=== PATIENT | female | born 1965 | race Caucasian/White ===

== ENCOUNTER 2020-02-05 11:30 | Outpatient (RCR) | payer OTHER, SELFPAY ==
--- NOTE | 2020-01-11 11:21 | HP.PTEVAL ---
Patient's Visit Information EWA LIZ is a 54 year old F referred to Physical Therapy by ALEXANDRE MORRIS with a diagnosis of CERVICAL, THORACIC AND LUMBAR STRAINS SUSTAINED AT WORK. Date of Evaluation: 01/11/20 Physical Therapist: Bhakti Hernandez PT, Cert MDT - Visit Plan Frequency: 3x /Week Duration: 4 Weeks Plan: AQUATIC THERAPY FOR PAIN RELEIF, POSTURE CORRECTION/STRENGTHENING, INSTRUCTION IN APPROPRIATE BODY MECHANICS AND ACTIVITY MODIFICATIONS. DLS STARTING WITH A NEUTRAL SPINE PROGRESSING ROM TOLERATED. LUDY UE AND LE ROM, STRETCHING AND STRENGTHENING. HEP INSTRUCTION. 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 [employer]. OFF WORK UNTIL NOW. GOING BACK TOMORROW FOR 8 HOURS VS NORMAL 12 HOURS. LIGHT DUTY. Present symptoms: NECK PAIN, LUDY SHOULDER PAIN AND HEADACHES. LEFT LBP, RIGHT BUTTOCK SPASMS AND SHARP PAIN GOING DOWN TO RIGHT KNEE. NO LLE SX'S. MID BACK PAIN AND LUDY RIB CAGE PAIN. Present since: DEC 25 2019. Pain Scale: WORST 6/10, LEAST 2/10. Currently: 02/15. Commenced as a result of: PATIENT REPORTS SHE GOT CAUGHT IN A HEAVY FIRE DOOR AT WORK - IT JOLTED ME AND TWISTED MY BACK. Symptoms at onset: LUDY SHLD PAIN. Worse: SITTING, PROLONGED LYING, PROLONGED WALKING, TRYING TO LOOK AT THE COMPUTER, LIFTING, ANYTHING REPETATIVE, WASHING AND COMBING HAIR, PUTTING ON BRA, TRYING TO VACUUM, WASHING DISHES, COOKING, PROLONGED DRIVING > 20 MIN, TURNING HEAD. Better: HOT TUB, ICE, TYLONOL, FLEXERIL, CHANGE OF POSITION. Disturbed sleep: YES. Previous history/Previous treatment: PATIENT DENIES ANY PRIOR HISTORY OR TREATMENT OF NECK OR BACK. Coughing/sneezing/straining: NEGATIVE. Gait: NORMAL FOR PATIENT BUT DISTANCE LIMITED. Difficulty initiating urinatin: NO. Dizziness: NO. Tinnitis: NO. Nausea: N0. Shortness of Breath: YES - PATIENT TO INFORM HER DOCTOR. Difficulty Swollowing: NO. Accidents: NO. Unexplained weight loss: NO. Imaging: X-RAYS IN ED - PATIENT ISN'T SURE WHAT ALL X-RAYS THEY DID - THEY DIDN'T SEEN ANYTHING EXCEPT ARTHRITIS. PMH: *RA*, MACULAR DEGENERATION. Recent major surgery: 2013 - HYSTERECTOMY - OFF WORK FOR 9 MONTHS DUE TO MASSIVE INFECTION. - Objective Sitting/Standing Posture: POOR. FH, RS, NO TORTICOLLIS. Lordosis: REDUCED. Lateral shift: NO. Relevant shift: N/A. Active Correction of posture: NE. Other Observations: INDEP GAIT INTO PT LIMPING ON THE RIGHT LE. PATIEN REPORTS LIMPING ON RIGHT LE DUE TO RA AND HIP PAIN EVEN BEFORE THE ACCIDENT AT WORK. UNABLE TO TRANSFER SIT TO STAND WITHOUT UE ASSIST. Motor deficit: LUDY UE AND LE STRENGTH 5/5 WITH MMT'ING EXCEPT RIGHT HIP 4-/5, LEFT HIP 4/5 AND LUDY SHLD'S 4/5. Sensory deficit: LUDY UE AND LE LIGHT TOUCH SENSATION INTACT AND SYMMETRICAL. ROM deficit: LUDY UE AND LE ROM WFL BUT GUARDED AND SLOW WITH TESTING AT THE END OF THE AVAILBLE RANGE LUDY SHLD'S. TIGHT LUDY HS'S AND GASTROC SOLEUS COMPLEX'S. TIGHT RIGHT HIP IR AND ER BY APPROX 50% COMPARED TO THE LEFT. Dural Signs: POSITIVE RIGHT LE. Lumbar mvmt loss: flex - MOD. ext - PAULA. R SG - MOD. L SG - MIN. MILD RIGHT RIB CAGE AREA PAIN WITH BACK ROM TESTING. THORACIC MVMT LOSS: RIGHT ROT - MOD. LEFT ROT - MIN. RILD RIGHT RIB CAGE PAIN WITH ROTATION TESTING TOO. Cervical Mvmt Loss: Flex: NIL. Pro: NIL. Ext: MOD. Ret: MOD. RSB: NIL. LSB: NIL. R Rot: MOD. L Rot: MOD. C/O PULLIING PAIN IN NECK WITH LUDY CERV ROTATION TESTING. Postural strength: POOR. Core strength: POOR. Palpation: NO ACUTE TENDERNESS WITH PALPATION OF SPINE, SHLD'S OR HIPS EXCEPT LOWER CERVICAL SPINE REGION. - Goals Goal 1:: DECREASE C/O NECK, SHLD, BACK AND RIGHT LE SX'S. Goal Time Frame: 4-6 Weeks Goal 2:: IMPROVE PERSONAL CARE, READING, DRIVING, LIFTING, WALKING, SITTING, STANDING, SLEEP, SOCIAL LIFE/RECREATIONAL, TRAVEL, HOMEMAKING AND WORK FUNCTION Goal Time Frame: 4-6 Weeks Goal 3:: INSTRUCT IN PROPHYLAXIS Goal Time Frame: 4-6 Weeks - Rehabilitation Potential Rehabilitation Potential: Good - Anticipated Interventions Patient/Client Instruction: Educate patient on: Condition, Plan of Care, Risk Factors, Benefits of Fitness Program For the Purpose of:: To improve self management Therapeutic Exercise to Include: Strength training, Body mechanics, Postural training, Gait and locomotor training, Neuromotor development, In an aquatic setting, Dynamic Lumbar Stabilization, Scapular Strength/Stabilization For the Purpose of:: To decrease pain, To increase ROM, To improve muscle performance and motor function, To increase tolerance to activity/condition/position, To improve ability of physical actions for home/community/work/leisure, To improve gait and locomotor functions Thank you for the opportunity to evaluate your patient. For Medicare and Medicare HMO plans, please review the plan of care and approve it. It will need to be FAXED BACK to us at [phone] for Medicare purposes. For Medicare only, by signing this I certify the plan of care. Please let me know if there are questions or concerns regarding this plan of care. Physician Signature: Date:
--- NOTE | 2020-03-10 11:35 | HP.PT.NRP ---
EWA LIZ was seen in my office for initial evaluation on 01/11/20. The following Plan of Care was established for this patient: Initial Frequency: 3x /Week Initial Duration: 4 Weeks Patient/Client Instruction: Educate patient on: Condition, Plan of Care, Risk Factors, Benefits of Fitness Program For the Purpose of:: To improve self management Therapeutic Exercise to Include: Strength training, Body mechanics, Postural training, Gait and locomotor training, Neuromotor development, In an aquatic setting, Dynamic Lumbar Stabilization, Scapular Strength/Stabilization For the Purpose of:: To decrease pain, To increase ROM, To improve muscle performance and motor function, To increase tolerance to activity/condition/position, To improve ability of physical actions for home/community/work/leisure, To improve gait and locomotor functions This patient was last seen in our office 02/05/20. Pertinent comments regarding their Physical therapy will appear below: This patient has not returned to Physical Therapy and is appropriate to return to MD for further follow-up as needed. At this point I will be discontinuing this patient from physical therapy. I would be happy to see this patient again in the future if found appropriate by the physician. Thank you! Bhakti Hernandez, PT, Cert MDT
== END 2020-02-05 19:00 | disposition home or self-care (01) ==
LOC: PT 11:30
PROVIDERS: PCP Internal Medicine
DX: S29.012D Strain of muscle and tendon of back wall of thorax, subsequent encounter (principal); S39.012D Strain of muscle, fascia and tendon of lower back, subsequent encounter; S16.1XXD Strain of muscle, fascia and tendon at neck level, subsequent encounter
CPT/HCPCS: 97014; 97110; 97113; 97162; 97163; G0283

== ENCOUNTER → 2021-01-17 | Outpatient (CLI) | payer OTHER, SELFPAY | END | disposition home or self-care (01) | PROVIDERS: Visit Provider Internal Medicine | DX: Z20.822 Contact with and (suspected) exposure to COVID-19 (principal) | CPT/HCPCS: 87635; U0002 ==

== ENCOUNTER 2022-05-14 14:27 | Emergency (ER) | payer OTHER, SELFPAY ==
[2022-05-14 14:28] VITALS: BP 159/96; PULSE 118; RESP 16; TEMP 36.8; O2SAT 96; BMI 39.1
--- NOTE | 2022-05-14 15:04 | VDLE_ITS ---
Reason For Study: Swelling Procedure LEFT This is a venous duplex using B-mode, color GSV is normal. flow and spectral Doppler. CFV is compressible, spontaneous, phasic, Exam performed portable in ED. competent, and demonstrates normal A preliminary report was called and/or faxed augmentation. to [facility]. FV is compressible, spontaneous, phasic, competent and demonstrates normal augmentation. POP V is compressible, spontaneous, phasic, competent and demonstrates normal augmentation. T/P Trunk is compressible. PTV is compressible. LT PerV is compressible. VL/Venous Duplex US, Unilateral Interpretation Summary There is no evidence of left lower extremity deep vein thrombosis. Left great s aphenous vein appears patent and compressible segmentally. Ordering Physician: Kingston Foley Performed By: Katherin Eid RVT
--- NOTE | 2022-05-14 15:04 | EX.ED.DYSGE1 ---
HPI History of Present Illness Chief Complaint: Lower Extremity Injury Informant: patient Narrative Narrative: Very pleasant 57-year-old female arriving to the emergency room out of concern for DVT of the left leg. 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 She noticed some discomfort in her left calf with walking and some more swelling in the leg than is normal. Therefore she comes to the emergency department for evaluation. No chest pain or shortness of breath. She notes she had a very minor stroke in the past. [facility] Medical History (Updated 05/14/22 @ 15:[address] Kingston Foley DO) Hypertension Macular degeneration Rheumatoid arthritis TIA Home Medications aspirin 81 mg tablet,delayed release 81 mg PO QHS 11/21/13 [History Last Taken 12/31/16] vitamins A,C,K-iqqe-rbpgvd 14,320 unit-226 mg-200 unit capsule (PreserVision AREDS) 1 ea PO DAILY 11/21/13 [History Last Taken 12/31/16] hydrochlorothiazide 12.5 mg capsule 12.5 mg PO DAILY 12/11/13 [History Last Taken 12/31/16] diazepam 5 mg tablet 5 mg PO 4X/DAY PRN PRN Spasms ##30 02/13/14 [Rx Last Taken 03/27/14] metoprolol tartrate 25 mg tablet 12.5 mg PO DAILY 05/24/16 [History Last Taken 12/31/16] acetaminophen 325 mg tablet (Tylenol) 650 mg PO Q6H PRN PRN Mild Pain (scale 0-3)/T>100.7 ##0 01/02/17 [Rx Last Taken Unknown] bevacizumab 25 mg/mL intravenous solution (Avastin) mg 05/14/22 [History Last Taken Unknown] prednisone 2.5 mg tablet 2.5 mg PO BID 05/14/22 [History Last Taken Unknown] Allergy/AdvReac Type Severity Reaction Status Date / Time morphine Allergy Severe CAN NOT Verified 05/14/22 14:30 BREATHE Sulfa (Sulfonamide Allergy Intermediate Hives Verified 05/14/22 14:30 Antibiotics) TAPE Allergy Hives Uncoded 05/14/22 14:30 Social History (Updated 05/14/22 @ 15:[address] [place] Foley DO) current gender identity: female Smoking Status: Former smoker substance use type: does not use ROS ROS ED Constitutional Constitutional ED: Denies chills or weight loss Eyes Eyes: Denies change in vision or diplopia ENT ENT ED: Denies ear pain, rhinorrhea or sore throat Cardiovascular Cardiovascular: Denies chest pain, orthopnea, palpitations or racing heartbeat Respiratory/Chest Respiratory/Chest: Denies cough, dyspnea or orthopnea Gastrointestinal Gastrointestinal: Denies abdominal pain, diarrhea, nausea or vomiting Genitourinary Genitourinary ED: Denies dysuria, hematuria or urinary frequency Musculoskeletal Musculoskeletal: Reports other Details: See history of present illness ; Denies arthralgias or myalgias Integumentary Denies abscess or rash Neurologic Neurologic: Denies headache(s) or weakness Psychiatric Psychiatric: Denies anxiety, depression, suicidal ideation or suicidal thoughts Endocrine Endocrinology: Denies polydipsia, polyphagia or polyuria Allergic/Immunologic Allergic/Immunologic ED: Denies mouth swelling, tongue swelling or urticaria EXAM Physical Exam Const Vital Signs: 05/14/22 14:28 Temperature 98.2 F Temperature Source Temporal Pulse Rate 118 H Respiratory Rate 16 Blood Pressure 159/96 H Blood Pressure Mean 117 Pulse Ox 96 Oxygen Delivery Method Room Air Positive well nourished and well developed General Appearance ED: well developed HEENT Reports normocephalic, head/scalp atraumatic and moist mucous membranes Eyes PERRL and EOMs intact bilaterally Neck no lymphadenopathy, supple and no JVD Resp normal respiratory effort and clear to auscultation bilaterally Cardio regular rate, regular rhythm and no murmurs GI normal to inspection, nondistended, normoactive bowel sounds and non-tender Palpation: soft Back/Spine no CVA tenderness and normal ROM Extremity Extremity Narrative: There varicose veins bilaterally. The left calf is mildly tender to palpation. There is no palpable cords. There is mild swelling when compared to the right. General Extremety ED: Yes edema General Extremity: edema Neuro oriented x3 and CN's II-XII intact bilaterally Sensorium / Orientation: alert Motor Exam: strength 5/5 throughout Psych mental status grossly normal Mood & Affect: Negative for depressed or tearful Skin no rashes or lesions noted and no wounds MDM MDM MDM Narrative Medical decision making narrative: Duplex ultrasound was negative for DVT. Patient was given reassurance for follow-up as needed Discharge Plan Triage Chief Complaint: Lower Extremity Injury ED Provider: Crandon,Kingston Dx/Rx/DC Orders Clinical Impression: Pain of left calf, Left leg swelling Instructions: ED Peripheral Edema, Unilateral Prescriptions: No Action aspirin 81 MG tablet 81 mg PO QHS Label Comments: prevent heart attack/stroke PreserVision AREDS 1 EACH capsule 1 ea PO DAILY Label Comments: supplement hydrochlorothiazide 12.5 MG capsule 12.5 mg PO DAILY Label Comments: BLOOD PRESSURE diazepam 5 MG tablet 5 mg PO 4X/DAY PRN PRN (Reason: Spasms) Qty: 30 0RF Label Comments: RELAXANT metoprolol tartrate 25 MG tablet 12.5 mg PO DAILY acetaminophen [Tylenol] 325 MG tablet 650 mg PO Q6H PRN PRN (Reason: Mild Pain (scale 0-3)/T>100.7) Qty: 0 0RF prednisone 2.5 mg Tablet 2.5 mg PO BID Avastin 25 mg/mL Solution Activity Restrictions/Additional Instructions: Follow-up with your doctors as scheduled. Return if worsening or concerns Disposition Disposition: Home, Self Care
== END 2022-05-14 15:46 | disposition home or self-care (01) ==
LOC: ED 15:46
PROVIDERS: Emergency Provider Emergency Medicine; PCP Internal Medicine; Visit Provider Emergency Medicine
DX: M79.662 Pain in left lower leg (principal); M79.89 Other specified soft tissue disorders; I10 Essential (primary) hypertension; Z79.84 Long term (current) use of oral hypoglycemic drugs; Z79.899 Other long term (current) drug therapy; Z86.73 Personal history of transient ischemic attack (TIA), and cerebral infarction without residual deficits; Z87.891 Personal history of nicotine dependence
CPT/HCPCS: 93971; 99282

== ENCOUNTER 2023-12-23 07:00 | Inpatient (IN) | payer OTHER, SELFPAY ==
[2023-12-23] VITALS (7 sets, daily range): BP systolic 107–184; BP diastolic 57–90; PULSE 73–106; RESP 16–18; TEMP 36.4–36.8; O2SAT 91–99; BMI 44.0; BMI 42.7
--- NOTE | 2023-12-23 07:03 | RAD_ITS ---
STUDY: X-RAY CHEST REASON FOR EXAM: Female, 58 years old. Preop clearance TECHNIQUE: Single AP portable view of the chest. COMPARISON: Comparison is made with prior study dated August 02, 2017. FINDINGS: The lungs are clear and expanded. There is no demonstrated pleural abnormality. Normal size heart. Normal mediastinum and sepideh. Normal visualized pulmonary arteries. There is atherosclerotic tortuosity of the aortic arch and descending thoracic aorta. There are diffuse degenerative changes of the visualized thoracic spine. Normal visualized ribs, clavicles, and shoulders. There is no demonstrated abnormality of the visualized soft tissue structures of the upper abdomen. RAD/Chest 1 View (Portable) IMPRESSION: No acute abnormality is seen. Electronically Signed: Rico Scott MD at 8:19 EST ,
--- NOTE | 2023-12-23 07:04 | EKG12_ITS ---
Test Reason : FALL Blood Pressure : / mmHG Vent. Rate : 068 BPM Atrial Rate : 068 BPM P-R Int : 140 ms QRS Dur : 068 ms QT Int : 376 ms P-R-T Axes : 002 020 021 degrees QTc Int : 399 ms Normal sinus rhythm with sinus arrhythmia Normal ECG Confirmed by Anastacio Moreno ([id number]), online editor [facility] ([id number]) on 12/24/2023 9:28:15 AM Referred By: Confirmed By:Anastacio Moreno
--- NOTE | 2023-12-23 07:05 | RAD_ITS ---
STUDY: X-RAY - PELVIS AND LEFT HIP REASON FOR EXAM: Female, 58 years old. Injury/Pain TECHNIQUE: 3 views of the pelvis and hip. COMPARISON: None. FINDINGS: There is a non-specific bowel gas pattern. Normal visualized soft tissue structures. Normal bilateral iliac wings, sacroiliac joints and visualized sacrum. Normal bilateral superior and inferior pubic rami. Normal pubic symphysis. Normal bilateral ischial tuberosities. There is a comminuted left intertrochanteric fracture with a cephalic migration of the distal fracture fragment. Soft tissue swelling. RAD/HIP, UNI W/ Pelvis 2-3 Views IMPRESSION: Comminuted left intertrochanteric fracture with cephalic migration of the distal fracture fragment. Soft tissue swelling. Electronically Signed: Rico Scott MD at 8:20 EST ,
--- NOTE | 2023-12-23 07:28 | EX.ED.GENINJ ---
HPI History of Present Illness Chief Complaint: Fall Detail of Chief Complaint: Patient fell doing chores in the barn. She states she felt a crack, left h Informant: patient and EMS (Patient received fentanyl by squad because of anaphylactic reaction to morphine) Onset/Context/Timing Onset: Today and Hours Mechanism/Context: Blunt Injury and Fall (Same level) Location of pain/injuries: Left hip Quality of Pain: Dull and Aching Location: Left hip Current Severity: Moderate Maximum Severity: Severe Worsened by: Any movement Relieved by: Nothing Associated Symptoms Associated Symptoms: Positive for Loss of function and Inability to ambulate; Negative for Weakness, Loss of consciousness or Amnesia Narrative Narrative: Patient is a 58-year-old woman who is on baby aspirin. She is on no other antithrombotic and on no anticoagulant who presents after fall. She injured her left hip. She felt a crack. She was unable to move her left lower extremity because of the pain. She denies head trauma. Denies loss of conscious. She not amnestic. Denies neck pain. She denies chest pain or shortness of breath. Denies abdominal pain. Denies low back pain. Patient has a past medical history of hypertension. She has seen Dr. Mccormick in the past for knee problems and surgery. Patient is on prednisone for rheumatoid arthritis. Tetanus Immunization: Unknown Prior similar symptoms: No Recent Illness/Hospitalization: No PFSH PFSH Medical History Hypertension Macular degeneration Rheumatoid arthritis TIA Home Medications aspirin 81 mg tablet,delayed release 81 mg PO QHS 11/21/13 [History Last Taken 12/31/16] vitamins A,C,H-ufew-rmrogv 4,296 mcg-226 mg-90 mg capsule (PreserVision AREDS) 1 ea PO DAILY 11/21/13 [History Last Taken 12/31/16] hydrochlorothiazide 12.5 mg capsule 12.5 mg PO DAILY 12/11/13 [History Last Taken 12/31/16] diazepam 5 mg tablet 5 mg PO 4X/DAY PRN PRN Spasms ##30 02/13/14 [Rx Last Taken 03/27/14] metoprolol tartrate 25 mg tablet 12.5 mg PO DAILY 05/24/16 [History Last Taken 12/31/16] acetaminophen 325 mg tablet (Tylenol) 650 mg (2 x 325 mg) PO Q6H PRN PRN Mild Pain (scale 0-3)/T>100.7 ##0 01/02/17 [Rx Last Taken Unknown] bevacizumab 25 mg/mL intravenous solution (Avastin) mg 05/14/22 [History Last Taken Unknown] prednisone 2.5 mg tablet 2.5 mg PO BID 05/14/22 [History Last Taken Unknown] Allergy/AdvReac Type Severity Reaction Status Date / Time morphine Allergy Severe CAN NOT Verified 12/23/23 07:03 BREATHE Sulfa (Sulfonamide Allergy Intermediate Hives Verified 12/23/23 07:03 Antibiotics) adhesive tape [tape] Allergy Hives Verified 12/23/23 07:03 Social History Smoking Status: Former smoker substance use type: does not use ROS ROS ED Constitutional Constitutional ED: Denies chills, fever(s), subjective or sweats Eyes Eyes: Denies blurry vision or change in vision ENT ENT ED: Reports other Details: Denies dental trauma or epistaxis. ; Denies ear pain, rhinorrhea or sore throat Cardiovascular Cardiovascular: Denies chest pain or palpitations Respiratory/Chest Respiratory/Chest: Denies cough, dyspnea or dyspnea on exertion Gastrointestinal Gastrointestinal: Reports nausea; Denies abdominal pain, diarrhea or vomiting Genitourinary Genitourinary ED: Denies dysuria, hematuria or urinary frequency Musculoskeletal Musculoskeletal: Reports other Details: Left hip pain ; Denies arthralgias, back pain, myalgias or neck pain Integumentary Denies rash Neurologic Neurologic: Denies headache(s) or paresthesias Psychiatric Psychiatric: Denies anxiety or depression Endocrine Endocrinology: Denies cold intolerance or heat intolerance Hematologic/Lymphatic Hematologic/Lymphatic: Denies easy bleeding or easy bruising EXAM Physical Exam Const Vital Signs: 12/23/23 07:01 12/23/23 07:04 Temperature 97.6 F L Temperature Source Temporal Pulse Rate 73 Respiratory Rate 16 Respiratory Effort Normal Respiratory Depth Normal Respiratory Pattern Normal Blood Pressure 184/85 H Blood Pressure Mean 118 Pulse Ox 95 Oxygen Delivery Method Room Air Room Air Positive well nourished, well developed and obese Constitutional Narrative: Patient appears uncomfortable. She has significant discomfort when I removed her shoes to assess her feet. General Appearance ED: well developed; Negative for NAD Nutritional Appearance: obese HEENT Reports TM's clear atraumatic; Negative for tenderness Nose: Negative for septum abnormal Tympanic Membrane ED: Yes TM's clear Eyes PERRL and EOMs intact bilaterally General Eye ED: Yes other Other Details: There is no subconjunctival hemorrhage. Neck full ROM General: Negative for tenderness Chest Wall inspection of chest normal Resp normal respiratory effort and clear to auscultation bilaterally Cardio regular rhythm, S1 normal heart sound, S2 normal heart sound and no murmurs GI normal to inspection, nondistended, normoactive bowel sounds, non-tender, non-distended and no masses Back/Spine normal to inspection and no thoracic nor lumbar tenderness Extremity Extremity Narrative: Patient's left lower extremity is in flexed position. Attempt to straighten causes significant discomfort. There is also pain outpatient in the left inguinal area and left greater trochanteric region. DP pulses palpable. There is no pain ovation of the knee or ankle. Neuro oriented x3, CN's II-XII intact bilaterally, moves all extremities and no focal motor deficits [place] Coma Scale: document GCS findings Spontaneous Obeys Commands Oriented 15 Sensorium / Orientation: alert Psych mental status grossly normal and thought process normal Skin no rashes or lesions noted, no wounds, skin turgor normal and no jaundice MDM MDM MDM Narrative Medical decision making narrative: Patient's history and physical is consistent with a hip fracture. Will obtain images to determine if this is a femoral neck versus inotrope versus subtrochanteric because of patient's allergy she was medicated with fentanyl. Will need to determine what to treat her pain with since this has a short duration of action. Appropriate blood work was obtained for preoperative risk stratification and expedite clearance for surgery. Patient was typed and screened. History & Record Review Additional record(s) reviewed:: Prior inpatient record (Admitted December 2021 for respiratory failure due to COPD exacerbation.), Prior ED visit and Prior labs Lab Data Attestation: I reviewed the patient's lab results. Lab results narrative: CBC is unremarkable. Electrolyte panel is unremarkable. Labs: Laboratory Results - last 24 hr 12/23/23 07:30 WBC 10.0 RBC 4.97 Hgb 14.0 Hct 44.6 MCV 89.7 MCH 28.2 MCHC 31.4 L RDW Std Deviation 51.4 H RDW Coeff of Ame 15.7 H Plt Count 211 MPV 11.2 Immature Gran % (Auto) 1.100 H Neut % (Auto) 62.3 Lymph % (Auto) 27.0 [place] % (Auto) 7.5 Eos % (Auto) 1.6 Baso % (Auto) 0.5 Absolute Neuts (auto) 6.2 Absolute Lymphs (auto) 2.70 Nucleated RBC % 0 Radiography Chest X-Ray - ED: 1 View (Portable chest x-ray reveals no acute process. Cardiac silhouette size normal. Perihilar region normal. No into pneumothorax or hemothorax. There is no obvious fractured ribs.) and Read by ED Physician (Three-view x-ray of the left hip reveals a displaced left intertrochanteric fracture.) Rhythm Strip Rhythm Strip: Sinus Rhythm Rate: 73 Ectopy: None EKG Initial EKG: Attestation: I personally reviewed and interpreted this EKG as follows: Interpretation: Sinus Rhythm (Rate is 68. EKG is normal. TN interval is 140 ms. Cures duration 68 ms. QT durations are 76 ms. [place] is normal.) Management Discussion w/another healthcare provider: Hospitalist, Tractor Trailer Operator (Dr. Temple was made aware of the patient at 0800) and Pharmacist (Patient has anaphylactic reaction to morphine. Contacted pharmacy. Spoke to Smith. He did a search for meds that indicates she has not had any opiate in the past several years. He recommended small dose of Dilaudid to see if she has a reaction. Will discuss this with patient.) Treatment and Re-Evaluation Narrative: Records from although were called for to determine what pain medicine patient received after her knee surgery. Dr. Mccormick recalls that patient was treated with oxycodone and Valium. This was ordered. Discharge Plan Triage Chief Complaint: Fall ED Provider: Roberto Tam Dx/Rx/DC Orders Clinical Impression: Displaced intertrochanteric fracture of left femur, initial encounter for closed fracture, Elevated blood pressure reading with diagnosis of hypertension Prescriptions: No Action aspirin 81 MG tablet 81 mg PO QHS Patient Comments: prevent heart attack/stroke PreserVision AREDS 1 EACH capsule 1 ea PO DAILY Patient Comments: supplement hydrochlorothiazide 12.5 MG capsule 12.5 mg PO DAILY Patient Comments: BLOOD PRESSURE diazepam 5 MG tablet 5 mg PO 4X/DAY PRN PRN (Reason: Spasms) Qty: 30 0RF Patient Comments: RELAXANT metoprolol tartrate 25 MG tablet 12.5 mg PO DAILY acetaminophen [Tylenol] 325 MG tablet 650 mg PO Q6H PRN PRN (Reason: Mild Pain (scale 0-3)/T>100.7) Qty: 0 0RF prednisone 2.5 mg Tablet 2.5 mg PO BID Avastin 25 mg/mL Solution Primary Care Provider: Teresa Jain Referrals: Teresa Jain MD [Primary Care Provider] - Disposition Disposition: Acute Care Hospital [facility]
--- OUTSIDE RECORDS SUMMARY | 2023-12-23 07:32 | XMS RPT_ITS | CCD ---
Author Name Unknown Address [address] [place] [address] Organization [facility] Care Team Providers Care Supervisor [employer] Splitting Name Role Phone Unavailable Primary Care Provider UnavailConnie Bose MD Primary Care Provider Connie Jain MD Primary Care Provider Connie Jain MD Primary Care Provider MASON STANFORD, DR ROSALES Primary Care Physician [phone] SUZY ONEAL MD Attending Unavailable MASON STANFORD., DR. ROSALES Primary Care Unavailab Sienna STANFORD, SUZY Padron Attending Unavailable MASON STANFORD., DR. ROSALES Primary Care Unavailab Sienna STANFORD, SUZY Padron Attending Unavailable MASON STANFORD., DR. ROSALES Primary Care Candace El MD, SUZY Padron Admitting Unavailable HAMIDA MCINTOSH Consulting Unavailable SUZY ONEAL MD Referring Unavailable TALAMPAS, CONNIE Ceci Primary Care Unavailable TALAMPAS, CONNIE D Referring Unavailable TALAMPAS, CONNIE D Attending Unavailable BARRYAMPAS, CONNIE D Primary Care Unavailable JEREMI SALMERON Referring Unavailable TALAMPAS, CONNIE D Primary Care Unavailable JEREMI SALMERON Referring Unavailable SALMERONJEREMI Attending Unavailable TALAMPAS, CONNIE D Primary Care Unavailable SALMERONJEREMI Referring Unavailable SALMERON SHAILEY Referring Unavailable TALAMPAS, CONNIE D Primary Care Unavailable JARET SEYMOUR Attending Unavailable TALAMPAS, CONNIE D Primary Care Unavailable JARET SEYMOUR Referring Unavailable SALMERONJEREMI Referring Unavailable TALAMPAS, CONNIE D Primary Care Unavailable TALAMPAS, CONNIE D Primary Care Unavailable TALAMPAS, CONNIE D Referring Unavailable Allergies Allergy Classification Reported Allergen(s) Allergy Type Date of Onset Reaction(s) Facility (20 sources) Morphine; Translations: [morphine] Drug Allergy 7 Anaphylaxis, Food anaphylaxis (disorder) [facility] Work Phone: (1 source) Sulfonamides (Antibiotic) Propensity to adverse reactions to drug 0 [facility] Work Phone: (20 sources) Amoxicillin; Translations: [amoxicillin] Drug Allergy 5 GI Upset [facility] Work Phone: (20 sources) Sulfonamides (Antibiotic); Translations: [SULFA (SULFONAMIDE ANTIBIOTICS)] Propensity to adverse reactions 5 Anaphylaxis [facility] Work Phone: (2 sources) Adhesive Tape Allergy to substance Redness [facility] (2 sources) Sulfamethoxazole ; Translations: [sulfamethoxazol e] Drug Allergy Hives [facility] Medications Current Medications Medication Drug Class(es) Dates Sig (Normalized) Sig (Original) aspirin 81 mg delayed release oral tablet (20 sources) Platelet Aggregation Inhibitor, Nonsteroidal Anti-inflammatory Drug Start: 10-09-2022 aspirin 81 mg oral delayed release tablet Dose : 81 mg = 1 tab(s), Oral, qDay, 0 Refill(s) Start Date: 10/09/22 Status: Ordered Completed/Discontinued Medications Medication Drug Class(es) Dates Sig (Normalized) Sig (Original) 1 ml abatacept 125 mg/ml auto-injector (20 sources) Selective T Cell Costimulation Modulator Start: 03-03-2023 End: 04-08-2023 abatacept (ORENCIA CLICKJECT) 125 mg/mL Indications: Sero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 arthritis (HCC) Inject 1 pen (125mg) subcutaneously one time a week. 4 mL 11 04/08/2023 Active Problems Active Problems Problem Classification Problem Date Documented Date Episodic/Chronic Anxiety disorders (20 sources) Anxiety; Translations: [Anxiety disorder, unspecified] Onset: 12-14-2011 12-14-2011 Chronic Diabetes mellitus without complication (1 source) High hemoglobin A1c level; Translations: [Other abnormal glucose] Episodic Essential hypertension (20 sources) Benign essential hypertension; Translations: [Essential (primary) hypertension] Onset: 01-25-2014 01-25-2014 Chronic Menopausal disorders (1 source) Hyperhidrosis; Translations: [Menopausal and female climacteric states] Chronic Menstrual disorders (20 sources) Dysmenorrhea; Translations: [Dysmenorrhea, unspecified] 07-01-2006 Chronic Nutritional deficiencies (1 source) Vitamin D deficiency; Translations: [Vitamin D deficiency, unspecified] Chronic Osteoarthritis (5 sources) Osteoarthritis of right knee joint; Translations: [Unilateral primary osteoarthritis, right knee] Chronic Other aftercare (4 sources) Long-term current use of systemic steroid; Translations: [skilled nursing (current) use of systemic steroids] Episodic Other aftercare (1 source) Long-term current use of immunosuppressive drug; Translations: [Long-term use of immunosuppressant medication] Episodic Other aftercare (1 source) Other chcf (current) drug therapy; Translations: [Encounter for long-term (current) use of medications] Onset: 10-07-2023 Episodic Other aftercare (1 source) skilled nursing (current) use of systemic steroids; Translations: [leaflet or newspaper deliverer current use of systemic steroids] Onset: 10-07-2023 Episodic Other connective tissue disease (1 source) Spasm Episodic Other connective tissue disease (1 source) Trochanteric bursitis of left hip; Translations: [Trochanteric bursitis, left hip] Episodic Other nervous system disorders (1 source) Other chronic pain; Translations: [Chronic pain of left ankle] Onset: 07-15-2023 Chronic Other non-traumatic joint disorders (2 sources) Chronic ankle pain; Translations: [Pain in left ankle and joints of left foot] 07-14-2023 Episodic Other non-traumatic joint disorders (1 source) Pain in left ankle and joints of left foot; Translations: [Chronic pain of left ankle] Onset: 07-15-2023 Episodic Other nutritional; endocrine; and metabolic disorders (20 sources) Morbid obesity; Translations: [Morbid (severe) obesity due to excess calories] Onset: 01-14-2016 01-14-2016 Chronic Other screening for suspected conditions (not mental disorders or infectious disease) (2 sources) Plain X-ray result abnormal; Translations: [Abnormal findings on diagnostic imaging of other specified body structures] Onset: 04-16-2023 04-16-2023 Chronic Other screening for suspected conditions (not mental disorders or infectious disease) (4 sources) Patient encounter status; Translations: [Encounter for screening mammogram for malignant neoplasm of breast] Episodic Other upper respiratory disease (20 sources) Allergic rhinitis; Translations: [Allergic rhinitis, unspecified] 11-04-2019 Chronic Other upper respiratory disease (20 sources) Deviated nasal septum; Translations: [Deviated nasal septum] 07-01-2006 Episodic Residual codes; unclassified (20 sources) Periodic limb movement disorder; Translations: [Periodic limb movement disorder] Onset: 01-11-2016 01-11-2016 Chronic Residual codes; unclassified (1 source) Persistent insomnia; Translations: [Insomnia, unspecified] Episodic Retinal detachments; defects; vascular occlusion; and retinopathy (20 sources) Exudative age-related macular degeneration; Translations: [Exudative age-related macular degeneration, unspecified eye, stage unspecified] Onset: 01-11-2016 11-03-2021 Chronic Rheumatoid arthritis and related disease (20 sources) Rheumatoid arthritis of multiple joints; Translations: [Rheumatoid arthritis without rheumatoid factor, multiple sites] Onset: 11-04-2019 11-04-2019 Chronic Spondylosis; intervertebral disc disorders; other back problems (1 source) Sciatica Episodic Sprains and strains (1 source) Strain of neck muscle Episodic Unclassified (1 source) Long-term use of immunosuppressant medication; Translations: [Long-term use of immunosuppressant medication] Onset: 03-05-2023 Past or Other Problems Problem Classification Problem Date Documented Da te Episodic/Chronic Hemorrhoids (20 sources) External hemorrhoids; Translations: [Residual hemorrhoidal skin tags] Onset: 12-14-2011 12-14-2011 Episodic Other gastrointestinal disorders (20 sources) Adhesion of intestine; Translations: [Peritoneal adhesions (postprocedural) (postinfection)] Onset: 12-05-2013 12-05-2013 Episodic Residual codes; unclassified (20 sources) History of difficult intubation; Translations: [Other specified personal risk factors, not elsewhere classified] Onset: 01-14-2016 11-03-2021 Episodic Results Test Name Value Interpretation Reference Range Facil ity Vital Signs Date Time Vital Sign Value Performing Clinician Facility 10-07-2023 12:55-0500 Body height 168.1 cm Jaret Seymour LINE DRIVER.SUPERVISOR [employer] Work Phone: [facility] 10-07-2023 12:55-0500 Body temperature 98.01 [degF] Jaret Seymour LINE DRIVER.SUPERVISOR [employer] Work Phone: [facility] 10-07-2023 12:55-0500 Body weight 120.2 kg Jaret Seymour LINE DRIVER.SUPERVISOR [employer] Work Phone: [facility] 10-07-2023 12:55-0500 Diastolic blood pressure 83 mm[Hg] Jaret Seymour LINE DRIVER.SUPERVISOR [employer] Work Phone: [facility] 10-07-2023 12:55-0500 Heart rate 96 /min Jaret Seymour LINE DRIVER.SUPERVISOR [employer] Work Phone: [facility] 10-07-2023 12:55-0500 Systolic blood pressure 127 mm[Hg] Jaret Seymour LINE DRIVER.SUPERVISOR [employer] Work Phone: [facility] 04-16-2023 11:26-0400 Body temperature 97.2 [degF] Connie Jain MD Work Phone: [facility] 04-16-2023 11:26-0400 Body weight 119.3 kg Connie Jain MD Work Phone: [facility] 04-16-2023 11:26-0400 Diastolic blood pressure 76 mm[Hg] Connie Jain MD Work Phone: [facility] 04-16-2023 11:26-0400 Heart rate 93 /min Connie Jain MD Work Phone: [facility] 04-16-2023 11:26-0400 Respiratory rate 18 /min Connie Jain MD Work Phone: [facility] 04-16-2023 11:26-0400 SaO2% (BldA) [Mass fraction] 97 % Connie Jain MD Work Phone: [facility] 04-16-2023 11:26-0400 Systolic blood pressure 124 mm[Hg] Connie Jain MD Work Phone: [facility] 03-03-2023 10:04-0400 Body height 170.2 cm Jeremi Salmeron MD Work Phone: [facility] 03-03-2023 10:04-0400 Body temperature 97.5 [degF] Jeremi Salmeron MD Work Phone: [facility] 03-03-2023 10:04-0400 Body weight 120.2 kg Jeremi Salmeron MD Work Phone: [facility] 03-03-2023 10:04-0400 Diastolic blood pressure 78 mm[Hg] Jeremi Salmeron MD Work Phone: [facility] 03-03-2023 10:04-0400 Heart rate 76 /min Jeremi Salmeron MD Work Phone: [facility] 03-03-2023 10:04-0400 Systolic blood pressure 124 mm[Hg] Jeremi Salmeron MD Work Phone: [facility] 10-09-2022 11:27-0500 Body height [address] SUZY ONEAL MD [facility] 10-09-2022 11:27-0500 Body weight 116.[address] SUZY ONEAL MD [facility] 09-28-2022 14:10-0500 Body weight 116.57 kg Connie Jain MD Work Phone: [facility] 09-28-2022 14:10-0500 Diastolic blood pressure 84 mm[Hg] Connie Jain MD Work Phone: [facility] 09-28-2022 14:10-0500 Heart rate 99 /min Connie Jain MD Work Phone: [facility] 09-28-2022 14:10-0500 SaO2% (BldA) [Mass fraction] 97 % Connie Jain MD Work Phone: [facility] 09-28-2022 14:10-0500 Systolic blood pressure 122 mm[Hg] Connie Jain MD Work Phone: [facility] 07-02-2022 08:23-0400 Body height 167.6 cm Jaret Seymour LINE DRIVER.SUPERVISOR [employer] Work Phone: [facility] 07-02-2022 08:23-0400 Body temperature 97.81 [degF] Jaret Seymour LINE DRIVER.SUPERVISOR [employer] Work Phone: [facility] 07-02-2022 08:23-0400 Body weight 113.4 kg Jaret Seymour LINE DRIVER.SUPERVISOR [employer] Work Phone: [facility] 07-02-2022 08:23-0400 Diastolic blood pressure 85 mm[Hg] Jaret Seymour LINE DRIVER.SUPERVISOR [employer] Work Phone: [facility] 07-02-2022 08:23-0400 Heart rate 77 /min Jaret Seymour LINE DRIVER.SUPERVISOR [employer] Work Phone: [facility] 07-02-2022 08:23-0400 Systolic blood pressure 124 mm[Hg] Jaret Seymour LINE DRIVER.SUPERVISOR [employer] Work Phone: [facility] 04-24-2022 13:11-0400 Body height 166 cm Connie Jain MD Work Phone: [facility] 04-24-2022 13:11-0400 Body weight 115.21 kg Connie Jain MD Work Phone: [facility] 04-24-2022 13:11-0400 Diastolic blood pressure 82 mm[Hg] Connie Jain MD Work Phone: [facility] 04-24-2022 13:11-0400 Heart rate 82 /min Connie Jain MD Work Phone: [facility] 04-24-2022 13:11-0400 Systolic blood pressure 122 mm[Hg] Connie Jain MD Work Phone: [facility] 12-25-2019 07:47-0500 BP Diastolic 86 mm[Hg] [place] Work Phone: 12-25-2019 07:47-0500 BP Systolic 148 mm[Hg] [place] Work Phone: 12-25-2019 07:47-0500 Pulse (Heart Rate) 92 /min [place] Work Phone: 12-25-2019 07:47-0500 Pulse Oximetry 98 % [place] Work Phone: 12-25-2019 07:47-0500 Respiratory Rate 16 /min [place] Work Phone: 12-25-2019 06:04-0500 Body Temperature 98.01 [degF] [place] Work Phone: Encounters Encounter Date Encounter Type Care Provider Facility Start: 10-07-2023 End: 10-07-2023 ambulatory JEREMI SALMERON Facility:[facility] Start: 10-07-2023 End: 10-07-2023 Patient encounter procedure Jaret Seymour APRN.CNP Work Phone: Rheumatology Procedures Date Procedure Procedure Detail Performing Clinician Start: 07-15-2023 Radex ankle complete minimum 3 views Jeremi Salmeron MD Work Phone: Start: 08-05-2022 Dxa bone density gerald dy 1/> sites axial skel Jaret Seymour APRNWayneSUPERVISOR [employer]LE AND MOTTLE Work Phone: Start: 04-30-2022 Lipid 1996 panel - S ebonie or Plasma Connie Jain MD Work Phone: Start: 04-24-2022 Adult depression scr eening assessment Connie Jain MD Work Phone: Start: 08-20-2020 Adult depression scr eening assessment [facility] Provider Start: 12-25-2019 Radex spine cervical 4 or 5 views Irma Felipe Work Phone: Start: 12-25-2019 Radex spine lumbosac ral minimum 4 views Irma Felipe Work Phone: Start: 12-29-2017 Mammography [facility] Provid er Start: 01-15-2016 Colonoscopy [facility] Provid er Start: 11-08-[address] SUZY ONEAL MD Cataract (disorder) DR KENTRELL ONEAL MD Plan of Treatment Date Care Activity Detail Author Start: 04-30-2027 Lipid 1996 panel - Serum or Plasma Lipid Screening [facility] Start: 04-30-2027 LIPID SCREEN LIPID SCREEN [facility] Start: 01-14-2026 Colonoscopy COLONOSCOPY [facility] Start: 01-14-2026 COLORECTAL CANCER SCREENING COLORECTAL CANCER SCREENING [facility] Start: 04-30-2025 DIABETES SCREEN DIABETES SCREEN [facility] Start: 04-30-2025 Diabetes Screening Diabetes Screening [facility] Start: 04-16-2024 ANNUAL PCP TEAM CHRONIC DISEASE VISIT ANNUAL PCP TEAM CHRONIC DISEASE VISIT [facility] Start: 04-16-2024 BP CONTROLLED (<130/80) BP CONTROLLED (<130/80) [facility] Start: 03-12-2024 DIABETES SCREEN DIABETES SCREEN [facility] Start: 03-03-2024 BP CONTROLLED (<130/80) BP CONTROLLED (<130/80) [facility] Start: 01-26-[address] [facility] michelle Start: 09-28-2023 ANNUAL PCP TEAM CHRONIC DISEASE VISIT ANNUAL PCP TEAM CHRONIC DISEASE VISIT [facility] Start: 09-27-2023 End: 09-26-2024 Alanine aminotransferase [Enzymatic activity/volume] in Serum or Plasma ALT/SGPT Lab Routine Sero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 arthritis (HCC) Encounter for long-term (current) use of medications Expected: 09/27/2023 (Approximate), Expires: 09/26/2024 [facility] Work Phone: Immunizations Immunization Date Immunization Notes Care Provider Krystin mcintosh 08-24-2017 influenza virus vacc ine, unspecified formulation Connie Jain MD Work Phone: [facility] 01-25-2014 tetanus toxoid, redu terry diphtheria toxoid, and acellular pertussis vaccine, adsorbed [facility] Provider [facility] Payers Date Payer Category Payer Private Health Insurance [facility] [employer] [id number] 2021-Present [phone] [address] [place] [address] [facility] [id number] 2021 Private Health Insurance [facility] [employer] [id number] 2021-Present [phone] [address] [place] [address] HMO [id number] 2021 Private Health Insurance [id number] 2020 Unknown MMO MMO [employer] [id number] 2020-Present [phone] [address] [place] [address] PPO [id number] 1963 Unknown [id number] 1963 Unknown [id number] 1963 Unknown [id number] Social History Date Type Detail Facility Start: 05-06-2012 End: 12-25-2019 Tobacco smoking status NHIS Former smoker [facility] Functional Status Date Assessment Result Facility 10-09-2022 Functional Status Sensory Deficits None A [facility] Clinical Notes 01-15-2016 to 10-07-2023 Jaret Seymour APRN.JUSTINE - 10/07/2023 1:00 PM ESTPatient InstructionsTelephone Encounter - Jaret Seymour APRN.CNP - 09/27/2023 9:42 AM Iveth Huff RT(Arnie) - 07/15/2023 8:00 AM EDT Note Date & Type Note Facility 10-07-2023 Note HNO ID: [id number] Author: Jaret Seymour APRN.SUPERVISOR [employer] Service: ? Author Type: Nurse Practitioner Type: Progress Notes Filed: 10/07/2023 1:40 PM Note Text: Follow-up [facility] Rheumatology appointment for seronegative RA. HPI: To review, Cynthia Schaefer is a 58 year old female - In mid-April, noted onset of pain and swelling in wrists, PIPs, knees, ankles and feet. Labs for RA unremarkable. - In May, started on prednisone 30mg with taper, had near resolution in pain on high dose - From Jun-Aug, on MTX but stopped after 2 months due to inefficacy along with mouth sores and nausea - In Oct, established care in [facility] with pain in the PIPs and knees. Started on HCQ 200mg bid - In January, reported nausea and vomiting with higher dose of HCQ so reduced to HCQ 200mg/day with improvement in n/v. Hadn't noticed improvement in joint pain. About 1 month later, stopped HCQ given lack of efficacy - In interim, seen by [facility] who started arava in May. Took x3 weeks, but then stopped due to lack of efficacy and hair loss. Has been on prednisone 2.5mg/day x2-3 years which works. - In , had gel injections in the knees which helped significantly for a while - In February, reported taking prednisone 2.5mg/day which helps her significantly. Increases dose with flares, averaging once monthly courses of 12.5mg/day x4 days. Started on humira - In April, still waiting to get humira. Underwent R troch bursa injection which didn't help - In Aug, reported 10% improvement with humira. Stopped humira. Prednisone did help - In February, reported a lot of fatigue and pain. With R 5th digit pain. Also with knee and L foot pain. Takes prednisone 5mg/day (was on 2.5mg/day but has needed more). Started on enbrel - In Apr, reported injection site reaction s/p 2nd enbrel dose. Enbrel was continued - In Jun, reported discontinuing enbrel on her own in the interim. Husam discussed which she deferred - In Oct, s/p R TKA - Today, reports doing pretty good overall. Hands get numb. Hard time grasping items and using hands. Numbness starts mid-arm down to involve the entire hand/all the fingers. Numbness is intermittent. Triggered by mowing lawn, when doing things on the phone, awakening in the morning. Has tried wrist splints a couple of times, thought they helped but not using consistently. Had been on pred 2.5mg/day baseline, increased to 10mg/day which helped a lot with the aching and numbness of the hands. PAST MEDICAL HISTORY Diagnosis Date Deviated nasal septum Dysmenorrhea Macular degeneration, bilateral Dr. Clay Macular degeneration, wet ([facility]) getting injections (Dr. Crowe--Retinal Specialist from [place]) Macular degeneration, wet ([facility]) 01/11/2016 getting eye injections Periodic limb movement sleep disorder 01/11/2016 Rheumatoid arthritis of multiple sites with 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 factor ([facility]) 11/04/2019 TIA (transient ischemic attack) 04/21/13 PAST SURGICAL HISTORY Procedure Laterality Date AVASTIN (BEVACIZUMAB) 1.25MG INTRAVITREAL INJECTION OD (RIGHT EYE) 07/30/14 OD COLONOSCOPY FLX DX W/COLLJ SPEC WHEN PFRMD 01/15/16 Colonoscopy mac ENTEROLSS FRING INTSTINAL ADHESION SPX 11/29/13 dense adhesions ESOPHAGOGASTRODUODENOSCOPY TRANSORAL DIAGNOSTIC 01/15/16 EGD mac EYLEA (AFLIBERCEPT) 2MG INTRAVITREAL INJECTION OD (RIGHT EYE) 09/06/14 OD F SALPINGO-OOPHORECTOMY 11/29/13 PAST SURGICAL HISTORY OF 02/2014 scar revision/wound vac TONSILLECTOMY PRIMARY/SECONDARY Tonsillectomy/adenoids TOTAL ABDOMINAL HYSTERECT W/WO RMVL TUBE OVARY 11/29/13 MELODY, [place], [place] ECTOPIC W/O SALPINGAND/OOPHORECTOMY 1988,1989 Ectopic ALLERGIES Allergen Reactions Amoxil [Amoxicillin] GI Upset Morphine Anaphylaxis Sulfa (Sulfonamide * Anaphylaxis INTERVAL HISTORY She is here for follow up. She is accompanied by her mother She started orencia in 04/2023. She tolerates it well and reports taking it consistently. Initially noticed 90% improvement of her joint symptoms. She then had a flare in 07/2023. She was prescribed a steroid course in 07/2023 and reports 90% improvement of her joint symptoms, but symptoms have worsened again. She is currently taking prednisone 2.5 mg daily. She reports fatigue. No falls or fractures since the [place]. Pain is not worse any certain time of day. She takes tylenol for pain. Sites of pain: L pip's, L 2nd pip Joint swelling: L hand, L knee EMS: stiffness to L hand lasts all day No recent infections. Tolerating meds. Answers submitted by the patient for this visit: Review of Systems Rheumatology (Submitted on 10/07/2023) Fever : No Recent unintentional weight change: No Eye pain: No Eye redness: No Vision Disturbance: Yes Eye Dryness: Yes Nosebleeds: No Sores in your mouth: No Trouble Swallowing: No Dry Mouth: Yes Chest pain: No Leg Swell (more content not included)... [facility] 10-07-2023 History of Present illness Narrative Follow-up [facility] Rheumatology appointment for seronegative RA. HPI: To review, Cynthia Schaefer is a 58 year old female - In mid-April, noted onset of pain and swelling in wrists, PIPs, knees, ankles and feet. Labs for RA unremarkable. - In May, started on prednisone 30mg with taper, had near resolution in pain on high dose - From Jun-Aug, on MTX but stopped after 2 months due to inefficacy along with mouth sores and nausea - In Oct, established care in [facility] with pain in the PIPs and knees. Started on HCQ 200mg bid - In January, reported nausea and vomiting with higher dose of HCQ so reduced to HCQ 200mg/day with improvement in n/v. Hadn't noticed improvement in joint pain. About 1 month later, stopped HCQ given lack of efficacy - In interim, seen by [facility] who started arava in May. Took x3 weeks, but then stopped due to lack of efficacy and hair loss. Has been on prednisone 2.5mg/day x2-3 years which works. - In , had gel injections in the knees which helped significantly for a while - In February, reported taking prednisone 2.5mg/day which helps her significantly. Increases dose with flares, averaging once monthly courses of 12.5mg/day x4 days. Started on humira - In April, still waiting to get humira. Underwent R troch bursa injection which didn't help - In Aug, reported 10% improvement with humira. Stopped humira. Prednisone did help - In February, reported a lot of fatigue and pain. With R 5th digit pain. Also with knee and L foot pain. Takes prednisone 5mg/day (was on 2.5mg/day but has needed more). Started on enbrel - In Apr, reported injection site reaction s/p 2nd enbrel dose. Enbrel was continued - In Jun, reported discontinuing enbrel on her own in the interim. Husam discussed which she deferred - In Oct, s/p R TKA - Today, reports doing pretty good overall. Hands get numb. Hard time grasping items and using hands. Numbness starts mid-arm down to involve the entire hand/all the fingers. Numbness is intermittent. Triggered by mowing lawn, when doing things on the phone, awakening in the morning. Has tried wrist splints a couple of times, thought they helped but not using consistently. Had been on pred 2.5mg/day baseline, increased to 10mg/day which helped a lot with the aching and numbness of the hands. PAST MEDICAL HISTORY Diagnosis Date Deviated nasal septum Dysmenorrhea Macular degeneration, bilateral Dr. Clay Macular degeneration, wet ([facility] [facility]) getting injections (Dr. Crowe--Retinal Specialist from [place]) Macular degeneration, wet ([facility]) 01/11/2016 getting eye injections Periodic limb movement sleep disorder 01/11/2016 Rheumatoid arthritis of multiple sites with 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 factor ([facility]) 11/04/2019 TIA (transient ischemic attack) 04/21/13 PAST SURGICAL HISTORY Procedure Laterality Date AVASTIN (BEVACIZUMAB) 1.25MG INTRAVITREAL INJECTION OD (RIGHT EYE) 07/30/14 OD COLONOSCOPY FLX DX W/COLLJ SPEC WHEN PFRMD 01/15/16 Colonoscopy mac ENTEROLSS FRING INTSTINAL ADHESION SPX 11/29/13 dense adhesions ESOPHAGOGASTRODUODENOSCOPY TRANSORAL DIAGNOSTIC 01/15/16 EGD mac EYLEA (AFLIBERCEPT) 2MG INTRAVITREAL INJECTION OD (RIGHT EYE) 09/06/14 OD F SALPINGO-OOPHORECTOMY 11/29/13 PAST SURGICAL HISTORY OF 02/2014 scar revision/wound vac TONSILLECTOMY PRIMARY/SECONDARY <AGE 10 child Tonsillectomy/adenoids TOTAL ABDOMINAL HYSTERECT W/WO RMVL TUBE OVARY 11/29/13 [place], [place], [place] ECTOPIC W/O SALPING&/OOPHORECTOMY 1988,1989 Ectopic ALLERGIES Allergen Reactions Amoxil [Amoxicillin] GI Upset Morphine Anaphylaxis Sulfa (Sulfonamide * Anaphylaxis INTERVAL HISTORY She is here for follow up. She is accompanied by her mother She started orencia in 04/2023. She tolerates it well and reports taking it consistently. Initially noticed 90% improvement of her joint symptoms. She then had a flare in 07/2023. She was prescribed a steroid course in 07/2023 and reports 90% improvement of her joint symptoms, but symptoms have worsened again. She is currently taking prednisone 2.5 mg daily. She reports fatigue. No falls or fractures since the [place]. Pain is not worse any certain time of day. She takes tylenol for pain. Sites of pain: L pip's, L 2nd pip Joint swelling: L hand, L knee EMS: stiffness to L hand lasts all day No recent infections. Tolerating meds. Answers submitted by the patient for this visit: Review of Systems Rheumatology (Submitted on 10/07/2023) Fever : No Recent unintentional weight change: No Eye pain: No Eye redness: No Vision Disturbance: Yes Eye Dryness: Yes Nosebleeds: No Sores in your mouth: No Trouble Swallowing: No Dry Mouth: Yes Chest pain: No Leg Swelling: Yes A cough: No Shortness of breath: Yes Pain with breathing: No Heartburn: No Abdominal pain: No Diarrhea: No Black tarry stools: No Blood in urine: No Pain or burning with urination: No Joint pain or stiffness: Yes Muscle weakness: Yes Muscle aches: Yes Joint swelling: Yes Morning Stiffness in Joints: Yes A rash: No Skin Color Changes: No Hair Loss: Yes Nail Changes: Yes Headaches: Yes Numbness: Yes Memory Loss: Yes Swollen Glands: No Current Outpatient Medications Medication Sig predniSONE (DELTASONE) 2.5 mg tablet TAKE 1 TABLET BY MOUTH EVERY DAY WITH FOOD hydroCHLOROthiazide 12.5 mg tablet Take 1 tablet by mouth once daily. metoprolol succinate ER (TOPROL XL) 50 mg 24 hr tablet TAKE 1/2 TO 1 TABLET BY MOUTH ONCE DAILY predniSONE (DELTASONE) 10 mg tablet TAKE 30MG(3 TABS)/DAY X1 WEEK, THEN 20MG (2 TABS)/DAY FOR 1 WEEK, THEN 10MG (1 TAB)/DAY FOR WEEK, THEN RETURN TO BASELINE 2.5MG/DAY abatacept (ORENCIA CLICKJECT) 125 mg/mL Inject 1 pen (125mg) subcutaneously one time a week. (Patient not taking: Reported on 04/16/2023) aflibercept opthalmic intravitreal (EYLEA) 2 mg/0.05 mL soln 2 mg one time only. 10-12 wks CRANBERRY cholecalciferol, vitamin D3, 10 mcg (400 unit) cap Take 400 Units by mouth once daily. calcium carbonate/vitamin D2 ([id number]-329-T ORAL) Take by mouth. fluticasone (FLONASE) 50 mcg/actuation nasal spray USE 2 SPRAYS IN EACH NOSTRIL ONCE DAILY. RINSE MOUTH AFTER USE. (Patient taking differently: Use 2 Sprays in each nostril once daily. Rinse mouth after use. PRN) B cmplx 4/vit D3/C/folic/zinc (VITAL-D RX ORAL) Take by mouth. (Patient not taking: Reported on 04/16/2023) folic acid 1 mg tablet Take 1 mg by mouth once daily. Aspirin 81 mg Tab Take 81 mg by mouth four times a week. Vitamin A-Vit C-Vit E-Zinc-Cu (OCUVITE PRESERVISION) ORAL Tab Take one(1) tablet daily. No current facility-administered medications for this visit. FAMILY HISTORY Problem Relation Age of Onset other (eczema[Other]) Unknown mat. grandmother Diabetes Maternal Grandmother maturity onset Diabetes Maternal Grandfather maturity onset Stroke Paternal Grandfather Diabetes Father other (other[Other]) Father Macular Degen Father Cataract Father other (Macular Degeneration[Other]) Mother Macular Degen Mother Cataract Mother Thyroid Mother hypothyroid SOCIAL HISTORY: Lives in [place] with . 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 Tobacco use: None Alcohol use: None Drug use: None PHYSICAL EXAM: BP 127/83 Pulse 96 Temp 36.7 C (98 F) (Oral) Ht 168.1 cm (5' 6.2 ) Wt 120.2 kg (265 lb) LMP 10/20/2013 BMI 42.51 kg/m CONSTITUTIONAL: Well-appearing, in NAD. SKIN: No rash. No sclerodactyly, calcinosis, telangiectasias, digital ulcers, or skin thickening. EYES: No scleral icterus or conjunctivitis ENT and Mouth: External ears normal. RESPIRATORY: Normal breath sounds, clear to auscultation. CARDIOVASCULAR: Regular rate and rhythm, no murmurs or rubs EXTREMITIES/LYMPH: No edema bilaterally NEURO: Awake, alert and oriented, normal gait MUSCULOSKELETAL: JOINT APPEARANCE: No erythema or warmth of any upper or lower extremity joint. RANGE OF MOTION: Unable to fully close fists bilaterally. SWOLLEN JOINTS/SYNOVITIS: L 2nd pip TENDER JOINTS: Tenderness to palpation of the L 2nd and 5th pip, L 3rd pip No tenderness to spine or SI joints Labs reviewed and discussed with the patient: Component Latest Ref Rng & Units 10/05/2023 WBC 3.70 - 11.00 k/uL 7.79 RBC 3.90 - 5.20 m/uL 5.02 Hemoglobin 11.5 - 15.5 g/dL 13.9 Hematocrit 36.0 - 46.0 % 44.8 MCV 80.0 - 100.0 fL 89.2 MCH 26.0 - 34.0 pg 27.7 MCHC 30.5 - 36.0 g/dL 31.0 RDW-CV 11.5 - 15.0 % 14.9 Platelet Count 150 - 400 k/uL 222 MPV 9.0 - 12.7 fL 11.3 Neut% % 50.3 Abs Neut (ANC) 1.45 - 7.50 k/uL 3.91 Lymph% % 34.1 Abs Lymph 1.00 - 4.00 k/uL 2.66 Ector% % 9.6 Abs Ector <0.87 k/uL 0.75 Eosin% % 4.7 Abs Eosin <0.46 k/uL 0.37 Baso% % 0.8 Abs Baso <0.11 k/uL 0.06 Immature Gran % % 0.5 IMMATURE GRANS (ABS) <0.10 k/uL 0.04 NRBC /100 WBC 0.0 Absolute nRBC <0.01 k/uL <0.01 DTYPE Auto Creatinine 0.58 - 0.96 mg/dL 0.71 eGFR >=60 mL/min/1.73m 97 AST 13 - 35 U/L 25 ALT 7 - 38 U/L 30 Albumin 3.9 - 4.9 g/dL 3.9 Component Latest Ref Rng & Units 04/30/2022 Protein, Total 6.3 - 8.0 g/dL 6.7 Albumin 3.9 - 4.9 g/dL 4.0 Calcium 8.5 - 10.2 mg/dL 8.9 Bilirubin, Total 0.2 - 1.3 mg/dL 0.5 Alkaline Phosphatase 34 - 123 U/L 80 AST 13 - 35 U/L 29 ALT 7 - 38 U/L 39 (H) Glucose 74 - 99 mg/dL 105 (H) BUN 7 - 21 mg/dL 15 Creatinine 0.58 - 0.96 mg/dL 0.67 Sodium 136 - 144 mmol/L 141 Potassium 3.7 - 5.1 mmol/L 3.8 Chloride 97 - 105 mmol/L 102 CO2 22 - 30 mmol/L 28 Anion Gap 9 - 18 mmol/L 11 eGFR >=60 mL/min/1.73m 101 WBC 3.70 - 11.00 k/uL 7.53 RBC 3.90 - 5.20 m/uL 4.87 Hemoglobin 11.5 - 15.5 g/dL 13.8 Platelet Count 150 - 400 k/uL 205 MPV 9.0 - 12.7 fL 11.4 Absolute nRBC <0.01 k/uL <0.01 Vitamin D 25 Hydroxy 31.0 - 80.0 ng/mL 40.9 Component Latest Ref Rng & Units 03/29/2020 TB Nil IU/mL 0.04 TB1 Ag minus Nil <0.35 IU/mL 0.00 TB2 Ag minus Nil <0.35 IU/mL 0.01 Mitogen minus Nil 1.37 TB Result Negative Negative TB Interpretation No evidence of current or previous infection with Mycobacterium tuberculosis. Hep B Core Ab, Total Negative Negative Hep C Antibody IA Negative Negative Hep B Surface Ag Negative Negative Hep B Surface Ab, Qual Negative Negative Component Latest Ref Rng & Units 03/29/2020 WSR 0 - 20 mm/hr 8 CRP <0.9 mg/dL 1.3 (H) Vitamin D 25 Hydroxy 31.0 - 80.0 ng/mL 25.7 (L) Rheumatoid Factor <16 IU/mL <10 Component Latest Ref Rng & Units 04/20/2014 10/16/2016 04/14/2019 Hep B Core Ab, Total Negative Negative Hep C Antibody IA Negative Negative Hep B Surface Ag Negative Negative Hep B Surface Ab, Qual Negative Negative Rheumatoid Factor <20 IU/mL <10 CCP Antibody, IgG <20 Units <15 STUDIES: *Jul DXA- normal *Jul xray knees- Worsening degenerative disease of bilateral knees. *Dec DEXA- normal *Oct xray hands- no changes of inflammatory arthritis *Oct xray knees- OSTEOARTHRITIS IMPRESSION and PLAN: 1. Sero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 arthritis: With classic steroid-responsive inflammatory arthritis involving PIPs, knees, ankles and feet reportedly in the setting of an outside MRI hand showing 'changes of RA'. Sulfa allergy, can't use SSZ. Has tried: HCQ (ineffective), MTX (ineffective, nausea, mouth sores), arava (ineffective but only used 3 weeks, hair loss), humira (ineffective) and enbrel (ineffective). Active joint pain on prednisone 2.5mg/day baseline, improved with higher dose. Some improvement with orencia. -discussed changing biologics, but patient prefers to continue orencia for now. She will contact me if her symptoms persist. - continue orencia 125mg SC weekly. Potential side effects explained including increased infection risk and injection site reaction. - Continue prednisone 2.5-5mg/day for now. Advised we would try tapering in the future once more stable on the long-term treatment. 2. Bone health: On long-term prednisone use - Continue calcium and vitamin D supplementation - Check DEXA once yearly while on pred, was due Jul. Order placed and she was reminded to schedule on the same machine as prior. Advised that she check with her insurance to ensure it will be covered. 3. Elevated LFTs: Possibly due to hepatic steatosis vs NSAID use. March labs stable - Continue monitoring 4. General health maintenance: - Advised to continue follow-up with PCP for routine health maintenance and malignancy screening Follow-up in 5 months or sooner if needed. Patient was instructed to call if any questions or concerns. Thank you for allowing me to participate in the care of your patient. I spent a total of 20 minutes on the date of the service which included preparing to see the patient, [id number] patient care, completing clinical documentation, performing a medically appropriate examination, ordering medications, tests, or procedures, and communicating results to the patient/family/caregiver. Jaret Seymour APRN.SUPERVISOR TILE AND MOTTLE documented in this encounter [facility] 10-06-2023 Instructions Jaret Seymour APRN.JUSTINE - 10/06/2023 11:57 AM EST Please schedule bone density test on the same machine as prior documented in this encounter [facility] 09-27-2023 Miscellaneous Notes Get Medical Advice on 09/24/23 CBC + DIFF AST/SGOT BLD ALT/SGPT ALBUMIN BLD CREATININE BLD Jaret Seymour APRN.SUPERVISOR TILE AND MOTTLE Patient scheduled for 10/07/23. Pended lab orders. Please review and sign . Thanks Levon Olmstead R.N. documented in this encounter [facility] 08-19-2023 Miscellaneous Notes Patient has been identified by name and date of : Yes RX INSTRUCTIONS: Patient aware RX will be sent to pharmacy. No need to notify patient. LAST APPOINTMENT: 03/03/2023 UPCOMING APPOINTMENT: 10/07/2023 LABS: Hemoglobin (g/dL) Date Value 03/05/2023 14.2 03/12/2021 13.7 Hematocrit (%) Date Value 03/05/2023 45.1 03/12/2021 44.2 WBC (k/uL) Date Value 03/05/2023 10.37 03/12/2021 11.40 Platelet Count (k/uL) Date Value 03/05/2023 217 03/12/2021 264 AST Date Value Ref Range Status 03/05/2023 25 13 - 35 U/L Final ALT Date Value Ref Range Status 03/05/2023 29 7 - 38 U/L Final Creatinine Date Value Ref Range Status 03/05/2023 0.63 0.58 - 0.96 mg/dL Final Uric Acid Date Value Ref Range Status 05/19/2016 7.8 (H) 2.0 - 7.0 mg/dL Final Sadia Ulloa MA documented in this encounter [facility] 08-16-2023 Miscellaneous Notes Patient is request refill to go to [facility]. Patient has been identified by name and date of : Yes, Patient phones for refill(s): Requested Prescriptions Pending Prescriptions Disp Refills hydroCHLOROthiazide 12.5 mg tablet 90 tablet 3 Sig: Take 1 tablet by mouth once daily. Date of last office visit in primary care: 04/16/2023 No future appt scheduled. Last 2 Encounter Wt Readings: Date: Wt: 04/16/2023 119.3 kg (263 lb) 03/03/2023 120.2 kg (265 lb) Previous labs/tests for medication: Blood Pressure: BUN (mg/dL) Date Value 04/30/2022 15 03/12/2021 14 Sodium (mmol/L) Date Value 04/30/2022 141 03/12/2021 142 Last 1 Encounter BP Readings: Date: BP: 04/16/2023 124/76 Please advise. Thank you. Sonali Villagomez LPN documented in this encounter [facility] 08-16-2023 Miscellaneous Notes Patient is requesting refill to go to [facility]. Patient has been identified by name and date of : Yes, Patient phones for refill(s): Requested Prescriptions Pending Prescriptions Disp Refills metoprolol succinate ER (TOPROL XL) 50 mg 24 hr tablet 90 tablet 3 Sig: TAKE 1/2 TO 1 TABLET BY MOUTH ONCE DAILY Date of last office visit in primary care: 04/16/2023 No future appt scheduled. Last 2 Encounter Wt Readings: Date: Wt: 04/16/2023 119.3 kg (263 lb) 03/03/2023 120.2 kg (265 lb) Previous labs/tests for medication: Blood Pressure: BUN (mg/dL) Date Value 04/30/2022 15 03/12/2021 14 Sodium (mmol/L) Date Value 04/30/2022 141 03/12/2021 142 Last 1 Encounter BP Readings: Date: BP: 04/16/2023 124/76 Please advise. Thank you. Sonali Villagomez LPN documented in this encounter [facility] 07-15-2023 Note HNO ID: [id number] Author: Iveth Parks RT(R) Service: ? Author Type: Technologist Type: Progress Notes Filed: 07/15/2023 8:17 AM Note Text: Radiology Service Progress Note PATIENT NAME: Cynthia Schaefer DATE OF SERVICE: July 15, 2023 TIME: 8:17 AM PATIENT IDENTITY VERIFICATION COMPLETED USING TWO (2) IDENTIFIERS: Name and Date of confirmed by patient verbally. FALL SCREENING: Has the patient had 2 falls in the last year or 1 fall with injury or currently using an Ambulatory Assistive Device (Walker, Cane, Wheelchair, Crutches, etc.)? No PATIENT GENDER DATA: Female. status: : No status: NO. PATIENT RELEVANT IMPLANT DATA REVIEWED: Not Applicable RADIOLOGY DEPARTMENT: General X-ray: Exam(s) Completed: Lower Extremity X-Ray(s): Ankle, Left PERIPHERAL IV DATA: Not applicable SIGNED BY: RT Claudine(R) July 15, 2023 8:17 AM [facility] 07-15-2023 History of Present illness Narrative Radiology Service Progress Note PATIENT NAME: Cynthia Schaefer DATE OF SERVICE: July 15, 2023 TIME: 8:17 AM PATIENT IDENTITY VERIFICATION COMPLETED USING TWO (2) IDENTIFIERS: Name and Date of confirmed by patient verbally. FALL SCREENING: Has the patient had 2 falls in the last year or 1 fall with injury or currently using an Ambulatory Assistive Device (Walker, Cane, Wheelchair, Crutches, etc.)? No PATIENT GENDER DATA: Female. status: : No status: NO. PATIENT RELEVANT IMPLANT DATA REVIEWED: Not Applicable RADIOLOGY DEPARTMENT: General X-ray: Exam(s) Completed: Lower Extremity X-Ray(s): Ankle, Left PERIPHERAL IV DATA: Not applicable SIGNED BY: RT Claudine(R) July 15, 2023 8:17 AM documented in this encounter [facility] 07-14-2023 Miscellaneous Notes Pred rx sent and xray l ankle order placed documented in this encounter [facility] 06-21-2023 Miscellaneous Notes The following approved medication requests have been transmitted electronically. Requested Prescriptions Signed Prescriptions Disp Refills predniSONE (DELTASONE) 2.5 mg tablet 30 tablet 2 Sig: TAKE 1 TABLET BY MOUTH EVERY DAY WITH FOOD Authorizing Provider: JARET SEYMOUR APRN.SUPERVISOR TILE AND MOTTLE Patient has been identified by name and date of : Yes RX INSTRUCTIONS: Patient aware RX will be sent to pharmacy. No need to notify patient. LAST APPOINTMENT: 03/03/2023 UPCOMING APPOINTMENT: 10/07/2023 LABS: Hemoglobin (g/dL) Date Value 03/05/2023 14.2 03/12/2021 13.7 Hematocrit (%) Date Value 03/05/2023 45.1 03/12/2021 44.2 WBC (k/uL) Date Value 03/05/2023 10.37 03/12/2021 11.40 Platelet Count (k/uL) Date Value 03/05/2023 217 03/12/2021 264 AST Date Value Ref Range Status 03/05/2023 25 13 - 35 U/L Final ALT Date Value Ref Range Status 03/05/2023 29 7 - 38 U/L Final Creatinine Date Value Ref Range Status 03/05/2023 0.63 0.58 - 0.96 mg/dL Final Uric Acid Date Value Ref Range Status 05/19/2016 7.8 (H) 2.0 - 7.0 mg/dL Final Zahida Dawn MA documented in this encounter [facility] 04-16-2023 Note HNO ID: [id number] Author: RT Vannessa(R) Service: Nuclear Medicine Author Type: Technologist Type: Progress Notes Filed: 04/16/2023 1:33 PM Note Text: Radiology Service Progress Note PATIENT NAME: Cynthia Schaefer DATE OF SERVICE: April 16, 2023 TIME: 1:21 PM PATIENT IDENTITY VERIFICATION COMPLETED USING TWO (2) IDENTIFIERS: Name and Date of confirmed by patient verbally. FALL SCREENING: Has the patient had 2 falls in the last year or 1 fall with injury or currently using an Ambulatory Assistive Device (Walker, Cane, Wheelchair, Crutches, etc.)? No PATIENT GENDER DATA: Female. status: : No status: NO. PATIENT RELEVANT IMPLANT DATA REVIEWED: Not Applicable RADIOLOGY DEPARTMENT: mandible 4v PERIPHERAL IV DATA: Not applicable SIGNED BY: RT Vannessa(R) April 16, 2023 1:21 PM [facility] 04-16-2023 Note HNO ID: [id number] Author: Connie Jain MD Service: ? Author Type: Physician Type: Progress Notes Filed: 05/16/2023 11:38 PM Note Text: This note was created using SnoopWallriter. Subjective Cynthia Schaefer is a 58 year old female. HISTORY Cynthia Schaefer is a 58 year old lady here for yearly exam and follow up appointment. Noted [facility] request for evaluate and treat for finding of radiopaque findings noted below and posterior to the angle of the mandible on the left--copy of panoramic radiograph was included. Has not had any pain in this area. no lump or mass there either. Was at dentist for tooth pain of upper jaw. Has knee replaced 6 month ago and doing good--better every day. PAST MEDICAL HISTORY Diagnosis Date Deviated nasal septum Dysmenorrhea Macular degeneration, bilateral Dr. Clay Macular degeneration, wet ([facility]) getting injections (Dr. Crowe--Retinal Specialist from [place]) Macular degeneration, wet ([facility]) 01/11/2016 getting eye injections Periodic limb movement sleep disorder 01/11/2016 Rheumatoid arthritis of multiple sites with 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 factor ([facility]) 11/04/2019 TIA (transient ischemic attack) 04/21/13 Current Outpatient Medications Medication Sig predniSONE (DELTASONE) 2.5 mg tablet TAKE 1 TABLET BY MOUTH WITH FOOD DAILY FOR 30 DAYS hydroCHLOROthiazide 12.5 mg tablet Take 1 tablet by mouth once daily. predniSONE (DELTASONE) 10 mg tablet Take 30mg(3 tabs)/day x1 week, then 20mg (2 tabs)/day x1 week, then 10mg (1 tab)/day x1 week, then return to baseline 2.5mg/day metoprolol succinate ER (TOPROL XL) 50 mg 24 hr tablet TAKE 1/2 TO 1 TABLET BY MOUTH ONCE DAILY aflibercept opthalmic intravitreal (EYLEA) 2 mg/0.05 mL soln 2 mg one time only. 10-12 wks CRANBERRY cholecalciferol, vitamin D3, 10 mcg (400 unit) cap Take 400 Units by mouth once daily. calcium carbonate/vitamin D2 ([id number]-E ORAL) Take by mouth. fluticasone (FLONASE) 50 mcg/actuation nasal spray USE 2 SPRAYS IN EACH NOSTRIL ONCE DAILY. RINSE MOUTH AFTER USE. (Patient taking differently: Use 2 Sprays in each nostril once daily. Rinse mouth after use. PRN) folic acid 1 mg tablet Take 1 mg by mouth once daily. Aspirin 81 mg Tab Take 81 mg by mouth four times a week. Vitamin A-Vit C-Vit E-Zinc-Cu (OCUVITE PRESERVISION) ORAL Tab Take one(1) tablet daily. abatacept (ORENCIA CLICKJECT) 125 mg/mL Inject 1 pen (125mg) subcutaneously one time a week. (Patient not taking: Reported on 04/16/2023) B cmplx 4/vit D3/C/folic/zinc (VITAL-D RX ORAL) Take by mouth. (Patient not taking: Reported on 04/16/2023) No current facility-administered medications for this visit. ALLERGIES Allergen Reactions Amoxil [Amoxicillin] GI Upset Morphine Anaphylaxis Sulfa (Sulfonamide * Anaphylaxis FAMILY HISTORY Problem Relation Age of Onset other (eczema[Other]) Unknown mat. grandmother Diabetes Maternal Grandmother maturity onset Diabetes Maternal Grandfather maturity onset Stroke Paternal Grandfather Diabetes Father other (other[Other]) Father Macular Degen Father Cataract Father other (Macular Degeneration[Other]) Mother Macular Degen Mother Cataract Mother Thyroid Mother hypothyroid Social History Tobacco Use Smoking status: Former Types: Cigarettes Quit date: 11/08/1992 Years since quittin.4 Smokeless tobacco: Never Vaping Use Vaping Use: Never used Substance Use Topics Alcohol use: No Drug use: No Review of Systems Objective BP 124/76 Pulse 93 Temp 36.2 ?C (97.2 ?F) Resp 18 Wt 119.3 kg (263 lb) LMP 10/20/2013 SpO2 97% BMI 41.19 kg/m? Last 5 Encounter Wt Readings: Date: Wt: 04/16/2023 119.3 kg (263 lb) 03/03/2023 120.2 kg (265 lb) 09/28/2022 116.6 kg (257 lb) 07/02/2022 113.4 kg (250 lb) 04/24/2022 115.2 kg (254 lb) No waist measurement recorded Estimated body mass index is 41.19 kg/m? as calculated from the following: Height as of 03/03/23: 170.2 cm (5' 7 ). Weight as of this encounter: 119.3 kg (263 lb). Last 5 Encounter BP Readings: Date: BP: 04/16/2023 124/76 03/03/2023 124/78 09/28/2022 122/84 07/02/2022 124/85 04/24/2022 122/82 Physical Exam Vitals reviewed. Constitutional: Appearance: Normal appearance. She is well-developed. She is obese. HENT: Head: Normocephalic and atraumatic. Right Ear: Tympanic membrane, ear canal and external ear normal. Left Ear: Tympanic membrane, ear canal and external ear normal. Nose: Nose normal. Eyes: Conjunctiva/sclera: Conjunctivae normal. Neck: Thyroid: No thyromegaly. Vascular: No carotid bruit. Cardiovascular: Rate and Rhythm: Normal rate and regular rhythm. Pulses: Normal pulses. Heart sounds: Normal heart sounds. No murmur heard. No friction rub. No gallop. Pulmonary: Effort: Pulmonary effort is normal. Breath sounds: Normal breath sounds. Abdominal: General: Bowel sounds are normal. There is no distension. Palpations: Abdomen is s (more content not included)... [facility] 04-16-2023 History of Present illness Narrative This note was created using SnoopWallriter. Subjective Cynthia Schaefer is a 58 year old female. HISTORY Cynthia Schaefer is a 58 year old lady here for yearly exam and follow up appointment. Noted [facility] request for evaluate and treat for finding of radiopaque findings noted below and posterior to the angle of the mandible on the left--copy of panoramic radiograph was included. Has not had any pain in this area. no lump or mass there either. Was at dentist for tooth pain of upper jaw. Has knee replaced 6 month ago and doing good--better every day. PAST MEDICAL HISTORY Diagnosis Date Deviated nasal septum Dysmenorrhea Macular degeneration, bilateral Dr. Clay Macular degeneration, wet ([facility]) getting injections (Dr. Crowe--Retinal Specialist from [place]) Macular degeneration, wet ([facility]) 01/11/2016 getting eye injections Periodic limb movement sleep disorder 01/11/2016 Rheumatoid arthritis of multiple sites with 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 factor ([facility]) 11/04/2019 TIA (transient ischemic attack) 04/21/13 Current Outpatient Medications Medication Sig predniSONE (DELTASONE) 2.5 mg tablet TAKE 1 TABLET BY MOUTH WITH FOOD DAILY FOR 30 DAYS hydroCHLOROthiazide 12.5 mg tablet Take 1 tablet by mouth once daily. predniSONE (DELTASONE) 10 mg tablet Take 30mg(3 tabs)/day x1 week, then 20mg (2 tabs)/day x1 week, then 10mg (1 tab)/day x1 week, then return to baseline 2.5mg/day metoprolol succinate ER (TOPROL XL) 50 mg 24 hr tablet TAKE 1/2 TO 1 TABLET BY MOUTH ONCE DAILY aflibercept opthalmic intravitreal (EYLEA) 2 mg/0.05 mL soln 2 mg one time only. 10-12 wks CRANBERRY cholecalciferol, vitamin D3, 10 mcg (400 unit) cap Take 400 Units by mouth once daily. calcium carbonate/vitamin D2 ([id number]-199-Y ORAL) Take by mouth. fluticasone (FLONASE) 50 mcg/actuation nasal spray USE 2 SPRAYS IN EACH NOSTRIL ONCE DAILY. RINSE MOUTH AFTER USE. (Patient taking differently: Use 2 Sprays in each nostril once daily. Rinse mouth after use. PRN) folic acid 1 mg tablet Take 1 mg by mouth once daily. Aspirin 81 mg Tab Take 81 mg by mouth four times a week. Vitamin A-Vit C-Vit E-Zinc-Cu (OCUVITE PRESERVISION) ORAL Tab Take one(1) tablet daily. abatacept (ORENCIA CLICKJECT) 125 mg/mL Inject 1 pen (125mg) subcutaneously one time a week. (Patient not taking: Reported on 04/16/2023) B cmplx 4/vit D3/C/folic/zinc (VITAL-D RX ORAL) Take by mouth. (Patient not taking: Reported on 04/16/2023) No current facility-administered medications for this visit. ALLERGIES Allergen Reactions Amoxil [Amoxicillin] GI Upset Morphine Anaphylaxis Sulfa (Sulfonamide * Anaphylaxis FAMILY HISTORY Problem Relation Age of Onset other (eczema[Other]) Unknown mat. grandmother Diabetes Maternal Grandmother maturity onset Diabetes Maternal Grandfather maturity onset Stroke Paternal Grandfather Diabetes Father other (other[Other]) Father Macular Degen Father Cataract Father other (Macular Degeneration[Other]) Mother Macular Degen Mother Cataract Mother Thyroid Mother hypothyroid Social History Tobacco Use Smoking status: Former Types: Cigarettes Quit date: 11/08/1992 Years since quittin.4 Smokeless tobacco: Never Vaping Use Vaping Use: Never used Substance Use Topics Alcohol use: No Drug use: No Review of Systems Objective BP 124/76 Pulse 93 Temp 36.2 C (97.2 F) Resp 18 Wt 119.3 kg (263 lb) LMP 10/20/2013 SpO2 97% BMI 41.19 kg/m Last 5 Encounter Wt Readings: Date: Wt: 04/16/2023 119.3 kg (263 lb) 03/03/2023 120.2 kg (265 lb) 09/28/2022 116.6 kg (257 lb) 07/02/2022 113.4 kg (250 lb) 04/24/2022 115.2 kg (254 lb) No waist measurement recorded Estimated body mass index is 41.19 kg/m as calculated from the following: Height as of 03/03/23: 170.2 cm (5' 7 ). Weight as of this encounter: 119.3 kg (263 lb). Last 5 Encounter BP Readings: Date: BP: 04/16/2023 124/76 03/03/2023 124/78 09/28/2022 122/84 07/02/2022 124/85 04/24/2022 122/82 Physical Exam Vitals reviewed. Constitutional: Appearance: Normal appearance. She is well-developed. She is obese. HENT: Head: Normocephalic and atraumatic. Right Ear: Tympanic membrane, ear canal and external ear normal. Left Ear: Tympanic membrane, ear canal and external ear normal. Nose: Nose normal. Eyes: Conjunctiva/sclera: Conjunctivae normal. Neck: Thyroid: No thyromegaly. Vascular: No carotid bruit. Cardiovascular: Rate and Rhythm: Normal rate and regular rhythm. Pulses: Normal pulses. Heart sounds: Normal heart sounds. No murmur heard. No friction rub. No gallop. Pulmonary: Effort: Pulmonary effort is normal. Breath sounds: Normal breath sounds. Abdominal: General: Bowel sounds are normal. There is no distension. Palpations: Abdomen is soft. There is no mass. Tenderness: There is no abdominal tenderness. Musculoskeletal: General: No deformity. Normal range of motion. Lymphadenopathy: Cervical: No cervical adenopathy. Skin: General: Skin is warm and dry. Coloration: Skin is not jaundiced or pale. Findings: No rash. Neurological: General: No focal deficit present. Mental Status: She is alert and oriented to person, place, and time. Cranial Nerves: No cranial nerve deficit. Sensory: No sensory deficit. Motor: No abnormal muscle tone. Coordination: Coordination normal. Deep Tendon Reflexes: Reflexes normal. Psychiatric: Attention and Perception: Attention and perception normal. Mood and Affect: Mood and affect normal. Speech: Speech normal. Behavior: Behavior normal. Thought Content: Thought content normal. Cognition and Memory: Cognition and memory normal. Judgment: Judgment normal. Assessment and Plan Encounter Diagnosis ICD-10-CM 1. Routine medical exam Z00.00 2. Abnormal x-ray R93.89 XR MANDIBLE 4V PA/TESSA/BOTH OBL Panoramic radiograph from dentist--radiopaque findings noted below and posterior to the angle of the mandible on the left 3. Essential hypertension, benign I10 4. Morbid obesity (HCC) E66.01 Patient here for yearly exam and follow up. Above issues addressed with patient. Patient involved in shared decision making for management of medical issues. History and medications reviewed. Epic updated as needed Refills taken care of and meds adjusted as indicated after reviewed history, exam and labs. Health Maintenance reviewed. Updated record and/or ordered tests as recorded. Encouraged on efforts at healthy diet and regular exercise and adequate sleep. Connie Jain MD documented in this encounter [facility] 04-14-2023 Note Patient Outreach (IN [facility]) CYNTHIA SCHAEFER ([id number]) 1965 F Date Time Provider Department 04/14/23 CONNIE JAIN During your visit today, we recorded the following information about you: Allergies As of Date: 04/14/2023 Noted Allergy Reaction AMOXIL (AMOXICILLIN) 07/06/2005 8 - GI Upset MORPHINE 09/23/2007 10 - Anaphylaxis SULFA (SULFONAMIDE ANTIBIOTICS) 07/06/2005 10 - Anaphylaxis Date Reviewed: 03/03/2023 Reviewed by: Sadia Ulloa MA - Fully Assessed Visit Diagnosis:Encounter for screening mammogram for breast cancer [Z12.31] Order(s):[facility] SCREENING [[id number]] Order #: [id number] FUTURE Prescriptions as of 04/19/2023 - abatacept (ORENCIA CLICKJECT) 125 mg/mL Inject 1 pen (125mg) subcutaneously one time a week. - predniSONE (DELTASONE) 2.5 mg tablet TAKE 1 TABLET BY MOUTH WITH FOOD DAILY FOR 30 DAYS - hydroCHLOROthiazide 12.5 mg tablet Take 1 tablet by mouth once daily. - predniSONE (DELTASONE) 10 mg tablet Take 30mg(3 tabs)/day x1 week, then 20mg (2 tabs)/day x1 week, then 10mg (1 tab)/day x1 week, then return to baseline 2.5mg/day - metoprolol succinate ER (TOPROL XL) 50 mg 24 hr tablet TAKE 1/2 TO 1 TABLET BY MOUTH ONCE DAILY - aflibercept opthalmic intravitreal (EYLEA) 2 mg/0.05 mL soln 2 mg one time only. 10-12 wks - CRANBERRY - cholecalciferol, vitamin D3, 10 mcg (400 unit) cap Take 400 Units by mouth once daily. - calcium carbonate/vitamin D2 ([id number]-S ORAL) Take by mouth. - fluticasone (FLONASE) 50 mcg/actuation nasal spray USE 2 SPRAYS IN EACH NOSTRIL ONCE DAILY. RINSE MOUTH AFTER USE. - B cmplx 4/vit D3/C/folic/zinc (VITAL-D RX ORAL) Take by mouth. - folic acid 1 mg tablet Take 1 mg by mouth once daily. - Aspirin 81 mg Tab Take 81 mg by mouth four times a week. - Vitamin A-Vit C-Vit E-Zinc-Cu (OCUVITE PRESERVISION) ORAL Tab Take one(1) tablet daily. 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] DYSMENORRHEA [N94.6] External hemorrhoids without mention of complic*12/14/2011 Anxiety [F41.9] 12/14/2011 Intestinal adhesions [K66.0] 12/05/2013 Essential hypertension, benign [I10] 01/25/2014 Periodic limb movement sleep disorder [G47.61] 01/11/2016 Macular degeneration, wet ([facility]) [H35.3290] 01/11/2016 Morbid obesity (HCC) [E66.01] 01/14/2016 H/O difficult intubation [Z91.89] 01/14/2016 Dysphagia [R13.10] 01/15/2016 01/15/2016 Dyspepsia [R10.13] 01/15/2016 01/15/2016 Colon cancer screening [Z12.11] 01/15/2016 01/15/2016 Rheumatoid arthritis of multiple sites with neg*11/04/2019 Sero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 arthritis (HCC) [M06.00]02/08/2020 Encounter Status:Closed by NOMI PRODUSER on 04/19/23 [facility] 04-08-2023 Miscellaneous Notes Rx resent [facility] will only dispense a 30 days supply. Please send a 30 day supply for the Orencia. documented in this encounter [facility] 03-22-2023 Miscellaneous Notes Short term script. No refill needed. Requested Prescriptions Refused Prescriptions Disp Refills predniSONE (DELTASONE) 10 mg tablet [Pharmacy Med Name: PREDNISONE 10 MG TABLET] 42 tablet 0 Sig: TAKE 30MG(3 TABS)/DAY X1 WEEK, THEN 20MG (2 TABS)/DAY X1 WEEK, THEN 10MG (1 TAB)/DAY X1 WEEK, THEN RETURN TO BASELINE 2.5MG/DAY Refused By: JARET SEYMOUR Reason for Refusal: A Refill not appropriate Jaret Seymour APRN.SUPERVISOR TILE AND MOTTLE Patient has been identified by name and date of : Yes RX INSTRUCTIONS: Patient aware RX will be sent to pharmacy. No need to notify patient. LAST APPOINTMENT: 03/03/2023 UPCOMING APPOINTMENT: 06/07/2023 LABS: Hemoglobin (g/dL) Date Value 03/05/2023 14.2 03/12/2021 13.7 Hematocrit (%) Date Value 03/05/2023 45.1 03/12/2021 44.2 WBC (k/uL) Date Value 03/05/2023 10.37 03/12/2021 11.40 Platelet Count (k/uL) Date Value 03/05/2023 217 03/12/2021 264 AST Date Value Ref Range Status 03/05/2023 25 13 - 35 U/L Final ALT Date Value Ref Range Status 03/05/2023 29 7 - 38 U/L Final Creatinine Date Value Ref Range Status 03/05/2023 0.63 0.58 - 0.96 mg/dL Final Uric Acid Date Value Ref Range Status 05/19/2016 7.8 (H) 2.0 - 7.0 mg/dL Final Zahida Dawn MA documented in this encounter [facility] 03-18-2023 Miscellaneous Notes The following approved medication requests have been transmitted electronically. Requested Prescriptions Signed Prescriptions Disp Refills predniSONE (DELTASONE) 2.5 mg tablet 30 tablet 2 Sig: TAKE 1 TABLET BY MOUTH WITH FOOD DAILY FOR 30 DAYS Authorizing Provider: JARET SEYMOUR APRN.CNP Patient has been identified by name and date of : Yes RX INSTRUCTIONS: Patient aware RX will be sent to pharmacy. No need to notify patient. LAST APPOINTMENT: 03/03/2023 UPCOMING APPOINTMENT: 06/07/2023 LABS: Hemoglobin (g/dL) Date Value 03/05/2023 14.2 03/12/2021 13.7 Hematocrit (%) Date Value 03/05/2023 45.1 03/12/2021 44.2 WBC (k/uL) Date Value 03/05/2023 10.37 03/12/2021 11.40 Platelet Count (k/uL) Date Value 03/05/2023 217 03/12/2021 264 AST Date Value Ref Range Status 03/05/2023 25 13 - 35 U/L Final ALT Date Value Ref Range Status 03/05/2023 29 7 - 38 U/L Final Creatinine Date Value Ref Range Status 03/05/2023 0.63 0.58 - 0.96 mg/dL Final Uric Acid Date Value Ref Range Status 05/19/2016 7.8 (H) 2.0 - 7.0 mg/dL Final Sadia Ulloa MA documented in this encounter [facility] 03-17-2023 Miscellaneous Notes Spoke with patient. Informed patient Specialty pharmacy received prescription for abatacept (ORENCIA CLICKJECT) 125 mg/mL from Dr. Salmeron on 03/04/2023. Benefit investigation was conducted indicating that a prior authorization is requires by patient's insurance plan. Prior authorization was submitted on 03/09/2023 and is pending review. Process can take up to 2 weeks. Advised patient if you do not hear back from specialty pharmacy after the 2 weeks, please contact them directly at [phone]. Patient verbalized understanding and thanked me for the information given. Zahida Dawn MA Patient called and stated that she never got a call from the pharmacy regarding the Orencia. Please advice documented in this encounter [facility] 03-04-2023 Note HNO ID: [id number] Author: Christine Abdul Service: ? Author Type: ? Type: Progress Notes Filed: 03/22/2023 3:55 PM Note Text: Prior authorization was approved for Orencia. Plan Name: [facility] reference number: [id number] Approval Dates: 12/10/22-03/09/24 However, s/he is required to use [facility] to fill this medication. Will queue prescription(s) to go to designated specialty pharmacy. For reference, their pharmacy phone number is [phone]. No further action by [facility]. Christine Abdul CPhT [facility] 03-04-2023 Note HNO ID: [id number] Author: Christine Abdul Service: ? Author Type: ? Type: Progress Notes Filed: 03/09/2023 4:11 PM Note Text: PA for Orencia was initiated and pending review. Plan Name: [facility] Plan Agent/Iyer: [id number] Case: [id number] Timeline: Standard Christine Abdul CPhT [facility] 03-04-2023 Note HNO ID: [id number] Author: Christine Abdul Service: ? Author Type: ? Type: Progress Notes Filed: 03/04/2023 3:27 PM Note Text: [facility] received prescription(s) for Orencia from Dr. Jeremi Salmeron's office. Benefits investigation was conducted, indicating that a prior authorization is required by patient's insurance plan with [facility]. Encounter will be updated once prior authorization has been submitted by [facility]. Christine Abdul CPhT [facility] 03-04-2023 History of Present illness Narrative [facility] received prescription(s) for Orencia from Dr. Jeremi Salmeron's office. Benefits investigation was conducted, indicating that a prior authorization is required by patient's insurance plan with [facility]. Encounter will be updated once prior authorization has been submitted by [facility]. Christine Abdul CPhT [facility] documented in this encounter [facility] 03-04-2023 Miscellaneous Notes Patient has been identified by name and date of : Yes, Patient phones for refill(s): Requested Prescriptions Pending Prescriptions Disp Refills hydroCHLOROthiazide 12.5 mg tablet 90 tablet 3 Sig: Take 1 tablet by mouth once daily. Date of last office visit in primary care: 09/28/2022 Yearly: 04/28/2023 Last 2 Encounter Wt Readings: Date: Wt: 03/03/2023 120.2 kg (265 lb) 09/28/2022 116.6 kg (257 lb) Previous labs/tests for medication: Blood Pressure: BUN (mg/dL) Date Value 04/30/2022 15 03/12/2021 14 Sodium (mmol/L) Date Value 04/30/2022 141 03/12/2021 142 Last 1 Encounter BP Readings: Date: BP: 03/03/2023 124/78 Please advise. Thank you. Sonali Villagomez LPN documented in this encounter [facility] 03-03-2023 Note HNO ID: [id number] Author: Jeremi Salmeron MD Service: ? Author Type: Physician Type: Progress Notes Filed: 03/03/2023 11:06 AM Note Text: On 03/03/2023, I had the pleasure of evaluating Cynthia Schaefer in a follow-up [facility] appointment for seronegative RA. HPI: To review, Cynthia Schaefer is a 57 year old female - In mid-April, noted onset of pain and swelling in wrists, PIPs, knees, ankles and feet. Labs for RA unremarkable. - In May, started on prednisone 30mg with taper, had near resolution in pain on high dose - From Jun-Aug, on MTX but stopped after 2 months due to inefficacy along with mouth sores and nausea - In Oct, established care in [facility] with pain in the PIPs and knees. Started on HCQ 200mg bid - In January, reported nausea and vomiting with higher dose of HCQ so reduced to HCQ 200mg/day with improvement in n/v. Hadn't noticed improvement in joint pain. About 1 month later, stopped HCQ given lack of efficacy - In interim, seen by [facility] who started arava in May. Took x3 weeks, but then stopped due to lack of efficacy and hair loss. Has been on prednisone 2.5mg/day x2-3 years which works. - In , had gel injections in the knees which helped significantly for a while - In February, reported taking prednisone 2.5mg/day which helps her significantly. Increases dose with flares, averaging once monthly courses of 12.5mg/day x4 days. Started on humira - In April, still waiting to get humira. Underwent R troch bursa injection which didn't help - In Aug, reported 10% improvement with humira. Stopped humira. Prednisone did help - In February, reported a lot of fatigue and pain. With R 5th digit pain. Also with knee and L foot pain. Takes prednisone 5mg/day (was on 2.5mg/day but has needed more). Started on enbrel - In Apr, reported injection site reaction s/p 2nd enbrel dose. Enbrel was continued - In Jun, reported discontinuing enbrel on her own in the interim. Husam discussed which she deferred - In Oct, s/p R TKA - Today, reports doing pretty good overall. Hands get numb. Hard time grasping items and using hands. Numbness starts mid-arm down to involve the entire hand/all the fingers. Numbness is intermittent. Triggered by mowing lawn, when doing things on the phone, awakening in the morning. Has tried wrist splints a couple of times, thought they helped but not using consistently. Had been on pred 2.5mg/day baseline, increased to 10mg/day which helped a lot with the aching and numbness of the hands. PAST MEDICAL HISTORY Diagnosis Date Deviated nasal septum Dysmenorrhea Macular degeneration, bilateral Dr. Clay Macular degeneration, wet ([facility]) getting injections (Dr. Crowe--Retinal Specialist from [place]) Macular degeneration, wet ([facility]) 01/11/2016 getting eye injections Periodic limb movement sleep disorder 01/11/2016 Rheumatoid arthritis of multiple sites with 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 factor ([facility]) 11/04/2019 TIA (transient ischemic attack) 04/21/13 PAST SURGICAL HISTORY Procedure Laterality Date AVASTIN (BEVACIZUMAB) 1.25MG INTRAVITREAL INJECTION OD (RIGHT EYE) 07/30/14 OD COLONOSCOPY FLX DX W/COLLJ SPEC WHEN PFRMD 01/15/16 Colonoscopy mac ENTEROLSS FRING INTSTINAL ADHESION SPX 11/29/13 dense adhesions ESOPHAGOGASTRODUODENOSCOPY TRANSORAL DIAGNOSTIC 01/15/16 EGD mac EYLEA (AFLIBERCEPT) 2MG INTRAVITREAL INJECTION OD (RIGHT EYE) 09/06/14 OD F SALPINGO-OOPHORECTOMY 11/29/13 PAST SURGICAL HISTORY OF 02/2014 scar revision/wound vac TONSILLECTOMY PRIMARY/SECONDARY Tonsillectomy/adenoids TOTAL ABDOMINAL HYSTERECT W/WO RMVL TUBE OVARY 11/29/13 [place], [place], [place] ECTOPIC W/O SALPINGAND/OOPHORECTOMY 1988,1989 Ectopic ALLERGIES Allergen Reactions Amoxil [Amoxicillin] GI Upset Morphine Anaphylaxis Sulfa (Sulfonamide * Anaphylaxis MEDICATIONS: Current Outpatient Medications Medication Sig predniSONE (DELTASONE) 2.5 mg tablet TAKE 1 TABLET BY MOUTH WITH FOOD DAILY FOR 30 DAYS hydroCHLOROthiazide (HYDRODIURIL, ESIDRIX) 12.5 mg tablet Take 1 tablet by mouth once daily. metoprolol succinate ER (TOPROL XL) 50 mg 24 hr tablet TAKE 1/2 TO 1 TABLET BY MOUTH ONCE DAILY aflibercept opthalmic intravitreal (EYLEA) 2 mg/0.05 mL soln 2 mg one time only. 10-12 wks CRANBERRY cholecalciferol, vitamin D3, 10 mcg (400 unit) cap Take 400 Units by mouth once daily. calcium carbonate/vitamin D2 ([id number]-M ORAL) Take by mouth. fluticasone (FLONASE) 50 mcg/actuation nasal spray USE 2 SPRAYS IN EACH NOSTRIL ONCE DAILY. RINSE MOUTH AFTER USE. (Patient taking differently: Use 2 Sprays in each nostril once daily. Rinse mouth after use. PRN) B cmplx 4/vit D3/C/folic/zinc (VITAL-D RX ORAL) Take by mouth. folic acid 1 mg tablet Take 1 mg by mouth once daily. Aspirin 81 mg Tab Take 81 mg by mouth four times a week. Vitamin A-Vit C-Vit E-Zin (more content not included)... [facility] 03-03-2023 History of Present illness Narrative On 03/03/2023, I had the pleasure of evaluating Cynthia Schaefer in a follow-up [facility] appointment for seronegative RA. HPI: To review, Cynthia Schaefer is a 57 year old female - In mid-April, noted onset of pain and swelling in wrists, PIPs, knees, ankles and feet. Labs for RA unremarkable. - In May, started on prednisone 30mg with taper, had near resolution in pain on high dose - From Jun-Aug, on MTX but stopped after 2 months due to inefficacy along with mouth sores and nausea - In Oct, established care in [facility] rheumatology with pain in the PIPs and knees. Started on HCQ 200mg bid - In January, reported nausea and vomiting with higher dose of HCQ so reduced to HCQ 200mg/day with improvement in n/v. Hadn't noticed improvement in joint pain. About 1 month later, stopped HCQ given lack of efficacy - In interim, seen by [facility] who started arava in May. Took x3 weeks, but then stopped due to lack of efficacy and hair loss. Has been on prednisone 2.5mg/day x2-3 years which works. - In , had gel injections in the knees which helped significantly for a while - In February, reported taking prednisone 2.5mg/day which helps her significantly. Increases dose with flares, averaging once monthly courses of 12.5mg/day x4 days. Started on humira - In April, still waiting to get humira. Underwent R troch bursa injection which didn't help - In Aug, reported 10% improvement with humira. Stopped humira. Prednisone did help - In February, reported a lot of fatigue and pain. With R 5th digit pain. Also with knee and L foot pain. Takes prednisone 5mg/day (was on 2.5mg/day but has needed more). Started on enbrel - In Apr, reported injection site reaction s/p 2nd enbrel dose. Enbrel was continued - In Jun, reported discontinuing enbrel on her own in the interim. Husam discussed which she deferred - In Oct, s/p R TKA - Today, reports doing pretty good overall. Hands get numb. Hard time grasping items and using hands. Numbness starts mid-arm down to involve the entire hand/all the fingers. Numbness is intermittent. Triggered by mowing lawn, when doing things on the phone, awakening in the morning. Has tried wrist splints a couple of times, thought they helped but not using consistently. Had been on pred 2.5mg/day baseline, increased to 10mg/day which helped a lot with the aching and numbness of the hands. PAST MEDICAL HISTORY Diagnosis Date Deviated nasal septum Dysmenorrhea Macular degeneration, bilateral Dr. Clay Macular degeneration, wet ([facility]) getting injections (Dr. Crowe--Retinal Specialist from [place]) Macular degeneration, wet ([facility]) 01/11/2016 getting eye injections Periodic limb movement sleep disorder 01/11/2016 Rheumatoid arthritis of multiple sites with 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 factor ([facility]) 11/04/2019 TIA (transient ischemic attack) 04/21/13 PAST SURGICAL HISTORY Procedure Laterality Date AVASTIN (BEVACIZUMAB) 1.25MG INTRAVITREAL INJECTION OD (RIGHT EYE) 07/30/14 OD COLONOSCOPY FLX DX W/COLLJ SPEC WHEN PFRMD 01/15/16 Colonoscopy mac ENTEROLSS FRING INTSTINAL ADHESION SPX 11/29/13 dense adhesions ESOPHAGOGASTRODUODENOSCOPY TRANSORAL DIAGNOSTIC 01/15/16 EGD mac EYLEA (AFLIBERCEPT) 2MG INTRAVITREAL INJECTION OD (RIGHT EYE) 09/06/14 OD F SALPINGO-OOPHORECTOMY 11/29/13 PAST SURGICAL HISTORY OF 02/2014 scar revision/wound vac TONSILLECTOMY PRIMARY/SECONDARY <AGE 10 child Tonsillectomy/adenoids TOTAL ABDOMINAL HYSTERECT W/WO RMVL TUBE OVARY 11/29/13 [place], [facility], [place] ECTOPIC W/O SALPING&/OOPHORECTOMY 1988,1989 Ectopic ALLERGIES Allergen Reactions Amoxil [Amoxicillin] GI Upset Morphine Anaphylaxis Sulfa (Sulfonamide * Anaphylaxis MEDICATIONS: Current Outpatient Medications Medication Sig predniSONE (DELTASONE) 2.5 mg tablet TAKE 1 TABLET BY MOUTH WITH FOOD DAILY FOR 30 DAYS hydroCHLOROthiazide (HYDRODIURIL, ESIDRIX) 12.5 mg tablet Take 1 tablet by mouth once daily. metoprolol succinate ER (TOPROL XL) 50 mg 24 hr tablet TAKE 1/2 TO 1 TABLET BY MOUTH ONCE DAILY aflibercept opthalmic intravitreal (EYLEA) 2 mg/0.05 mL soln 2 mg one time only. 10-12 wks CRANBERRY cholecalciferol, vitamin D3, 10 mcg (400 unit) cap Take 400 Units by mouth once daily. calcium carbonate/vitamin D2 ([id number]-D ORAL) Take by mouth. fluticasone (FLONASE) 50 mcg/actuation nasal spray USE 2 SPRAYS IN EACH NOSTRIL ONCE DAILY. RINSE MOUTH AFTER USE. (Patient taking differently: Use 2 Sprays in each nostril once daily. Rinse mouth after use. PRN) B cmplx 4/vit D3/C/folic/zinc (VITAL-D RX ORAL) Take by mouth. folic acid 1 mg tablet Take 1 mg by mouth once daily. Aspirin 81 mg Tab Take 81 mg by mouth four times a week. Vitamin A-Vit C-Vit E-Zinc-Cu (OCUVITE PRESERVISION) ORAL Tab Take one(1) tablet daily. Estradiol (ESTRACE) 0.5 mg tablet Take 1 tablet by mouth once daily. (Patient not taking: Reported on 03/03/2023) No current facility-administered medications for this visit. FAMILY HISTORY Problem Relation Age of Onset other (eczema[Other]) Unknown mat. grandmother Diabetes Maternal Grandmother maturity onset Diabetes Maternal Grandfather maturity onset Stroke Paternal Grandfather Diabetes Father other (other[Other]) Father Macular Degen Father Cataract Father other (Macular Degeneration[Other]) Mother Macular Degen Mother Cataract Mother Thyroid Mother hypothyroid SOCIAL HISTORY: Lives in [place] with . 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 Tobacco use: None Alcohol use: None Drug use: None PHYSICAL EXAM: VITALS: Blood pressure 124/78, pulse 76, temperature 36.4 C (97.5 F), temperature source Temporal, height 170.2 cm (5' 7 ), weight 120.2 kg (265 lb), last menstrual period 10/20/2013. CONSTITUTIONAL: Well-appearing, in NAD. SKIN: No rash. No sclerodactyly, calcinosis, telangiectasias, digital ulcers, or skin thickening. EYES: No scleral icterus or conjunctivitis ENT and Mouth: External ears normal. Nares normal. RESPIRATORY: Normal breath sounds, clear to auscultation. CARDIOVASCULAR: Regular rate and rhythm, no murmurs or rubs EXTREMITIES/LYMPH: No edema bilaterally NEURO: Awake, alert and oriented, normal gait MUSCULOSKELETAL: JOINT APPEARANCE: No erythema or warmth of any upper or lower extremity joint. RANGE OF MOTION: Unable to fully close fists bilaterally. SWOLLEN JOINTS/SYNOVITIS: No synovitis of any joint. TENDER JOINTS: Tenderness to palpation of the L wrist, bilateral MCPs and PIPs LABORATORY: Component Latest Ref Rng & Units 04/30/2022 Protein, Total 6.3 - 8.0 g/dL 6.7 Albumin 3.9 - 4.9 g/dL 4.0 Calcium 8.5 - 10.2 mg/dL 8.9 Bilirubin, Total 0.2 - 1.3 mg/dL 0.5 Alkaline Phosphatase 34 - 123 U/L 80 AST 13 - 35 U/L 29 ALT 7 - 38 U/L 39 (H) Glucose 74 - 99 mg/dL 105 (H) BUN 7 - 21 mg/dL 15 Creatinine 0.58 - 0.96 mg/dL 0.67 Sodium 136 - 144 mmol/L 141 Potassium 3.7 - 5.1 mmol/L 3.8 Chloride 97 - 105 mmol/L 102 CO2 22 - 30 mmol/L 28 Anion Gap 9 - 18 mmol/L 11 eGFR >=60 mL/min/1.73m 101 WBC 3.70 - 11.00 k/uL 7.53 RBC 3.90 - 5.20 m/uL 4.87 Hemoglobin 11.5 - 15.5 g/dL 13.8 Platelet Count 150 - 400 k/uL 205 MPV 9.0 - 12.7 fL 11.4 Absolute nRBC <0.01 k/uL <0.01 Vitamin D 25 Hydroxy 31.0 - 80.0 ng/mL 40.9 Component Latest Ref Rng & Units 03/29/2020 TB Nil IU/mL 0.04 TB1 Ag minus Nil <0.35 IU/mL 0.00 TB2 Ag minus Nil <0.35 IU/mL 0.01 Mitogen minus Nil 1.37 TB Result Negative Negative TB Interpretation No evidence of current or previous infection with Mycobacterium tuberculosis. Hep B Core Ab, Total Negative Negative Hep C Antibody IA Negative Negative Hep B Surface Ag Negative Negative Hep B Surface Ab, Qual Negative Negative Component Latest Ref Rng & Units 03/29/2020 WSR 0 - 20 mm/hr 8 CRP <0.9 mg/dL 1.3 (H) Vitamin D 25 Hydroxy 31.0 - 80.0 ng/mL 25.7 (L) Rheumatoid Factor <16 IU/mL <10 Component Latest Ref Rng & Units 04/20/2014 10/16/2016 04/14/2019 Hep B Core Ab, Total Negative Negative Hep C Antibody IA Negative Negative Hep B Surface Ag Negative Negative Hep B Surface Ab, Qual Negative Negative Rheumatoid Factor <20 IU/mL <10 CCP Antibody, IgG <20 Units <15 STUDIES: *Jul DXA- normal *Jul xray knees- Worsening degenerative disease of bilateral knees. *Dec DEXA- normal *Oct xray hands- no changes of inflammatory arthritis *Oct xray knees- OSTEOARTHRITIS IMPRESSION and PLAN: 1. Sero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 arthritis: With classic steroid-responsive inflammatory arthritis involving PIPs, knees, ankles and feet reportedly in the setting of an outside MRI hand showing 'changes of RA'. Sulfa allergy, can't use SSZ. Has tried: HCQ (ineffective), MTX (ineffective, nausea, mouth sores), arava (ineffective but only used 3 weeks, hair loss), humira (ineffective) and enbrel (ineffective). Active joint pain on prednisone 2.5mg/day baseline, improved with higher dose. - Start orencia 125mg SC weekly. Potential side effects explained including increased infection risk and injection site reaction. Written information on orencia provided as a reference - Continue prednisone 2.5-5mg/day for now. Advised we would try tapering in the future once more stable on the long-term treatment - Check labs. Notify of results via [employer] 2. Bone health: On long-term prednisone use - Continue calcium and vitamin D supplementation - Check DEXA once yearly while on pred, next due Jul. 3. Elevated LFTs: Possibly due to hepatic steatosis vs NSAID use. March labs stable - Continue monitoring 4. General health maintenance: - Advised to continue follow-up with PCP for routine health maintenance and malignancy screening Follow-up in 3, 6 & 9 months with Jaret, 12 months with me or sooner if needed. Patient was instructed to call if any questions or concerns. Thank you for allowing me to participate in the care of your patient. Jeremi Salmeron MD documented in this encounter [facility] 12-23-2022 Miscellaneous Notes Okayed Patient has been identified by name and date of : Yes Patient phones for refill(s): Requested Prescriptions Pending Prescriptions Disp Refills Estradiol (ESTRACE) 0.5 mg tablet 30 tablet 5 Sig: Take 1 tablet by mouth once daily. Date of last office visit in primary care: 09/28/2022 Yearly: 04/28/2023 Last 2 Encounter Wt Readings: Date: Wt: 09/28/2022 116.6 kg (257 lb) 07/02/2022 113.4 kg (250 lb) Previous labs/tests for medication: Not applicable Please advise. Thank you. Sonali Villagomez LPN documented in this encounter [facility] 11-30-2022 Miscellaneous Notes The following approved medication requests have been transmitted electronically. Requested Prescriptions Signed Prescriptions Disp Refills predniSONE (DELTASONE) 2.5 mg tablet 30 tablet 2 Sig: TAKE 1 TABLET BY MOUTH WITH FOOD DAILY FOR 30 DAYS Authorizing Provider: JARET SEYMOUR APRN.JUSTINE Patient has been identified by name and date of : Yes RX INSTRUCTIONS: Patient aware RX will be sent to pharmacy. No need to notify patient. LAST APPOINTMENT: 07/02/2022 UPCOMING APPOINTMENT: 03/03/2023 LABS: Hemoglobin (g/dL) Date Value 04/30/2022 13.8 03/12/2021 13.7 Hematocrit (%) Date Value 04/30/2022 44.2 03/12/2021 44.2 WBC (k/uL) Date Value 04/30/2022 7.53 03/12/2021 11.40 Platelet Count (k/uL) Date Value 04/30/2022 205 03/12/2021 264 AST Date Value Ref Range Status 04/30/2022 29 13 - 35 U/L Final ALT Date Value Ref Range Status 04/30/2022 39 (H) 7 - 38 U/L Final Creatinine Date Value Ref Range Status 04/30/2022 0.67 0.58 - 0.96 mg/dL Final Uric Acid Date Value Ref Range Status 05/19/2016 7.8 (H) 2.0 - 7.0 mg/dL Final Zahida Dawn MA documented in this encounter [facility] 10-09-2022 Note ORIGINAL EXAMINATION: CT OF THE RIGHT KNEE WITHOUT CONTRAST 10/09/2022 12:45 pm TECHNIQUE: CT of the right knee was performed without the administration of intravenous contrast. Multiplanar reformatted images are provided for review. Automated exposure control, iterative reconstruction, and/or weight based adjustment of the mA/kV was utilized to reduce the radiation dose to as low as reasonably achievable. COMPARISON: None. HISTORY ORDERING SYSTEM PROVIDED HISTORY: Reason for Exam: VARUS DEFORMITY, NOT ELSEWHERE CLASSIFIED, RIGHT KNEE. FINDINGS: No acute fracture or dislocation is evident. Normal osseous mineralization. No visible aggressive osseous lesions. Severe medial femorotibial compartment joint space narrowing with subchondral sclerosis and marginal osteophytes. Mild lateral femorotibial compartment joint space narrowing with marginal osteophytes. Moderate patellofemoral compartment joint space narrowing with marginal osteophytes. Mild insertional quadriceps enthesopathy. Small volume effusion. Small volume Peña's cyst with intracapsular osteochondral bodies, measuring up to 0.5 cm. Tendons and ligaments are suboptimally evaluated on this examination. No muscle atrophy. Mild atherosclerosis. Provided images of the right hip and right hemipelvis exhibit no acute osseous abnormalities or aggressive osseous lesions. Mild gluteus medius and minimus muscle atrophy. No visible acute intrapelvic process. Provided images of the ankle exhibit no acute osseous abnormalities or aggressive osseous lesions. Probable at least mild common peroneal tenosynovitis. IMPRESSION: 1. No acute osseous abnormalities or aggressive osseous lesions. 2. Tricompartmental osteoarthrosis, most pronounced of the medial femorotibial compartment. Small volume effusion. Small volume Peña's cyst with intracapsular osteochondral bodies. 3. Probable at least mild common peroneal tenosynovitis. Interpreted by: Ankur Pierre DO Preliminary Report By: Ankur Pierre DO Electronically signed By Ankur Pierre DO Dictated Date: 10/09/2022 2:09:01 PM Prelim Date: 10/09/2022 2:13:03 PM Sign Date: 10/09/2022 2:13:03 PM Ordering Provider: SUZY KIMMY [facility] 10-09-2022 Note ORIGINAL EXAMINATION: CT OF THE RIGHT KNEE WITHOUT CONTRAST 10/09/2022 12:45 pm TECHNIQUE: CT of the right knee was performed without the administration of intravenous contrast. Multiplanar reformatted images are provided for review. Automated exposure control, iterative reconstruction, and/or weight based adjustment of the mA/kV was utilized to reduce the radiation dose to as low as reasonably achievable. COMPARISON: None. HISTORY ORDERING SYSTEM PROVIDED HISTORY: Reason for Exam: VARUS DEFORMITY, NOT ELSEWHERE CLASSIFIED, RIGHT KNEE. FINDINGS: No acute fracture or dislocation is evident. Normal osseous mineralization. No visible aggressive osseous lesions. Severe medial femorotibial compartment joint space narrowing with subchondral sclerosis and marginal osteophytes. Mild lateral femorotibial compartment joint space narrowing with marginal osteophytes. Moderate patellofemoral compartment joint space narrowing with marginal osteophytes. Mild insertional quadriceps enthesopathy. Small volume effusion. Small volume Peña's cyst with intracapsular osteochondral bodies, measuring up to 0.5 cm. Tendons and ligaments are suboptimally evaluated on this examination. No muscle atrophy. Mild atherosclerosis. Provided images of the right hip and right hemipelvis exhibit no acute osseous abnormalities or aggressive osseous lesions. Mild gluteus medius and minimus muscle atrophy. No visible acute intrapelvic process. Provided images of the ankle exhibit no acute osseous abnormalities or aggressive osseous lesions. Probable at least mild common peroneal tenosynovitis. IMPRESSION: 1. No acute osseous abnormalities or aggressive osseous lesions. 2. Tricompartmental osteoarthrosis, most pronounced of the medial femorotibial compartment. Small volume effusion. Small volume Peña's cyst with intracapsular osteochondral bodies. 3. Probable at least mild common peroneal tenosynovitis. Interpreted by: Ankur Pierre DO Preliminary Report By: Ankur Pierre DO Electronically signed By Ankur Pierre DO Dictated Date: 10/09/2022 2:09:01 PM Prelim Date: 10/09/2022 2:13:03 PM Sign Date: 10/09/2022 2:13:03 PM Ordering Provider: SUZY ONEAL [facility] 09-28-2022 History of Present illness Narrative This note was created using SnoopWallriter. Subjective Cynthia Schaefer is a 57 year old female. HISTORY Cynthia Schaefer is a 57 year old lady here for pre-op evaluation as requested by Dr. Oneal. Cynthia Schaefer has surgery scheduled on 10/20/2022 for Right Knee replacement at [facility]. States that will be doing PAT at [facility] (will assume getting ECG and labs as needed by anesthesia there unless told otherwise). No limitations in activity from cardiac or pulmonary standpoint. No signs of infection. No dental problems noted. Noted prior difficulties with intubations so planning on surgery with probably spinal anesthesia and MAC--will discuss with anesthesia at preop appointment. Prior complications with surgical wound infections discussed. PAST MEDICAL HISTORY Diagnosis Date Deviated nasal septum Dysmenorrhea Macular degeneration, bilateral Dr. Clay Macular degeneration, wet ([facility]) getting injections (Dr. Crowe--Retinal Specialist from [place]) Macular degeneration, wet ([facility]) 01/11/2016 getting eye injections Periodic limb movement sleep disorder 01/11/2016 Rheumatoid arthritis of multiple sites with 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 factor ([facility]) 11/04/2019 TIA (transient ischemic attack) 04/21/13 PAST SURGICAL HISTORY Procedure Laterality Date AVASTIN (BEVACIZUMAB) 1.25MG INTRAVITREAL INJECTION OD (RIGHT EYE) 07/30/14 OD COLONOSCOPY FLX DX W/COLLJ SPEC WHEN PFRMD 01/15/16 Colonoscopy mac ENTEROLSS FRING INTSTINAL ADHESION SPX 11/29/13 dense adhesions ESOPHAGOGASTRODUODENOSCOPY TRANSORAL DIAGNOSTIC 01/15/16 EGD mac EYLEA (AFLIBERCEPT) 2MG INTRAVITREAL INJECTION OD (RIGHT EYE) 09/06/14 OD F SALPINGO-OOPHORECTOMY 11/29/13 PAST SURGICAL HISTORY OF 02/2014 scar revision/wound vac TONSILLECTOMY PRIMARY/SECONDARY <AGE 10 child Tonsillectomy/adenoids TOTAL ABDOMINAL HYSTERECT W/WO RMVL TUBE OVARY 11/29/13 [place], [place], [place] ECTOPIC W/O SALPING&/OOPHORECTOMY 1988,1989 Ectopic ALLERGIES Allergen Reactions Amoxil [Amoxicillin] GI Upset Morphine Anaphylaxis Sulfa (Sulfonamide * Anaphylaxis Current Outpatient Medications Medication Sig predniSONE (DELTASONE) 2.5 mg tablet TAKE 1 TABLET BY MOUTH WITH FOOD DAILY FOR 30 DAYS Estradiol (ESTRACE) 0.5 mg tablet Take 1 tablet by mouth once daily. hydroCHLOROthiazide (HYDRODIURIL, ESIDRIX) 12.5 mg tablet Take 1 tablet by mouth once daily. metoprolol succinate ER (TOPROL XL) 50 mg 24 hr tablet TAKE 1/2 TO 1 TABLET BY MOUTH ONCE DAILY aflibercept opthalmic intravitreal (EYLEA) 2 mg/0.05 mL soln 2 mg one time only. 10-12 wks CRANBERRY cholecalciferol, vitamin D3, 10 mcg (400 unit) cap Take 400 Units by mouth once daily. calcium carbonate/vitamin D2 ([id number]-P ORAL) Take by mouth. fluticasone (FLONASE) 50 mcg/actuation nasal spray USE 2 SPRAYS IN EACH NOSTRIL ONCE DAILY. RINSE MOUTH AFTER USE. B cmplx 4/vit D3/C/folic/zinc (VITAL-D RX ORAL) Take by mouth. folic acid 1 mg tablet Take 1 mg by mouth once daily. Aspirin 81 mg Tab Take 81 mg by mouth four times a week. Vitamin A-Vit C-Vit E-Zinc-Cu (OCUVITE PRESERVISION) ORAL Tab Take one(1) tablet daily. No current facility-administered medications for this visit. FAMILY HISTORY Problem Relation Age of Onset other (eczema[Other]) Unknown mat. grandmother Diabetes Maternal Grandmother maturity onset Diabetes Maternal Grandfather maturity onset Stroke Paternal Grandfather Diabetes Father other (other[Other]) Father Macular Degen Father Cataract Father other (Macular Degeneration[Other]) Mother Macular Degen Mother Cataract Mother Thyroid Mother hypothyroid Social History Tobacco Use Smoking status: Former Types: Cigarettes Quit date: 11/08/1992 Years since quittin.9 Smokeless tobacco: Never Vaping Use Vaping Use: Never used Substance Use Topics Alcohol use: No Drug use: No REVIEW OF SYSTEMS GENERAL: No weight loss, malaise or fevers HEENT: Negative for frequent or significant headaches, No changes in hearing or vision, no nose bleeds or other nasal problems NECK: Negative for lumps, goiter, pain and significant neck swelling RESPIRATORY: Negative for cough, hemoptysis, wheezing, COPD, dyspnea or shortness of breath CARDIOVASCULAR: Negative for chest pain, leg swelling, hypertension, CHF or palpitations GI: No nausea, vomiting, or diarrhea : No history of dysuria, frequency or incontinence 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 bleeding, abnormal vaginal discharge MUSCULOSKELETAL: joint pain or [id number] arthritis and knee that needs replaced SKIN: Negative for lesions, rash, and itching HEMATOLOGY/LYMPHOLOGY: Negative for prolonged bleeding, bruising easily or swollen nodes ENDOCRINE: Negative for cold or heat intolerance, polyuria, polydipsia and goiter NEURO: No history of headaches, syncope, paralysis, seizures or tremors PHYSICAL EXAMINATION: Objective BP 122/84 Pulse 99 Wt 116.6 kg (257 lb) LMP 10/20/2013 SpO2 97% BMI 41.48 kg/m Last 5 Encounter Wt Readings: Date: Wt: 09/28/2022 116.6 kg (257 lb) 07/02/2022 113.4 kg (250 lb) 04/24/2022 115.2 kg (254 lb) 04/14/2021 119.7 kg (264 lb) 04/09/2021 122.7 kg (270 lb 9.6 oz) No waist measurement recorded Estimated body mass index is 41.48 kg/m as calculated from the following: Height as of 07/02/22: 167.6 cm (5' 6 ). Weight as of this encounter: 116.6 kg (257 lb). Last 5 Encounter BP Readings: Date: BP: 09/28/2022 122/84 07/02/2022 124/85 04/24/2022 122/82 04/14/2021 121/85 04/09/2021 118/86 Physical Exam Vitals reviewed. Constitutional: Appearance: She is well-developed. HENT: Head: Normocephalic and atraumatic. Right Ear: External ear normal. Left Ear: External ear normal. Nose: Nose normal. Eyes: Conjunctiva/sclera: Conjunctivae normal. Neck: Thyroid: No thyromegaly. Cardiovascular: Rate and Rhythm: Normal rate and regular rhythm. Pulses: Normal pulses. Heart sounds: Normal heart sounds. No murmur heard. No friction rub. No gallop. Pulmonary: Effort: Pulmonary effort is normal. Breath sounds: Normal breath sounds. Abdominal: General: Bowel sounds are normal. There is no distension. Palpations: Abdomen is soft. There is no mass. Tenderness: There is no abdominal tenderness. Musculoskeletal: General: No deformity. Normal range of motion. Lymphadenopathy: Cervical: No cervical adenopathy. Skin: General: Skin is warm and dry. Coloration: Skin is not jaundiced or pale. Findings: No rash. Neurological: General: No focal deficit present. Mental Status: She is alert and oriented to person, place, and time. Cranial Nerves: No cranial nerve deficit. Sensory: No sensory deficit. Motor: No abnormal muscle tone. Coordination: Coordination normal. Deep Tendon Reflexes: Reflexes normal. Psychiatric: Mood and Affect: Mood normal. Behavior: Behavior normal. Thought Content: Thought content normal. Judgment: Judgment normal. Last labs here. Component Latest Ref Rng & Units 04/30/2022 Protein, Total 6.3 - 8.0 g/dL 6.7 Albumin 3.9 - 4.9 g/dL 4.0 Calcium 8.5 - 10.2 mg/dL 8.9 Bilirubin, Total 0.2 - 1.3 mg/dL 0.5 Alkaline Phosphatase 34 - 123 U/L 80 AST 13 - 35 U/L 29 ALT 7 - 38 U/L 39 (H) Glucose 74 - 99 mg/dL 105 (H) BUN 7 - 21 mg/dL 15 Creatinine 0.58 - 0.96 mg/dL 0.67 Sodium 136 - 144 mmol/L 141 Potassium 3.7 - 5.1 mmol/L 3.8 Chloride 97 - 105 mmol/L 102 CO2 22 - 30 mmol/L 28 Anion Gap 9 - 18 mmol/L 11 eGFR >=60 mL/min/1.73m 101 WBC 3.70 - 11.00 k/uL 7.53 RBC 3.90 - 5.20 m/uL 4.87 Hemoglobin 11.5 - 15.5 g/dL 13.8 Hematocrit 36.0 - 46.0 % 44.2 MCV 80.0 - 100.0 fL 90.8 MCH 26.0 - 34.0 pg 28.3 MCHC 30.5 - 36.0 g/dL 31.2 RDW-CV 11.5 - 15.0 % 14.5 Platelet Count 150 - 400 k/uL 205 MPV 9.0 - 12.7 fL 11.4 Absolute nRBC <0.01 k/uL <0.01 Cholesterol, Total <200 mg/dL 165 Triglyceride <150 mg/dL 74 HDL Cholesterol >39 mg/dL 55 Non HDL Cholesterol <130 mg/dL 110 Fasting Time hrs 11 VLDL Cholesterol <30 mg/dL 15 TC:HDL Ratio <5.10 3.00 LDL Cholesterol <100 mg/dL 95 LDL:HDL Ratio <2.54 1.73 Hemoglobin A1C 4.3 - 5.6 % 6.0 (H) Estimated Average Glucose mg/dL 126 Vitamin D 25 Hydroxy 31.0 - 80.0 ng/mL 40.9 Assessment and Plan ASSESSMENT/PLAN: 1. Preop examination - ICD9: V72.84, ICD10: Z01.818 Patient without medical contraindications for planned surgical procedure. No need for further testing for cardiac or pulmonary issues. No signs of infection. Most recent labs from April were fine. She will be having preop evaluation with anesthesiologist and Baltazar Landers PA-C ([facility]). She will discuss with anesthesiologist prior problems with intubation. Usual precautions to lower risk for infection from surgery will be done. Discussed with patient that she thinks will be getting labs when in for PAT. Will follow up as needed on results. She may proceed with planned surgical procedure as planned. Will communicate results of this preop evaluation with Dr. Oneal through fax of this preop evaluation and their signed Request for Surgery Clearance form. Connie Jain MD documented in this encounter [facility] 09-07-2022 Miscellaneous Notes rx sent Patient has been identified by name and date of : Yes RX INSTRUCTIONS: Patient aware RX will be sent to pharmacy. No need to notify patient. LAST APPOINTMENT: 07/02/2022 UPCOMING APPOINTMENT: 12/02/2022 LABS: Hemoglobin (g/dL) Date Value 04/30/2022 13.8 03/12/2021 13.7 Hematocrit (%) Date Value 04/30/2022 44.2 03/12/2021 44.2 WBC (k/uL) Date Value 04/30/2022 7.53 03/12/2021 11.40 Platelet Count (k/uL) Date Value 04/30/2022 205 03/12/2021 264 AST Date Value Ref Range Status 04/30/2022 29 13 - 35 U/L Final ALT Date Value Ref Range Status 04/30/2022 39 (H) 7 - 38 U/L Final Creatinine Date Value Ref Range Status 04/30/2022 0.67 0.58 - 0.96 mg/dL Final Uric Acid Date Value Ref Range Status 05/19/2016 7.8 (H) 2.0 - 7.0 mg/dL Final Sadia Ulloa MA documented in this encounter [facility] 09-03-2022 History of Present illness Narrative Episode Visit Count: 4 Therapist That Will Accept/Oversee The Plan Of Care: Elliott Gilbert Start of Care Date: 08/19/22 REHABILITATION AND SPORTS THERAPY PHYSICAL THERAPY TREATMENT NOTE ASSESSMENT: Cynthia Schaefer tolerated the session with expected muscle soreness. She demonstrated difficulty with alternating marching in place on firm surface with and without UE support due to trunk sway. The patient will continue to benefit from ongoing skilled physical therapy to progress toward set goals. PLAN FOR NEXT VISIT: Continue balance training, hip and quadriceps stabilization strengthening SUBJECTIVE: Patient Reason for Visit: Pt. reports soreness. Pain: Pain Pain Level: 3 Pain Location: Knee - Right Description: Sore Frequency: Continuous OBJECTIVE MEASURES WITH LEVEL OF FUNCTION: TREATMENT: Therapeutic Exercise: 1: SciFit seat 12, level 2 5 min (subjective taken) 2: SLR 2x10 each side with slow return, emphasis on knee maintaining extension 3: hook lying hip abd BTB, slow eccentric control return 2x15 4: hook lying hip add into ball 2x15 5: standing TKE into ball 2x20 R and L 6: standing calf stretch into wall 3x30 sec 7: standing soleus stretching in to wall 3x30 sec each side 8: hook lying bridges 3x5 with UE's at sides assist 9: standing in // bars HS curls 2x12 each side Skilled Intervention: Patient was educated in proper exercise technique and purpose for exercises. Skilled judgment was provided in selection of appropriate interventions. Correct performance of therapeutic exercises was facilitated with verbal, visual, and tactile cuing. Additional time necessary for intermittent rest due to fatigue and popping that is briefly painful. Educated patient on rationale for performing exercises in regards to decreasing fatigue , including balance, increase ease of ADL, and ROM and function . Patient education as noted. Neuromuscular Re-Education: 1: standing toe and heel raises without UE support 2: marching in place in // bars on firm surface slowly alt 2x30 sec no UE support 3: marching in place on firm surface slowly alt 2x30 sec x1 finger tip on // bars for support Skilled Intervention: Skilled judgment used to assess appropriate program for balance and coordination activity. Education in proprioceptive/kinesthetic awareness during standing and dynamic activities. Ensured patient safety with use of // bars. Patient education as noted. Billing Therapeutic Exercise Treatment Minutes: 30 Neuromuscular Re-Education Treatment Minutes: 10 Total Treatment Time Minutes (timed/untimed): 40 Angela Manley PT documented in this encounter [facility] 09-01-2022 History of Present illness Narrative Episode Visit Count: 3 Therapist That Will Accept/Oversee The Plan Of Care: Elliott Gilbert Start of Care Date: 08/19/22 Patient Identified by Name and Date of : Yes REHABILITATION AND SPORTS THERAPY PHYSICAL THERAPY TREATMENT NOTE ASSESSMENT: Cynthia Schaefer tolerated the session with increased symptoms. She demonstrated difficulty with completing SLR and LAQ exercises slowly for stabilization strengthening benefit. The patient will continue to benefit from ongoing skilled physical therapy to progress toward set goals. Current Frequency: 2x/week Duration: 4 weeks PLAN FOR NEXT VISIT: Continue balance and functional strength training. SUBJECTIVE: Patient Reason for Visit: Soreness from working 2x 12 hour shifts in the past few days. She does her exercises the days she does not work due to not having much time to rest after long shifts. Pain: Pain Pain Level: 5 Pain Location: Knee - Right Description: Sharp;Sore Frequency: Continuous OBJECTIVE MEASURES WITH LEVEL OF FUNCTION: TREATMENT: Therapeutic Exercise: 1: seated LAQ 3 sets of 8 reps, emphasis on eccentric quad control 2: SLR 2x8 with slow return 3: static standing TKE with GTB 2x15 each side 4: seated Heel raises 2 x10 (as part of seated warm up due to increased soreness) 5: seated Toe raises 2 x10 (as part of seated warm up due to increased soreness) 6: *standing TKE GTB 2x15 each side 7: supine HS stretch with strap 3x30 sec each side 8: *GTB issued Skilled Intervention: Patient was educated in proper exercise technique and purpose for exercises. Skilled judgment was provided in selection of appropriate interventions. Provided written instruction for home exercise program to facilitate proper performance and compliance. Correct performance of therapeutic exercises was facilitated with cuing. Additional time necessary for providing updated HEP due to adding TKE exercise. Educated patient on rationale for performing exercises in regards to decreasing fatigue , including balance, increase ease of ADL, and ROM and function . Patient education as noted. Neuromuscular Re-Education: 1: NBOS on foam 30 sec EO, 30 sec eyes closed arms crossed 2: *NBOS on firm surface 30 sec EO, 30 sec eyes open - arms crossed 3: semi tandem stance on firm surface EO, EC 2x30 sec each - arms crossed 4: semi tandem stance on foam surface EO 2x30 sec each - arms crossed 5: tandem stance 2x30 sec, EO firm surface arms crossed Skilled Intervention: Skilled judgment used to assess appropriate program for balance and coordination activity. Education in proprioceptive/kinesthetic awareness during standing and dynamic activities. Ensured patient safety with use of // bars within reach. Patient education as noted. Billing Therapeutic Exercise Treatment Minutes: 30 Neuromuscular Re-Education Treatment Minutes: 10 Total Treatment Time Minutes (timed/untimed): 40 Angela Manley PT documented in this encounter [facility] 08-25-2022 History of Present illness Narrative Episode Visit Count: 2 Therapist That Will Accept/Oversee The Plan Of Care: Elliott Gilbert Start of Care Date: 08/19/22 REHABILITATION AND SPORTS THERAPY PHYSICAL THERAPY TREATMENT NOTE ASSESSMENT: Cynthia Schaefer tolerated the session with no issues. She demonstrated improvements in form with exs though still challenged d/t weakness. Did well with balance . The patient will continue to benefit from ongoing skilled physical therapy to progress toward set goals. PLAN FOR NEXT VISIT: add rep band TKE and hamstring curls to HEP SUBJECTIVE: Patient Reason for Visit: Pt notes that she did ok with exs that were given. Pain: Pain Pain Level: 2 Pain Location: Knee - Right Description: Sharp;Sore Frequency: Continuous OBJECTIVE MEASURES WITH LEVEL OF FUNCTION: tandem stance stable 15 sec B TREATMENT: Therapeutic Exercise: 1: *Sidelying abduction x10/side 2: *SLR x10/side 3: *QS x10 5 sec hold/side (cues for form to increase effort with quad and no DF of foot) 4: *Heel raises x10 5: *Toe raises x10 (holding onto counter for balance) 6: *Calf stretch w/green strap 30sec 7: *Hamstring stretch w/green strap 30sec x3 (supine) 8: *Heel slides x10/side 9: *Sit to stands x10 (cues to attempt equal WB B) 10: supine gravity assisted extension with towel under heel 1 min x1 11: green rep band hamstring curls 2x10 Skilled Intervention: Patient was educated in proper exercise technique and purpose for exercises. Skilled judgment was provided in selection of appropriate interventions. Correct performance of therapeutic exercises was facilitated with verbal and visual cuing. Patient education as noted. Neuromuscular Re-Education: 1: tandem stance in parallel bars 15 sec x1 B 2: NBOS eyes closed x2 3: standing on blue foam NBOS with stir the pot and paloff arm moves 1x10 each 4: tandem walking in parallel bars some UE assist Skilled Intervention: Education in proprioceptive/kinesthetic awareness during dynamic activities. Ensured patient safety with use of gait belt and parallel bars Billing Therapeutic Exercise Treatment Minutes: 35 Neuromuscular Re-Education Treatment Minutes: 5 Total Treatment Time Minutes (timed/untimed): 40 Irma Schmidt PT documented in this encounter [facility] 08-05-2022 History of Present illness Narrative Radiology Service Progress Note PATIENT NAME: Cynthia Schaefer DATE OF SERVICE: August 05, 2022 TIME: 9:06 AM PATIENT IDENTITY VERIFICATION COMPLETED USING TWO (2) IDENTIFIERS: Name and Date of confirmed by patient verbally. FALL SCREENING: Has the patient had 2 falls in the last year or 1 fall with injury or currently using an Ambulatory Assistive Device (Walker, Cane, Wheelchair, Crutches, etc.)? Yes, Patient High Risk for Falls What interventions were put in place to prevent falls during this visit? Increased Observations by Caregivers PATIENT GENDER DATA: Female. status: : No status: NO. PATIENT RELEVANT IMPLANT DATA REVIEWED: Not Applicable RADIOLOGY DEPARTMENT: Bone Density PERIPHERAL IV DATA: Not applicable SIGNED BY: RT Nathan(R) August 05, 2022 9:06 AM documented in this encounter [facility] 07-31-2022 History of Present illness Narrative Cynthia Schaefer presents with pain, painful movement, and instability in the right knee. She describes that her knee will feel like it shifts then give out, followed by severe pain that last for several minutes. Pain will eventually settle down. She states that this happens several times a day. She has sero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 arthritis with degenerative arthritis of the knees and she has received cortisone injections and Visco supplement injections in the past for this diagnosis. Symptoms began 2 weeks ago and since then have been present daily. The pain is rated as 3 on a scale of 1-10, but is as high as 10 out of 10 acutely after an incident of the knee shifting. Symptoms are not a result of an injury. PAST MEDICAL HISTORY Diagnosis Date Deviated nasal septum Dysmenorrhea Macular degeneration, bilateral Dr. Clay Macular degeneration, wet ([facility]) getting injections (Dr. Crowe--Retinal Specialist from [place]) Macular degeneration, wet ([facility]) 01/11/2016 getting eye injections Periodic limb movement sleep disorder 01/11/2016 Rheumatoid arthritis of multiple sites with 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 factor ([facility]) 11/04/2019 TIA (transient ischemic attack) 04/21/13 PAST SURGICAL HISTORY Procedure Laterality Date AVASTIN (BEVACIZUMAB) 1.25MG INTRAVITREAL INJECTION OD (RIGHT EYE) 07/30/14 OD COLONOSCOPY FLX DX W/COLLJ SPEC WHEN PFRMD 01/15/16 Colonoscopy mac ENTEROLSS FRING INTSTINAL ADHESION SPX 11/29/13 dense adhesions ESOPHAGOGASTRODUODENOSCOPY TRANSORAL DIAGNOSTIC 01/15/16 EGD mac EYLEA (AFLIBERCEPT) 2MG INTRAVITREAL INJECTION OD (RIGHT EYE) 09/06/14 OD F SALPINGO-OOPHORECTOMY 11/29/13 PAST SURGICAL HISTORY OF 02/2014 scar revision/wound vac TONSILLECTOMY PRIMARY/SECONDARY <AGE 10 child Tonsillectomy/adenoids TOTAL ABDOMINAL HYSTERECT W/WO RMVL TUBE OVARY 11/29/13 [place]ELODY, [place], [place] ECTOPIC W/O SALPING&/OOPHORECTOMY 1988,1989 Ectopic Current Outpatient Medications on File Prior to Visit Medication Sig predniSONE (DELTASONE) 2.5 mg tablet TAKE 1 TABLET BY MOUTH WITH FOOD DAILY FOR 30 DAYS Estradiol (ESTRACE) 0.5 mg tablet Take 1 tablet by mouth once daily. hydroCHLOROthiazide (HYDRODIURIL, ESIDRIX) 12.5 mg tablet Take 1 tablet by mouth once daily. metoprolol succinate ER (TOPROL XL) 50 mg 24 hr tablet TAKE 1/2 TO 1 TABLET BY MOUTH ONCE DAILY aflibercept opthalmic intravitreal (EYLEA) 2 mg/0.05 mL soln 2 mg one time only. 10-12 wks CRANBERRY cholecalciferol, vitamin D3, 10 mcg (400 unit) cap Take 400 Units by mouth once daily. calcium carbonate/vitamin D2 ([id number] ORAL) Take by mouth. B cmplx 4/vit D3/C/folic/zinc (VITAL-D RX ORAL) Take by mouth. folic acid 1 mg tablet Take 1 mg by mouth once daily. Aspirin 81 mg Tab Take 81 mg by mouth four times a week. Vitamin A-Vit C-Vit E-Zinc-Cu (OCUVITE PRESERVISION) ORAL Tab Take one(1) tablet daily. phenazopyridine (PYRIDIUM, GERIDIUM) 100 mg tablet Take 1 tablet by mouth three times daily as needed. albuterol HFA (PROVENTIL HFA, VENTOLIN HFA) 90 mcg/actuation inhaler Inhale 2 Puffs as instructed every 4 hours as needed. fluticasone-salmeterol (ADVAIR DISKUS) 250-50 mcg/dose Inhale 1 Puff as instructed twice daily. fluticasone (FLONASE) 50 mcg/actuation nasal spray USE 2 SPRAYS IN EACH NOSTRIL ONCE DAILY. RINSE MOUTH AFTER USE. No current facility-administered medications on file prior to visit. Physical Exam Findings: General exam: Normal, Extremeties right knee tenderness over the anterior medial joint line. Mild effusion is present. No significant redness or warmth noted. There is crepitus with active and passive range of motion. No significant instability with varus or valgus stress mild instability with Larry. Pain with Adina. Pain with patellar ballottement. X-ray shows progressive arthritis of the right knee with joint space narrowing and osteophyte formation Assessment: Sero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 arthritis multiple joints affected, secondary arthritis of both knees right greater than left Right knee instability Plan: 1. Patient Instructions: Patient is referred for physical therapy to evaluate and treat for quad strengthening and knee stabilization 2. Also referred for evaluation by Rachelle for OA lite medial advertising operations coordinator brace Discussed surgical options with patient, but she states that she does not want to pursue surgery at this time. Brenden Okeefe DO AMB ROOMING INTAKE FLOWSHEET DATA Risk Screening Do you have concerns about personal safety or safety in the home?: No Pain Pain Level: 3 (as high as 10) Pain Location: Knee-Right Description: Dull, Sharp Duration Amount of Time: 2 Duration Units: Weeks Frequency: Intermittent Intervention/Comfort measure: Medication documented in this encounter [facility] 07-31-2022 History of Present illness Narrative Radiology Service Progress Note PATIENT NAME: Cynthia Schaefer DATE OF SERVICE: July 31, 2022 TIME: 10:15 AM PATIENT IDENTITY VERIFICATION COMPLETED USING TWO (2) IDENTIFIERS: Name and Date of confirmed by patient verbally. FALL SCREENING: Has the patient had 2 falls in the last year or 1 fall with injury or currently using an Ambulatory Assistive Device (Walker, Cane, Wheelchair, Crutches, etc.)? No PATIENT GENDER DATA: Female. status: : No status: NO. PATIENT RELEVANT IMPLANT DATA REVIEWED: Yes RADIOLOGY DEPARTMENT: General X-ray: Exam(s) Completed: Lower Extremity X-Ray(s): Knee, AP / Lat / Tunne / Merchant Right and Wt. Bearing PERIPHERAL IV DATA: Not applicable SIGNED BY: RT Guille(R) July 31, 2022 10:15 AM documented in this encounter [facility] 07-21-2022 Miscellaneous Notes MC Get Medical Advice on 07/21/22 XR KNEE GENERAL 4V AP BOTH/PA BOTH/LAT/MERC RIGHT CONSULT TO ORTHOPAEDICS Jaret Seymour APRN.SUPERVISOR [employer] MOTTLE documented in this encounter [facility] 07-02-2022 History of Present illness Narrative HPI: To review, Cynthia Schaefer is a 57 year old female - In mid-April, noted onset of pain and swelling in wrists, PIPs, knees, ankles and feet. Labs for RA unremarkable. - In May, started on prednisone 30mg with taper, had near resolution in pain on high dose - From Jun-Aug, on MTX but stopped after 2 months due to inefficacy along with mouth sores and nausea - In Oct, established care in [facility] with pain in the PIPs and knees. Started on HCQ 200mg bid - In January, reported nausea and vomiting with higher dose of HCQ so reduced to HCQ 200mg/day with improvement in n/v. Hadn't noticed improvement in joint pain. About 1 month later, stopped HCQ given lack of efficacy - In interim, seen by [facility] who started arava in May. Took x3 weeks, but then stopped due to lack of efficacy and hair loss. Has been on prednisone 2.5mg/day x2-3 years which works. - In , had gel injections in the knees which helped significantly for a while - In February, reported taking prednisone 2.5mg/day which helps her significantly. Increases dose with flares, averaging once monthly courses of 12.5mg/day x4 days. Started on humira - In April, still waiting to get humira. Underwent R troch bursa injection which didn't help - In Aug, reported 10% improvement with humira. Stopped humira. Prednisone did help - in 02/2021, reports a lot of fatigue and pain. With R 5th digit pain. Also with knee and L foot pain. Takes prednisone 5mg/day (was on 2.5mg/day but has needed more). - Takes tylenol, 1000mg/day which helps. Not taking calcium and vit D. - Morning stiffness x30-35 minutes PAST MEDICAL HISTORY Diagnosis Date Deviated nasal septum Dysmenorrhea Macular degeneration, bilateral Dr. Clay Macular degeneration, wet ([facility]) getting injections (Dr. Crowe--Retinal Specialist from [place]) Macular degeneration, wet ([facility]) 01/11/2016 getting eye injections Periodic limb movement sleep disorder 01/11/2016 Rheumatoid arthritis of multiple sites with 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 factor ([facility]) 11/04/2019 TIA (transient ischemic attack) 04/21/13 PAST SURGICAL HISTORY Procedure Laterality Date AVASTIN (BEVACIZUMAB) 1.25MG INTRAVITREAL INJECTION OD (RIGHT EYE) 07/30/14 OD COLONOSCOP W/ OR W/O BRSH SPEC 01/15/16 Colonoscopy mac EGD W/O OR W/BRUSH/WASH 01/15/16 EGD mac EYLEA (AFLIBERCEPT) 2MG INTRAVITREAL INJECTION OD (RIGHT EYE) 09/06/14 OD F SALPINGO-OOPHORECTOMY 11/29/13 FREEING BOWEL ADHESION,ENTEROLYSIS 11/29/13 dense adhesions PAST SURGICAL HISTORY OF 02/2014 scar revision/wound vac REMOVAL OF TONSILS,<10 Y/O child Tonsillectomy/adenoids TOTAL ABDOM HYSTERECTOMY 11/29/13 MELODY, [place], [place] TREAT ECTOPIC PREG,NON REMVAL 1988,1989 Ectopic ALLERGIES Allergen Reactions Amoxil [Amoxicillin] GI Upset Morphine Anaphylaxis Sulfa (Sulfonamide * Anaphylaxis INTERVAL HISTORY She is here for follow up. MARSHALL was in 04/2021. 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 She discontinued Humira on her own. She reports numbness to hands. She is taking prednisone 2.5 mg daily. She will increase the prednisone dose to 10 mg daily for a couple days if her joint symptoms worsen. She takes tylenol for pain. Sites of pain: L 2nd dip, pain rated 5/10 Joint swelling: none EMS: yes, lasting 30 mintues She was diagnosed with Covid in February. Symptoms have resolved. Tolerating meds. Answers submitted by the patient for this visit: Review of [facility] (Submitted on 06/30/2022) Fever : No Recent Unintentional Weight Change: No Eye Pain: No Eye Redness: No Vision Disturbance: Yes Eye Dryness: Yes Nose Bleeds: No Sores in your Mouth: No Trouble Swallowing: No Dry Mouth: Yes Chest Pain: No Leg Swelling: Yes A Cough: No Shortness of Breath: No Pain with Breathing: No Heartburn: No Abdominal Pain: No Diarrhea: No Black Tarry Stools: No Blood in Urine: No Pain or Burning with Urination: No Joint Pain or Stiffness: Yes Muscle Weakness: Yes Muscle Aches: Yes Joint Swelling: Yes Morning Stiffness in Joints: Yes A Rash: No Skin Color Changes: No Hair Loss: No Nail Changes: Yes Headaches: No Numbness: Yes Memory Loss: No Swollen Glands: No Current Outpatient Medications Medication Sig predniSONE (DELTASONE) 2.5 mg tablet TAKE 1 TABLET BY MOUTH WITH FOOD DAILY FOR 30 DAYS Estradiol (ESTRACE) 0.5 mg tablet Take 1 tablet by mouth once daily. hydroCHLOROthiazide (HYDRODIURIL, ESIDRIX) 12.5 mg tablet Take 1 tablet by mouth once daily. metoprolol succinate ER (TOPROL XL) 50 mg 24 hr tablet TAKE 1/2 TO 1 TABLET BY MOUTH ONCE DAILY phenazopyridine (PYRIDIUM, GERIDIUM) 100 mg tablet Take 1 tablet by mouth three times daily as needed. albuterol HFA (PROVENTIL HFA, VENTOLIN HFA) 90 mcg/actuation inhaler Inhale 2 Puffs as instructed every 4 hours as needed. aflibercept opthalmic intravitreal (EYLEA) 2 mg/0.05 mL soln 2 mg one time only. 10-12 wks CRANBERRY cholecalciferol, vitamin D3, (VITAMIN D-3) 10 mcg (400 unit) cap Take 400 Units by mouth once daily. calcium carbonate/vitamin D2 ([id number] ORAL) Take by mouth. fluticasone-salmeterol (ADVAIR DISKUS) 250-50 mcg/dose Inhale 1 Puff as instructed twice daily. fluticasone (FLONASE) 50 mcg/actuation nasal spray USE 2 SPRAYS IN EACH NOSTRIL ONCE DAILY. RINSE MOUTH AFTER USE. B cmplx 4/vit D3/C/folic/zinc (VITAL-D RX ORAL) Take by mouth. folic acid 1 mg tablet Take 1 mg by mouth once daily. Aspirin 81 mg Tab Take 81 mg by mouth four times a week. Vitamin A-Vit C-Vit E-Zinc-Cu (OCUVITE PRESERVISION) ORAL Tab Take one(1) tablet daily. No current facility-administered medications for this visit. FAMILY HISTORY Problem Relation Age of Onset other (eczema[Other]) Unknown mat. grandmother Diabetes Maternal Grandmother maturity onset Diabetes Maternal Grandfather maturity onset Stroke Paternal Grandfather Diabetes Father other (other[Other]) Father Macular Degen Father Cataract Father other (Macular Degeneration[Other]) Mother Macular Degen Mother Cataract Mother Thyroid Mother hypothyroid SOCIAL HISTORY: Lives in [place] with . 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 Tobacco use: None Alcohol use: None Drug use: None PHYSICAL EXAMINATION: BP 124/85 Pulse 77 Temp 36.6 C (97.8 F) (Temporal) Ht 167.6 cm (5' 6 ) Wt 113.4 kg (250 lb) LMP 10/20/2013 BMI 40.35 kg/m General appearance: Well appearing, alert, in no acute distress, well-hydrated, well nourished. Skin: Skin color, texture, turgor normal, no suspicious rashes or lesions Eyes: Anicteric sclera. Neck: Supple, no adenopathy Lungs: Lungs clear to auscultation. No wheezing, rhonchi, rales. Heart: RRR without murmur Abdomen: Normal abdominal exam, Abdomen soft, non-tender. Bowel sounds normal. No masses, organomegaly Neuro: Gait normal. Sensation grossly intact. JOINTS: TENDER JOINTS: none SWOLLEN JOINTS: none No tenderness to spine or SI joints She is able to make a complete fist with both hands. +heberden's nodes Labs reviewed and discussed with the patient: Component Latest Ref Rng & Units 04/30/2022 WBC 3.70 - 11.00 k/uL 7.53 RBC 3.90 - 5.20 m/uL 4.87 Hemoglobin 11.5 - 15.5 g/dL 13.8 Hematocrit 36.0 - 46.0 % 44.2 MCV 80.0 - 100.0 fL 90.8 MCH 26.0 - 34.0 pg 28.3 MCHC 30.5 - 36.0 g/dL 31.2 RDW-CV 11.5 - 15.0 % 14.5 Platelet Count 150 - 400 k/uL 205 MPV 9.0 - 12.7 fL 11.4 Absolute nRBC <0.01 k/uL <0.01 Vitamin D 25 Hydroxy 31.0 - 80.0 ng/mL 40.9 Component Latest Ref Rng & Units 04/30/2022 Protein, Total 6.3 - 8.0 g/dL 6.7 Albumin 3.9 - 4.9 g/dL 4.0 Calcium 8.5 - 10.2 mg/dL 8.9 Bilirubin, Total 0.2 - 1.3 mg/dL 0.5 Alkaline Phosphatase 34 - 123 U/L 80 AST 13 - 35 U/L 29 ALT 7 - 38 U/L 39 (H) Glucose 74 - 99 mg/dL 105 (H) BUN 7 - 21 mg/dL 15 Creatinine 0.58 - 0.96 mg/dL 0.67 Sodium 136 - 144 mmol/L 141 Potassium 3.7 - 5.1 mmol/L 3.8 Chloride 97 - 105 mmol/L 102 CO2 22 - 30 mmol/L 28 Anion Gap 9 - 18 mmol/L 11 eGFR >=60 mL/min/1.73m 101 Component Latest Ref Rng & Units 03/29/2020 TB Nil IU/mL 0.04 TB1 Ag minus Nil <0.35 IU/mL 0.00 TB2 Ag minus Nil <0.35 IU/mL 0.01 Mitogen minus Nil 1.37 TB Result Negative Negative TB Interpretation No evidence of current or previous infection with Mycobacterium tuberculosis. Hep B Core Ab, Total Negative Negative Hep C Antibody IA Negative Negative Hep B Surface Ag Negative Negative Hep B Surface Ab, Qual Negative Negative Component Latest Ref Rng & Units 03/29/2020 WSR 0 - 20 mm/hr 8 CRP <0.9 mg/dL 1.3 (H) Vitamin D 25 Hydroxy 31.0 - 80.0 ng/mL 25.7 (L) Rheumatoid Factor <16 IU/mL <10 Component Latest Ref Rng & Units 04/20/2014 10/16/2016 04/14/2019 Hep B Core Ab, Total Negative Negative Hep C Antibody IA Negative Negative Hep B Surface Ag Negative Negative Hep B Surface Ab, Qual Negative Negative Rheumatoid Factor <20 IU/mL <10 CCP Antibody, IgG <20 Units <15 STUDIES: *Dec DEXA- normal *Oct xray hands- no changes of inflammatory arthritis *Oct xray knees- OSTEOARTHRITIS IMPRESSION and PLAN: 1. Sero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 arthritis: With classic steroid-responsive inflammatory arthritis involving PIPs, knees, ankles and feet reportedly in the setting of an outside MRI hand showing 'changes of RA'. Sulfa allergy, can't use SSZ. Has tried: HCQ (ineffective), MTX (ineffective, nausea, mouth sores), arava (ineffective but only used 3 weeks, hair loss) and humira (ineffective). She did not tolerate enbrel. Stable overall on prednisone 2.5 mg/day. -discussed starting orencia. R/b/a of med discussed and handout on medication was given to the patient. She defers starting orencia or any other biologics at this time. She will contact me if she changes her mind. - Continue prednisone 2.5-5mg/day after completing steroid couse. Advised we would try tapering in the future once more stable on the long-term treatment. She was advised to avoid NSAIDS while taking prednisone - Letter for work provided in the past to avoid working to decrease exposure. 2. Bone health: On long-term prednisone use - Continue calcium and vitamin D supplementation - Check DEXA. Reminded to schedule. Patient stated she will have to schedule on a new machine because they no longer have a machine at the previous location. Notify of results via [employer]. 3. Elevated LFTs: Possibly due to hepatic steatosis vs NSAID use. March labs stable - Continue monitoring 4. Left trochanteric bursitis -s/p injection in 03/2021 5. General health maintenance: - she was previously encouraged to get the covid vaccine, she is not planning to - Advised to continue follow-up with PCP for routine health maintenance and malignancy screening Follow-up in 4-5 months with me or sooner if needed. Patient was instructed to call if any questions or concerns. I spent a total of 20 minutes on the date of the service which included preparing to see the patient, [id number] patient care, completing clinical documentation, performing a medically appropriate examination and communicating results to the patient/family/caregiver. Thank you for allowing me to participate in the care of your patient. Jaret Seymour APRN.CNP documented in this encounter [facility] 07-01-2022 Instructions Jaret Seymour APRN.CNP - 07/01/2022 6:53 AM EDT Please schedule bone density test on the same machine as prior documented in this encounter [facility] 06-22-2022 Miscellaneous Notes The following approved medication requests have been transmitted electronically. Requested Prescriptions Signed Prescriptions Disp Refills predniSONE (DELTASONE) 2.5 mg tablet 30 tablet 2 Sig: TAKE 1 TABLET BY MOUTH WITH FOOD DAILY FOR 30 DAYS Authorizing Provider: JARET SEYMOUR APRN.JUSTINE Spoke with patient. Current Prednisone dose, 2.5 mg daily. Patient requested a refill. Zahida Gee MA Patient has been identified by name and date of : Yes RX INSTRUCTIONS: Patient aware RX will be sent to pharmacy. No need to notify patient. LAST APPOINTMENT: 04/14/2021 UPCOMING APPOINTMENT: 07/02/2022 LABS: Hemoglobin (g/dL) Date Value 04/30/2022 13.8 03/12/2021 13.7 Hematocrit (%) Date Value 04/30/2022 44.2 03/12/2021 44.2 WBC (k/uL) Date Value 04/30/2022 7.53 03/12/2021 11.40 Platelet Count (k/uL) Date Value 04/30/2022 205 03/12/2021 264 AST Date Value Ref Range Status 04/30/2022 29 13 - 35 U/L Final ALT Date Value Ref Range Status 04/30/2022 39 (H) 7 - 38 U/L Final Creatinine Date Value Ref Range Status 04/30/2022 0.67 0.58 - 0.96 mg/dL Final Uric Acid Date Value Ref Range Status 05/19/2016 7.8 (H) 2.0 - 7.0 mg/dL Final Zahida Dawn MA documented in this encounter [facility] 04-24-2022 History of Present illness Narrative This note was created using [employer]. Subjective Cynthia Schaefer is a 57 year old female. HISTORY Cynthia Schaefer is a 57 year old lady here for yearly exam and follow up appointment. Noted that had COVID in February; got at work. Doing okay. Not bad with asthma issues. Diazepam still helps for RLS. Rarely needs. Needs new RX to have on hand. Noted that gets affiliated easily. Ongoing sleep issues. On prednisone Still 3rd shift Broken sleep--2 hours at a time then unable to sleep for 2 hours. 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 Reviewed that 2013 MELODY-BSO. Noted that pain and arthritis started after that. Does have increased sweats and heat intolerance. Gets flushed easily. Noted irritability after the surgery. Used to be more even-chidi.d PAST MEDICAL HISTORY Diagnosis Date Deviated nasal septum Dysmenorrhea Macular degeneration, bilateral Dr. Clay Macular degeneration, wet ([facility]) getting injections (Dr. Crowe--Retinal Specialist from [place]) Macular degeneration, wet ([facility]) 01/11/2016 getting eye injections Periodic limb movement sleep disorder 01/11/2016 Rheumatoid arthritis of multiple sites with 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 factor ([facility]) 11/04/2019 TIA (transient ischemic attack) 04/21/13 Current Outpatient Medications Medication Sig predniSONE (DELTASONE) 2.5 mg tablet TAKE ONE TABLET BY MOUTH WITH FOOD hydroCHLOROthiazide (HYDRODIURIL, ESIDRIX) 12.5 mg tablet Take 1 tablet by mouth once daily. metoprolol succinate ER (TOPROL XL) 50 mg 24 hr tablet TAKE 1/2 TO 1 TABLET BY MOUTH ONCE DAILY ENBREL SURECLICK 50 mg/mL (1 mL) INJECT 1 ML (50 MG) UNDER THE SKIN ONCE A WEEK. phenazopyridine (PYRIDIUM, GERIDIUM) 100 mg tablet Take 1 tablet by mouth three times daily as needed. albuterol HFA (PROVENTIL HFA, VENTOLIN HFA) 90 mcg/actuation inhaler Inhale 2 Puffs as instructed every 4 hours as needed. aflibercept opthalmic intravitreal (EYLEA) 2 mg/0.05 mL soln 2 mg one time only. 10-12 wks CRANBERRY cholecalciferol, vitamin D3, (VITAMIN D-3) 10 mcg (400 unit) cap Take 400 Units by mouth once daily. calcium carbonate/vitamin D2 ([id number]-352-F ORAL) Take by mouth. fluticasone-salmeterol (ADVAIR DISKUS) 250-50 mcg/dose Inhale 1 Puff as instructed twice daily. fluticasone (FLONASE) 50 mcg/actuation nasal spray USE 2 SPRAYS IN EACH NOSTRIL ONCE DAILY. RINSE MOUTH AFTER USE. B cmplx 4/vit D3/C/folic/zinc (VITAL-D RX ORAL) Take by mouth. folic acid 1 mg tablet Take 1 mg by mouth once daily. Aspirin 81 mg Tab Take 81 mg by mouth four times a week. Vitamin A-Vit C-Vit E-Zinc-Cu (OCUVITE PRESERVISION) ORAL Tab Take one(1) tablet daily. Current Facility-Administered Medications Medication Dose Route Frequency perflutren lipid microspheres 1.3 mL in NaCl (PF) 0.9% 10 mL injection (DEFINITY) INTRAVENOUS DIRECTED PRN sodium chloride 0.9 % (flush) 10 mL (BD POSIFLUSH) 10 mL INTRAVENOUS DIRECTED PRN ALLERGIES Allergen Reactions Amoxil [Amoxicillin] GI Upset Morphine Anaphylaxis Sulfa (Sulfonamide * Anaphylaxis FAMILY HISTORY Problem Relation Age of Onset other (eczema[Other]) Unknown mat. grandmother Diabetes Maternal Grandmother maturity onset Diabetes Maternal Grandfather maturity onset Stroke Paternal Grandfather Diabetes Father other (other[Other]) Father Macular Degen Father Cataract Father other (Macular Degeneration[Other]) Mother Macular Degen Mother Cataract Mother Thyroid Mother hypothyroid Social History Tobacco Use Smoking status: Former Smoker Quit date: 11/08/1992 Years since quittin.4 Smokeless tobacco: Never Used Vaping Use Vaping Use: Never used Substance Use Topics Alcohol use: No Drug use: No Review of Systems Objective BP 122/82 Pulse 82 Ht 166 cm (5' 5.35 ) Wt 115.2 kg (254 lb) LMP 10/20/2013 BMI 41.81 kg/m Last 5 Encounter Wt Readings: Date: Wt: 04/24/2022 115.2 kg (254 lb) 04/14/2021 119.7 kg (264 lb) 04/09/2021 122.7 kg (270 lb 9.6 oz) 04/08/2021 121.8 kg (268 lb 9.6 oz) 03/24/2021 121 kg (266 lb 12.8 oz) No waist measurement recorded Estimated body mass index is 41.81 kg/m as calculated from the following: Height as of this encounter: 166 cm (5' 5.35 ). Weight as of this encounter: 115.2 kg (254 lb). Last 5 Encounter BP Readings: Date: BP: 04/24/2022 122/82 04/14/2021 121/85 04/09/2021 118/86 04/08/2021 132/82 03/13/2021 138/82 Physical Exam Vitals reviewed. Constitutional: Appearance: She is well-developed. HENT: Head: Normocephalic and atraumatic. Right Ear: External ear normal. Left Ear: External ear normal. Nose: Nose normal. Eyes: Conjunctiva/sclera: Conjunctivae normal. Neck: Thyroid: No thyromegaly. Cardiovascular: Rate and Rhythm: Normal rate and regular rhythm. Pulses: Normal pulses. Heart sounds: Normal heart sounds. No murmur heard. No friction rub. No gallop. Pulmonary: Effort: Pulmonary effort is normal. Breath sounds: Normal breath sounds. Abdominal: General: Bowel sounds are normal. There is no distension. Palpations: Abdomen is soft. There is no mass. Tenderness: There is no abdominal tenderness. Musculoskeletal: General: No deformity. Normal range of motion. Lymphadenopathy: Cervical: No cervical adenopathy. Skin: General: Skin is warm and dry. Coloration: Skin is not jaundiced or pale. Findings: No rash. Neurological: General: No focal deficit present. Mental Status: She is alert and oriented to person, place, and time. Cranial Nerves: No cranial nerve deficit. Sensory: No sensory deficit. Motor: No abnormal muscle tone. Coordination: Coordination normal. Deep Tendon Reflexes: Reflexes normal. Psychiatric: Attention and Perception: Attention and perception normal. Mood and Affect: Mood normal. Speech: Speech normal. Behavior: Behavior normal. Thought Content: Thought content normal. Cognition and Memory: Cognition and memory normal. Judgment: Judgment normal. Assessment and Plan ASSESSMENT/PLAN: 1. Routine medical exam - ICD9: V70.0, ICD10: Z00.00 (primary diagnosis) - Counseled on healthy diet and regular exercise - Calcium intake with supplements or by diet of 1000 mg/day for under 50, 9089-9238 mg/day for 50+ - Discussed need and benefit for weight loss. BMI 41.81 kg/(m^2) - COMP METABOLIC PANEL - CBC - LIPID PANEL BASIC - HGB A1C 2. Anxiety - ICD9: 300.00, ICD10: F41.9 .contmgmn - DIAZEPAM 5 MG TABLET 3. Periodic limb movement sleep disorder - ICD9: 327.51, ICD10: G47.61 - DIAZEPAM 5 MG TABLET 4. Exudative age-related macular degeneration, unspecified laterality, unspecified stage (HCC) - ICD9: 362.52, ICD10: H35.3290 Follows with retinal specialist and Ophthalmology - DIAZEPAM 5 MG TABLET 5. Postmenopausal hyperhidrosis - ICD9: 627.2, ICD10: N95.1, R61 Discussed management Consider oxybutynin. Further evaluation and treatment as indicated. 6. Persistent disorder of initiating or maintaining sleep - ICD9: 307.42, ICD10: G47.00 Continue present management. Further evaluation and treatment as indicated. Work on sleep hygiene. 7. Essential hypertension, benign - ICD9: 401.1, ICD10: I10 - good control - Continue current medication(s) - Recommended regular aerobic exercise. - Discussed need and benefit for weight loss. - Goal of BP <130/80 - COMP METABOLIC PANEL - CBC - LIPID PANEL BASIC 8. Elevated hemoglobin A1c - ICD9: 790.29, ICD10: R73.09 Needs to keep working on diet and exercise with lifestyle changes for effective weight loss as well as prevention of DM, and control of BP and lipids. - HGB A1C 9. Morbid obesity (HCC) - ICD9: 278.01, ICD10: E66.01 Weight decreasing - Behavioral intervention 10. Rheumatoid arthritis of multiple sites with 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 factor (HCC) - ICD9: 714.0, ICD10: M06.09 Continue following with Rheumatology 11. Exudative age-related macular degeneration of right eye with active choroidal neovascularization (HCC) - ICD9: 362.52, 362.16, ICD10: H35.3211 See above 12. Vitamin D deficiency - ICD9: 268.9, ICD10: E55.9 Adjust supplement as needed - VITAMIN D 25 HYDROXY Connie Jain MD documented in this encounter [facility] 03-25-2022 Miscellaneous Notes Patient has been notified of message below and verbalized understanding. Assisted patient with scheduling follow up appointment. Sadia Ulloa MA Please advise the patient that she is overdue for f/u. The following approved medication requests have been transmitted electronically. Signed Prescriptions Disp Refills predniSONE (DELTASONE) 2.5 mg tablet 30 tablet 2 Sig: TAKE ONE TABLET BY MOUTH WITH FOOD JENNIFER: No Authorizing Provider: JARET SEYMOUR APRN.CNP Patient has been identified by name and date of : Yes RX INSTRUCTIONS: Patient aware RX will be sent to pharmacy. No need to notify patient. LAST APPOINTMENT: 04/14/2021 UPCOMING APPOINTMENT: Visit date not found LABS: Hemoglobin (g/dL) Date Value 03/12/2021 13.7 Hematocrit (%) Date Value 03/12/2021 44.2 WBC (k/uL) Date Value 03/12/2021 11.40 Platelet Count (k/uL) Date Value 03/12/2021 264 AST Date Value Ref Range Status 03/12/2021 32 13 - 35 U/L Final ALT Date Value Ref Range Status 03/12/2021 34 7 - 38 U/L Final Creatinine Date Value Ref Range Status 03/12/2021 0.84 0.58 - 0.96 mg/dL Final 03/12/2021 0.83 0.58 - 0.96 mg/dL Final Uric Acid Date Value Ref Range Status 05/19/2016 7.8 (H) 2.0 - 7.0 mg/dL Final Sadia Ulloa MA documented in this encounter [facility] documented as of this encounter (statuses as of 02/25/2022) [facility] History of Past illness Narrative* Problem Noted Date Resolved Date Dysphagia 01/15/2016 01/15/2016 Dyspepsia 01/15/2016 01/15/2016 Colon cancer screening 01/15/2016 6 documented as of this encounter (statuses as of 03/25/2022) [facility] History of Past illness Narrative* Problem Noted Date Resolved Date Dysphagia 01/15/2016 01/15/2016 Dyspepsia 01/15/2016 01/15/2016 Colon cancer screening 01/15/2016 6 documented as of this encounter (statuses as of 05/11/2022) [facility] History of Past illness Narrative* Problem Noted Date Resolved Date Dysphagia 01/15/2016 01/15/2016 Dyspepsia 01/15/2016 01/15/2016 Colon cancer screening 01/15/2016 6 documented as of this encounter (statuses as of 05/21/2022) [facility] History of Past illness Narrative* Problem Noted Date Resolved Date Dysphagia 01/15/2016 01/15/2016 Dyspepsia 01/15/2016 01/15/2016 Colon cancer screening 01/15/2016 6 documented as of this encounter (statuses as of 06/15/2022) [facility] History of Past illness Narrative* Problem Noted Date Resolved Date Dysphagia 01/15/2016 01/15/2016 Dyspepsia 01/15/2016 01/15/2016 Colon cancer screening 01/15/2016 6 documented as of this encounter (statuses as of 06/22/2022) [facility] History of Past illness Narrative* Problem Noted Date Resolved Date Dysphagia 01/15/2016 01/15/2016 Dyspepsia 01/15/2016 01/15/2016 Colon cancer screening 01/15/2016 6 documented as of this encounter (statuses as of 07/02/2022) [facility] History of Past illness Narrative* Problem Noted Date Resolved Date Dysphagia 01/15/2016 01/15/2016 Dyspepsia 01/15/2016 01/15/2016 Colon cancer screening 01/15/2016 6 documented as of this encounter (statuses as of 07/21/2022) [facility] History of Past illness Narrative* Problem Noted Date Resolved Date Dysphagia 01/15/2016 01/15/2016 Dyspepsia 01/15/2016 01/15/2016 Colon cancer screening 01/15/2016 6 documented as of this encounter (statuses as of 07/31/2022) [facility] History of Past illness Narrative* Problem Noted Date Resolved Date Dysphagia 01/15/2016 01/15/2016 Dyspepsia 01/15/2016 01/15/2016 Colon cancer screening 01/15/2016 6 documented as of this encounter (statuses as of 08/01/2022) [facility] History of Past illness Narrative* Problem Noted Date Resolved Date Dysphagia 01/15/2016 01/15/2016 Dyspepsia 01/15/2016 01/15/2016 Colon cancer screening 01/15/2016 6 documented as of this encounter (statuses as of 08/06/2022) [facility] History of Past illness Narrative* Problem Noted Date Resolved Date Dysphagia 01/15/2016 01/15/2016 Dyspepsia 01/15/2016 01/15/2016 Colon cancer screening 01/15/2016 6 documented as of this encounter (statuses as of 08/25/2022) [facility] History of Past illness Narrative* Problem Noted Date Resolved Date Dysphagia 01/15/2016 01/15/2016 Dyspepsia 01/15/2016 01/15/2016 Colon cancer screening 01/15/2016 6 documented as of this encounter (statuses as of 09/01/2022) [facility] History of Past illness Narrative* Problem Noted Date Resolved Date Dysphagia 01/15/2016 01/15/2016 Dyspepsia 01/15/2016 01/15/2016 Colon cancer screening 01/15/2016 6 documented as of this encounter (statuses as of 09/03/2022) [facility] History of Past illness Narrative* Problem Noted Date Resolved Date Dysphagia 01/15/2016 01/15/2016 Dyspepsia 01/15/2016 01/15/2016 Colon cancer screening 01/15/2016 6 documented as of this encounter (statuses as of 09/07/2022) [place] [address]-09-2016 History of Past illness Narrative* Problem Noted Date Resolved Date Dysphagia 01/15/2016 01/15/2016 Dyspepsia 01/15/2016 01/15/2016 Colon cancer screening 01/15/2016 6 documented as of this encounter (statuses as of 10/02/2022) [facility] History of Past illness Narrative* Problem Noted Date Resolved Date Dysphagia 01/15/2016 01/15/2016 Dyspepsia 01/15/2016 01/15/2016 Colon cancer screening 01/15/2016 6 documented as of this encounter (statuses as of 11/16/2022) [address]09-2016 History of Past illness Narrative* Problem Noted Date Resolved Date Dysphagia 01/15/2016 01/15/2016 Dyspepsia 01/15/2016 01/15/2016 Colon cancer screening 01/15/2016 6 documented as of this encounter (statuses as of 11/30/2022) [facility] History of Past illness Narrative* Problem Noted Date Resolved Date Dysphagia 01/15/2016 01/15/2016 Dyspepsia 01/15/2016 01/15/2016 Colon cancer screening 01/15/2016 6 documented as of this encounter (statuses as of 12/23/2022) [facility] History of Past illness Narrative* Problem Noted Date Resolved Date Dysphagia 01/15/2016 01/15/2016 Dyspepsia 01/15/2016 01/15/2016 Colon cancer screening 01/15/2016 6 documented as of this encounter (statuses as of 03/03/2023) [facility] History of Past illness Narrative* Problem Noted Date Resolved Date Dysphagia 01/15/2016 01/15/2016 Dyspepsia 01/15/2016 01/15/2016 Colon cancer screening 01/15/2016 6 documented as of this encounter (statuses as of 03/04/2023) [place] [address]09-2016 History of Past illness Narrative* Problem Noted Date Resolved Date Dysphagia 01/15/2016 01/15/2016 Dyspepsia 01/15/2016 01/15/2016 Colon cancer screening 01/15/2016 6 documented as of this encounter (statuses as of 03/05/2023) [facility] History of Past illness Narrative* Problem Noted Date Resolved Date Dysphagia 01/15/2016 01/15/2016 Dyspepsia 01/15/2016 01/15/2016 Colon cancer screening 01/15/2016 6 documented as of this encounter (statuses as of 03/17/2023) [facility] History of Past illness Narrative* Problem Noted Date Resolved Date Dysphagia 01/15/2016 01/15/2016 Dyspepsia 01/15/2016 01/15/2016 Colon cancer screening 01/15/2016 6 documented as of this encounter (statuses as of 03/19/2023) [facility] History of Past illness Narrative* Problem Noted Date Resolved Date Dysphagia 01/15/2016 01/15/2016 Dyspepsia 01/15/2016 01/15/2016 Colon cancer screening 01/15/2016 6 documented as of this encounter (statuses as of 03/22/2023) [facility] History of Past illness Narrative* Problem Noted Date Resolved Date Dysphagia 01/15/2016 01/15/2016 Dyspepsia 01/15/2016 01/15/2016 Colon cancer screening 01/15/2016 6 documented as of this encounter (statuses as of 04/09/2023) [facility] History of Past illness Narrative* Problem Noted Date Diagnosed Date Resolved Date Dysphagia 01/15/2016 01/15/2016 Dyspepsia 01/15/2016 01/15/2016 Colon cancer screening 01/15/201601/14 documented as of this encounter (statuses as of 05/17/2023) [facility] History of Past illness Narrative* Problem Noted Date Diagnosed Date Resolved Date Dysphagia 01/15/2016 01/15/2016 Dyspepsia 01/15/2016 01/15/2016 Colon cancer screening 01/15/201601/14 documented as of this encounter (statuses as of 06/21/2023) [facility] History of Past illness Narrative* Problem Noted Date Diagnosed Date Resolved Date Dysphagia 01/15/2016 01/15/2016 Dyspepsia 01/15/2016 01/15/2016 Colon cancer screening 01/15/201601/14 documented as of this encounter (statuses as of 07/15/2023) [facility] History of Past illness Narrative* Problem Noted Date Diagnosed Date Resolved Date Dysphagia 01/15/2016 01/15/2016 Dyspepsia 01/15/2016 01/15/2016 Colon cancer screening 01/15/201601/14 documented as of this encounter (statuses as of 07/15/2023) [facility] History of Past illness Narrative* Problem Noted Date Diagnosed Date Resolved Date Dysphagia 01/15/2016 01/15/2016 Dyspepsia 01/15/2016 01/15/2016 Colon cancer screening 01/15/201601/14 documented as of this encounter (statuses as of 08/14/2023) [facility] History of Past illness Narrative* Problem Noted Date Diagnosed Date Resolved Date Dysphagia 01/15/2016 01/15/2016 Dyspepsia 01/15/2016 01/15/2016 Colon cancer screening 01/15/201601/14 documented as of this encounter (statuses as of 08/17/2023) [facility] History of Past illness Narrative* Problem Noted Date Diagnosed Date Resolved Date Dysphagia 01/15/2016 01/15/2016 Dyspepsia 01/15/2016 01/15/2016 Colon cancer screening 01/15/201601/14 documented as of this encounter (statuses as of 08/17/2023) [facility] History of Past illness Narrative* Problem Noted Date Diagnosed Date Resolved Date Dysphagia 01/15/2016 01/15/2016 Dyspepsia 01/15/2016 01/15/2016 Colon cancer screening 01/15/201601/14 documented as of this encounter (statuses as of 08/19/2023) [facility] History of Past illness Narrative* Problem Noted Date Diagnosed Date Resolved Date Dysphagia 01/15/2016 01/15/2016 Dyspepsia 01/15/2016 01/15/2016 Colon cancer screening 01/15/201601/14 documented as of this encounter (statuses as of 08/19/2023) [place] [address]09-2016 History of Past illness Narrative* Problem Noted Date Diagnosed Date Resolved Date Dysphagia 01/15/2016 01/15/2016 Dyspepsia 01/15/2016 01/15/2016 Colon cancer screening 01/15/201601/14 documented as of this encounter (statuses as of 09/12/2023) [facility] History of Past illness Narrative* Problem Noted Date Diagnosed Date Resolved Date Dysphagia 01/15/2016 01/15/2016 Dyspepsia 01/15/2016 01/15/2016 Colon cancer screening 01/15/201601/14 documented as of this encounter (statuses as of 09/27/2023) [facility] History of Past illness Narrative* Problem Noted Date Diagnosed Date Resolved Date Dysphagia 01/15/2016 01/15/2016 Dyspepsia 01/15/2016 01/15/2016 Colon cancer screening 01/15/201601/14 documented as of this encounter (statuses as of 10/07/2023) [facility] + Plan note Future Appointments [facility] Evaluation note* Diagnosis Encounter for screening mammogram for breast cancer [facility]* Diagnosis Routine medical exam- Primary Routine general medical examination at a health care facility Anxiety Anxiety state, unspecified Periodic limb movement sleep disorder Periodic limb movement disorder Exudative age-related macular degeneration, unspecified laterality, unspecified stage (HCC) Postmenopausal hyperhidrosis Symptomatic menopausal or female climacteric states Persistent disorder of initiating or maintaining sleep Essential hypertension, benign Elevated hemoglobin A1c Other abnormal blood chemistry Morbid obesity (HCC) Morbid obesity Rheumatoid arthritis of multiple sites with 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 factor (HCC) Vitamin D deficiency Unspecified vitamin D deficiency documented in this encounter [facility]* Diagnosis Sero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 arthritis (HCC)- Primary Rheumatoid arthritis Encounter for long-term (current) use of medications Encounter for long-term (current) use of other medications Trochanteric bursitis of left hip Enthesopathy of hip region skilled nursing current use of systemic steroids Encounter for long-term (current) use of steroids [facility] Primary osteoarthritis of right knee- Primary Primary localized osteoarthrosis, lower leg [facility] Diagnosis Rheumatoid arthritis involving right knee with 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 factor (HCC)- Primary Other secondary osteoarthritis of right [facility] Primary osteoarthritis of right knee Primary localized osteoarthrosis, lower leg [facility] Diagnosis skilled nursing current use of systemic steroids Encounter for long-term (current) use of steroids [facility] Diagnosis Rheumatoid arthritis of multiple sites with 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 factor (HCC)- Primary [facility] Diagnosis Rheumatoid arthritis of multiple sites with 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 factor (HCC)- Primary [facility] Diagnosis Rheumatoid arthritis of multiple sites with 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 factor (HCC)- Primary [facility] Diagnosis Preop examination- Primary Preoperative examination, unspecified [facility] Sero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 arthritis (HCC)- Primary 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 Encounter for long-term (current) use of steroids Primary osteoarthritis of right knee Primary localized osteoarthrosis, lower leg Long-term use of immunosuppressant medication Encounter for long-term (current) use of other medications [facility] Diagnosis Sero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 arthritis (HCC)- Primary Rheumatoid arthritis [facility] Diagnosis Essential hypertension, benign [facility] Diagnosis Sero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 arthritis (HCC) Rheumatoid arthritis [facility] Diagnosis Routine medical exam- Primary Routine general medical examination at a health care facility Abnormal x-ray Other nonspecific (abnormal) findings on radiological and other examinations of body structure Essential hypertension, benign Morbid obesity (HCC) Morbid obesity [facility] Chronic pain of left ankle- Primary [facility] Diagnosis Essential hypertension, benign [facility] Diagnosis Chronic pain of left ankle [facility] Diagnosis Sero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 arthritis (HCC)- Primary Rheumatoid arthritis Primary osteoarthritis of right knee Primary localized osteoarthrosis, lower leg Encounter for long-term (current) use of medications Encounter for long-term (current) use of other medications [facility] Sero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 arthritis (HCC)- Primary Rheumatoid arthritis Encounter for long-term (current) use of medications Encounter for long-term (current) use of other medications skilled nursing current use of systemic steroids Encounter for long-term (current) use of steroids documented in this encounter [facility] course Narrative No data available for this section [facility] Hospital Discharge instructions No data available for this section [facility] Progress note No data available for this section [facility] Reason for referral (narrative)* Diagnostic Procedure Only (Routine) - Pending Review Specialty Diagnoses / Procedures Referred By Ariella akhtar Referred To Contact [facility] Diagnoses Encounter for screening mammogram for breast cancer Procedures TRACY SCREENING SCREENING MAMMOGRAPHY BI 2-VIEW BREAST INC CAD Connie Jain MD [address] [place] [address] [facility] [address] [place] [address] Referral ID Status Reason Start Date Expiration Date Visits Requested Visits Authorized [id number] Pending Review Auto-Generat ed Referral 05/06/2022 06/05/2023 1 1 [facility] for referral (narrative)* Diagnostic Procedure Only (Routine) - Pending Review Specialty Diagnoses / Procedures Referred By Ariella akhtar Referred To Contact [facility] IMAGING Diagnoses Primary osteoarthritis of right knee Procedures XR KNEE GENERAL 4V AP BOTH/PA BOTH/LAT/MERC RIGHT RADIOLOGIC EXAM KNEE COMPLETE 4/MORE VIEWS Jaret Seymour, LINE DRIVER.SUPERVISOR [employer] [address] [place] [address] X[facility] Imaging Referral ID Status Reason Start Date Expiration Date Visits Requested Visits Authorized [id number] Pending Review Auto-Generat ed Referral 07/21/2022 08/20/2023 1 1 * Consult, Test, Treat (Routine) - Pending Review Specialty Diagnoses / Procedures Referred By Contac t Referred To Contact Orthopedics Diagnoses Primary osteoarthritis of right knee Procedures CONSULT TO ORTHOPAEDICS OFFICE/OUTPATIENT NEW HIGH MDM 60-74 MINUTES Jaret Seymour APRN.SUPERVISOR [employer] [address] [place] [phone] Referral ID Status Reason Start Date Expiration Date Visits Requested Visits Authorized [id number] Pending Review PCP Requested Referral 07/21/2022 07/21/2023 1 1 [facility] for referral (narrative)* Diagnostic Procedure Only (Routine) - Closed Specialty Diagnoses / Procedures Referred By Contac t Referred To Contact XR IMAGING Diagnoses Primary osteoarthritis of right knee Procedures XR KNEE GENERAL 4V AP BOTH/PA BOTH/LAT/MERC RIGHT RADIOLOGIC EXAM KNEE COMPLETE 4/MORE VIEWS Jaret Seymour APRN.SUPERVISOR [employer] [address] [phone] Xr Imaging Referral ID Status Reason Start Date Expiration Date V isits Requested Visits Authorized [id number] Closed Auto-Generate d Referral 07/21/2022 08/20/2023 1 1 [facility] for referral (narrative)* Diagnostic Procedure Only (Routine) - Closed Specialty Diagnoses / Procedures Referred By Contac t Referred To Contact XR IMAGING Diagnoses Abnormal x-ray Procedures XR MANDIBLE 4V PA/TESSA/BOTH OBL RADIOLOG EXAM MANDIBLE COMPL MINIMUM 4 VIEWS Connie Jain MD [address] [place] [address] Xr Imaging Referral ID Status Reason Start Date Expiration Date V isits Requested Visits Authorized [id number] Closed Auto-Generate d Referral 04/16/2023 05/15/2024 1 1 [facility] for referral (narrative)* Diagnostic Procedure Only (Routine) - Authorized Specialty Diagnoses / Procedures Referred By Contac t Referred To Contact XR IMAGING Diagnoses Chronic pain of left ankle Procedures XR ANKLE GENERAL 3V AP/LAT/OBL LEFT RADEX ANKLE COMPLETE MINIMUM 3 [place] Salmeron [place] [id number] [place] [address] [place] [address] Referral ID Status Reason Start Date Expiration Date Visits Requested Visits Authorized [id number] Authorized Auto-Generat ed Referral 07/14/2023 08/12/2024 1 1 [facility] for referral (narrative)* Diagnostic Procedure Only (Routine) - Closed Specialty Diagnoses / Procedures Referred By Ariella t Referred To Contact XR IMAGING Diagnoses Chronic pain of left ankle Procedures XR ANKLE GENERAL 3V AP/LAT/OBL LEFT RADEX ANKLE COMPLETE MINIMUM 3 [place] Salmeron [place] [id number] [place] [address] [place] [address] Referral ID Status Reason Start Date Expiration Date V isits Requested Visits Authorized [id number] Closed Auto-Generate d Referral 07/14/2023 08/12/2024 1 1 [facility] for visit Narrative* Diagnostic Procedure Only (Routine) - Closed Specialty Diagnoses / Procedures Referred By Contac t Referred To Contact XR IMAGING Diagnoses Primary osteoarthritis of right knee Procedures XR KNEE GENERAL 4V AP BOTH/PA BOTH/LAT/MERC RIGHT RADIOLOGIC EXAM KNEE COMPLETE 4/MORE VIEWS Jaret Seymour, LINE DRIVER.SUPERVISOR [employer] [address] [phone] Xr Imaging Referral ID Status Reason Start Date Expiration Date V isits Requested Visits Authorized [id number] Closed Auto-Generate d Referral 07/21/2022 08/20/2023 1 1 [facility] for visit Narrative* Diagnostic Procedure Only (Routine) - Closed Specialty Diagnoses / Procedures Referred By Contac t Referred To Contact XR IMAGING Diagnoses Chronic pain of left ankle Procedures XR ANKLE GENERAL 3V AP/LAT/OBL LEFT RADEX ANKLE COMPLETE MINIMUM 3 [place] [address] [place] [address] [facility] [address] Referral ID Status Reason Start Date Expiration Date V isits Requested Visits Authorized [id number] Closed Auto-Generate d Referral 07/14/2023 08/12/2024 1 1 [facility] Discharge Instructions * Attachments The following attachments cannot be sent through Care Everywhere. 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 Advance Directive(s) 01/15/2016 1:23 PM Advance Directive(s) 01/10/2016 4:39 PM Documents on File Type Date Recorded 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 Advance Directive(s) 01/15/2016 1:23 PM Advance Directive(s) 01/10/2016 4:39 PM Reason for Referral Specialty Diagnoses / Procedures Referred By Contac t Referred To Contact [facility] Diagnoses Primary osteoarthritis of both knees Procedures CONSULT TO PHYSICAL THERAPY PHYSICAL THERAPY EVALUATION HIGH COMPLEX 45 MINS Brenden Okeefe V, DO [address] [place] [address] [facility] [address] [place] [address] Referral ID Status Reason Start Date Expiration Date V isits Requested Visits Authorized [id number] Authorized 11/08/2021 11/07/2022 20 20 Additional Source Comments Reason for Visit (unrecogniz ed section and content) Reason Comments Refill Request Reason Onset Date Comments Refill Request 05/21/2022 Reason Comments Yearly Exam Reason Comments Established Patient Reason Comments Right Knee Pain Reason Comments Physical Therapy Specialty Diagnoses / Procedures Referred By Contac t Referred To Contact [facility] Diagnoses Primary osteoarthritis of both knees Procedures CONSULT TO PHYSICAL THERAPY PHYSICAL THERAPY EVALUATION HIGH COMPLEX 45 MINS Brenden Okeefe V, DO [address] [place] [address] [facility] [address] [place] [address] Referral ID Status Reason Start Date Expiration Date V isits Requested Visits Authorized [id number] Authorized 11/08/2021 11/07/2022 20 20 Reason Comments Pre-Op Exam Right knee replaceme nt Dr. Oneal 10/20 Reason Onset Date Comments Refill Request 12/22/2022 Reason Onset Date Comments SPP Inflammatory Conditions - Treatment Referral 03/04/2023 [employer] Insurance Authorization 03/04/2023 Prior Au Submission Pending Reason Onset Date Comments Refill Request 03/04/2023 Reason Comments Patient Question Reason Onset Date Comments Refill Request 03/18/2023 Reason Comments Medication Problem Reason Comments Yearly Exam Reason Onset Date Comments Refill Request 08/13/2023 Reason Onset Date Comments Refill Request 08/19/2023 Specialty Diagnoses / Procedures Referred By Ariella t Referred To Contact Rheumatology / RHEUMATOLOGY Diagnoses 1 year follow up Procedures [facility] [place] [address] [place] [address] Jerem[place]meron [place] [id number] [place] [address] Referral ID Status Reason Start Date Expiration Date V isits Requested Visits Authorized [id number] Pending Review 06/07/2023 11/08/2024 4 4 INFORMATION SOURCE (unrecogn ized section and content) DATE CREATED AUTHOR AUTHOR'S ORGANIZ ATION 01/17/2021 [facility] DATE CREATED AUTHOR AUTHOR'S ORGANIZ ATION 10/28/2022 [facility] DATE CREATED AUTHOR AUTHOR'S ORGANIZ ATION 10/10/2023 [facility] Source Comments (unrecognize d section and content) In the event this informatio n is protected by the Federal Confidentiality of Alcohol and Drug Abuse Patient Records regulations: The Federal rules restrict any use of the information to criminally investigate or prosecute any alcohol or drug abuse patient.[facility] the event this information is protected by the Federal Confidentiality of Alcohol and Drug Abuse Patient Records regulations: The Federal rules restrict any use of the information to criminally investigate or prosecute any alcohol or drug abuse patient.[facility] the event this information is protected by the Federal Confidentiality of Alcohol and Drug Abuse Patient Records regulations: The Federal rules restrict any use of the information to criminally investigate or prosecute any alcohol or drug abuse patient.[facility] the event this information is protected by the Federal Confidentiality of Alcohol and Drug Abuse Patient Records regulations: The Federal rules restrict any use of the information to criminally investigate or prosecute any alcohol or drug abuse patient.[facility] the event this information is protected by the Federal Confidentiality of Alcohol and Drug Abuse Patient Records regulations: The Federal rules restrict any use of the information to criminally investigate or prosecute any alcohol or drug abuse patient.[facility] the event this information is protected by the Federal Confidentiality of Alcohol and Drug Abuse Patient Records regulations: The Federal rules restrict any use of the information to criminally investigate or prosecute any alcohol or drug abuse patient.[facility] the event this information is protected by the Federal Confidentiality of Alcohol and Drug Abuse Patient Records regulations: The Federal rules restrict any use of the information to criminally investigate or prosecute any alcohol or drug abuse patient.[facility] the event this information is protected by the Federal Confidentiality of Alcohol and Drug Abuse Patient Records regulations: The Federal rules restrict any use of the information to criminally investigate or prosecute any alcohol or drug abuse patient.[facility] the event this information is protected by the Federal Confidentiality of Alcohol and Drug Abuse Patient Records regulations: The Federal rules restrict any use of the information to criminally investigate or prosecute any alcohol or drug abuse patient.[facility] the event this information is protected by the Federal Confidentiality of Alcohol and Drug Abuse Patient Records regulations: The Federal rules restrict any use of the information to criminally investigate or prosecute any alcohol or drug abuse patient.[facility] the event this information is protected by the Federal Confidentiality of Alcohol and Drug Abuse Patient Records regulations: The Federal rules restrict any use of the information to criminally investigate or prosecute any alcohol or drug abuse patient.[facility] the event this information is protected by the Federal Confidentiality of Alcohol and Drug Abuse Patient Records regulations: The Federal rules restrict any use of the information to criminally investigate or prosecute any alcohol or drug abuse patient.[facility] Hospital[facility] the event this information is protected by the Federal Confidentiality of Alcohol and Drug Abuse Patient Records regulations: The Federal rules restrict any use of the information to criminally investigate or prosecute any alcohol or drug abuse patient.[facility] HospitalIn the event this information is protected by the Federal Confidentiality of Alcohol and Drug Abuse Patient Records regulations: The Federal rules restrict any use of the information to criminally investigate or prosecute any alcohol or drug abuse patient.[facility] HospitalIn the event this information is protected by the Federal Confidentiality of Alcohol and Drug Abuse Patient Records regulations: The Federal rules restrict any use of the information to criminally investigate or prosecute any alcohol or drug abuse patient.[facility] Hospital[facility] the event this information is protected by the Federal Confidentiality of Alcohol and Drug Abuse Patient Records regulations: The Federal rules restrict any use of the information to criminally investigate or prosecute any alcohol or drug abuse patient.[facility] Hospital[facility] the event this information is protected by the Federal Confidentiality of Alcohol and Drug Abuse Patient Records regulations: The Federal rules restrict any use of the information to criminally investigate or prosecute any alcohol or drug abuse patient.[facility] the event this information is protected by the Federal Confidentiality of Alcohol and Drug Abuse Patient Records regulations: The Federal rules restrict any use of the information to criminally investigate or prosecute any alcohol or drug abuse patient.[facility] Hospital[facility] the event this information is protected by the Federal Confidentiality of Alcohol and Drug Abuse Patient Records regulations: The Federal rules restrict any use of the information to criminally investigate or prosecute any alcohol or drug abuse patient.[facility] HospitalIn the event this information is protected by the Federal Confidentiality of Alcohol and Drug Abuse Patient Records regulations: The Federal rules restrict any use of the information to criminally investigate or prosecute any alcohol or drug abuse patient.[facility] HospitalIn the event this information is protected by the Federal Confidentiality of Alcohol and Drug Abuse Patient Records regulations: The Federal rules restrict any use of the information to criminally investigate or prosecute any alcohol or drug abuse patient.[facility] HospitalIn the event this information is protected by the Federal Confidentiality of Alcohol and Drug Abuse Patient Records regulations: The Federal rules restrict any use of the information to criminally investigate or prosecute any alcohol or drug abuse patient.[facility] HospitalIn the event this information is protected by the Federal Confidentiality of Alcohol and Drug Abuse Patient Records regulations: The Federal rules restrict any use of the information to criminally investigate or prosecute any alcohol or drug abuse patient.[facility] HospitalIn the event this information is protected by the Federal Confidentiality of Alcohol and Drug Abuse Patient Records regulations: The Federal rules restrict any use of the information to criminally investigate or prosecute any alcohol or drug abuse patient.[facility] HospitalIn the event this information is protected by the Federal Confidentiality of Alcohol and Drug Abuse Patient Records regulations: The Federal rules restrict any use of the information to criminally investigate or prosecute any alcohol or drug abuse patient.[facility] HospitalIn the event this information is protected by the Federal Confidentiality of Alcohol and Drug Abuse Patient Records regulations: The Federal rules restrict any use of the information to criminally investigate or prosecute any alcohol or drug abuse patient.[facility] HospitalIn the event this information is protected by the Federal Confidentiality of Alcohol and Drug Abuse Patient Records regulations: The Federal rules restrict any use of the information to criminally investigate or prosecute any alcohol or drug abuse patient.[facility] HospitalIn the event this information is protected by the Federal Confidentiality of Alcohol and Drug Abuse Patient Records regulations: The Federal rules restrict any use of the information to criminally investigate or prosecute any alcohol or drug abuse patient.[facility] HospitalIn the event this information is protected by the Federal Confidentiality of Alcohol and Drug Abuse Patient Records regulations: The Federal rules restrict any use of the information to criminally investigate or prosecute any alcohol or drug abuse patient.[facility] HospitalIn the event this information is protected by the Federal Confidentiality of Alcohol and Drug Abuse Patient Records regulations: The Federal rules restrict any use of the information to criminally investigate or prosecute any alcohol or drug abuse patient.[facility] Hospital[facility] the event this information is protected by the Federal Confidentiality of Alcohol and Drug Abuse Patient Records regulations: The Federal rules restrict any use of the information to criminally investigate or prosecute any alcohol or drug abuse patient.[facility] the event this information is protected by the Federal Confidentiality of Alcohol and Drug Abuse Patient Records regulations: The Federal rules restrict any use of the information to criminally investigate or prosecute any alcohol or drug abuse patient.[facility] HospitalIn the event this information is protected by the Federal Confidentiality of Alcohol and Drug Abuse Patient Records regulations: The Federal rules restrict any use of the information to criminally investigate or prosecute any alcohol or drug abuse patient.[facility] HospitalIn the event this information is protected by the Federal Confidentiality of Alcohol and Drug Abuse Patient Records regulations: The Federal rules restrict any use of the information to criminally investigate or prosecute any alcohol or drug abuse patient.[facility] HospitalIn the event this information is protected by the Federal Confidentiality of Alcohol and Drug Abuse Patient Records regulations: The Federal rules restrict any use of the information to criminally investigate or prosecute any alcohol or drug abuse patient.[facility] HospitalIn the event this information is protected by the Federal Confidentiality of Alcohol and Drug Abuse Patient Records regulations: The Federal rules restrict any use of the information to criminally investigate or prosecute any alcohol or drug abuse patient.[facility] HospitalIn the event this information is protected by the Federal Confidentiality of Alcohol and Drug Abuse Patient Records regulations: The Federal rules restrict any use of the information to criminally investigate or prosecute any alcohol or drug abuse patient.[facility] HospitalIn the event this information is protected by the Federal Confidentiality of Alcohol and Drug Abuse Patient Records regulations: The Federal rules restrict any use of the information to criminally investigate or prosecute any alcohol or drug abuse patient.[facility] HospitalIn the event this information is protected by the Federal Confidentiality of Alcohol and Drug Abuse Patient Records regulations: The Federal rules restrict any use of the information to criminally investigate or prosecute any alcohol or drug abuse patient.[facility] Care Teams (unrecognized sec tion and content) Supervisor Shaving And Splitting Relationship Specialty Start Date End Date Connie Jain MD [address] [facility] [place] [address] PCP - General 08/29/02 Supervisor Shaving And Splitting Relationship Specialty Start Date End Date Connie Jain MD [address] [place] [address], [place] [address] PCP - General 08/29/02 Supervisor Shaving And Splitting Relationship Specialty Start Date End Date Connie Jain MD [address] [place] [address], [place] [address] PCP - General 08/29/02 Supervisor Shaving And Splitting Relationship Specialty Start Date End Date Connie Jain MD [address] [place] [address], [place] [address] PCP - General 08/29/02 Supervisor Shaving And Splitting Relationship Specialty Start Date End Date Connie Jain MD [address] [place] [address], [place] [address] PCP - General 08/29/02 Supervisor Shaving And Splitting Relationship Specialty Start Date End Date Connie Jain MD [address] [place] [address], [place] [address] PCP - General 08/29/02 Supervisor Shaving And Splitting Relationship Specialty Start Date End Date Connie Jain MD [address] [place] [address], [place] [address] PCP - General 08/29/02 Supervisor Shaving And Splitting Relationship Specialty Start Date End Date Connie Jain MD [address] [place] [address], [place] [address] PCP - General 08/29/02 Supervisor Shaving And Splitting Relationship Specialty Start Date End Date Connie Jain MD [address] [place] [address], [place] [address] PCP - General 08/29/02 Supervisor Shaving And Splitting Relationship Specialty Start Date End Date Connie Jain MD [address] [facility] [place] [address] PCP - General 08/29/02 Supervisor Shaving And Splitting Relationship Specialty Start Date End Date Connie Jain MD [address] [facility] [place] [address] PCP - General 08/29/02 Supervisor Shaving And Splitting Relationship Specialty Start Date End Date Connie Jain MD [address] [facility] [place] [address] PCP - General 08/29/02 Supervisor Shaving And Splitting Relationship Specialty Start Date End Date Connie Jain MD [address] [place] [address], [place] [address] PCP - General 08/29/02 Supervisor Shaving And Splitting Relationship Specialty Start Date End Date Connie Jain MD [address] [place] [address], [place] [address] PCP - General 08/29/02 Supervisor Shaving And Splitting Relationship Specialty Start Date End Date Connie Jain MD [address] [place] [address], [place] [address] PCP - General 08/29/02 Supervisor Shaving And Splitting Relationship Specialty Start Date End Date Connie Jain MD [address] [place] [address], [place] [address] PCP - General 08/29/02 Supervisor Shaving And Splitting Relationship Specialty Start Date End Date Connie Jain MD [address] [place] [address], [place] [address] PCP - General 08/29/02 Supervisor Shaving And Splitting Relationship Specialty Start Date End Date Connie Jain MD [address] [place] [address], [place] [address] PCP - General 08/29/02 Supervisor Shaving And Splitting Relationship Specialty Start Date End Date Connie Jain MD [address] [place] [address] PCP - General 08/29/02 Supervisor Shaving And Splitting Relationship Specialty Start Date End Date Connie Jain MD [address] [place] [address] PCP - General 08/29/02 Supervisor Shaving And Splitting Relationship Specialty [place] [address] [place] [address] PCP - General 08/29/02 Supervisor Shaving And Splitting Relationship Specialty [place] [address] [place] [address] PCP - General 08/29/02 Supervisor Shaving And Splitting Relationship Specialty [place] [address] [place] [address] PCP - General 08/29/02 Supervisor Shaving And Splitting Relationship Specialty Start Date End Date Connie Jain MD [address] [place] [address] PCP - General 08/29/02 Care Team (unrecognized sect ion and content) Care Team Personnel Name: CONNIE JAIN MD Member Role: Primary Care Physician Address: Address: [address] [place] [address]- Care Team Related Persons Name: DEJAH SCHAEFER Address: Home [address] [place] [address] Care Team Personnel Name: CONNIE JAIN MD Member Role: Primary Care Physician Address: Address: [address] [place] [address]- Care Team Related Persons Name: DEJAH SCHAEFER Address: Home [address] [place] [address] FOR RECORDS PERTAINING TO PATIENTS WHO ARE OR HAVE BEEN ENROLLED IN A CHEMICAL DEPENDENCY/SUBSTANCEABUSE PROGRAM, SOME INFORMATION MAY BE OMITTED. This clinical summary was aggregated from multiple sources. Caution should be exercised in using it in the provision of clinical care. This summary normalizes information from multiple sources, and as a consequence, information in this document may materially change the coding, format and clinical context of patient data. In addition, data may be omitted in some cases. CLINICAL DECISIONS SHOULD BE BASED ON THE PRIMARY CLINICAL RECORDS. [facility] [employer] [facility]. provides no warranty or guarantee of the accuracy or completeness of information in this document.
[2023-12-23] MEDS: fentaNYL 100 MCG/2 ML Ampul 50 MCG IV (07:45)
[2023-12-23 07:51] LABS: Absolute Neutrophil Count 6.2 X10^3/uL (2.0-7.7); Basophil# 0.05 X10^3/uL; Basophil% 0.5 % (0-1); Eosinophil# 0.16 X10^3/uL; Eosinophils% 1.6 % (0-5); Hematocrit 44.6 % (37-47); Mean Corp Hgb Conc 31.4 g/dL (32-36); Mean Corpuscular Hgb 28.2 pg (27.0-32.0); Mean Corpuscular Volume 89.7 fL (81-99); Mean Platelet Vol. 11.2 fl (6.2-12.0); Monocyte# 0.75 X10^3/uL; Monocyte% 7.5 % (0-10); NRBC Flagged by Analyzer 0 % (0-5); Neutrophil # 6.22 X10^3/uL (2.7-7.7); Neutrophil % 62.3 % (47-70); Platelet Count 211 K/mm3 (150-450); RBC Distribution Width CV 15.7 % (11.6-14.6); RBC Distribution Width SD 51.4 fl (35.1-43.9); Red Blood Count 4.97 M/mm3 (4.2-5.4)
[2023-12-23 08:14] LABS: Anion Gap 4 (5-15); BUN 17 mg/dL (7-18); BUN/Creat Ratio 20.9 RATIO (10-20); Calcium,Total 9.3 mg/dL (8.5-10.1); Chloride 108 mmol/L (98-107); Creatinine, Serum 0.81 mg/dL (0.55-1.02); EST Glomerular Filtration Rate 76 mL/min (>60); Est Glom Filt Rate - Afr Amer 92 mL/min (>60); Estimated Creatinine Clearance 102.61 ml/min; Glucose 121 mg/dL (74-106); Potassium 3.7 mmol/L (3.5-5.1); Sodium Level 143 mmol/L (136-145)
[2023-12-23] MEDS: oxyCODONE 5 MG Tablet 10 MG PO (08:17)
[2023-12-23] MEDS: diazePAM 5 MG Tablet PO ×3 (08:17→21:31)
--- OUTSIDE RECORDS SUMMARY | 2023-12-23 08:57 | XMS RPT_ITS | CCD ---
Author Name Unknown Address [address] [place] [address] Organization [facility] Care Team Providers Care Living Specialist Name Role Phone Unavailable Primary Care Provider UnavailConnie Bose MD Primary Care Provider Connie Jain MD Primary Care Provider Connie Jain MD Primary Care Provider MASON STANFORD, DR ROSALES Primary Care Physician [phone] SUZY ONEAL MD Attending Unavailable MASON STANFORD., [...] Drug Allergy 7 Anaphylaxis, Food anaphylaxis (disorder) [facility] Work Phone: (1 source) Sulfonamides (Antibiotic) Propensity to adverse reactions to drug [address] [facility] Work Phone: (20 sources) Amoxicillin; Translations: [amoxicillin] Drug Allergy 5 GI Upset [facility] Work Phone: (20 sources) Sulfonamides (Antibiotic); Translations: [SULFA (SULFONAMIDE ANTIBIOTICS)] Propensity to adverse reactions 5 Anaphylaxis [facility] Work Phone: (2 sources) Adhesive Tape Allergy to substance Redness [facility] (2 sources) Sulfamethoxazole ; Translations: [sulfamethoxazol e] Drug Allergy Hives [facility] Medications Current Medications Medication Drug Class(es) [...] Long-term current use of systemic steroid; Translations: [MCC (current) use of systemic steroids] Episodic Other aftercare (1 source) Long-term current use of immunosuppressive drug; Translations: [Long-term use of immunosuppressant medication] Episodic Other aftercare (1 source) Other nursing home (current) drug therapy; Translations: [Encounter for long-term (current) use of medications] Onset: 10-07-2023 Episodic Other aftercare (1 source) MCC (current) use of systemic steroids; 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] Onset: 10-07-2023 [...] 12:55-0500 Body height 168.1 cm Jaret Seymour [employer] Work Phone: [facility] 10-07-2023 12:55-0500 Body temperature 98.01 [degF] Jaret Seymour [employer] Work Phone: [facility] 10-07-2023 12:55-0500 Body weight 120.2 kg Jaret Seymour [employer] Work Phone: [facility] 10-07-2023 12:55-0500 Diastolic blood pressure 83 mm[Hg] Jaret Seymour [employer] Work Phone: [facility] 10-07-2023 12:55-0500 Heart rate 96 /min Jaret Seymour [employer] Work Phone: [facility] 10-07-2023 12:55-0500 Systolic blood pressure 127 mm[Hg] Jaret Seymour [employer] Work Phone: [facility] 04-16-2023 11:26-0400 Body temperature 97.2 [degF] Connie Jain MD Work Phone: [facility] 04-16-2023 11:26-0400 Body weight 119.3 kg Connie Jain MD Work Phone: [facility] 04-16-2023 11:26-0400 Diastolic blood pressure 76 mm[Hg] Connie Jain MD Work Phone: [facility] 04-16-2023 11:26-0400 Heart rate 93 /min Connie Jain MD Work Phone: [facility] 04-16-2023 11:26-0400 Respiratory rate 18 /min Connie Jain MD Work Phone: [facility] 04-16-2023 11:26-0400 SaO2% (BldA) [Mass fraction] 97 % Connie Jain MD Work Phone: [facility] 04-16-2023 11:26-0400 Systolic blood pressure 124 mm[Hg] Connie Jain MD Work Phone: [facility] 03-03-2023 10:04-0400 Body height 170.2 cm Jeremi Salmeron MD Work Phone: [facility] 03-03-2023 10:04-0400 Body temperature 97.5 [degF] Jeremi Salmeron MD Work Phone: [facility] 03-03-2023 10:04-0400 Body weight 120.2 kg Jeremi Salmeron MD Work Phone: [facility] 03-03-2023 10:04-0400 Diastolic blood pressure 78 mm[Hg] Jeremi Salmeron MD Work Phone: [facility] 03-03-2023 10:04-0400 Heart rate 76 /min Jeremi Salmeron MD Work Phone: [facility] 03-03-2023 10:04-0400 Systolic blood pressure 124 mm[Hg] Jeremi Salmeron MD Work Phone: [facility] 10-09-2022 11:27-0500 Body height [address] SUZY ONEAL MD [facility] 10-09-2022 11:27-0500 Body weight 116.[address] SUZY ONEAL MD [facility] 09-28-2022 14:10-0500 Body weight 116.57 kg Connie Jain MD Work Phone: [facility] 09-28-2022 14:10-0500 Diastolic blood pressure 84 mm[Hg] Connie Jain MD Work Phone: [facility] 09-28-2022 14:10-0500 Heart rate 99 /min Connie Jain MD Work Phone: [facility] 09-28-2022 14:10-0500 SaO2% (BldA) [Mass fraction] 97 % Connie Jain MD Work Phone: [facility] 09-28-2022 14:10-0500 Systolic blood pressure 122 mm[Hg] Connie Jain MD Work Phone: [facility] 07-02-2022 08:23-0400 Body height 167.6 cm Jaret Seymour [employer] Work Phone: [facility] 07-02-2022 08:23-0400 Body temperature 97.81 [degF] Jaret Seymour [employer] Work Phone: [facility] 07-02-2022 08:23-0400 Body weight 113.4 kg Jaret Seymour [employer] Work Phone: [facility] 07-02-2022 08:23-0400 Diastolic blood pressure 85 mm[Hg] Jaret Seymour [employer] Work Phone: [facility] 07-02-2022 08:23-0400 Heart rate 77 /min Jaret Seymour [employer] Work Phone: [facility] 07-02-2022 08:23-0400 Systolic blood pressure 124 mm[Hg] Jaret Seymour [employer] Work Phone: [facility] 04-24-2022 13:11-0400 Body height 166 cm Connie Jain MD Work Phone: [facility] 04-24-2022 13:11-0400 Body weight 115.21 kg Connie Jain MD Work Phone: [facility] 04-24-2022 13:11-0400 Diastolic blood pressure 82 mm[Hg] Connie Jain MD Work Phone: [facility] 04-24-2022 13:11-0400 Heart rate 82 /min Connie Jain MD Work Phone: [facility] 04-24-2022 13:11-0400 Systolic blood pressure 122 mm[Hg] Connie Jain MD Work Phone: [facility] 12-25-2019 07:47-0500 BP Diastolic 86 mm[Hg] Irma [...] Start: 10-07-2023 End: 10-07-2023 ambulatory JEREMI SALMERON Facility:[facility] Start: 10-07-2023 End: 10-07-2023 Patient encounter procedure Jaret Seymour APRN.CNP Work Phone: Rheumatology Procedures Date Procedure Procedure Detail Performing Clinician Start: 07-15-2023 Radex ankle complete minimum 3 views Jeremi Salmeron MD Work Phone: Start: 08-05-2022 Dxa bone density gerald dy 1/> sites axial skel Jaret Seymour APRNWayneMETAL FURNITURE POLISHER Work Phone: Start: 04-30-2022 Lipid 1996 panel [...] panel - Serum or Plasma Lipid Screening [facility] Start: 04-30-2027 LIPID SCREEN LIPID SCREEN [facility] Start: 01-14-2026 Colonoscopy COLONOSCOPY [facility] Start: 01-14-2026 COLORECTAL CANCER SCREENING COLORECTAL CANCER SCREENING [facility] Start: 04-30-2025 DIABETES SCREEN DIABETES SCREEN [facility] Start: 04-30-2025 Diabetes Screening Diabetes Screening [facility] Start: 04-16-2024 ANNUAL PCP TEAM CHRONIC DISEASE VISIT ANNUAL PCP TEAM CHRONIC DISEASE VISIT [facility] Start: 04-16-2024 BP CONTROLLED (<130/80) BP CONTROLLED (<130/80) [facility] Start: 03-12-2024 DIABETES SCREEN DIABETES SCREEN [facility] Start: 03-03-2024 BP CONTROLLED (<130/80) BP CONTROLLED (<130/80) [facility] Start: 01-26-2024 Urine microalbumin profile [facility] michelle Start: 09-28-2023 ANNUAL PCP TEAM CHRONIC DISEASE VISIT ANNUAL PCP TEAM CHRONIC DISEASE VISIT [facility] Start: 09-27-2023 End: 09-26-2024 Alanine aminotransferase [Enzymatic activity/volume] in Serum or Plasma ALT/SGPT Lab Routine Sero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 arthritis (HCC) Encounter for long-term (current) use of medications Expected: 09/27/2023 (Approximate), Expires: 09/26/2024 [facility] Work Phone: Immunizations Immunization Date Immunization Notes Care Provider Krystin [email or web address] 08-24-2017 influenza virus vacc ine, unspecified formulation Connie Jain MD Work Phone: [facility] 01-25-2014 tetanus toxoid, redu terry diphtheria toxoid, and acellular pertussis vaccine, adsorbed [facility] Provider [facility] Payers Date Payer Category Payer Private Health Insurance [facility] CHOICE PLUS [id number] 2021-Present [phone] [address] [place] [address] [facility] [id number] 2021 Private Health Insurance [facility] CHOICE PLUS [id number] 2021-Present [phone] [address] [place] [address] HMO [id number] 2021 Private Health Insurance [id number] 2020 Unknown MMO MMO [employer] [id number] 2020-Present [phone] [address] [place] [address] PPO [id number] 1965 Unknown [id number] 1965 Unknown [id number] 1965 Unknown [id number] Social History Date Type Detail Facility Start: 05-06-2012 End: 12-25-2019 Tobacco smoking status NHIS Former smoker [facility] Functional Status Date Assessment Result Facility 10-09-2022 Functional Status Sensory Deficits None A [facility] Clinical Notes 01-15-2016 to 10-07-2023 Jaret Seymour APRN.JUSTINE - 10/07/2023 1:00 PM ESTPatient InstructionsTelephone Encounter - Jaret Seymour APRN.CNP - 09/27/2023 9:42 AM Iveth Huff RT(Arnie) - 07/15/2023 8:00 AM EDT Note Date & Type Note Facility 10-07-2023 Note HNO ID: [id number] Author: Jaret Seymour APRN.[employer] Service: ? Author Type: Nurse Practitioner Type: Progress Notes Filed: 10/07/2023 1:40 PM Note Text: Follow-up [facility] Rheumatology appointment for seronegative RA. HPI: To [...] of efficacy - In interim, seen by [facility] who started arava in May. Took x3 [...] degeneration, bilateral Dr. Clay Macular degeneration, wet ([facility]) getting injections (Dr. Crowe--Retinal Specialist from [facility]) Macular degeneration, wet ([facility]) 01/11/2016 getting eye injections Periodic limb movement sleep disorder 01/11/2016 Rheumatoid arthritis of multiple sites with 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 factor ([facility]) 11/04/2019 TIA (transient ischemic attack) 04/21/13 PAST [...] No Leg Swell (more content not included)... [facility] 10-07-2023 History of Present illness Narrative Follow-up [facility] Rheumatology appointment for seronegative RA. HPI: To [...] of efficacy - In interim, seen by [facility] who started arava in May. Took x3 [...] degeneration, bilateral Dr. Clay Macular degeneration, wet ([facility]) getting injections (Dr. Crowe--Retinal Specialist from [place]) Macular degeneration, wet ([facility]) 01/11/2016 getting eye injections Periodic limb movement sleep disorder 01/11/2016 Rheumatoid arthritis of multiple sites with 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 factor ([facility]) 11/04/2019 TIA (transient ischemic attack) 04/21/13 PAST [...] by mouth once daily. calcium carbonate/vitamin D2 ([id number] ORAL) Take by mouth. fluticasone (FLONASE) 50 [...] Thyroid Mother hypothyroid SOCIAL HISTORY: Lives in [place] with . 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 Tobacco use: None Alcohol use: None Drug [...] Abs Lymph 1.00 - 4.00 k/uL 2.66 [place]% % 9.6 Abs [place] <0.87 k/uL 0.75 Eosin% % 4.7 Abs [...] which included preparing to see the patient, [id number] patient care, completing clinical documentation, performing a medically appropriate examination, ordering medications, tests, or procedures, and communicating results to the patient/family/caregiver. Jaret Seymour APRN.[employer] documented in this encounter [facility] 10-06-2023 Instructions Jaret Seymour APRN.JUSTINE - 10/06/2023 11:57 AM EST Please schedule bone density test on the same machine as prior documented in this encounter [facility] 09-27-2023 Miscellaneous Notes Get Medical Advice on 09/24/23 CBC + DIFF AST/SGOT BLD ALT/SGPT ALBUMIN BLD CREATININE BLD Jaret Seymour APRN.[employer] Patient scheduled for 10/07/23. Pended lab orders. Please review and sign . Thanks Levon Olmstead R.N. documented in this encounter [facility] 08-19-2023 Miscellaneous Notes Patient has been identified [...] Sadia Ulloa MA documented in this encounter [facility] 08-16-2023 Miscellaneous Notes Patient is request refill [...] Sonali Villagomez LPN documented in this encounter [facility] 08-16-2023 Miscellaneous Notes Patient is requesting refill [...] Sonali Villagomez LPN documented in this encounter [facility] 07-15-2023 Note HNO ID: [id number] Author: Iveth Parks RT(R) Service: ? Author [...] RT Claudine(R) July 15, 2023 8:17 AM [facility] 07-15-2023 History of Present illness Narrative Radiology [...] 2023 8:17 AM documented in this encounter [facility] 07-14-2023 Miscellaneous Notes Pred rx sent and xray l ankle order placed documented in this encounter [facility] 06-21-2023 Miscellaneous Notes The following approved medication requests have been transmitted electronically. Requested Prescriptions Signed Prescriptions Disp Refills predniSONE (DELTASONE) 2.5 mg tablet 30 tablet 2 Sig: TAKE 1 TABLET BY MOUTH EVERY DAY WITH FOOD Authorizing Provider: JARET SEYMOUR APRN.[employer] Patient has been identified by name and [...] Zahida Dawn MA documented in this encounter [facility] 04-16-2023 Note HNO ID: [id number] Author: RT Vannessa(R) Service: Nuclear Medicine Author [...] RT Vannessa(R) April 16, 2023 1:21 PM [facility] 04-16-2023 Note HNO ID: [id number] Author: Connie Jain MD Service: ? Author Type: Physician Type: Progress Notes Filed: 05/16/2023 11:38 PM Note Text: This note was created using [employer]WE[employer]. Subjective Cynthia Schaefer is a 58 year [...] (HCC) getting injections (Dr. Crowe--Retinal Specialist from [place]) Macular degeneration, wet ([facility]) 01/11/2016 getting eye injections Periodic limb movement sleep disorder 01/11/2016 Rheumatoid arthritis of multiple sites with 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 factor ([facility]) 11/04/2019 TIA (transient ischemic attack) 04/21/13 Current [...] by mouth once daily. calcium carbonate/vitamin D2 ([id number]-493-G ORAL) Take by mouth. fluticasone (FLONASE) 50 [...] Abdomen is s (more content not included)... [facility] 04-16-2023 History of Present illness Narrative This note was created using [employer]WE[employer]. Subjective Cynthia Schaefer is a 58 year [...] degeneration, bilateral Dr. Clay Macular degeneration, wet ([facility]) getting injections (Dr. Crowe--Retinal Specialist from [place]) Macular degeneration, wet ([facility]) 01/11/2016 getting eye injections Periodic limb movement sleep disorder 01/11/2016 Rheumatoid arthritis of multiple sites with 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 factor ([facility]) 11/04/2019 TIA (transient ischemic attack) 04/21/13 Current [...] by mouth once daily. calcium carbonate/vitamin D2 ([id number]-577-Y ORAL) Take by mouth. fluticasone (FLONASE) 50 [...] Connie Jain MD documented in this encounter [facility] 04-14-2023 Note Patient Outreach (IN TMMN) CYNTHIA SCHAEFER ([id number]) 1965 F Date Time Provider Department 04/14/23 [...] for screening mammogram for breast cancer [Z12.31] Order(s):[facility] SCREEN[facility] [[id number]] Order #: [id number] FUTURE Prescriptions as of 04/19/2023 - abatacept [...] mouth once daily. - calcium carbonate/vitamin D2 (AUMXCTZ-459-J ORAL) Take by mouth. - fluticasone (FLONASE) [...] sleep disorder [G47.61] 01/11/2016 Macular degeneration, wet ([facility]) [H35.3290] 01/11/2016 Morbid obesity (HCC) [E66.01] 01/14/2016 H/O difficult intubation [Z91.89] 01/14/2016 Dysphagia [R13.10] 01/15/2016 01/15/2016 Dyspepsia [R10.13] 01/15/2016 01/15/2016 Colon cancer screening [Z12.11] 01/15/2016 01/15/2016 Rheumatoid arthritis of multiple sites with neg*11/04/2019 Sero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 arthritis (HCC) [M06.00]02/08/2020 Encounter Status:Closed by NOMI PRODUSER on 04/19/23 [facility] 04-08-2023 Miscellaneous Notes Rx resent [facility] will only dispense a 30 days supply. Please send a 30 day supply for the Orencia. documented in this encounter [facility] 03-22-2023 Miscellaneous Notes Short term script. No [...] Refusal: A Refill not appropriate Jaret Seymour APRN.[employer] Patient has been identified by name and [...] Zahida Dawn MA documented in this encounter [facility] 03-18-2023 Miscellaneous Notes The following approved medication [...] Sadia Ulloa MA documented in this encounter [facility] 03-17-2023 Miscellaneous Notes Spoke with patient. Informed [...] 2 weeks, please contact them directly at [phone]. Patient verbalized understanding and thanked me for the information given. Zahida Dawn MA Patient called and stated that she never got a call from the pharmacy regarding the Orencia. Please advice documented in this encounter [facility] 03-04-2023 Note HNO ID: [id number] Author: Christine Abdul Service: ? Author Type: ? Type: Progress Notes Filed: 03/22/2023 3:55 PM Note Text: Prior authorization was approved for Orencia. Plan Name: [facility] PA reference number: [id number] Approval Dates: 12/10/22-03/09/24 However, s/he is required to use [facility] to fill this medication. Will queue prescription(s) to go to designated specialty pharmacy. For reference, their pharmacy phone number is [phone]. No further action by [facility]. Christine Abdul CPhT [facility] 03-04-2023 Note HNO ID: [id number] Author: Christine Abdul Service: ? Author Type: ? Type: Progress Notes Filed: 03/09/2023 4:11 PM Note Text: PA for Orencia was initiated and pending review. Plan Name: [facility] Plan Agent/Iyer: [id number] Case: [id number] Timeline: Standard Christine Abdul CPhT [facility] 03-04-2023 Note HNO ID: [id number] Author: Christine Abdul Service: ? Author Type: ? Type: Progress Notes Filed: 03/04/2023 3:27 PM Note Text: [facility] received prescription(s) for Orencia from Dr. Jeremi Salmeron's office. Benefits investigation was conducted, indicating that a prior authorization is required by patient's insurance plan with [facility]. Encounter will be updated once prior authorization has been submitted by [facility]. Christine Abdul CPhT [facility] 03-04-2023 History of Present illness Narrative [facility] received prescription(s) for Orencia from Dr. Jeremi Salmeron's office. Benefits investigation was conducted, indicating that a prior authorization is required by patient's insurance plan with [facility]. Encounter will be updated once prior authorization has been submitted by [facility]. Christine Abdul CPhT [facility] documented in this encounter [facility] 03-04-2023 Miscellaneous Notes Patient has been identified [...] Sonali Villagomez LPN documented in this encounter [facility] 03-03-2023 Note HNO ID: [id number] Author: Jeremi Salmeron MD Service: ? Author Type: Physician Type: Progress Notes Filed: 03/03/2023 11:06 AM Note Text: On 03/03/2023, I had the pleasure of evaluating Cynthia Schaefer in a follow-up [facility] Rheumatology appointment for seronegative RA. HPI: To [...] of efficacy - In interim, seen by [facility] who started arava in May. Took x3 [...] degeneration, bilateral Dr. Clay Macular degeneration, wet ([facility]) getting injections (Dr. Crowe--Retinal Specialist from [facility]) Macular degeneration, wet ([facility]) 01/11/2016 getting eye injections Periodic limb movement sleep disorder 01/11/2016 Rheumatoid arthritis of multiple sites with 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 factor ([facility]) 11/04/2019 TIA (transient ischemic attack) 04/21/13 PAST [...] by mouth once daily. calcium carbonate/vitamin D2 (PJZWOPW-900-J ORAL) Take by mouth. fluticasone (FLONASE) 50 [...] A-Vit C-Vit E-Zin (more content not included)... [facility] 03-03-2023 History of Present illness Narrative On 03/03/2023, I had the pleasure of evaluating Cynthia Schaefer in a follow-up [facility] Rheumatology appointment for seronegative RA. HPI: To [...] nausea - In Oct, established care in [facility] rheumatology with pain in the PIPs and knees. Started on HCQ 200mg bid - In January, reported nausea and vomiting with higher dose of HCQ so reduced to HCQ 200mg/day with improvement in n/v. Hadn't noticed improvement in joint pain. About 1 month later, stopped HCQ given lack of efficacy - In interim, seen by [facility] who started arava in May. Took x3 [...] degeneration, bilateral Dr. Clay Macular degeneration, wet ([facility]) getting injections (Dr. Crowe--Retinal Specialist from [place]) Macular degeneration, wet ([facility]) 01/11/2016 getting eye injections Periodic limb movement sleep disorder 01/11/2016 Rheumatoid arthritis of multiple sites with 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 factor ([facility]) 11/04/2019 TIA (transient ischemic attack) 04/21/13 PAST [...] by mouth once daily. calcium carbonate/vitamin D2 (XQSQJJL-249-P ORAL) Take by mouth. fluticasone (FLONASE) 50 [...] Thyroid Mother hypothyroid SOCIAL HISTORY: Lives in [place] with . 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 Tobacco use: None Alcohol use: None Drug [...] - Check labs. Notify of results via [facility] 2. Bone health: On long-term prednisone use [...] Jeremi Salmeron MD documented in this encounter [facility] 12-23-2022 Miscellaneous Notes Okayed Patient has been [...] Sonali Villagomez LPN documented in this encounter [facility] 11-30-2022 Miscellaneous Notes The following approved medication [...] Zahida Dawn MA documented in this encounter [facility] 10-09-2022 Note ORIGINAL EXAMINATION: CT OF THE [...] 10/09/2022 2:13:03 PM Ordering Provider: SUZY KIMMY [facility] 10-09-2022 Note ORIGINAL EXAMINATION: CT OF [...] 10/09/2022 2:13:03 PM Ordering Provider: SUZY ONEAL [facility] 09-28-2022 History of Present illness Narrative This note was created using IceWEBriter. Subjective Cynthia Schaefer is a 57 year old female. HISTORY Cynthia Schaefer is a 57 year old lady here for pre-op evaluation as requested by Dr. Oneal. Cynthia Schaefer has surgery scheduled on 10/20/2022 for Right Knee replacement at [facility]. States that will be doing PAT at [facility] (will assume getting ECG and labs as [...] degeneration, bilateral Dr. Clay Macular degeneration, wet ([facility]) getting injections (Dr. Crowe--Retinal Specialist from [place]) Macular degeneration, wet ([facility]) 01/11/2016 getting eye injections Periodic limb movement sleep disorder 01/11/2016 Rheumatoid arthritis of multiple sites with 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 factor ([facility]) 11/04/2019 TIA (transient ischemic attack) 04/21/13 PAST [...] by mouth once daily. calcium carbonate/vitamin D2 ([id number]-059-L ORAL) Take by mouth. fluticasone (FLONASE) 50 [...] No history of dysuria, frequency or incontinence READING AIDE: Negative for abnormal vaginal bleeding, abnormal vaginal discharge MUSCULOSKELETAL: joint pain or [id number] arthritis and knee that needs replaced SKIN: [...] Connie Jain MD documented in this encounter [facility] 09-07-2022 Miscellaneous Notes rx sent Patient has [...] Sadia Ulloa MA documented in this encounter [facility] 09-03-2022 History of Present illness Narrative Episode [...] Angela Manley PT documented in this encounter [facility] 09-01-2022 History of Present illness Narrative Episode [...] Angela Manley PT documented in this encounter [facility] 08-25-2022 History of Present illness Narrative Episode [...] Irma Schmidt PT documented in this encounter [facility] 08-05-2022 History of Present illness Narrative Radiology [...] 2022 9:06 AM documented in this encounter [facility] 07-31-2022 History of Present illness Narrative Cynthia [...] degeneration, bilateral Dr. Clay Macular degeneration, wet ([facility]) getting injections (Dr. Crowe--Retinal Specialist from [place]) Macular degeneration, wet ([facility]) 01/11/2016 getting eye injections Periodic limb movement sleep disorder 01/11/2016 Rheumatoid arthritis of multiple sites with 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 factor ([facility]) 11/04/2019 TIA (transient ischemic attack) 04/21/13 PAST [...] by mouth once daily. calcium carbonate/vitamin D2 ([id number]-526-D ORAL) Take by mouth. B cmplx 4/vit [...] evaluation by Rachelle for OA lite medial conche loader and unloader brace Discussed surgical options with patient, but [...] Intervention/Comfort measure: Medication documented in this encounter [facility] 07-31-2022 History of Present illness Narrative Radiology [...] 2022 10:15 AM documented in this encounter [facility] 07-21-2022 Miscellaneous Notes [facility] Get Medical Advice on 07/21/22 XR KNEE GENERAL 4V AP BOTH/PA BOTH/LAT/MERC RIGHT CONSULT TO ORTHOPAEDICS Jaret Seymour APRN.METAL FURNITURE POLISHER documented in this encounter [facility] 07-02-2022 History of Present illness Narrative HPI: [...] of efficacy - In interim, seen by [facility] who started arava in May. Took x3 [...] (HCC) getting injections (Dr. Crowe--Retinal Specialist from [place]) Macular degeneration, wet ([facility]) 01/11/2016 getting eye injections Periodic limb movement sleep disorder 01/11/2016 Rheumatoid arthritis of multiple sites with 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 factor ([facility]) 11/04/2019 TIA (transient ischemic attack) 04/21/13 PAST [...] was in 04/2021. 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 She discontinued Humira on her own. She [...] by mouth once daily. calcium carbonate/vitamin D2 (HVZCNJD-318-F ORAL) Take by mouth. fluticasone-salmeterol (ADVAIR DISKUS) [...] Thyroid Mother hypothyroid SOCIAL HISTORY: Lives in [place] with . 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 Tobacco use: None Alcohol use: None Drug [...] the previous location. Notify of results via [facility] [employer]. 3. Elevated LFTs: Possibly due to hepatic [...] which included preparing to see the patient, [id number] patient care, completing clinical documentation, performing a medically appropriate examination and communicating results to the patient/family/caregiver. Thank you for allowing me to participate in the care of your patient. Jaret Seymour APRN.CNP documented in this encounter [facility] 07-01-2022 Instructions Jaret Seymour APRN.CNP - 07/01/2022 6:53 AM EDT Please schedule bone density test on the same machine as prior documented in this encounter [facility] 06-22-2022 Miscellaneous Notes The following approved medication [...] 7.8 (H) 2.0 - 7.0 mg/dL Final Zaihda Dawn MA documented in this encounter [facility] 04-24-2022 History of Present illness Narrative This note was created using [employer]. Subjective Cynthia Schaefer is a 57 year [...] to sleep for 2 hours. 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 Swing shift for the work she works. Reviewed that 2013 MELODY-BSO. Noted that pain and arthritis started after that. Does have increased sweats and heat intolerance. Gets flushed easily. Noted irritability after the surgery. Used to be more even-chidi.d PAST MEDICAL HISTORY Diagnosis Date Deviated nasal septum Dysmenorrhea Macular degeneration, bilateral Dr. Clay Macular degeneration, wet ([facility]) getting injections (Dr. Crowe--Retinal Specialist from [place]) Macular degeneration, wet ([facility]) 01/11/2016 getting eye injections Periodic limb movement sleep disorder 01/11/2016 Rheumatoid arthritis of multiple sites with 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 factor ([facility]) 11/04/2019 TIA (transient ischemic attack) 04/21/13 Current [...] by mouth once daily. calcium carbonate/vitamin D2 ([id number]-504-W ORAL) Take by mouth. fluticasone-salmeterol (ADVAIR DISKUS) [...] diet of 1000 mg/day for under 50, 1810-9214 mg/day for 50+ - Discussed need and [...] Connie Jain MD documented in this encounter [facility] 03-25-2022 Miscellaneous Notes Patient has been notified [...] Sadia Ulloa MA documented in this encounter [facility] documented as of this encounter (statuses as of 02/25/2022) [facility] History of Past illness Narrative* Problem Noted Date Resolved Date Dysphagia 01/15/2016 01/15/2016 Dyspepsia 01/15/2016 01/15/2016 Colon cancer screening 01/15/2016 6 documented as of this encounter (statuses as of 03/25/2022) [facility] History of Past illness Narrative* Problem Noted Date Resolved Date Dysphagia 01/15/2016 01/15/2016 Dyspepsia 01/15/2016 01/15/2016 Colon cancer screening 01/15/2016 6 documented as of this encounter (statuses as of 05/11/2022) [facility] History of Past illness Narrative* Problem Noted Date Resolved Date Dysphagia 01/15/2016 01/15/2016 Dyspepsia 01/15/2016 01/15/2016 Colon cancer screening 01/15/2016 6 documented as of this encounter (statuses as of 05/21/2022) [facility] History of Past illness Narrative* Problem Noted Date Resolved Date Dysphagia 01/15/2016 01/15/2016 Dyspepsia 01/15/2016 01/15/2016 Colon cancer screening 01/15/2016 6 documented as of this encounter (statuses as of 06/15/2022) [facility] History of Past illness Narrative* Problem Noted Date Resolved Date Dysphagia 01/15/2016 01/15/2016 Dyspepsia 01/15/2016 01/15/2016 Colon cancer screening 01/15/2016 6 documented as of this encounter (statuses as of 06/22/2022) [facility] History of Past illness Narrative* Problem Noted Date Resolved Date Dysphagia 01/15/2016 01/15/2016 Dyspepsia 01/15/2016 01/15/2016 Colon cancer screening 01/15/2016 6 documented as of this encounter (statuses as of 07/02/2022) [facility] History of Past illness Narrative* Problem Noted Date Resolved Date Dysphagia 01/15/2016 01/15/2016 Dyspepsia 01/15/2016 01/15/2016 Colon cancer screening 01/15/2016 6 documented as of this encounter (statuses as of 07/21/2022) [facility] History of Past illness Narrative* Problem Noted Date Resolved Date Dysphagia 01/15/2016 01/15/2016 Dyspepsia 01/15/2016 01/15/2016 Colon cancer screening 01/15/2016 6 documented as of this encounter (statuses as of 07/31/2022) [facility] History of Past illness Narrative* Problem Noted Date Resolved Date Dysphagia 01/15/2016 01/15/2016 Dyspepsia 01/15/2016 01/15/2016 Colon cancer screening 01/15/2016 6 documented as of this encounter (statuses as of 08/01/2022) [facility] History of Past illness Narrative* Problem Noted Date Resolved Date Dysphagia 01/15/2016 01/15/2016 Dyspepsia 01/15/2016 01/15/2016 Colon cancer screening 01/15/2016 6 documented as of this encounter (statuses as of 08/06/2022) [facility] History of Past illness Narrative* Problem Noted Date Resolved Date Dysphagia 01/15/2016 01/15/2016 Dyspepsia 01/15/2016 01/15/2016 Colon cancer screening 01/15/2016 6 documented as of this encounter (statuses as of 08/25/2022) [facility] History of Past illness Narrative* Problem Noted Date Resolved Date Dysphagia 01/15/2016 01/15/2016 Dyspepsia 01/15/2016 01/15/2016 Colon cancer screening 01/15/2016 6 documented as of this encounter (statuses as of 09/01/2022) [facility] History of Past illness Narrative* Problem Noted Date Resolved Date Dysphagia 01/15/2016 01/15/2016 Dyspepsia 01/15/2016 01/15/2016 Colon cancer screening 01/15/2016 6 documented as of this encounter (statuses as of 09/03/2022) [facility] History of Past illness Narrative* Problem Noted Date Resolved Date Dysphagia 01/15/2016 01/15/2016 Dyspepsia 01/15/2016 01/15/2016 Colon cancer screening 01/15/2016 6 documented as of this encounter (statuses as of 09/07/2022) [place] [address]-09-2016 History of Past illness Narrative* Problem Noted Date Resolved Date Dysphagia 01/15/2016 01/15/2016 Dyspepsia 01/15/2016 01/15/2016 Colon cancer screening 01/15/2016 6 documented as of this encounter (statuses as of 10/02/2022) [facility] History of Past illness Narrative* Problem Noted Date Resolved Date Dysphagia 01/15/2016 01/15/2016 Dyspepsia 01/15/2016 01/15/2016 Colon cancer screening 01/15/2016 6 documented as of this encounter (statuses as of 11/16/2022) [address]09-2016 History of Past illness Narrative* Problem Noted Date Resolved Date Dysphagia 01/15/2016 01/15/2016 Dyspepsia 01/15/2016 01/15/2016 Colon cancer screening 01/15/2016 6 documented as of this encounter (statuses as of 11/30/2022) [facility] History of Past illness Narrative* Problem Noted Date Resolved Date Dysphagia 01/15/2016 01/15/2016 Dyspepsia 01/15/2016 01/15/2016 Colon cancer screening 01/15/2016 6 documented as of this encounter (statuses as of 12/23/2022) [facility] History of Past illness Narrative* Problem Noted Date Resolved Date Dysphagia 01/15/2016 01/15/2016 Dyspepsia 01/15/2016 01/15/2016 Colon cancer screening 01/15/2016 6 documented as of this encounter (statuses as of 03/03/2023) [facility] History of Past illness Narrative* Problem Noted Date Resolved Date Dysphagia 01/15/2016 01/15/2016 Dyspepsia 01/15/2016 01/15/2016 Colon cancer screening 01/15/2016 6 documented as of this encounter (statuses as of 03/04/2023) [place] [address]09-2016 History of Past illness Narrative* Problem Noted Date Resolved Date Dysphagia 01/15/2016 01/15/2016 Dyspepsia 01/15/2016 01/15/2016 Colon cancer screening 01/15/2016 6 documented as of this encounter (statuses as of 03/05/2023) [facility] History of Past illness Narrative* Problem Noted Date Resolved Date Dysphagia 01/15/2016 01/15/2016 Dyspepsia 01/15/2016 01/15/2016 Colon cancer screening 01/15/2016 6 documented as of this encounter (statuses as of 03/17/2023) [facility] History of Past illness Narrative* Problem Noted Date Resolved Date Dysphagia 01/15/2016 01/15/2016 Dyspepsia 01/15/2016 01/15/2016 Colon cancer screening 01/15/2016 6 documented as of this encounter (statuses as of 03/19/2023) [facility] History of Past illness Narrative* Problem Noted Date Resolved Date Dysphagia 01/15/2016 01/15/2016 Dyspepsia 01/15/2016 01/15/2016 Colon cancer screening 01/15/2016 6 documented as of this encounter (statuses as of 03/22/2023) [facility] History of Past illness Narrative* Problem Noted Date Resolved Date Dysphagia 01/15/2016 01/15/2016 Dyspepsia 01/15/2016 01/15/2016 Colon cancer screening 01/15/2016 6 documented as of this encounter (statuses as of 04/09/2023) [facility] History of Past illness Narrative* Problem Noted Date Diagnosed Date Resolved Date Dysphagia 01/15/2016 01/15/2016 Dyspepsia 01/15/2016 01/15/2016 Colon cancer screening 01/15/201601/14 documented as of this encounter (statuses as of 05/17/2023) [facility] History of Past illness Narrative* Problem Noted Date Diagnosed Date Resolved Date Dysphagia 01/15/2016 01/15/2016 Dyspepsia 01/15/2016 01/15/2016 Colon cancer screening 01/15/201601/14 documented as of this encounter (statuses as of 06/21/2023) [facility] History of Past illness Narrative* Problem Noted Date Diagnosed Date Resolved Date Dysphagia 01/15/2016 01/15/2016 Dyspepsia 01/15/2016 01/15/2016 Colon cancer screening 01/15/201601/14 documented as of this encounter (statuses as of 07/15/2023) [facility] History of Past illness Narrative* Problem Noted Date Diagnosed Date Resolved Date Dysphagia 01/15/2016 01/15/2016 Dyspepsia 01/15/2016 01/15/2016 Colon cancer screening 01/15/201601/14 documented as of this encounter (statuses as of 07/15/2023) [facility] History of Past illness Narrative* Problem Noted Date Diagnosed Date Resolved Date Dysphagia 01/15/2016 01/15/2016 Dyspepsia 01/15/2016 01/15/2016 Colon cancer screening 01/15/201601/14 documented as of this encounter (statuses as of 08/14/2023) [facility] History of Past illness Narrative* Problem Noted Date Diagnosed Date Resolved Date Dysphagia 01/15/2016 01/15/2016 Dyspepsia 01/15/2016 01/15/2016 Colon cancer screening 01/15/201601/14 documented as of this encounter (statuses as of 08/17/2023) [facility] History of Past illness Narrative* Problem Noted Date Diagnosed Date Resolved Date Dysphagia 01/15/2016 01/15/2016 Dyspepsia 01/15/2016 01/15/2016 Colon cancer screening 01/15/201601/14 documented as of this encounter (statuses as of 08/17/2023) [facility] History of Past illness Narrative* Problem Noted Date Diagnosed Date Resolved Date Dysphagia 01/15/2016 01/15/2016 Dyspepsia 01/15/2016 01/15/2016 Colon cancer screening 01/15/201601/14 documented as of this encounter (statuses as of 08/19/2023) [facility] History of Past illness Narrative* Problem Noted Date Diagnosed Date Resolved Date Dysphagia 01/15/2016 01/15/2016 Dyspepsia 01/15/2016 01/15/2016 Colon cancer screening 01/15/201601/14 documented as of this encounter (statuses as of 08/19/2023) [place] [address]-09-2016 History of Past illness Narrative* Problem Noted Date Diagnosed Date Resolved Date Dysphagia 01/15/2016 01/15/2016 Dyspepsia 01/15/2016 01/15/2016 Colon cancer screening 01/15/201601/14 documented as of this encounter (statuses as of 09/12/2023) [facility] History of Past illness Narrative* Problem Noted Date Diagnosed Date Resolved Date Dysphagia 01/15/2016 01/15/2016 Dyspepsia 01/15/2016 01/15/2016 Colon cancer screening 01/15/201601/14 documented as of this encounter (statuses as of 09/27/2023) [facility] History of Past illness Narrative* Problem Noted Date Diagnosed Date Resolved Date Dysphagia 01/15/2016 01/15/2016 Dyspepsia 01/15/2016 01/15/2016 Colon cancer screening 01/15/201601/14 documented as of this encounter (statuses as of 10/07/2023) [facility] + Plan note Future Appointments [facility] Evaluation note* Diagnosis Encounter for screening mammogram for breast cancer [facility] Diagnosis Routine medical exam- Primary Routine [...] vitamin D deficiency [facility] Diagnosis Sero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 arthritis (HCC)- Primary Rheumatoid arthritis Encounter for long-term (current) use of medications Encounter for long-term (current) use of other medications Trochanteric bursitis of left hip Enthesopathy of hip region [facility] current use of systemic steroids Encounter for long-term (current) use of steroids [facility] Primary osteoarthritis of right knee- Primary Primary localized osteoarthrosis, lower leg [facility] Diagnosis Rheumatoid arthritis involving right knee with 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 factor (HCC)- Primary Other secondary osteoarthritis of right [facility] Primary osteoarthritis of right knee Primary localized osteoarthrosis, lower leg [facility] current use of systemic steroids Encounter for long-term (current) use of steroids [facility] Diagnosis Rheumatoid arthritis of multiple sites with 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 factor (HCC)- Primary [facility] Diagnosis Rheumatoid arthritis of multiple sites with 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 factor (HCC)- Primary [facility] Diagnosis Rheumatoid arthritis of multiple sites with 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 factor (HCC)- Primary [facility] Preop examination- Primary Preoperative examination, unspecified [facility] Sero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 arthritis (HCC)- Primary 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 Encounter for [...] (HCC) Morbid obesity [facility] Diagnosis Chronic pain of left [...] of other medications [facility] Sero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 arthritis (HCC)- Primary Rheumatoid arthritis Encounter for long-term (current) use of medications Encounter for long-term (current) use of other medications [facility] current use of systemic steroids Encounter for long-term (current) use of steroids documented in this encounter [facility] course Narrative No data available for this section [facility] Hospital Discharge instructions No data available for this section [facility] Progress note No data available for this section [facility] Reason for referral (narrative)* Diagnostic Procedure Only (Routine) - Pending Review Specialty Diagnoses / Procedures Referred By Ariella akhtar Referred To Contact [facility] IM[facility]ING Diagnoses Encounter for screening mammogram for breast cancer Procedures TRACY SCREENING SCREENING MAMMOGRAPHY BI 2-VIEW BREAST INC CAD Connie Jain MD [address] [place] [address] [facility] [address] [place] [address] Referral ID Status Reason Start Date Expiration Date Visits Requested Visits Authorized [id number] Pending Review Auto-Generat ed Referral 05/06/2022 06/05/2023 1 1 [facility] for referral (narrative)* Diagnostic Procedure Only (Routine) - Pending Review Specialty Diagnoses / Procedures Referred By Ariella akhtar Referred To Contact XR IMAGING Diagnoses Primary osteoarthritis of right knee Procedures XR KNEE GENERAL 4V AP BOTH/PA BOTH/LAT/MERC RIGHT RADIOLOGIC EXAM KNEE COMPLETE 4/MORE VIEWS Jaret Seymour, SEED [employer] PICKER.METAL FURNITURE POLISHER [address] [place] [address] X[facility] Referral ID Status Reason Start Date Expiration Date Visits Requested Visits Authorized [id number] Pending Review Auto-Generat ed Referral 07/21/2022 08/20/2023 1 1 * Consult, Test, Treat (Routine) - Pending Review Specialty Diagnoses / Procedures Referred By Contac t Referred To Contact Orthopedics Diagnoses Primary osteoarthritis of right knee Procedures CONSULT TO ORTHOPAEDICS OFFICE/OUTPATIENT NEW HIGH MDM 60-74 MINUTES Jaret Seymour APRN.METAL FURNITURE POLISHER [id number] [place] [id number] Referral ID Status Reason Start Date Expiration Date Visits Requested Visits Authorized [id number] Pending Review PCP Requested Referral 07/21/2022 07/21/2023 1 1 [facility] for referral (narrative)* Diagnostic Procedure Only (Routine) - Closed Specialty Diagnoses / Procedures Referred By Contac t Referred To Contact XR IMAGING Diagnoses Primary osteoarthritis of right knee Procedures XR KNEE GENERAL 4V AP BOTH/PA BOTH/LAT/MERC RIGHT RADIOLOGIC EXAM KNEE COMPLETE 4/MORE VIEWS Jaret Seymour APRN.METAL FURNITURE POLISHER [id number] [place] [id number] X[facility] Referral ID Status Reason Start Date Expiration Date V isits Requested Visits Authorized [id number] Closed Auto-Generate d Referral 07/21/2022 08/20/2023 1 1 [facility] for referral (narrative)* Diagnostic Procedure Only (Routine) - Closed Specialty Diagnoses / Procedures Referred By Contac t Referred To Contact XR IMAGING Diagnoses Abnormal x-ray Procedures XR MANDIBLE 4V PA/TESSA/BOTH OBL RADIOLOG EXAM MANDIBLE COMPL MINIMUM 4 VIEWS Connie Jain MD [address] [place] [address] Xr Imaging Referral ID Status Reason Start Date Expiration Date V isits Requested Visits Authorized [id number] Closed Auto-Generate d Referral 04/16/2023 05/15/2024 1 1 [facility] for referral (narrative)* Diagnostic Procedure Only (Routine) - Authorized Specialty Diagnoses / Procedures Referred By Contac t Referred To Contact XR IMAGING Diagnoses Chronic pain of left ankle Procedures XR ANKLE GENERAL 3V AP/LAT/OBL LEFT RADEX ANKLE COMPLETE MINIMUM 3 VIE[place]meron [place] [id number] [place] [address] [place] [address] Referral ID Status Reason Start Date Expiration Date Visits Requested Visits Authorized [id number] Authorized Auto-Generat ed Referral 07/14/2023 08/12/2024 1 1 [facility] for referral (narrative)* Diagnostic Procedure Only (Routine) - Closed Specialty Diagnoses / Procedures Referred By Ariella t Referred To Contact XR IMAGING Diagnoses Chronic pain of left ankle Procedures XR ANKLE GENERAL 3V AP/LAT/OBL LEFT RADEX ANKLE COMPLETE MINIMUM 3 VIEWS Jeremi Salmeron [place] [phone] [place] [address] [place] [address] Referral ID Status Reason Start Date Expiration Date V isits Requested Visits Authorized [id number] Closed Auto-Generate d Referral 07/14/2023 08/12/2024 1 1 [facility] for visit Narrative* Diagnostic Procedure Only (Routine) - Closed Specialty Diagnoses / Procedures Referred By Contac t Referred To Contact XR IMAGING Diagnoses Primary osteoarthritis of right knee Procedures XR KNEE GENERAL 4V AP BOTH/PA BOTH/LAT/MERC RIGHT RADIOLOGIC EXAM KNEE COMPLETE 4/MORE VIEWS Jaret Seymour, SEED [employer] P[employer]ER.METAL FURNITURE POLISHER [id number] [place] [phone] Xr Imaging Referral ID Status Reason Start Date Expiration Date V isits Requested Visits Authorized [id number] Closed Auto-Generate d Referral 07/21/2022 08/20/2023 1 1 [facility] for visit Narrative* Diagnostic Procedure Only (Routine) - Closed Specialty Diagnoses / Procedures Referred By Contac t Referred To Contact XR IMAGING Diagnoses Chronic pain of left ankle Procedures XR ANKLE GENERAL 3V AP/LAT/OBL LEFT RADEX ANKLE COMPLETE MINIMUM 3 [place] [address] [place] [address] [facility] [address] Referral ID Status Reason Start Date Expiration Date V isits Requested Visits Authorized [id number] Closed Auto-Generate d Referral 07/14/2023 08/12/2024 1 1 [facility] Discharge Instructions * Attachments The following attachments cannot be sent through Care Everywhere. 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 Advance Directive(s) 01/15/2016 1:23 PM Advance Directive(s) 01/10/2016 4:39 PM Documents on File Type Date Recorded Patient 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 Chief 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 Advance Directive(s) 01/15/2016 1:23 PM Advance Directive(s) 01/10/2016 4:39 PM Reason for Referral Specialty Diagnoses / Procedures Referred By Contac t Referred To Contact [facility] Diagnoses Primary osteoarthritis of both knees Procedures CONSULT TO PHYSICAL THERAPY PHYSICAL THERAPY EVALUATION HIGH COMPLEX 45 MINS Brenden Okeefe V, DO [address] [place] [address] [facility] [place] [address] [place] [address] Referral ID Status Reason Start Date Expiration Date V isits Requested Visits Authorized [id number] Authorized 11/08/2021 11/07/2022 20 20 Additional Source [...] COMPLEX 45 MINS Brenden Okeefe V, DO [address] [place] [address] [facility] [address] [place] [address] Referral ID Status Reason Start Date Expiration Date V isits Requested Visits Authorized [id number] Authorized 11/08/2021 11/07/2022 20 20 Reason Comments [...] up Procedures [facility] [place] [address] [place] [address] [place] [id number] [place] [address] Referral ID Status Reason Start Date Expiration Date V isits Requested Visits Authorized [id number] Pending Review 06/07/2023 11/08/2024 4 4 INFORMATION SOURCE (unrecogn ized section and content) DATE CREATED AUTHOR AUTHOR'S ORGANIZ ATION 01/17/2021 [facility] DATE CREATED AUTHOR AUTHOR'S ORGANIZ ATION 10/28/2022 [facility] ([place]) DATE CREATED AUTHOR AUTHOR'S ORGANIZ ATION 10/10/2023 [facility] Source Comments (unrecognize d section and content) In the event this informatio n is protected by the Federal Confidentiality of Alcohol and Drug Abuse Patient Records regulations: The Federal rules restrict any use of the information to criminally investigate or prosecute any alcohol or drug abuse patient.[facility] the event this information is protected by the Federal Confidentiality of Alcohol and Drug Abuse Patient Records regulations: The Federal rules restrict any use of the information to criminally investigate or prosecute any alcohol or drug abuse patient.[facility] Center[facility] the event this information is protected by the Federal Confidentiality of Alcohol and Drug Abuse Patient Records regulations: The Federal rules restrict any use of the information to criminally investigate or prosecute any alcohol or drug abuse patient.[facility] Center[facility] the event this information is protected by the Federal Confidentiality of Alcohol and Drug Abuse Patient Records regulations: The Federal rules restrict any use of the information to criminally investigate or prosecute any alcohol or drug abuse patient.[facility] the event this information is protected by the Federal Confidentiality of Alcohol and Drug Abuse Patient Records regulations: The Federal rules restrict any use of the information to criminally investigate or prosecute any alcohol or drug abuse patient.[facility] Center[facility] the event this information is protected by the Federal Confidentiality of Alcohol and Drug Abuse Patient Records regulations: The Federal rules restrict any use of the information to criminally investigate or prosecute any alcohol or drug abuse patient.[facility] Center[facility] the event this information is protected by the Federal Confidentiality of Alcohol and Drug Abuse Patient Records regulations: The Federal rules restrict any use of the information to criminally investigate or prosecute any alcohol or drug abuse patient.[facility] Center[facility] the event this information is protected by the Federal Confidentiality of Alcohol and Drug Abuse Patient Records regulations: The Federal rules restrict any use of the information to criminally investigate or prosecute any alcohol or drug abuse patient.[facility] CenterIn the event this information is protected by the Federal Confidentiality of Alcohol and Drug Abuse Patient Records regulations: The Federal rules restrict any use of the information to criminally investigate or prosecute any alcohol or drug abuse patient.[facility] CenterIn the event this information is protected by the Federal Confidentiality of Alcohol and Drug Abuse Patient Records regulations: The Federal rules restrict any use of the information to criminally investigate or prosecute any alcohol or drug abuse patient.[facility] CenterIn the event this information is protected by the Federal Confidentiality of Alcohol and Drug Abuse Patient Records regulations: The Federal rules restrict any use of the information to criminally investigate or prosecute any alcohol or drug abuse patient.[facility] CenterIn the event this information is protected by the Federal Confidentiality of Alcohol and Drug Abuse Patient Records regulations: The Federal rules restrict any use of the information to criminally investigate or prosecute any alcohol or drug abuse patient.[facility] CenterIn the event this information is protected by the Federal Confidentiality of Alcohol and Drug Abuse Patient Records regulations: The Federal rules restrict any use of the information to criminally investigate or prosecute any alcohol or drug abuse patient.[facility] CenterIn the event this information is protected by the Federal Confidentiality of Alcohol and Drug Abuse Patient Records regulations: The Federal rules restrict any use of the information to criminally investigate or prosecute any alcohol or drug abuse patient.[facility] CenterIn the event this information is protected by the Federal Confidentiality of Alcohol and Drug Abuse Patient Records regulations: The Federal rules restrict any use of the information to criminally investigate or prosecute any alcohol or drug abuse patient.[facility] CenterIn the event this information is protected by the Federal Confidentiality of Alcohol and Drug Abuse Patient Records regulations: The Federal rules restrict any use of the information to criminally investigate or prosecute any alcohol or drug abuse patient.[facility] CenterIn the event this information is protected by the Federal Confidentiality of Alcohol and Drug Abuse Patient Records regulations: The Federal rules restrict any use of the information to criminally investigate or prosecute any alcohol or drug abuse patient.[facility] CenterIn the event this information is protected by the Federal Confidentiality of Alcohol and Drug Abuse Patient Records regulations: The Federal rules restrict any use of the information to criminally investigate or prosecute any alcohol or drug abuse patient.[facility] CenterIn the event this information is protected by the Federal Confidentiality of Alcohol and Drug Abuse Patient Records regulations: The Federal rules restrict any use of the information to criminally investigate or prosecute any alcohol or drug abuse patient.[facility] CenterIn the event this information is protected by the Federal Confidentiality of Alcohol and Drug Abuse Patient Records regulations: The Federal rules restrict any use of the information to criminally investigate or prosecute any alcohol or drug abuse patient.[facility] CenterIn the event this information is protected by the Federal Confidentiality of Alcohol and Drug Abuse Patient Records regulations: The Federal rules restrict any use of the information to criminally investigate or prosecute any alcohol or drug abuse patient.[facility] CenterIn the event this information is protected by the Federal Confidentiality of Alcohol and Drug Abuse Patient Records regulations: The Federal rules restrict any use of the information to criminally investigate or prosecute any alcohol or drug abuse patient.[facility] CenterIn the event this information is protected by the Federal Confidentiality of Alcohol and Drug Abuse Patient Records regulations: The Federal rules restrict any use of the information to criminally investigate or prosecute any alcohol or drug abuse patient.[facility] CenterIn the event this information is protected by the Federal Confidentiality of Alcohol and Drug Abuse Patient Records regulations: The Federal rules restrict any use of the information to criminally investigate or prosecute any alcohol or drug abuse patient.[facility] CenterIn the event this information is protected by the Federal Confidentiality of Alcohol and Drug Abuse Patient Records regulations: The Federal rules restrict any use of the information to criminally investigate or prosecute any alcohol or drug abuse patient.[facility] CenterIn the event this information is protected by the Federal Confidentiality of Alcohol and Drug Abuse Patient Records regulations: The Federal rules restrict any use of the information to criminally investigate or prosecute any alcohol or drug abuse patient.[facility] CenterIn the event this information is protected by the Federal Confidentiality of Alcohol and Drug Abuse Patient Records regulations: The Federal rules restrict any use of the information to criminally investigate or prosecute any alcohol or drug abuse patient.[facility] CenterIn the event this information is protected by the Federal Confidentiality of Alcohol and Drug Abuse Patient Records regulations: The Federal rules restrict any use of the information to criminally investigate or prosecute any alcohol or drug abuse patient.[facility] CenterIn the event this information is protected by the Federal Confidentiality of Alcohol and Drug Abuse Patient Records regulations: The Federal rules restrict any use of the information to criminally investigate or prosecute any alcohol or drug abuse patient.[facility] CenterIn the event this information is protected by the Federal Confidentiality of Alcohol and Drug Abuse Patient Records regulations: The Federal rules restrict any use of the information to criminally investigate or prosecute any alcohol or drug abuse patient.[facility] CenterIn the event this information is protected by the Federal Confidentiality of Alcohol and Drug Abuse Patient Records regulations: The Federal rules restrict any use of the information to criminally investigate or prosecute any alcohol or drug abuse patient.[facility] CenterIn the event this information is protected by the Federal Confidentiality of Alcohol and Drug Abuse Patient Records regulations: The Federal rules restrict any use of the information to criminally investigate or prosecute any alcohol or drug abuse patient.[facility] CenterIn the event this information is protected by the Federal Confidentiality of Alcohol and Drug Abuse Patient Records regulations: The Federal rules restrict any use of the information to criminally investigate or prosecute any alcohol or drug abuse patient.[facility] CenterIn the event this information is protected by the Federal Confidentiality of Alcohol and Drug Abuse Patient Records regulations: The Federal rules restrict any use of the information to criminally investigate or prosecute any alcohol or drug abuse patient.[facility] CenterIn the event this information is protected by the Federal Confidentiality of Alcohol and Drug Abuse Patient Records regulations: The Federal rules restrict any use of the information to criminally investigate or prosecute any alcohol or drug abuse patient.[facility] CenterIn the event this information is protected by the Federal Confidentiality of Alcohol and Drug Abuse Patient Records regulations: The Federal rules restrict any use of the information to criminally investigate or prosecute any alcohol or drug abuse patient.[facility] CenterIn the event this information is protected by the Federal Confidentiality of Alcohol and Drug Abuse Patient Records regulations: The Federal rules restrict any use of the information to criminally investigate or prosecute any alcohol or drug abuse patient.[facility] CenterIn the event this information is protected by the Federal Confidentiality of Alcohol and Drug Abuse Patient Records regulations: The Federal rules restrict any use of the information to criminally investigate or prosecute any alcohol or drug abuse patient.[facility] CenterIn the event this information is protected by the Federal Confidentiality of Alcohol and Drug Abuse Patient Records regulations: The Federal rules restrict any use of the information to criminally investigate or prosecute any alcohol or drug abuse patient.[facility] Care Teams (unrecognized sec tion and content) Living Specialist Relationship Specialty Start Date End Date Connie Jain MD [address] [facility] [place] [address] PCP - General 08/29/02 Living Specialist Relationship Specialty Start Date End Date Connie Jain MD [address] [place] [address], [place] [address] PCP - General 08/29/02 Living Specialist Relationship Specialty Start Date End Date Connie Jain MD [address] [place] [address], [place] [address] PCP - General 08/29/02 Living Specialist Relationship Specialty Start Date End Date Connie Jain MD [address] [place] [address], [place] [address] PCP - General 08/29/02 Living Specialist Relationship Specialty Start Date End Date Connie Jain MD [address] [place] [address], [place] [address] PCP - General 08/29/02 Living Specialist Relationship Specialty Start Date End Date Connie Jain MD [address] [place] [address], [place] [address] PCP - General 08/29/02 Living Specialist Relationship Specialty Start Date End Date Connie Jain MD [address] [place] [address], [place] [address] PCP - General 08/29/02 Living Specialist Relationship Specialty Start Date End Date Connie Jain MD [address] [place] [address], [place] [address] PCP - General 08/29/02 Living Specialist Relationship Specialty Start Date End Date Connie Jain MD [address] [place] [address], [place] [address] PCP - General 08/29/02 Living Specialist Relationship Specialty Start Date End Date Connie Jain MD [address] [facility] [place] [address] PCP - General 08/29/02 Living Specialist Relationship Specialty Start Date End Date Connie Jain MD [address] [facility] [place] [address] PCP - General 08/29/02 Living Specialist Relationship Specialty Start Date End Date Connie Jain MD [address] [facility] [place] [address] PCP - General 08/29/02 Living Specialist Relationship Specialty Start Date End Date Connie Jain MD [address] [place] [address], [place] [address] PCP - General 08/29/02 Living Specialist Relationship Specialty Start Date End Date Connie Jain MD [address] [place] [address], [place] [address] PCP - General 08/29/02 Living Specialist Relationship Specialty Start Date End Date Connie Jain MD [address] [place] [address], [place] [address] PCP - General 08/29/02 Living Specialist Relationship Specialty Start Date End Date Connie Jain MD [address] [place] [address], [place] [address] PCP - General 08/29/02 Living Specialist Relationship Specialty Start Date End Date Connie Jain MD [address] [place] [address], [place] [address] PCP - General 08/29/02 Living Specialist Relationship Specialty Start Date End Date Connie Jain MD [address] [place] [address], [place] [address] PCP - General 08/29/02 Living Specialist Relationship Specialty Start Date End Date Connie Jain MD [address] [place] [address] PCP - General 08/29/02 Living Specialist Relationship Specialty Start Date End Date Connie Jain MD [address] [place] [address] PCP - General 08/29/02 Living Specialist Relationship Specialty [place] [address] [place] [id number] PCP - General 08/29/02 Living Specialist Relationship Specialty [place] [address] [place] [address] PCP - General 08/29/02 Living Specialist Relationship Specialty [place] [address] [place] [id number] PCP - General 08/29/02 Living Specialist Relationship Specialty Start Date End Date Connie Jain MD [address] [place] [address] PCP - General 08/29/02 Care Team (unrecognized sect ion and content) Care Team Personnel Name: CONNIE JAIN MD Member Role: Primary Care Physician Address: Address: [address] [place] [id number]- Care Team Related Persons Name: DEJAH SCHAEFER Address: Home [address] [place] [address] Care Team Personnel Name: CONNIE JAIN MD Member Role: Primary Care Physician Address: Address: [address] [place] [address]- Care Team Related Persons Name: DEJAH SCHAEFER Address: Home [address] [facility] [place] [address] FOR RECORDS PERTAINING TO PATIENTS WHO ARE [...] BE BASED ON THE PRIMARY CLINICAL RECORDS. [facility] [employer] [facility]. provides no warranty or guarantee of the accuracy or completeness of information in this document.
[2023-12-23] MEDS: Ketorolac 30 MG/ML Syringe IV ×2 (11:22→18:41)
[2023-12-23] MEDS: 0.9% Saline Lock 10 ML Syringe IV ×3 (11:23→23:16)
[2023-12-23] MEDS: predniSONE 5 MG Tablet 2.5 MG PO (12:07)
[2023-12-23] MEDS: Acetaminophen 325 MG Tablet 650 MG PO ×2 (12:07→21:31)
[2023-12-23] MEDS: oxyCODONE 5 MG Tablet PO ×3 (12:08→21:32)
[2023-12-23] MEDS: Enoxaparin 40 MG/0.4 ML Syringe SC (12:10)
--- NOTE | 2023-12-23 17:37 | PCM.HP.STD ---
HPI - General General Date of Admission: 12/23/23 Date of Service: 12/23/23 Chief Complaint: Left hip pain HPI Narrative EWA LIZ, is a 58 F who presents to the emergency room at [facility] after sustaining mechanical fall at home when she was turning to walk out of her barn. Patient fell striking her left hip, she has not been able to ambulate due to her left hip pain. Patient's past medical history includes COPD, essential hypertension, and rheumatoid arthritis. Workup in the emergency room included x-rays of the left hip which showed a intertrochanteric fracture of the left hip, CBC was unremarkable. And chemistry profile was largely unremarkable. Patient will be admitted to [place] [address], I contacted orthopedic surgery who will see the patient in consultation, it is not likely she will go to surgery today, I feel she is medically stable at this time and has low risk for any intraoperative complications. [facility] Medical History (Updated 12/23/23 @ 10:27 by Yuly Warren) Difficulty chewing Failed total knee replacement GERD (gastroesophageal reflux disease) History of immunosuppression therapy History of steroid therapy Hypertension Loose, teeth Macular degeneration , ectopic Restless legs Rheumatoid arthritis TIA Home Medications aspirin 81 mg tablet,delayed release 81 mg PO DAILY heart health/pre 11/21/13 [History Last Taken 12/31/16] vitamins A,C,H-gnnx-zhckhi 4,296 mcg-226 mg-90 mg capsule (PreserVision AREDS) 1 ea PO DAILY supplement 11/21/13 [History Last Taken 12/31/16] hydrochlorothiazide 12.5 mg capsule 12.5 mg PO DAILY blood pressure 12/11/13 [History Last Taken 12/31/16] diazepam 5 mg tablet 5 mg PO 4X/DAY PRN PRN Spasms ##30 02/13/14 [Rx Last Taken 03/27/14] metoprolol tartrate 25 mg tablet 12.5 mg PO DAILY blood pressu 05/24/16 [History Last Taken 12/31/16] acetaminophen 325 mg tablet (Tylenol) 650 mg (2 x 325 mg) PO Q6H PRN PRN Mild Pain (scale 0-3)/T>100.7 ##0 01/02/17 [Rx Last Taken Unknown] bevacizumab 25 mg/mL intravenous solution (Avastin) 2 mg intravitreal .COMPLEX see physician 05/14/22 [History Last Taken Unknown] prednisone 2.5 mg tablet 2.5 mg PO DAILY steroid 05/14/22 [History Last Taken Unknown] abatacept 125 mg/mL subcutaneous auto-injector (Orencia ClickJect) 125 mg subcut .thur see physician 12/23/23 [History Last Taken Unknown] Allergy/AdvReac Type Severity Reaction Status Date / Time morphine Allergy Severe CAN NOT Verified 12/23/23 07:03 BREATHE Sulfa (Sulfonamide Allergy Intermediate Hives Verified 12/23/23 07:03 Antibiotics) adhesive tape [tape] Allergy Hives Verified 12/23/23 07:03 amoxicillin AdvReac Intermediate Hives Verified 12/23/23 10:45 Surgical History (Updated 12/23/23 @ 10:27 by Yuly Warren) S/P hysterectomy Social History Smoking Status: Former smoker substance use type: does not use ROS Constitutional Constitutional: Denies anorexia, change in weight, chills, fatigue, fever(s), malaise, night sweats or weakness Eyes Eyes: Denies blurry vision, change in vision, discharge from eye(s) or eye pain Cardiovascular Cardiovascular: Denies chest pain, claudication, dyspnea on exertion, edema or palpitations Respiratory/Chest Respiratory/Chest: Denies cough, hemoptysis, shortness of breath at rest or shortness of breath with exertion Gastrointestinal Gastrointestinal: Denies abdominal pain, constipation, diarrhea, hematemesis, hematochezia, melena, nausea or vomiting Genitourinary Genitourinary: Denies dysuria, hematuria, urinary frequency, urinary hesitancy, urinary incontinence or urinary urgency Musculoskeletal Musculoskeletal: Reports arthralgias, joint pain, joint stiffness and other Details: Left hip pain ; Denies back pain, joint swelling, myalgias or neck pain Neurologic Neurologic: Denies abnormal gait, abnormal speech, confusion, disequilibrium, dizziness, focal weakness, headache(s), loss of vision, numbness, other visual disturbances, paresthesias, syncope or tingling Psychiatric Psychiatric: Denies anxiety, cognitive impairment, depression, irritability, mood swings or suicidal ideation Endocrine Endocrinology: Denies change in body appearance, cold intolerance, excessive sweating, heat intolerance, polydipsia or polyuria Hematologic/Lymphatic Hematologic/Lymphatic: Denies none, anemia, easy bleeding, easy bruising or lymphadenopathy Allergic/Immunologic Allergic/Immunologic: Denies rhinitis, urticaria, eczemia or asthma Vital Signs Vital Signs Vital Signs: 12/23/23 07:01 12/23/23 07:04 12/23/23 09:59 Temperature 97.6 F L Temperature Source Temporal Pulse Rate 73 87 Respiratory Rate 16 16 Respiratory Effort Normal Respiratory Depth Normal Respiratory Pattern Normal Blood Pressure 184/85 H 172/90 H Blood Pressure Mean 118 117 Blood Pressure Source Blood Pressure Position Blood Pressure Location Pulse Ox 95 99 Oxygen Delivery Method Room Air Room Air Room Air Oxygen Flow Rate (L/min) 12/23/23 10:01 12/23/23 11:18 Temperature 97.7 F L 97.7 F L Temperature Source Temporal Pulse Rate 87 88 Respiratory Rate 16 18 Respiratory Effort Respiratory Depth Respiratory Pattern Blood Pressure 172/90 H 115/57 L Blood Pressure Mean 117 76 Blood Pressure Source Monitor Blood Pressure Position Right Lateral Blood Pressure Location Left Arm Pulse Ox 99 97 Oxygen Delivery Method Nasal Cannula Oxygen Flow Rate (L/min) 2 Weight Weight: 123.74 kg Body Mass Index (BMI) 42.7 Physical Exam Const alert, oriented x3, no apparent distress and healthy appearing Constitutional Narrative: Patient is morbidly obese General Appearance: cooperative, well kempt and well developed Orientation / Consciousness: awake, oriented to person, oriented to place and oriented to time HEENT normocephalic, head/scalp atraumatic, hearing grossly normal bilaterally and moist oral mucous membranes Eyes PERRL, EOMs intact bilaterally and conjunctivae normal Neck supple, no JVD, thyroid normal and no carotid bruits General: trachea midline Resp normal respiratory effort, no retractions, no use of accessory muscles and clear to auscultation bilaterally Auscultation: Negative for rales, rhonchi or wheezes Cardio regular rate, regular rhythm, no murmurs, no rub and no gallops GI normal to inspection, nondistended, normoactive bowel sounds, soft to palpation, non-tender and non-distended Extremity Extremity Narrative: Patient has pain to palpation over her left hip, she has limited range of motion of the left hip due to pain Skin no rashes or lesions noted General Skin Exam: no breakdown Neuro oriented x3, CN's II-XII intact bilaterally, no focal motor deficits and no sensory deficits noted Sensorium / Orientation: awake and alert Speech: speech normal Psych affect normal Results Lab / Micro Data 12/23/23 07:30 12/23/23 07:30 Labs: Laboratory Results - last 24 hr 12/23/23 07:30: WBC 10.0, RBC 4.97, Hgb 14.0, Hct 44.6, MCV 89.7, MCH 28.2, MCHC 31.4 L, RDW Std Deviation 51.4 H, RDW Coeff of Ame 15.7 H, Plt Count 211, MPV 11.2, Immature Gran % (Auto) 1.100 H, Neut % (Auto) 62.3, Lymph % (Auto) 27.0, [place] % (Auto) 7.5, Eos % (Auto) 1.6, Baso % (Auto) 0.5, Absolute Neuts (auto) 6.2, Absolute Lymphs (auto) 2.70, Nucleated RBC % 0, Sodium 143, Potassium 3.7, Chloride 108 H, Carbon Dioxide 31.0, Anion Gap 4 L, BUN 17, Creatinine 0.81, Estim Creat Clear Calc 102.61, Est GFR (MDRD) Af Amer 92, Est GFR (MDRD) Non-Af 76, BUN/Creatinine Ratio 20.9 H, Glucose 121 H, Calcium 9.3, Blood Type A POSITIVE, Antibody Screen NEGATIVE Rhythm Strip Rhythm Strip: Sinus Rhythm Rate: 73 Ectopy: None Imaging Radiology Impression Chest X-Ray 12/23/23 07:03 IMPRESSION: No acute abnormality is seen. Electronically Signed: Rico Scott MD at 8:19 EST , Hip/Pelvis X-Ray 12/23/23 07:05 IMPRESSION: Comminuted left intertrochanteric fracture with cephalic migration of the distal fracture fragment. Soft tissue swelling. Electronically Signed: Rico Scott MD at 8:20 EST , Assessment & Plan Assessment/Plan (1) Displaced intertrochanteric fracture of left femur, initial encounter for closed fracture: PLAN: Plan 1. Intertrochanteric fracture of the left hip-patient will be admitted to [place] [address], she will be seen in consultation by orthopedic surgery, PT, and OT, patient will undergo gamma nail insertion on 12/24/2023 if she remains medically stable. As a further note, I reviewed some of the patient's hospital records from [facility] when she had her knee operated on, she was given Dilaudid IM at that time and she was not allergic to it. Patient lists an allergy to morphine and states that caused her to have breathing problems in the past. Patient will be placed on oxycodone for pain and I will write for IV Dilaudid for severe pain. #2 rheumatoid arthritis-complicates care, medical course, recovery, and prognosis #3 essential hypertension-patient will remain on her current medications #4 morbid obesity-complicates care, medical course, recovery, and prognosis Total clinical time spent by myself addressing the patient's medical issues, reviewing all of her data, and collaborating with patient's care team: 75 minutes Charges/Coding Visit Charges Inpatient E&M: 43441 Init Hosp L3
[2023-12-23] MEDS: Aspirin E.C. 81 MG Tablet PO (21:17)
[2023-12-24] VITALS (21 sets, daily range): BP systolic 95–139; BP diastolic 60–101; PULSE 89–118; RESP 14–20; TEMP 36.3–36.9; O2SAT 91–98; BMI 42.7
[2023-12-24] MEDS: Ketorolac 30 MG/ML Syringe IV ×2 (03:23→16:54)
[2023-12-24 05:53] LABS: Absolute Lymphocyte Count 3.06 X10^3/uL (0.83-4.51); Absolute Neutrophil Count 7.9 X10^3/uL (2.0-7.7); Basophil# 0.06 X10^3/uL; Basophil% 0.5 % (0-1); Eosinophils% 2.4 % (0-5); Hematocrit 40.7 % (37-47); Hemoglobin 12.4 g/dL (12.0-15.0); Lymphocyte # 3.06 X10^3/ul (0.83-4.51); Lymphocyte % 24.4 % (19-41); Mean Corp Hgb Conc 30.5 g/dL (32-36); Mean Corpuscular Hgb 27.7 pg (27.0-32.0); Mean Corpuscular Volume 91.1 fL (81-99); Mean Platelet Vol. 10.8 fl (6.2-12.0); Monocyte# 1.11 X10^3/uL; Monocyte% 8.8 % (0-10); NRBC Flagged by Analyzer 0 % (0-5); Neutrophil # 7.94 X10^3/uL (2.7-7.7); Neutrophil % 63.3 % (47-70); Platelet Count 200 K/mm3 (150-450); RBC Distribution Width CV 15.7 % (11.6-14.6); RBC Distribution Width SD 51.8 fl (35.1-43.9); Red Blood Count 4.47 M/mm3 (4.2-5.4); White Blood Count 12.6 K/mm3 (4.4-11.0)
--- NOTE | 2023-12-24 06:00 | EKG12_ITS ---
Test Reason : PRE-OP Blood Pressure : / mmHG Vent. Rate : 094 BPM Atrial Rate : 094 BPM P-R Int : 138 ms QRS Dur : 076 ms QT Int : 350 ms P-R-T Axes : 029 013 034 degrees QTc Int : 437 ms Normal sinus rhythm Normal ECG When compared with ECG of 23-DEC-2023 07:13, MANUAL COMPARISON REQUIRED, DATA IS UNCONFIRMED Confirmed by Anastacio Moreno ([id number]), editor greeting card [facility] ([id number]) on 12/24/2023 9:52:34 AM Referred By: MARCE Confirmed By:Anastacio Moreno
[2023-12-24] MEDS: HYDROmorphone 1 MG/ML Syringe IV (06:05)
[2023-12-24] MEDS: Metoprolol Tartrate 25 MG Tablet 12.5 MG PO (08:52)
--- NOTE | 2023-12-24 09:28 | CON.PCM_ITS ---
Assessment & Plan Assessment/Plan (1) Displaced intertrochanteric fracture of left femur, initial encounter for closed fracture: PLAN: Natural history of the disease process and treatment options were discussed the patient. Patient demonstrates an understanding of potential healing complications and difficulties including shortening of the limb, nonunion and malunion. Nonoperative treatment was now recommended. Operative intervention including cephalomedullary nail and hemiarthroplasty were discussed. Cephalomedullary nail was appropriate treatment for this fracture which was explained to the patient. At this time I discussed risk and benefits which include but are not limited to blood loss, DVTs, PEs, nervous damage, infe ction, risk of anesthesia include loss of life. Additionally we discussed further fractures, nonunion, malunion and gait abnormalities as well as residual pain. Patient demonstrates understanding wish to proceed. His is at bedside and also wishes to proceed. Ancef is ordered on-call to the operating room. Patient is currently NPO. Plan is to proceed with surgery today. (2) Wound, surgical, infected: PLAN: Did discuss the patient previous history of infection increases her risk of infectious etiology postoperatively. (3) Unilateral primary osteoarthritis, left knee: PLAN: Will monitor symptoms. Have had surgical discussions in the past the patient. While she is healing we will consider pain management protocol such as corticosteroid injections. (4) Elevated blood pressure reading with diagnosis of hypertension: PLAN: Per primary service (5) COPD exacerbation: PLAN: Per primary service (6) Obese: QUALIFIERS: Obesity severity: unspecified obesity severity PLAN: Per primary service HPI Consult Data Date of Consult: 12/24/23 HPI Narrative Reason for Consultation: left hip fracture HPI Narrative: EWA LIZ, is a 58 F who presents with left hip pain. Patient does have multiple medical comorbidities including COPD and hypertension. She also has a history of a significant abdominal wound status post hysterectomy which required multiple debridements. For infection. She was out in her barn yesterday when she had a mechanical fall. She fell onto her left hip and was unable to bear weight. She reports 10 pain in her left hip with motion better with immobilization and rest as well as the pain medication she is getting. She normally ambulates without any assistive devices. 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 She denies any associated numbness or tingling at this time. She does have a previous right total knee replacement which was without complications. She has a history of left knee osteoarthritis and we have previously discussed knee replacement. [facility] Medical History (Updated 12/24/23 @ 09:[address] Mickey Mccormick MD) Difficulty chewing GERD (gastroesophageal reflux disease) History of immunosuppression therapy History of steroid therapy Hypertension Loose, teeth Macular degeneration , ectopic Restless legs Rheumatoid arthritis TIA Unilateral primary osteoarthritis, left knee Home Medications aspirin 81 mg tablet,delayed release 81 mg PO DAILY heart health/pre 11/21/13 [History Last Taken 12/31/16] vitamins A,C,O-uryg-thfxqe 4,296 mcg-226 mg-90 mg capsule (PreserVision AREDS) 1 ea PO DAILY supplement 11/21/13 [History Last Taken 12/31/16] hydrochlorothiazide 12.5 mg capsule 12.5 mg PO DAILY blood pressure 12/11/13 [History Last Taken 12/31/16] diazepam 5 mg tablet 5 mg PO 4X/DAY PRN PRN Spasms ##30 02/13/14 [Rx Last Taken 03/27/14] metoprolol tartrate 25 mg tablet 12.5 mg PO DAILY blood pressu 05/24/16 [History Last Taken 12/31/16] acetaminophen 325 mg tablet (Tylenol) 650 mg (2 x 325 mg) PO Q6H PRN PRN Mild Pain (scale 0-3)/T>100.7 ##0 01/02/17 [Rx Last Taken Unknown] bevacizumab 25 mg/mL intravenous solution (Avastin) 2 mg intravitreal .COMPLEX see physician 05/14/22 [History Last Taken Unknown] prednisone 2.5 mg tablet 2.5 mg PO DAILY steroid 05/14/22 [History Last Taken Unknown] abatacept 125 mg/mL subcutaneous auto-injector (Orencia ClickJect) 125 mg subcut .thur see physician 12/23/23 [History Last Taken Unknown] Allergy/AdvReac Type Severity Reaction Status Date / Time morphine Allergy Severe CAN NOT Verified 12/23/23 07:03 BREATHE Sulfa (Sulfonamide Allergy Intermediate Hives Verified 12/23/23 07:03 Antibiotics) adhesive tape [tape] Allergy Hives Verified 12/23/23 07:03 amoxicillin AdvReac Intermediate Hives Verified 12/23/23 10:45 Surgical History History of total right knee replacement (TKR) S/P hysterectomy Social History Smoking Status: Former smoker substance use type: does not use ROS Constitutional Constitutional: Denies anorexia, change in weight, chills, fatigue, fever(s), malaise, night sweats or weakness Eyes Eyes: Denies blurry vision, change in vision, discharge from eye(s) or eye pain Cardiovascular Cardiovascular: Denies chest pain, claudication, dyspnea on exertion, edema or palpitations Respiratory/Chest Respiratory/Chest: Denies cough, hemoptysis, shortness of breath at rest or shortness of breath with exertion Gastrointestinal Gastrointestinal: Denies abdominal pain, constipation, diarrhea, hematemesis, hematochezia, melena, nausea or vomiting Genitourinary Genitourinary: Denies dysuria, hematuria, urinary frequency, urinary hesitancy, urinary incontinence or urinary urgency Musculoskeletal Musculoskeletal: Reports arthralgias, joint pain, joint stiffness and other Details: Left hip pain ; Denies back pain, joint swelling, myalgias or neck pain Neurologic Neurologic: Denies abnormal gait, abnormal speech, confusion, disequilibrium, dizziness, focal weakness, headache(s), loss of vision, numbness, other visual disturbances, paresthesias, syncope or tingling Psychiatric Psychiatric: Denies anxiety, cognitive impairment, depression, irritability, mood swings or suicidal ideation Endocrine Endocrinology: Denies change in body appearance, cold intolerance, excessive sweating, heat intolerance, polydipsia or polyuria Hematologic/Lymphatic Hematologic/Lymphatic: Denies none, anemia, easy bleeding, easy bruising or lymphadenopathy Allergic/Immunologic Allergic/Immunologic: Denies rhinitis, urticaria, eczemia or asthma Physical Exam Const alert, oriented x3 and no apparent distress General Appearance: cooperative, comfortable and well kempt HEENT normocephalic Eyes PERRL and EOMs intact bilaterally Neck No nuchal rigidity Chest inspection of chest normal Resp normal respiratory effort Cardio Cardio Narrative: Regular pulse rate Jugular Venous Distention: Negative for JVD GI non-distended GI Narrative: Obese Extremity Extremity Narrative: Left lower extremity: Dressing is clean dry and intact Sensations intact to light touch saphenous, sural, superficial peroneal, deep peroneal, and tibial distributions Motors intact EHL, DF, PF calves are soft and supple Skin Skin Narrative: Intact, moderate ecchymosis over the left thigh. Neuro CN's II-XII intact bilaterally Psych affect normal Medical Records Data Attestation: I reviewed the patient's medical records Lab / Micro Data Attestation: I reviewed the patient's lab results. 12/24/23 05:12 12/23/23 07:30 Labs: Laboratory Results - last 24 hr 12/23/23 07:30: Blood Type A POSITIVE 12/24/23 05:12: WBC 12.6 H, RBC 4.47, Hgb 12.4, Hct 40.7, MCV 91.1, MCH 27.7, MCHC 30.5 L, RDW Std Deviation 51.8 H, RDW Coeff of Ame 15.7 H, Plt Count 200, MPV 10.8, Immature Gran % (Auto) 0.600, Neut % (Auto) 63.3, Lymph % (Auto) 24.4, [place] % (Auto) 8.8, Eos % (Auto) 2.4, Baso % (Auto) 0.5, Absolute Neuts (auto) 7.9 H, Absolute Lymphs (auto) 3.06, Nucleated RBC % 0 Rhythm Strip Rhythm Strip: Sinus Rhythm Rate: 73 Ectopy: None Imaging X-rays were reviewed consistent with left intertrochanteric hip fracture transtrochanteric in nature. Separate lesser trochanteric fragment. Chest x- ray shows no acute fractures.
--- NOTE | 2023-12-24 10:19 | CASEMGMT ---
OLGA PAULINO Assessment Face to Face with patient for initial transition planning/care coordination assessment. OLGA PAULINO introduced self and role at [facility], pt voices understanding. Pt is A&Ox4 and is resting comfortably in bed and is calm. Pt at bedside. Care providers, pharmacy, and demographics verified. Admitting dx: Lt Intertrochanteric Fracture LACE Strata: 2 PCP: Cristobal Specialists: Bonnie (Rheumatology - [place]) Preferred Pharmacy: [facility] Insurance: [facility] Prescription Benefit: Yes LNOK: Gerry Schaefer (H) Living Arrangements: Pt lives with her in a single story home with a BM with HR. Pt does not use the BM as she has a FFSU. Pt states there are currenlty 4 steps to enter the home with HR but the is going to build a ramp. ADLs/IADLs: States ind Transportation: Drives. Pt Drives DME: Cane and walker at home but does not use. Raised toilet seat. Lift chair. Walk in shower with chair. Pt denies home O2 but is on oxygen here currently. A verbal list of local in network DME providers given to the pt and the pt chose [facility] for any potential Home O2 needs. HHC/SNF: States HHC in 2014 (SN) for a wound vac. States going to [facility] in 2022 for Rt knee replacement. Plan: TBD. Pt is planned for surgery today. Pt states that she wants to wait and see how she does and feels after surgery to determine home going needs. Will follow. Larisa Snow RN, CM
--- NOTE | 2023-12-24 10:34 | NURSING ---
Pt off the floor. Assisted via Bed to surgery, with pt.
[2023-12-24] MEDS: Lactated Ringers 1,000 ML 15 ML IV ×2 (10:45→12:25)
[2023-12-24] MEDS: Cefazolin 3 GM in 0.9% Normal Saline (100mL Bag) 100 ML IV (11:06)
--- NOTE | 2023-12-24 11:28 | RAD_ITS ---
STUDY: X-RAY - PELVIS AND LEFT HIP REASON FOR EXAM: Female, 58 years old. FX TECHNIQUE: 1 views of the pelvis and hip. COMPARISON: Comparison is made with prior study dated December 23, 2023. FINDINGS: Intraoperative imaging provided for open reduction and internal fixation of the comminuted left intertrochanteric fracture. RAD/Hip 1 view with Pelvis IMPRESSION: Intraoperative imaging provided for open reduction internal fixation of the comminuted left intertrochanteric fracture. Electronically Signed: Rico Scott MD at 12:38 EST ,
--- NOTE | 2023-12-24 12:32 | PCM.OPRPT ---
Report of Operation Date of Procedure: 12/24/23 Pre-Operative Diagnosis: Left intertrochanteric hip fracture Post-Operative Diagnosis: Left subtrochanteric hip fracture Surgery/Procedure Performed:: Left hip cephalomedullary nail Description of Surgical Findings:: Stable reduction Surgeon: Mickey Mccormick beverage manager: None Type of Anesthesia: General Anesthesiologist: Jd Baeza Special Medications: Ancef Specimen's removed: NONE Estimated Blood Loss (mL): 200 Fluids Replaced: 1000 L crystalloid Description of Procedure: Components used: 1. [employer] InterTAN nail 10 mm x 38 cm nail (125) 2. [employer] InterTAN lag screw 90 mm 3. [employer] 40 mm millimeter interlocking screw Brief history operative indications: 58-year-old female presents to the hospital with peritrochanteric hip fracture status post fall mechanical fall while doing chores in her barn. After extensive discussion including risk and benefits which include but are not limited to blood loss, PEs, DVTs, neurovascular damage, nonunions, malunions and screw cut out patient has elected to proceed with a left cephalo-medullary nail. Procedure: On the date of the procedure the patient's left hip was marked in the preoperative area and patient was taken back to the operating room. Anesthetic was administered and patient was transferred to the table were all bony prominence identified well-padded and the ipsilateral arm was placed across the chest. Patient was then translated down to the perineal post and the operative leg was placed in the boot while the nonoperative leg was lowered and secured. The operative leg was placed in traction and internal rotation and live fluoroscopy was used to verify adequate reduction. The operative leg was then prepped in a sterile fashion with chlorhexidine while the surgeon scrubbed. Upon reentering the room the operative extremity was draped in the standard orthopedic fashion. Skin incision was marked and a timeout was called. Everyone agreed upon the side, the site, the procedure be performed, patient's identity, and antibiotics given. Skin incision was made and the position of the entry guidepin was verified using live fluoroscopy. Once we were satisfied with our position the pin was advanced in the soft tissue protector was placed over the pin. The entry reamer was then advanced into the proximal portion of the femur. Fluoroscopic measuring device was used to select a 38 cm nail and the femur was reamed to 11.5 mm with lesley collier A [employer] InterTAN 38 cm x 10 mm mm 125 hip nail was selected. The nail was then attached to the steam drier tender and inserted into the intramedullary canal. The appropriate depth was verified and the skin incision for the lag screw was made. The lag screw guidepin was then placed under live fluoroscopy and when a satisfactory position was obtained the length of the screw was measured and the standard technique to drill for the lag screws was performed. The anti-rotation bar was used. At this time a 90 mm lag screw was selected with its corresponding compression screw. The lag screw was then passed and traction was left off the leg. The compression screw was then passed and the fracture was compressed. The final position of the lag screw was verified under fluoroscopy. Attention was then turned to the distal portion of the nail and a perfect united keetoowah technique was used to locate the distal interlocking screw and a 40mm distal interlocking screw was placed using this technique. Live fluoroscopy was used to verify the position of the interlocking screw and the final position of the hip components. Once we were satisfied with our positioning the wounds were copiously irrigated out with normal saline skin was closed with 2-0 Vicryl and negro for final skin closure. A sterile dressing was placed with Xeroform. Patient was then awakened by anesthesia transferred from the fracture table back to their hospital bed and transferred to the PACU for recovery. Postoperative plan: Patient will be 50% weightbearing for 6 weeks due to subtrochanteric fracture pattern. 81 mg p.o. twice daily for 4 weeks for DVT prophylaxis with knee-high stockings. Follow up in the office in 2 weeks. Complications none Admit VTE Documentation VTE Present on Admission: No VTE Mechan Device Prophylaxis: SCD's and Thigh High LEE Hose VTE Pharm Prophylaxis ordered?: Yes
--- NOTE | 2023-12-24 12:45 | RAD_ITS ---
STUDY: X-RAY - PELVIS AND LEFT HIP REASON FOR EXAM: Female, 58 years old. Post Op -- AP both hips on single thomas/lateral of op hip PACU TECHNIQUE: 4 views of the pelvis and hip. COMPARISON: None. FINDINGS: The patient is status post open reduction internal fixation of the comminuted left intertrochanteric fracture. There is good alignment. RAD/Hip Min 2 Views (Portable) IMPRESSION: Status post open reduction and internal fixation of the comminuted left intertrochanteric fracture. There is good alignment. Electronically Signed: Rico Scott MD at 13:03 EST ,
--- NOTE | 2023-12-24 16:02 | CASEMGMT ---
Green sheet placed on the pt chart in the case that the pt qualifies for home O2
[2023-12-24] MEDS: Acetaminophen 500 MG Tablet 1000 MG PO ×2 (16:29→23:28)
[2023-12-24] MEDS: diazePAM 5 MG Tablet PO (16:54)
[2023-12-24] MEDS: 0.9% Saline Lock 10 ML Syringe IV (16:55)
[2023-12-24] MEDS: predniSONE 5 MG Tablet 2.5 MG PO (16:56)
[2023-12-24] MEDS: SimETHICONE 80 MG Chewable Tablet PO (18:38)
[2023-12-24] MEDS: Cefazolin 1 GM/50 ML BAG IV (18:42)
[2023-12-24] MEDS: Aspirin 81 MG TAB.CHEW PO (23:29)
[2023-12-25] VITALS (13 sets, daily range): BP systolic 113–143; BP diastolic 68–80; PULSE 91–110; RESP 16–18; TEMP 36.4–36.8; O2SAT 90–96
[2023-12-25] MEDS: Cefazolin 1 GM/50 ML BAG IV (02:27)
[2023-12-25] MEDS: Acetaminophen 500 MG Tablet 1000 MG PO ×3 (05:18→21:01)
[2023-12-25] MEDS: oxyCODONE 5 MG Tablet PO ×2 (05:21→11:58)
[2023-12-25] MEDS: diazePAM 5 MG Tablet PO ×2 (05:21→12:00)
[2023-12-25 06:36] LABS: Hematocrit 35.8 % (37-47); Hemoglobin 11.4 g/dL (12.0-15.0); Mean Corp Hgb Conc 31.8 g/dL (32-36); Mean Corpuscular Hgb 28.6 pg (27.0-32.0); Mean Corpuscular Volume 89.9 fL (81-99); Mean Platelet Vol. 11.1 fl (6.2-12.0); Platelet Count 151 K/mm3 (150-450); RBC Distribution Width CV 15.3 % (11.6-14.6); RBC Distribution Width SD 51.2 fl (35.1-43.9); Red Blood Count 3.98 M/mm3 (4.2-5.4); White Blood Count 15.3 K/mm3 (4.4-11.0)
[2023-12-25 07:08] LABS: Anion Gap 5 (5-15); BUN 25 mg/dL (7-18); BUN/Creat Ratio 28.7 RATIO (10-20); Calcium,Total 8.7 mg/dL (8.5-10.1); Chloride 105 mmol/L (98-107); Creatinine, Serum 0.87 mg/dL (0.55-1.02); EST Glomerular Filtration Rate 70 mL/min (>60); Est Glom Filt Rate - Afr Amer 85 mL/min (>60); Estimated Creatinine Clearance 93.85 ml/min; Glucose 175 mg/dL (74-106); Potassium 3.8 mmol/L (3.5-5.1); Sodium Level 137 mmol/L (136-145)
[2023-12-25] MEDS: predniSONE 5 MG Tablet 2.5 MG PO ×2 (07:49→17:03)
[2023-12-25] MEDS: SimETHICONE 80 MG Chewable Tablet PO ×3 (07:58→17:05)
[2023-12-25] MEDS: Aspirin 81 MG TAB.CHEW PO (10:46)
[2023-12-25] MEDS: Metoprolol Tartrate 25 MG Tablet 12.5 MG PO (10:46)
[2023-12-25] MEDS: Enoxaparin 40 MG/0.4 ML Syringe SC (10:47)
[2023-12-25] MEDS: hydroCHLOROthiazide 12.5mg 12.5 MG PO (10:47)
--- NOTE | 2023-12-25 12:07 | PCM.PN.ORT ---
Subjective Subjective The patient was sitting in bed upon examination. Patient is with increased pain as she just got done with physical therapy. Patient denies any chest pain, shortness of breath, dizziness, lightheadedness, nausea or vomiting, or calf pain. Pain is controlled on medications. No adverse overnight events. Patient is currently 50% weightbearing on the left lower extremity with walker. Objective Data Objective Data Vital Signs: Vital Signs Temp Pulse Resp BP Pulse Ox O2 Del Method O2 Flow Rate 97.5 F L 94 16 128/76 H 95 Nasal Cannula 3 12/25/23 08:12 12/25/23 10:46 12/25/23 08:12 12/25/23 08:12 12/25/23 08:12 12/25/23 08:12 12/25/23 08:12 Oxygen Flow Rate (L/min) 3 Oxygen Delivery Method Nasal Cannula Weight: 123.74 kg Body Mass Index (BMI) 42.7 Intake & Output: Intake and Output for Last 24 Hours 12/23/23 12/24/23 12/25/23 23:59 23:59 23:59 Intake Total 420 / 620 1725 / 1925 450 / 450 Output Total 50 / 250 200 / 200 Balance 420 / 620 1675 / 1675 250 / 250 Lab / Micro Data 12/25/23 06:07 12/25/23 06:07 Labs: Laboratory Results - last 24 hr 12/25/23 06:07: WBC 15.3 H, RBC 3.98 L, Hgb 11.4 L, Hct 35.8 L, MCV 89.9, MCH 28.6, MCHC 31.8 L, RDW Std Deviation 51.2 H, RDW Coeff of Ame 15.3 H, Plt Count 151, MPV 11.1, Sodium 137, Potassium 3.8, Chloride 105, Carbon Dioxide 27.0, Anion Gap 5, BUN 25 H, Creatinine 0.87, Estim Creat Clear Calc 93.85, Est GFR (MDRD) Af Amer 85, Est GFR (MDRD) Non-Af 70, BUN/Creatinine Ratio 28.7 H, Glucose 175 H, Calcium 8.7 Radiography Diagnostic Testing: Radiology Impression Hip/Pelvis X-Ray 12/24/23 11:28 IMPRESSION: Intraoperative imaging provided for open reduction internal fixation of the comminuted left intertrochanteric fracture. Electronically Signed: Rico Scott MD at 12:38 EST , Hip X-Ray 12/24/23 12:45 IMPRESSION: Status post open reduction and internal fixation of the comminuted left intertrochanteric fracture. There is good alignment. Electronically Signed: Rico Scott MD at 13:03 EST , Rhythm Strip Rhythm Strip: Sinus Rhythm Rate: 73 Ectopy: None Physical Exam Narrative Vital signs stable and afebrile. SCDs and LEE hose are in place bilaterally Patient is able to plantarflex and dorsiflex actively. Sensation is intact to light touch to saphenous, sural, superficial and deep peroneal, and tibial distribution. Dressings are clean dry and intact. Negative Homans bilaterally, negative signs and symptoms of DVT. Const alert, oriented x3 and no apparent distress Assessment & Plan Assessment/Plan (1) Displaced intertrochanteric fracture of left femur, initial encounter for closed fracture: PLAN: 1. S/P left hip cephalomedullary nail secondary to subtrochanteric hip fracture POD #1 2. Continue Pain Medications: Tylenol and oxycodone 3. DVT Prophylaxis: Take 81 mg aspirin twice daily for 4 weeks postoperatively for DVT prophylaxis. Patient denies past history of DVT or pulmonary embolism 4. PT/OT: 50% weightbearing on the left lower extremity with walker for 6 weeks postoperatively due to subtrochanteric fracture pattern 5. Lab work has been reviewed and stable 6. Continue postoperative medical management per medicine: Patient currently is requiring 3 L oxygen. She states that she has not had to use any oxygen in the past. Deferred to medicine for management 7. Encouraged Incentive Spirometry 8. Disposition: Patient will continue with physical therapy while in the hospital. She will be 50% weightbearing on the left lower extremity with walker for 6 weeks postoperatively. Due to her limitations patient will most likely require assistance upon discharge. Case management will be involved for appropriate discharge planning. I did explain to the patient with the holiday weekend this may not be determined until Wednesday. She will continue with above pain medications. The dressings will stay on for 5 days postoperatively. She will require 2 weeks scheduled follow-up with [facility] for x-rays and staple removal. I have reviewed the [place] Automated Rx Reporting System (OARRS) report for this patient for refill pattern and other prescriber involvement as part of the appropriate surveillance for the provision of acute and chronic controlled medications. The report was requested and reviewed on the date of this entry and was considered in the prescribing process. This dictation was created using voice recognition software. Phonetic and/or grammatical errors may exist.
--- NOTE | 2023-12-25 15:24 | CASEMGMT ---
Social Work SW met w/pt in room in regard to discharge plan. She is agreeable to SNF for rehab. SW gave pt a list of retirement facilities via [facility] of facilities in network w/pt's insurance, in preferred geographic area, and complete w/quality and resource use data. Pt would like TCU, SW did let her know that TCU may not have bed, asked her to pick other choices. [facility], where pt works, is her second choice. SW explained will leave message for TCU, and if they cannot take will make referral to [facility]. SW did leave a message for TCU, SW to follow up on Wednesday. MUKUND Verma
--- NOTE | 2023-12-25 16:03 | PN.HOSP_ITS ---
Reason for Visit Reason for Visit: Diagnoses Obesity, unspecified (12/23/23) Essential (primary) hypertension (12/23/23) Chronic obstructive pulmonary disease with (acute) exacerbation (12/23/23) Unilateral primary osteoarthritis, left knee (12/23/23) Displaced intertrochanteric fracture of left femur, initial encounter for closed fracture (12/23/23) Infection following a procedure, initial encounter (12/23/23) Subjective Subjective Patient was seen and examined today, she is requiring low-flow nasal cannula oxygen at this time, patient has no complaints to this examiner Objective Data Objective Data Vital Signs: Vital Signs Temp Pulse Resp BP Pulse Ox O2 Del Method O2 Flow Rate 98.3 F 97 18 113/72 95 Nasal Cannula 3 12/25/23 15:49 12/25/23 15:49 12/25/23 15:52 12/25/23 15:49 12/25/23 15:52 12/25/23 15:52 12/25/23 15:52 Oxygen Flow Rate (L/min) 3 Oxygen Delivery Method Nasal Cannula Weight: 123.74 kg Body Mass Index (BMI) 42.7 Intake & Output: Intake and Output for Last 24 Hours 12/23/23 12/24/23 12/25/23 23:59 23:59 23:59 Intake Total 420 / 620 1725 / 1925 1250 / 1250 Output Total 50 / 250 200 / 200 Balance 420 / 620 1675 / 1675 1050 / 1050 Lab / Micro Data 12/25/23 06:07 12/25/23 06:07 Labs: Laboratory Results - last 24 hr 12/25/23 06:07: WBC 15.3 H, RBC 3.98 L, Hgb 11.4 L, Hct 35.8 L, MCV 89.9, MCH 28.6, MCHC 31.8 L, RDW Std Deviation 51.2 H, RDW Coeff of Ame 15.3 H, Plt Count 151, MPV 11.1, Sodium 137, Potassium 3.8, Chloride 105, Carbon Dioxide 27.0, Anion Gap 5, BUN 25 H, Creatinine 0.87, Estim Creat Clear Calc 93.85, Est GFR (MDRD) Af Amer 85, Est GFR (MDRD) Non-Af 70, BUN/Creatinine Ratio 28.7 H, Glucose 175 H, Calcium 8.7 Rhythm Strip Rhythm Strip: Sinus Rhythm Rate: 73 Ectopy: None Physical Exam Narrative alert, oriented x3, no apparent distress and healthy appearing Constitutional Narrative: Patient is morbidly obese General Appearance: cooperative, well kempt and well developed Orientation / Consciousness: awake, oriented to person, oriented to place and oriented to time HEENT normocephalic, head/scalp atraumatic, hearing grossly normal bilaterally and moist oral mucous membranes Eyes PERRL, EOMs intact bilaterally and conjunctivae normal Neck supple, no JVD, thyroid normal and no carotid bruits General: trachea midline Resp normal respiratory effort, no retractions, no use of accessory muscles and clear to auscultation bilaterally Auscultation: Negative for rales, rhonchi or wheezes Cardio regular rate, regular rhythm, no murmurs, no rub and no gallops GI normal to inspection, nondistended, normoactive bowel sounds, soft to palpation, non-tender and non-distended Extremity Extremity Narrative: No lower extremity edema was noted Skin no rashes or lesions noted General Skin Exam: no breakdown Neuro oriented x3, CN's II-XII intact bilaterally, no focal motor deficits and no sensory deficits noted Sensorium / Orientation: awake and alert Speech: speech normal Psych affect normal Assessment & Plan Assessment/Plan (1) Displaced intertrochanteric fracture of left femur, initial encounter for closed fracture: PLAN: Plan 1. Intertrochanteric fracture of the left hip-postop day 1-continue PT and OT, patient may need temporary placement in the rehab unit for skilled therapy, she cannot make up her mind whether she wants to do this right now and would like me to talk with her again tomorrow about it. #2 rheumatoid arthritis-complicates care, medical course, recovery, and prognosis #3 essential hypertension-patient will remain on her current medications #4 morbid obesity-complicates care, medical course, recovery, and prognosis Total clinical time spent by myself addressing the patient's medical issues, reviewing all of her data, and collaborating with patient's care team: 25 minutes Charges/Coding Visit Charges Inpatient E&M: [id number] [facility] Hosp L1
--- NOTE | 2023-12-25 16:06 | PCM.PN.HOSP ---
Reason for Visit Reason for Visit: Diagnoses Obesity, unspecified (12/23/23) Essential (primary) hypertension (12/23/23) Chronic obstructive pulmonary disease with (acute) exacerbation (12/23/23) Unilateral primary osteoarthritis, left knee (12/23/23) Displaced intertrochanteric fracture of left femur, initial encounter for closed fracture (12/23/23) Infection following a procedure, initial encounter (12/23/23) Subjective Subjective The date of this entry is 12/24/2023: Patient was seen and examined today, she underwent repair of her left intertrochanteric fracture with insertion of a left hip cephalic medullary nail. Patient has no complaints of any shortness of breath or chest discomfort. Objective Data Objective Data Vital Signs: Vital Signs Temp Pulse Resp BP Pulse Ox O2 Del Method O2 Flow Rate 98.3 F 97 18 113/72 95 Nasal Cannula 3 12/25/23 15:49 12/25/23 15:49 12/25/23 15:52 12/25/23 15:49 12/25/23 15:52 12/25/23 15:52 12/25/23 15:52 Oxygen Flow Rate (L/min) 3 Oxygen Delivery Method Nasal Cannula Weight: 123.74 kg Body Mass Index (BMI) 42.7 Intake & Output: Intake and Output for Last 24 Hours 12/23/23 12/24/23 12/25/23 23:59 23:59 23:59 Intake Total 420 / 620 1725 / 1925 1250 / 1250 Output Total 50 / 250 200 / 200 Balance 420 / 620 1675 / 1675 1050 / 1050 Lab / Micro Data 12/25/23 06:07 12/25/23 06:07 Labs: Laboratory Results - last 24 hr 12/25/23 06:07: WBC 15.3 H, RBC 3.98 L, Hgb 11.4 L, Hct 35.8 L, MCV 89.9, MCH 28.6, MCHC 31.8 L, RDW Std Deviation 51.2 H, RDW Coeff of Ame 15.3 H, Plt Count 151, MPV 11.1, Sodium 137, Potassium 3.8, Chloride 105, Carbon Dioxide 27.0, Anion Gap 5, BUN 25 H, Creatinine 0.87, Estim Creat Clear Calc 93.85, Est GFR (MDRD) Af Amer 85, Est GFR (MDRD) Non-Af 70, BUN/Creatinine Ratio 28.7 H, Glucose 175 H, Calcium 8.7 Rhythm Strip Rhythm Strip: Sinus Rhythm Rate: 73 Ectopy: None Physical Exam Narrative alert, oriented x3, no apparent distress and healthy appearing Constitutional Narrative: Patient is morbidly obese General Appearance: cooperative, well kempt and well developed Orientation / Consciousness: awake, oriented to person, oriented to place and oriented to time HEENT normocephalic, head/scalp atraumatic, hearing grossly normal bilaterally and moist oral mucous membranes Eyes PERRL, EOMs intact bilaterally and conjunctivae normal Neck supple, no JVD, thyroid normal and no carotid bruits General: trachea midline Resp normal respiratory effort, no retractions, no use of accessory muscles and clear to auscultation bilaterally Auscultation: Negative for rales, rhonchi or wheezes Cardio regular rate, regular rhythm, no murmurs, no rub and no gallops GI normal to inspection, nondistended, normoactive bowel sounds, soft to palpation, non-tender and non-distended Extremity Extremity Narrative: No lower extremity edema was noted Skin no rashes or lesions noted General Skin Exam: no breakdown Neuro oriented x3, CN's II-XII intact bilaterally, no focal motor deficits and no sensory deficits noted Sensorium / Orientation: awake and alert Speech: speech normal Psych affect normal Assessment & Plan Assessment/Plan (1) Displaced intertrochanteric fracture of left femur, initial encounter for closed fracture: PLAN: Plan 1. Intertrochanteric fracture of the left hip-postop day 0-continue PT and OT, patient may need temporary placement in the rehab unit for skilled therapy #2 rheumatoid arthritis-complicates care, medical course, recovery, and prognosis #3 essential hypertension-patient will remain on her current medications #4 morbid obesity-complicates care, medical course, recovery, and prognosis Total clinical time spent by myself addressing the patient's medical issues, reviewing all of her data, and collaborating with patient's care team: 25 minutes Charges/Coding Visit Charges Inpatient E&M: 33433 [facility] Hosp L1
[2023-12-26] VITALS (12 sets, daily range): BP systolic 125–145; BP diastolic 72–103; PULSE 79–106; RESP 18–20; TEMP 36.6–37.2; O2SAT 3–96
[2023-12-26] MEDS: diazePAM 5 MG Tablet PO ×3 (00:38→22:14)
[2023-12-26] MEDS: oxyCODONE 5 MG Tablet PO ×3 (00:38→22:15)
[2023-12-26] MEDS: Acetaminophen 500 MG Tablet 1000 MG PO ×3 (06:20→21:52)
[2023-12-26] MEDS: SimETHICONE 80 MG Chewable Tablet PO ×3 (08:38→17:24)
[2023-12-26] MEDS: Enoxaparin 40 MG/0.4 ML Syringe SC (08:39)
[2023-12-26] MEDS: predniSONE 5 MG Tablet 2.5 MG PO (08:39)
[2023-12-26] MEDS: Metoprolol Tartrate 25 MG Tablet 12.5 MG PO (08:43)
[2023-12-26] MEDS: hydroCHLOROthiazide 12.5mg 12.5 MG PO (08:44)
[2023-12-26] MEDS: Aspirin 81 MG TAB.CHEW PO (08:45)
--- NOTE | 2023-12-26 10:22 | PCM.PN.ORT ---
Subjective Subjective The patient was sitting in bed upon examination. Patient denies any chest pain, shortness of breath, dizziness, lightheadedness, nausea or vomiting, or calf pain. Pain is controlled on medications. No adverse overnight events. Patient states her pain at rest has improved however when she is up walking she has intense pain. She has been using the Tylenol and oxycodone. Case management currently involved and patient will most likely require rehab upon discharge. They are starting to wean her down from requirement of oxygen. She is currently on 2 L. Objective Data Objective Data Vital Signs: Vital Signs Temp Pulse Resp BP Pulse Ox O2 Del Method O2 Flow Rate 98.0 F 94 20 H 145/103 H 3 Room Air 3 12/26/23 08:29 12/26/23 08:43 12/26/23 08:29 12/26/23 08:29 12/26/23 08:30 12/26/23 08:30 12/26/23 08:29 Oxygen Flow Rate (L/min) 3 Oxygen Delivery Method Room Air Weight: 123.74 kg Body Mass Index (BMI) 42.7 Intake & Output: Intake and Output for Last 24 Hours 12/24/23 12/25/23 12/26/23 23:59 23:59 23:59 Intake Total 1725 / 1925 2050 / 2050 1174.25 / 1174.25 Output Total 50 / 250 200 / 200 Balance 1675 / 1675 1850 / 1850 1174.25 / 1174.25 Lab / Micro Data 12/25/23 06:07 12/25/23 06:07 Rhythm Strip Rhythm Strip: Sinus Rhythm Rate: 73 Ectopy: None Physical Exam Narrative Vital signs stable and afebrile. SCDs and LEE hose are in place bilaterally Left hip is soft and supple Ecchymosis throughout left hip Patient is able to plantarflex and dorsiflex actively. Sensation is intact to light touch to saphenous, sural, superficial and deep peroneal, and tibial distribution. Dressings are clean dry and intact. Negative Homans bilaterally, negative signs and symptoms of DVT. Const alert, oriented x3 and no apparent distress General Appearance: cooperative, comfortable and well kempt HEENT normocephalic Eyes PERRL and EOMs intact bilaterally Neck No nuchal rigidity Chest inspection of chest normal Resp normal respiratory effort Cardio Cardio Narrative: Regular pulse rate Jugular Venous Distention: Negative for JVD GI non-distended GI Narrative: Obese Extremity Extremity Narrative: Left lower extremity: Dressing is clean dry and intact Sensations intact to light touch saphenous, sural, superficial peroneal, deep peroneal, and tibial distributions Motors intact EHL, DF, PF calves are soft and supple Skin Skin Narrative: Intact, moderate ecchymosis over the left thigh. Neuro CN's II-XII intact bilaterally Psych affect normal Assessment & Plan Assessment/Plan (1) Displaced intertrochanteric fracture of left femur, initial encounter for closed fracture: PLAN: 1. S/P left hip cephalomedullary nail secondary to subtrochanteric hip fracture POD #2 2. Continue Pain Medications: Tylenol and oxycodone 3. DVT Prophylaxis: Take 81 mg aspirin twice daily for 4 weeks postoperatively for DVT prophylaxis. Patient denies past history of DVT or pulmonary embolism 4. PT/OT: 50% weightbearing on the left lower extremity with walker for 6 weeks postoperatively due to subtrochanteric fracture pattern 5. Lab work has been reviewed and stable 6. Continue postoperative medical management per medicine: Patient currently is requiring 2 L oxygen. She states that she has not had to use any oxygen in the past. Deferred to medicine for management 7. Encouraged Incentive Spirometry 8. Disposition: Patient will continue with physical therapy while in the hospital. She will be 50% weightbearing on the left lower extremity with walker for 6 weeks postoperatively. Due to her limitations patient will most likely require assistance upon discharge. Case management will be involved for appropriate discharge planning. I did explain to the patient with the holiday weekend this may not be determined until Wednesday. She will continue with above pain medications. The dressings will stay on for 5 days postoperatively. Recommend aspirin 81 mg twice daily for 4 weeks for DVT prophylaxis. Once dressings have been removed it is okay for patient to shower and get incisions wet. Only use gentle soap and water over the incisions. Do not place any ointments, salves, alcohol pads over the incision for 6 weeks postoperatively. She will require 2 weeks scheduled follow-up with [facility] for x-rays and staple removal. At this time orthopedics will sign off of patient. If there are any concerns or questions from orthopedic standpoint please contact us. Appreciate consultation and your care in patient's injury. I have reviewed the [place] Automated Rx Reporting System (OARRS) report for this patient for refill pattern and other prescriber involvement as part of the appropriate surveillance for the provision of acute and chronic controlled medications. The report was requested and reviewed on the date of this entry and was considered in the prescribing process. This dictation was created using voice recognition software. Phonetic and/or grammatical errors may exist.
[2023-12-26] MEDS: 0.9% Saline Lock 10 ML Syringe IV (12:16)
[2023-12-26] MEDS: Ketorolac 30 MG/ML Syringe IV (12:16)
--- NOTE | 2023-12-26 15:45 | PN.HOSP_ITS ---
Reason for Visit Reason for Visit: Diagnoses Obesity, unspecified (12/23/23) Essential (primary) hypertension (12/23/23) Chronic obstructive pulmonary disease with (acute) exacerbation (12/23/23) Unilateral primary osteoarthritis, left knee (12/23/23) Displaced intertrochanteric fracture of left femur, initial encounter for closed fracture (12/23/23) Infection following a procedure, initial encounter (12/23/23) Subjective Subjective Patient was seen and examined today, she states she is aware that she needs to go to an extended care facility for short-term rehab services due to the fact that she cannot ambulate well. I talked briefly with Dr. Mccormick concerning her case, they signed off the case today because the patient was doing well. Objective Data Objective Data Vital Signs: Vital Signs Temp Pulse Resp BP Pulse Ox O2 Del Method O2 Flow Rate 98.9 F 106 H 19 H 141/72 H 93 Room Air 2 12/26/23 14:55 12/26/23 14:55 12/26/23 14:55 12/26/23 14:55 12/26/23 14:55 12/26/23 14:55 12/26/23 12:19 Oxygen Flow Rate (L/min) 2 Oxygen Delivery Method Room Air Weight: 123.7 kg Body Mass Index (BMI) 42.7 Intake & Output: Intake and Output for Last 24 Hours 12/24/23 12/25/23 12/26/23 23:59 23:59 23:59 Intake Total 1725 / 1925 2050 / 2050 1174.25 / 1174.25 Output Total 50 / 250 200 / 200 Balance 1675 / 1675 1850 / 1850 1174.25 / 1174.25 Lab / Micro Data 12/25/23 06:07 12/25/23 06:07 Rhythm Strip Rhythm Strip: Sinus Rhythm Rate: 73 Ectopy: None Physical Exam Narrative alert, oriented x3, no apparent distress and healthy appearing Constitutional Narrative: Patient is morbidly obese General Appearance: cooperative, well kempt and well developed Orientation / Consciousness: awake, oriented to person, oriented to place and oriented to time HEENT normocephalic, head/scalp atraumatic, hearing grossly normal bilaterally and moist oral mucous membranes Eyes PERRL, EOMs intact bilaterally and conjunctivae normal Neck supple, no JVD, thyroid normal and no carotid bruits General: trachea midline Resp normal respiratory effort, no retractions, no use of accessory muscles and clear to auscultation bilaterally Auscultation: Negative for rales, rhonchi or wheezes Cardio regular rate, regular rhythm, no murmurs, no rub and no gallops GI normal to inspection, nondistended, normoactive bowel sounds, soft to palpation, non-tender and non-distended Extremity Extremity Narrative: No lower extremity edema was noted Skin no rashes or lesions noted General Skin Exam: no breakdown Neuro oriented x3, CN's II-XII intact bilaterally, no focal motor deficits and no sensory deficits noted Sensorium / Orientation: awake and alert Speech: speech normal Psych affect normal Assessment & Plan Assessment/Plan (1) Displaced intertrochanteric fracture of left femur, initial encounter for closed fracture: PLAN: Plan 1. Intertrochanteric fracture of the left hip-postop day 2-continue PT and OT, patient will need temporary placement in the rehab unit for skilled therapy #2 rheumatoid arthritis-complicates care, medical course, recovery, and prognosis #3 essential hypertension-patient will remain on her current medications #4 morbid obesity-complicates care, medical course, recovery, and prognosis Total clinical time spent by myself addressing the patient's medical issues, reviewing all of her data, and collaborating with patient's care team: 25 minutes Charges/Coding Visit Charges Inpatient E&M: 08194 [facility] L1
[2023-12-27] VITALS (10 sets, daily range): BP systolic 116–136; BP diastolic 68–86; PULSE 96–112; RESP 16–20; TEMP 36.7–37.2; O2SAT 89–98
[2023-12-27] MEDS: Acetaminophen 500 MG Tablet 1000 MG PO ×3 (05:18→21:27)
[2023-12-27] MEDS: Enoxaparin 40 MG/0.4 ML Syringe SC (09:06)
[2023-12-27] MEDS: Aspirin 81 MG TAB.CHEW PO ×2 (09:06→21:27)
[2023-12-27] MEDS: SimETHICONE 80 MG Chewable Tablet PO ×3 (09:06→17:19)
[2023-12-27] MEDS: hydroCHLOROthiazide 12.5mg 12.5 MG PO (09:07)
[2023-12-27] MEDS: predniSONE 5 MG Tablet 2.5 MG PO (09:07)
[2023-12-27] MEDS: Metoprolol Tartrate 25 MG Tablet 12.5 MG PO (09:07)
[2023-12-27] MEDS: oxyCODONE 5 MG Tablet PO ×2 (09:11→14:12)
[2023-12-27] MEDS: diazePAM 5 MG Tablet PO (09:11)
--- NOTE | 2023-12-27 11:14 | CASEMGMT ---
Addendum entered by Simón Snow 12/27/23 14:17: [facility] calls and states they can accept the pt and SOC date is Wednesday. Original Note: Therapy states that the pt is doing well enough to DC home now as the plan was TCU. This RN CM to pt room at this time. Pt states her DC is planned for tomorrow and that Dr. Jerome is agreeable to this. Pt states that her will be able to help her at home. Pt states that her built a Ramp for her to get into the home. Pt states that she unable to get in and out of a vehicle now. Pt states that her rented a WC van for DC tomorrow. Pt states that her will be bringing the WC into the hospital today. Pt states that she would like HHC at home. Pt denies wanting to see a local list of in-network HHC agencies and states she would like to go through [facility] as she has had them in the past. Referral called and made to Collin at [facility] for PT and OT. Awaiting return call. Will follow for home O2 needs as well.
--- NOTE | 2023-12-27 15:40 | PCM.PN.HOSP ---
Reason for Visit Reason for Visit: Diagnoses Obesity, unspecified (12/23/23) Essential (primary) hypertension (12/23/23) Chronic obstructive pulmonary disease with (acute) exacerbation (12/23/23) Unilateral primary osteoarthritis, left knee (12/23/23) Displaced intertrochanteric fracture of left femur, initial encounter for closed fracture (12/23/23) Infection following a procedure, initial encounter (12/23/23) Objective Data Objective Data Vital Signs: Vital Signs Temp Pulse Resp BP Pulse Ox O2 Del Method O2 Flow Rate 98.9 F 109 H 20 H 136/68 H 94 Nasal Cannula 1 12/27/23 14:13 12/27/23 14:13 12/27/23 14:13 12/27/23 14:13 12/27/23 14:21 12/27/23 14:40 12/27/23 14:40 Oxygen Flow Rate (L/min) 1 Oxygen Delivery Method Nasal Cannula Weight: 272 lb 11.389 oz Body Mass Index (BMI) 42.7 Intake & Output: Intake and Output for Last 24 Hours 12/25/23 12/26/23 12/27/23 23:59 23:59 23:59 Intake Total 2049 / 2049 500 / 500 Output Total 200 / 200 Balance 1850 / 1850 500 / 500 Lab / Micro Data 12/25/23 06:07 12/25/23 06:07 Rhythm Strip Rhythm Strip: Sinus Rhythm Rate: 73 Ectopy: None Physical Exam Narrative Seen and examined. Patient was able to walk around and pivot with physical therapist on guard/supervision. Physical exam General: Alert, Oriented x3, Cooperative HEENT: Atraumatic, PERRLA, EOMI, Normocephalic Oral: No Gingival or Mucosal Lesions/ Ulcerations Neck: Supple, No JVD, Negative Carotid Bruits Chest wall/Lungs: Air entry diminished in bilateral lung bases. No crepitation/rhonchi Cardiovascular: Regular rate, Regular Rhythm, Normal S1, Normal S2, No M/G/R Abdomen: Bowel Sounds Present, Soft, Non Tender, Non-Distended : No dysuria. No renal angle tenderness. No suprapubic tenderness. Extremities: No edema, Capillary Refill Less than 3 Seconds Skin: Mild subcutaneous bruise around operative region, stable. No active bleeding. Musculoskeletal: Mild tenderness present around left hip operative region. No Tenderness to Palpation of other joints or Extremities Neurological: Cranial nerves II-XII grossly intact, DTR 2+/4. No acute focal neurological deficit. Psych/Mental Status: Normal Affect, Appropriate. Assessment & Plan Assessment/Plan (1) Displaced intertrochanteric fracture of left femur, initial encounter for closed fracture: PLAN: Plan 1. Comminuted left intertrochanteric fracture with cephalic migration of the distal fracture fragment, possible pathological with history of rheumatoid arthritis: Patient is admitted on [facility] floor. The patient had left hip cephalomedullary nail on 12/24/2023. Patient is actively participating in PT and OT. Plan for possible discharge to home with outpatient physical therapy tomorrow. Pain is controlled. #2 rheumatoid arthritis-complicates care, medical course, recovery, and prognosis #3 essential hypertension-patient will remain on her current medications #4 morbid obesity-complicates care, medical course, recovery, and prognosis Charges/Coding Visit Charges Inpatient E&M: 59507 [facility] L2
[2023-12-28] VITALS (10 sets, daily range): BP systolic 131–150; BP diastolic 76–84; PULSE 95–116; RESP 16–18; TEMP 36.3–36.8; O2SAT 89–99
[2023-12-28] MEDS: Acetaminophen 500 MG Tablet 1000 MG PO ×2 (05:33→13:52)
[2023-12-28] MEDS: predniSONE 5 MG Tablet 2.5 MG PO (08:53)
[2023-12-28] MEDS: Aspirin 81 MG TAB.CHEW PO (08:53)
[2023-12-28] MEDS: SimETHICONE 80 MG Chewable Tablet PO ×2 (08:53→13:52)
[2023-12-28] MEDS: Metoprolol Tartrate 25 MG Tablet 12.5 MG PO (08:54)
[2023-12-28] MEDS: hydroCHLOROthiazide 12.5mg 12.5 MG PO (08:54)
[2023-12-28] MEDS: Enoxaparin 40 MG/0.4 ML Syringe SC (08:54)
[2023-12-28] MEDS: diazePAM 5 MG Tablet PO (08:56)
[2023-12-28] MEDS: oxyCODONE 5 MG Tablet PO (11:06)
--- NOTE | 2023-12-28 11:09 | DCINST_ITS ---
Discharge Instructions Diet Discharge Diet: No restrictions Activity Discharge Activity: Return to Normal Activity and May Not Drive (For about 2 weeks) Weight Bearing Status: Weight bearing as tolerated Dressing / Incision Call your doctor if you observe: Fever of 101 or Higher, Coldness, Increased Pain, Numbness or Tingling, Change in Color, Inability to urinate, Inability to have a bowel movement, Using more than 1 pad per hour, Shortness of breath, Dizziness, Fainting spells, Swelling in the ankles, Chest pain, Prolonged hiccupping, Increased palpitations (irregular heartbeat) and Calf discomfort Follow Up Care When: IN 2 WEEKS Test Results: Test results from this visit will be discussed in further detail at your follow- up appointment, if applicable. Discharge Plan Admission Admit Date/Time: 12/23/23 09:28 Primary Reason for Your Visit: Left hip cephalomedullary nailing. Left subtrochanteric hip fracture Attending Provider: Christian Jerome Primary Care Provider: Teresa Jain Consulting Providers: Mickey Mccormick; Lang Brothers Discharge Orders/Prescriptions Prescriptions: New simethicone 80 mg Tablet,Chewable 80 mg PO TIDPC Qty: 0 0RF acetaminophen 500 mg Tablet 1,000 mg PO Q8 Qty: 0 0RF Rx Instructions: 1000 mg every 8 hourly for 1 week and then 1 g every 8 hourly as needed for next 1 week. Eliquis 2.5 mg tablet 2.5 mg PO BID 30 Days Qty: 60 0RF Rx Instructions: For DVT prophylaxis oxycodone 5 mg tablet 2.5 mg PO Q4H PRN PRN (Reason: Pain Score 4-10) 3 Days Qty: 10 0RF Rx Instructions: 2.5 mg for moderate pain and 5 mg for severe pain respectively. Continued PreserVision AREDS 1 EACH capsule 1 ea PO DAILY Patient Comments: supplement hydrochlorothiazide 12.5 MG capsule 12.5 mg PO DAILY Patient Comments: BLOOD PRESSURE diazepam 5 MG tablet 5 mg PO 4X/DAY PRN PRN (Reason: Spasms) Qty: 30 0RF Patient Comments: RELAXANT metoprolol tartrate 25 MG tablet 12.5 mg PO DAILY prednisone 2.5 mg Tablet 2.5 mg PO DAILY Avastin 25 mg/mL Solution 2 mg intravitreal .COMPLEX Rx Instructions: 2 mg intravitreal; every 8-12weeksn Orencia ClickJect 125 mg/mL auto-injector 125 mg SUBCUT .thur Held aspirin 81 MG tablet 81 mg PO DAILY Hold Instructions: Hold it while patient is taking Eliquis. Patient Comments: prevent heart attack/stroke acetaminophen [Tylenol] 325 MG tablet 650 mg PO Q6H PRN PRN (Reason: Mild Pain (scale 0-3)/T>100.7) Qty: 0 0RF Hold Instructions: Hold it while taking acetaminophen 1 g every 8 hourly. Referrals / Follow Up: Teresa Jain MD [Primary Care Provider] - Within 2 Weeks Mickey Mccormick MD [Med Staff - Active Staff] - Within 1 Week Disposition Disposition (needs filled in before D/C Order can be placed): Home Health Service
--- NOTE | 2023-12-28 11:23 | DS.PCM_ITS ---
Providers Date of Admission: 12/23/23 Date of Discharge: 12/28/23 Primary Care Physician: Dr. Teresa Jain MD Consultations 12/23/23 10:15 Consult: Orthopedics Routine Consulting Provider: Mickey Mccormick Reason for Consult: LEFT HIP FRACTURE EMERGENT Consult: No MD Notified: Yes Date Notified: 12/23/23 Time Notified: 09:37 Method of Notification: Verbal Reason For Visit: LEFT INTERTROCHANTERIC FRACTURE Diagnosis Discharge Diagnosis (1) Displaced intertrochanteric fracture of left femur, initial encounter for closed fracture: Status: Acute Code(s): S72.142A - Displaced intertrochanteric fracture of left femur, initial encounter for closed fracture Plan 58-year-old female was admitted through emergency room after sustaining mechanical fall at home while she was trying to turn around in her barn. Patient fell down onto her left hip and was not able to ambulate. On x-ray she was found to have left hip subtrochanteric fracture. 1. Comminuted left Subtrochanteric fracture with cephalic migration of the distal fracture fragment, possible pathological with history of rheumatoid arthritis: Patient is admitted on [facility] floor. The patient had left hip cephalomedullary nail on 12/24/2023. Her postop diagnosis was comminuted left subtrochanteric fracture. Patient is actively participating in PT and OT. 12/30: Patient states she can go home today and have home physical therapy. She will follow-up with Dr. Jovel in about 1 week. Prescription given for oxycodone 2.5 to 5 mg for moderate to severe pain respectively total 10 tablets. NARx score reviewed. Unintentional overdose score less than 250. Prescription also given for Eliquis 2.5 mg twice daily for 30 days for DVT prophylaxis. Advised to hold aspirin while patient is taking Eliquis. #2 rheumatoid arthritis-complicates care, medical course, recovery, and progn osis #3 essential hypertension-patient will remain on her current medications #4 morbid obesity-complicates care, medical course, recovery, and prognosis 5. COPD: Does not in exacerbation. Discharge medication reconciliation done. Discharge follow-up instructions completed. Discharge process discussed with the patient and all questions were answered to patient's satisfaction. Follow with PCP in 1 to 2 weeks Total time spent, exact 35 minutes on discharge meds reconciliation, examination , coordination of care with nurses and ancillary staff, review of imaging and blood test and discussion with the patient on follow-up instructions. Medications at Discharge Home Medications aspirin 81 mg tablet,delayed release 81 mg PO DAILY heart health/pre 11/21/13 vitamins A,C,T-umew-wgisyl 4,296 mcg-226 mg-90 mg capsule (PreserVision AREDS) 1 ea PO DAILY supplement 11/21/13 hydrochlorothiazide 12.5 mg capsule 12.5 mg PO DAILY blood pressure 12/11/13 diazepam 5 mg tablet 5 mg PO 4X/DAY PRN PRN Spasms ##30 02/13/14 metoprolol tartrate 25 mg tablet 12.5 mg PO DAILY blood pressu 05/24/16 acetaminophen 325 mg tablet (Tylenol) 650 mg (2 x 325 mg) PO Q6H PRN PRN Mild Pain (scale 0-3)/T>100.7 ##0 01/02/17 bevacizumab 25 mg/mL intravenous solution (Avastin) 2 mg intravitreal .COMPLEX see physician 05/14/22 prednisone 2.5 mg tablet 2.5 mg PO DAILY steroid 05/14/22 abatacept 125 mg/mL subcutaneous auto-injector (Orencia ClickJect) 125 mg subcut .thur see physician 12/23/23 acetaminophen 500 mg tablet 1,000 mg (2 x 500 mg) PO Q8 #0 tabs 12/28/23 apixaban 2.5 mg tablet (Eliquis) 2.5 mg PO BID 1 month #60 tabs 12/28/23 oxycodone 5 mg tablet 2.5 mg (1/2 x 5 mg) PO Q4H PRN PRN Pain Score 4-10 3 days #10 tabs 12/28/23 simethicone 80 mg chewable tablet 80 mg PO TIDPC #0 tabs 12/28/23 Physical Exam Narrative Seen and examined. Patient was able to walk around and pivot with physical therapist on guard/supervision. Patient had difficulty in getting up from the bed or chair but once she stood up that she can walk more. She had bowel movement voiding urine. Dressing was changed. Physical exam General: Alert, Oriented x3, Cooperative HEENT: Atraumatic, PERRLA, EOMI, Normocephalic Oral: No Gingival or Mucosal Lesions/ Ulcerations Neck: Supple, No JVD, Negative Carotid Bruits Chest wall/Lungs: Air entry diminished in bilateral lung bases. No crepitation/rhonchi Cardiovascular: Regular rate, Regular Rhythm, Normal S1, Normal S2, No M/G/R Abdomen: Bowel Sounds Present, Soft, Non Tender, Non-Distended : No dysuria. No renal angle tenderness. No suprapubic tenderness. Extremities: No edema, Capillary Refill Less than 3 Seconds Skin: Mild subcutaneous bruise around operative region, stable. No active bleeding. Dressings changed. Musculoskeletal: Mild tenderness present around left hip operative region. No Tenderness to Palpation of other joints or Extremities Neurological: Cranial nerves II-XII grossly intact, DTR 2+/4. No acute focal neurological deficit. Psych/Mental Status: Normal Affect, Appropriate. Weight / BMI Weight Weight: 272 lb 11.389 oz Body Mass Index (BMI) 42.7 ABG / Lab / Microbiology Data 12/25/23 06:07 12/25/23 06:07 D/C Instructions Discharge Diet: No restrictions Weight Bearing Status: Weight bearing as tolerated Call your doctor if you observe: Fever of 101 or Higher, Coldness, Increased Pain, Numbness or Tingling, Change in Color, Inability to urinate, Inability to have a bowel movement, Using more than 1 pad per hour, Shortness of breath, Dizziness, Fainting spells, Swelling in the ankles, Chest pain, Prolonged hiccupping, Increased palpitations (irregular heartbeat) and Calf discomfort When: IN 2 WEEKS Meaningful Use Info Meaningful Use Diagnoses (Choose all that apply): None applicable Discharge Plan Admission Admit Date/Time: 12/23/23 09:28 Primary Reason for Your Visit: Left hip cephalomedullary nailing. Left subtrochanteric hip fracture Attending Provider: Christian Jerome Primary Care Provider: Teresa Jain Consulting Providers: Mickey Mccormick; Lang Brothers Discharge Orders/Prescriptions Prescriptions: New simethicone 80 mg Tablet,Chewable 80 mg PO TIDPC Qty: 0 0RF acetaminophen 500 mg Tablet 1,000 mg PO Q8 Qty: 0 0RF Rx Instructions: 1000 mg every 8 hourly for 1 week and then 1 g every 8 hourly as needed for next 1 week. Eliquis 2.5 mg tablet 2.5 mg PO BID 30 Days Qty: 60 0RF Rx Instructions: For DVT prophylaxis oxycodone 5 mg tablet 2.5 mg PO Q4H PRN PRN (Reason: Pain Score 4-10) 3 Days Qty: 10 0RF Rx Instructions: 2.5 mg for moderate pain and 5 mg for severe pain respectively. Continued PreserVision AREDS 1 EACH capsule 1 ea PO DAILY Patient Comments: supplement hydrochlorothiazide 12.5 MG capsule 12.5 mg PO DAILY Patient Comments: BLOOD PRESSURE diazepam 5 MG tablet 5 mg PO 4X/DAY PRN PRN (Reason: Spasms) Qty: 30 0RF Patient Comments: RELAXANT metoprolol tartrate 25 MG tablet 12.5 mg PO DAILY prednisone 2.5 mg Tablet 2.5 mg PO DAILY Avastin 25 mg/mL Solution 2 mg intravitreal .COMPLEX Rx Instructions: 2 mg intravitreal; every 8-12weeksn Orencia ClickJect 125 mg/mL auto-injector 125 mg SUBCUT .thur Held aspirin 81 MG tablet 81 mg PO DAILY Hold Instructions: Hold it while patient is taking Eliquis. Patient Comments: prevent heart attack/stroke acetaminophen [Tylenol] 325 MG tablet 650 mg PO Q6H PRN PRN (Reason: Mild Pain (scale 0-3)/T>100.7) Qty: 0 0RF Hold Instructions: Hold it while taking acetaminophen 1 g every 8 hourly. Referrals / Follow Up: Teresa Jain MD [Primary Care Provider] - Within 2 Weeks Mickey Mccormick MD [Med Staff - Active Staff] - Within 1 Week Disposition Disposition (needs filled in before D/C Order can be placed): Home Health Service Charges/Coding Visit Charges Inpatient E&M: 49254 Disch Hosp >30min
--- NOTE | 2023-12-28 11:44 | CASEMGMT ---
Addendum entered by Carol Landers 12/28/23 12:39: [id number] CM into pt room, pt sitting up in chair. Pt ready for dc. She is aware of deductible not showing as being met for HH and 20% coinsurance. Pt has a w/c van secured for homegoing and a ramp/lift to enter. Pt has a walker at home. She also has a pox and will monitor her oxygen level as she did not qualify for it. Pt denies further needs. Original Note: TC to [facility], cost for eliquis is $35. TC to [facility], spoke with Helen, she is aware pt will dc today.
--- NOTE | 2023-12-28 12:10 | PHA.DC.MC.R ---
Pharmacy [facility] has performed discharge medication reconciliation and counseling for this patient. The patient's discharge medication list was reviewed for discrepancies and discrepancies were resolved. The patient was counseled on the following discharge medications and changes in medications for homegoing were reviewed. The Reason for Use, instructions for use, and potential side effects were reviewed for all new medications. The patient's questions regarding all of their medications were answered. 1. Apixaban 2.5 mg PO BID x 30 days 2. Acetaminophen 1000 mg PO Q8H 3. Oxycodone 2.5 mg PO Q4H PRN Pain 4-10 4. Simethicone 80 mg PO TIDPC The patient was able to verbally demonstrate an understanding of their discharge medications. The patient was counselled on new medications by pharmacy affairs assistant Arvin. Medications at Discharge Home Medications aspirin 81 mg tablet,delayed release 81 mg PO DAILY heart health/pre 11/21/13 vitamins A,C,T-tfjy-jscxor 4,296 mcg-226 mg-90 mg capsule (PreserVision AREDS) 1 ea PO DAILY supplement 11/21/13 hydrochlorothiazide 12.5 mg capsule 12.5 mg PO DAILY blood pressure 12/11/13 diazepam 5 mg tablet 5 mg PO 4X/DAY PRN PRN Spasms ##30 02/13/14 metoprolol tartrate 25 mg tablet 12.5 mg PO DAILY blood pressu 05/24/16 acetaminophen 325 mg tablet (Tylenol) 650 mg (2 x 325 mg) PO Q6H PRN PRN Mild Pain (scale 0-3)/T>100.7 ##0 01/02/17 bevacizumab 25 mg/mL intravenous solution (Avastin) 2 mg intravitreal .COMPLEX see physician 05/14/22 prednisone 2.5 mg tablet 2.5 mg PO DAILY steroid 05/14/22 abatacept 125 mg/mL subcutaneous auto-injector (Orencia ClickJect) 125 mg subcut .thur see physician 12/23/23 acetaminophen 500 mg tablet 1,000 mg (2 x 500 mg) PO Q8 #0 tabs 12/28/23 apixaban 2.5 mg tablet (Eliquis) 2.5 mg PO BID 1 month #60 tabs 12/28/23 oxycodone 5 mg tablet 2.5 mg (1/2 x 5 mg) PO Q4H PRN PRN Pain Score 4-10 3 days #10 tabs 12/28/23 simethicone 80 mg chewable tablet 80 mg PO TIDPC #0 tabs 24
== END 2023-12-28 14:16 | disposition home health service (06) | DRG 481 ==
LOC: ED 08:32 → MS3 08:36
PROVIDERS: Specialist; Admitting Provider Internal Medicine; Emergency Provider Emergency Medicine; PCP Internal Medicine; Visit Provider Internal Medicine
PROC: 0QH736Z Insertion of Intramedullary Internal Fixation Device into Left Upper Femur, Percutaneous Approach (ICD-10-PCS; CPT 27245; principal; 2023-12-24 11:00)
DX: S72.22XA Displaced subtrochanteric fracture of left femur, initial encounter for closed fracture (principal); Z68.41 Body mass index [BMI] 40.0-44.9, adult; E66.01 Morbid (severe) obesity due to excess calories; J44.9 Chronic obstructive pulmonary disease, unspecified; M06.9 Rheumatoid arthritis, unspecified; I10 Essential (primary) hypertension; W18.39XA Other fall on same level, initial encounter; M17.12 Unilateral primary osteoarthritis, left knee; Z96.651 Presence of right artificial knee joint; Z79.52 Long term (current) use of systemic steroids; Z79.82 Long term (current) use of aspirin; Z79.899 Other long term (current) drug therapy; Z86.73 Personal history of transient ischemic attack (TIA), and cerebral infarction without residual deficits; Z87.891 Personal history of nicotine dependence
CPT/HCPCS: 36415; 71045; 73501; 73502; 76000; 80048; 85025; 85027; 86850; 86900; 86901; 93005; 94668; 94762; 97110; 97162; 97166; 97530; 97535; 99252; 99285; C1713; C1776; J7120; A4216; G0463; J2405

== ENCOUNTER 2024-01-16 09:50 | Emergency (ER) | payer OTHER, SELFPAY ==
[2024-01-16 09:51] VITALS: BP 152/89; PULSE 138; RESP 17; TEMP 36.7; O2SAT 95; BMI 43.5
--- NOTE | 2024-01-16 10:10 | VDLE_ITS ---
Reason For Study: Pain LLE RIGHT LEFT CFV is compressible, spontaneous, phasic, GSV is normal. competent and demonstrates normal CFV is compressible, spontaneous, phasic, augmentation. competent, and demonstrates normal Procedure augmentation. This is a venous duplex using B-mode, color Lt FV distal, Lt PopV, Lt T/P Trunk, Lt flow and spectral Doppler. GastrocV, Lt PTV, Lt PeroV, and Lt SoleusV Exam performed portable in ED. are DILATED and NON COMPRESSIBLE consistent A preliminary report was called and/or faxed with acute DVT. to Dr. Morales. VL/Venous Duplex US, Unilateral Interpretation Summary Acute deep vein thrombosis is noted in the left femoral vein, popliteal vein, t ibioperoneal trunk vein, gastrocnemius vein, posterior tibial vein, peroneal vein, soleus vein Ordering Physician: Peri Morales Referring Physician: Teresa Jain Performed By: Tayler Bingham, MILES, RVT
--- NOTE | 2024-01-16 10:11 | EDS_ITS ---
HPI History of Present Illness Chief Complaint: Lower Extremity Injury Detail of Chief Complaint: Left leg pain and swelling Informant: patient Narrative Narrative: Patient presents secondary to increased left leg pain and swelling. She cam ffered a hip fracture on December 23. She had the nails placed by Dr. Mccormick the following day. She is currently 50% weightbearing on her left leg. She was discharged in the hospital on prophylactic dose of Eliquis, however she states Dr. Mccormick changed that 1 week ago to 2 baby aspirin daily. She does report that they have been pushing her more in therapy and on Wednesday she walked further than normal. Since that time she has had increased pain and swelling in her leg and is concerned about a blood clot. She denies chest pain or shortness of breath. She was noted to be tachycardic in triage but states her normal heart rate is over 100. [facility] Medical History Difficulty chewing Displaced intertrochanteric fracture of left femur, initial encounter for closed fracture GERD (gastroesophageal reflux disease) History of immunosuppression therapy History of steroid therapy Hypertension Loose, teeth Macular degeneration , ectopic Restless legs Rheumatoid arthritis TIA Unilateral primary osteoarthritis, left knee Home Medications aspirin 81 mg tablet,delayed release 81 mg PO DAILY heart health/pre 11/21/13 [History Last Taken 12/31/16] vitamins A,C,X-[id number] 4,296 mcg-226 mg-90 mg capsule (PreserVision AREDS) 1 ea PO DAILY supplement 11/21/13 [History Last Taken 12/31/16] hydrochlorothiazide 12.5 mg capsule 12.5 mg PO DAILY blood pressure 12/11/13 [History Last Taken 12/31/16] diazepam 5 mg tablet 5 mg PO 4X/DAY PRN PRN Spasms ##30 02/13/14 [Rx Last Taken 03/27/14] metoprolol tartrate 25 mg tablet 12.5 mg PO DAILY blood pressu 05/24/16 [History Last Taken 12/31/16] acetaminophen 325 mg tablet (Tylenol) 650 mg (2 x 325 mg) PO Q6H PRN PRN Mild Pain (scale 0-3)/T>100.7 ##0 01/02/17 [Rx Last Taken Unknown] bevacizumab 25 mg/mL intravenous solution (Avastin) 2 mg intravitreal .COMPLEX see physician 05/14/22 [History Last Taken Unknown] prednisone 2.5 mg tablet 2.5 mg PO DAILY steroid 05/14/22 [History Last Taken Unknown] abatacept 125 mg/mL subcutaneous auto-injector (Orencia ClickJect) 125 mg subcut .thur see physician 12/23/23 [History Last Taken Unknown] acetaminophen 500 mg tablet 1,000 mg (2 x 500 mg) PO Q8 #0 tabs 12/28/23 [Rx Last Taken Unknown] apixaban 2.5 mg tablet (Eliquis) 2.5 mg PO BID 1 month #60 tabs 12/28/23 [Rx Last Taken Unknown] oxycodone 5 mg tablet 2.5 mg (1/2 x 5 mg) PO Q4H PRN PRN Pain Score 4-10 3 days #10 tabs 12/28/23 [Rx Last Taken Unknown] simethicone 80 mg chewable tablet 80 mg PO TIDPC #0 tabs 12/28/23 [Rx Last Taken Unknown] apixaban 5 mg tablet (Eliquis) 5 mg PO BID #74 tabs 01/16/24 [Rx Last Taken Unknown] Allergy/AdvReac Type Severity Reaction Status Date / Time morphine Allergy Severe CAN NOT Verified 01/16/24 09:53 BREATHE Sulfa (Sulfonamide Allergy Intermediate Hives Verified 01/16/24 09:53 Antibiotics) adhesive tape [tape] Allergy Hives Verified 01/16/24 09:53 amoxicillin AdvReac Intermediate Hives Verified 01/16/24 09:53 Surgical History History of total right knee replacement (TKR) S/P hysterectomy Social History Smoking Status: Former smoker substance use type: does not use ROS ROS ED Constitutional Constitutional ED: Denies chills or fever(s) Eyes Eyes: Denies discharge from eye(s) ENT ENT ED: Denies discharge from eye(s), rhinorrhea or sore throat Cardiovascular Cardiovascular: Denies chest pain Respiratory/Chest Respiratory/Chest: Denies cough or dyspnea Gastrointestinal Gastrointestinal: Denies abdominal pain, nausea or vomiting Genitourinary Genitourinary ED: Denies dysuria Musculoskeletal Musculoskeletal: Reports extremity pain; Denies back pain Integumentary Denies Abrasions or rash Neurologic Neurologic: Denies headache(s) or weakness Allergic/Immunologic Allergic/Immunologic ED: Denies lip swelling or urticaria EXAM Physical Exam Const Vital Signs: 01/16/24 09:51 01/16/24 10:24 Temperature 98.1 F Temperature Source Temporal Pulse Rate 138 H 105 H Respiratory Rate 17 Blood Pressure 152/89 H Blood Pressure Mean 110 Pulse Ox 95 Oxygen Delivery Method Room Air Positive well nourished and well developed General Appearance ED: well developed HEENT Reports normocephalic and head/scalp atraumatic Eyes PERRL and EOMs intact bilaterally Neck supple Chest Wall inspection of chest normal and palpation of chest normal Resp normal respiratory effort and clear to auscultation bilaterally Cardio regular rhythm Rate: tachycardic GI non-tender Palpation: soft Extremity Extremity Narrative: 3+ left lower extremity edema. Good distal pulses. Neuro oriented x3 and no sensory deficits noted Sensorium / Orientation: alert Psych mental status grossly normal Skin no rashes or lesions noted MDM MDM MDM Narrative Medical decision making narrative: Venous ultrasound left lower extremity obtained to evaluate for potential DVT. Venous ultrasound is positive for DVT. Tech reports clot in the distal femoral vein and distal. Patient ordered 10 mg of p.o. Eliquis here. Prescription for 1 month supply of Eliquis will be written for the patient. She will follow-up with both Dr. Mccormick as well as Dr. Gallegos. She was advised to stop her aspirin at this time. Discharge Plan Triage Chief Complaint: Lower Extremity Injury ED Provider: Peri Morales Dx/Rx/DC Orders Clinical Impression: DVT (deep venous thrombosis) Instructions: ED Deep Vein Thrombosis (DVT) Prescriptions: New Eliquis 5 mg tablet 5 mg PO BID Qty: 74 0RF Rx Instructions: 10 mg twice a day for the first week. Then 5 mg twice a day. No Action aspirin 81 MG tablet 81 mg PO DAILY Hold Instructions: Hold it while patient is taking Eliquis. Patient Comments: prevent heart attack/stroke PreserVision AREDS 1 EACH capsule 1 ea PO DAILY Patient Comments: supplement hydrochlorothiazide 12.5 MG capsule 12.5 mg PO DAILY Patient Comments: BLOOD PRESSURE diazepam 5 MG tablet 5 mg PO 4X/DAY PRN PRN (Reason: Spasms) Qty: 30 0RF Patient Comments: RELAXANT metoprolol tartrate 25 MG tablet 12.5 mg PO DAILY acetaminophen [Tylenol] 325 MG tablet 650 mg PO Q6H PRN PRN (Reason: Mild Pain (scale 0-3)/T>100.7) Qty: 0 0RF Hold Instructions: Hold it while taking acetaminophen 1 g every 8 hourly. prednisone 2.5 mg Tablet 2.5 mg PO DAILY Avastin 25 mg/mL Solution 2 mg intravitreal .COMPLEX Rx Instructions: 2 mg intravitreal; every 8-12weeksn Orencia ClickJect 125 mg/mL auto-injector 125 mg SUBCUT .thur simethicone 80 mg Tablet,Chewable 80 mg PO TIDPC Qty: 0 0RF acetaminophen 500 mg Tablet 1,000 mg PO Q8 Qty: 0 0RF Rx Instructions: 1000 mg every 8 hourly for 1 week and then 1 g every 8 hourly as needed for next 1 week. Eliquis 2.5 mg tablet 2.5 mg PO BID 30 Days Qty: 60 0RF Rx Instructions: For DVT prophylaxis oxycodone 5 mg tablet 2.5 mg PO Q4H PRN PRN (Reason: Pain Score 4-10) 3 Days Qty: 10 0RF Rx Instructions: 2.5 mg for moderate pain and 5 mg for severe pain respectively. Primary Care Provider: Teresa Jain Referrals: Teresa Jain MD [Primary Care Provider] - 1-2 Weeks Mickey Mccormick MD [Med Staff - Active Staff] - Keep Kee appointment Disposition Disposition: Home, Self Care
[2024-01-16 10:24] VITALS: PULSE 105
--- OUTSIDE RECORDS SUMMARY | 2024-01-16 10:36 | XMS RPT_ITS | CCD ---
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 ROSALES Primary Care Candace El MD, SUZY Padron Attending Unavailable MASON STANFORD., DR. ROSALES Primary Care Unavailab Sienna STANFORD, SUZY Padron Attending Unavailable MASON STANFORD., DR. ROSALES Primary Care Unavailab Sienna STANFORD, SUZY Padron Admitting Unavailable HAMIDA MCINTOSH MD, SUZY Padron Referring Unavailable TALAMPAS, CONNIE D Referring Unavailable TALAMPAS, CONNIE D Primary Care Unavailable TALAMPAS, CONNIE D Primary Care Unavailable TALAMPAS, CONNIE D Attending Unavailable TALAMPAS, CONNIE D Referring Unavailable TALAMPAS, CONNIE D Primary Care Unavailable JEREMI SALMERON Referring Unavailable TALAMPAS, CONNIE D Primary Care Unavailable JEREMI SALMERON Referring Unavailable SALMERONJEREMI Referring Unavailable TALAMPAS, CONNIE D Primary Care Unavailable JEREMI SALMERON Attending Unavailable LANA SOTELO Attending Unavailable TALAMPAS, CONNIE D Primary Care Unavailable JARET SEYMOUR Attending Unavailable TALAMPAS, CONNIE D Primary Care Unavailable JEREMI SALMERON Referring Unavailable JARET SEYMOUR Referring Unavailable TALAMPAS, CONNIE D Primary Care Unavailable TALAMPAS, CONNIE D Primary Care Unavailable JEREMI SALMERON Referring Unavailable Allergies Allergy Classification Reported Allergen(s) Allergy Type Date of Onset Reaction(s) Facility (20 sources) Morphine; Translations: [morphine] Drug Allergy 7 Anaphylaxis, Food anaphylaxis (disorder) [facility] Work Phone: (1 source) Sulfonamides (Antibiotic) Propensity to adverse reactions to drug 0 [facility] Work Phone: (20 sources) Amoxicillin; Translations: [amoxicillin] Drug Allergy 5 GI Upset [facility] Work Phone: (20 sources) Sulfonamides (Antibiotic); Translations: [SULFA (SULFONAMIDE ANTIBIOTICS)] Propensity to adverse reactions 5 Anaphylaxis [facility] Work Phone: (2 sources) Adhesive Tape Allergy to substance Redness [facility] (2 sources) Sulfamethoxazole ; Translations: [sulfamethoxazol e] Drug Allergy Hives [facility] Medications Current Medications Medication Drug Class(es) Dates [...] Long-term current use of systemic steroid; Translations: [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] Episodic Other aftercare (1 source) Long-term current use of immunosuppressive drug; Translations: [Long-term use of immunosuppressant medication] Episodic Other connective tissue disease (1 source) [...] joints of left foot] 07-14-2023 Episodic Other nutritional; endocrine; and metabolic disorders (20 sources) Morbid obesity; Translations: [Morbid (severe) obesity due to excess calories] Onset: 01-14-2016 01-14-2016 Chronic Other nutritional; endocrine; and metabolic disorders (3 sources) Body mass index 40+ - severely obese; Translations: [Morbid (severe) obesity due to excess calories] Onset: 01-03-2024 01-03-2024 Chronic Other screening for suspected conditions (not [...] skin tags] Onset: 12-14-2011 12-14-2011 Episodic Other aftercare (1 source) Other long filler cigar roller machine (current) drug therapy; Translations: [Encounter for long-term (current) use of medications] Onset: 10-07-2023 Episodic Other aftercare (1 source) 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; Translations: [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] Onset: 10-07-2023 Episodic Other gastrointestinal disorders (20 sources) Adhesion of intestine; Translations: [Peritoneal adhesions (postprocedural) (postinfection)] Onset: 12-05-2013 12-05-2013 Episodic Other non-traumatic joint disorders (1 source) Pain in left ankle and joints of left foot; Translations: [Chronic pain of left ankle] Onset: 07-15-2023 Episodic Residual codes; unclassified (20 sources) History of difficult intubation; Translations: [Other specified personal risk factors, not elsewhere classified] Onset: 01-14-2016 11-03-2021 Episodic Results Test Name Value Interpretation Reference Range Facil ity Vital Signs Date Time Vital Sign Value Performing Clinician Facility 10-07-2023 12:55-0500 Body height 168.1 cm Jaret Seymour STATION CHIEF.AUTOMOTIVE PARTS CLERK Work Phone: [facility] 10-07-2023 12:55-0500 Body temperature 98.01 [degF] Jaret Seymour STATION CHIEF.AUTOMOTIVE PARTS CLERK Work Phone: [facility] 10-07-2023 12:55-0500 Body weight 120.2 kg Jaret Seymour STATION CHIEF.AUTOMOTIVE PARTS CLERK Work Phone: [facility] 10-07-2023 12:55-0500 Diastolic blood pressure 83 mm[Hg] Jaret Seymour STATION CHIEF.AUTOMOTIVE PARTS CLERK Work Phone: [facility] 10-07-2023 12:55-0500 Heart rate 96 /min Jaret Seymour STATION CHIEF.AUTOMOTIVE PARTS CLERK Work Phone: [facility] 10-07-2023 12:55-0500 Systolic blood pressure 127 mm[Hg] Jaret Seymour STATION CHIEF.AUTOMOTIVE PARTS CLERK Work Phone: [facility] 04-16-2023 11:26-0400 Body temperature 97.2 [degF] Connie Jain MD Work Phone: [facility] 04-16-2023 11:26-0400 Body weight 119.3 kg Connie Jain MD Work Phone: [facility] 04-16-2023 11:26-0400 Diastolic blood pressure 76 mm[Hg] Connie Jain MD Work Phone: [facility] 04-16-2023 11:26-0400 Heart rate 93 /min Connie Jain MD Work Phone: [facility] 04-16-2023 11:26-0400 Respiratory rate 18 /min Connie Jain MD Work Phone: [facility] 04-16-2023 11:26-0400 SaO2% (BldA) [Mass fraction] 97 % Connie Jain MD Work Phone: [facility] 04-16-2023 11:26-0400 Systolic blood pressure 124 mm[Hg] Connie Jain MD Work Phone: [facility] 03-03-2023 10:04-0400 Body height 170.2 cm Jeremi Salmeron MD Work Phone: [facility] 03-03-2023 10:04-0400 Body temperature 97.5 [degF] Jeremi Salmeron MD Work Phone: [facility] 03-03-2023 10:04-0400 Body weight 120.2 kg Jeremi Salmeron MD Work Phone: [facility] 03-03-2023 10:04-0400 Diastolic blood pressure 78 mm[Hg] Jeremi Salmeron MD Work Phone: [facility] 03-03-2023 10:04-0400 Heart rate 76 /min Jeremi Salmeron MD Work Phone: [facility] 03-03-2023 10:04-0400 Systolic blood pressure 124 mm[Hg] Jeremi Salmeron MD Work Phone: [facility] 10-09-2022 11:27-0500 Body height [address] SUZY ONEAL MD [facility] 10-09-2022 11:27-0500 Body weight 116.[address] SZUY ONEAL MD [facility] 09-28-2022 14:10-0500 Body weight 116.57 kg Connie Jain MD Work Phone: [facility] 09-28-2022 14:10-0500 Diastolic blood pressure 84 mm[Hg] Connie Jain MD Work Phone: [facility] 09-28-2022 14:10-0500 Heart rate 99 /min Connie Jain MD Work Phone: [facility] 09-28-2022 14:10-0500 SaO2% (BldA) [Mass fraction] 97 % Connie Jain MD Work Phone: [facility] 09-28-2022 14:10-0500 Systolic blood pressure 122 mm[Hg] Connie Jain MD Work Phone: [facility] 07-02-2022 08:23-0400 Body height 167.6 cm Jaret Seymour STATION CHIEF.AUTOMOTIVE PARTS CLERK Work Phone: [facility] 07-02-2022 08:23-0400 Body temperature 97.81 [degF] Jaret Seymour STATION CHIEF.AUTOMOTIVE PARTS CLERK Work Phone: [facility] 07-02-2022 08:23-0400 Body weight 113.4 kg Jaret Seymour STATION CHIEF.AUTOMOTIVE PARTS CLERK Work Phone: [facility] 07-02-2022 08:23-0400 Diastolic blood pressure 85 mm[Hg] Jaret Seymour STATION CHIEF.AUTOMOTIVE PARTS CLERK Work Phone: [facility] 07-02-2022 08:23-0400 Heart rate 77 /min Jarte Seymour STATION CHIEF.AUTOMOTIVE PARTS CLERK Work Phone: [facility] 07-02-2022 08:23-0400 Systolic blood pressure 124 mm[Hg] Jaret Seymour STATION CHIEF.AUTOMOTIVE PARTS CLERK Work Phone: [facility] 04-24-2022 13:11-0400 Body height 166 cm Connie Jain MD Work Phone: [facility] 04-24-2022 13:11-0400 Body weight 115.21 kg Connie Jain MD Work Phone: [facility] 04-24-2022 13:11-0400 Diastolic blood pressure 82 mm[Hg] Connie Jain MD Work Phone: [facility] 04-24-2022 13:11-0400 Heart rate 82 /min Connie Jain MD Work Phone: [facility] 04-24-2022 13:11-0400 Systolic blood pressure 122 mm[Hg] Connie Jain MD Work Phone: [facility] 12-25-2019 07:47-0500 BP Diastolic 86 mm[Hg] [...] Date Encounter Type Care Provider Facility Start: 01-12-2024 Refill Jaret Seymour STATION CHIEF.AUTOMOTIVE PARTS CLERK Work Phone: Rheumatology Procedures Date Procedure Procedure Detail Performing Clinician Start: 07-15-2023 Radex ankle complete minimum 3 views Jeremi Salmeron MD Work Phone: Start: 08-05-2022 Dxa bone density gerald dy 1/> sites axial rodrick Seymour STATION CHIEF.AUTOMOTIVE PARTS CLERK Work Phone: Start: 04-30-2022 Lipid 1996 panel [...] panel - Serum or Plasma Lipid Screening [facility] Start: 04-30-2027 Lipid panel Lipid Screening [facility] Start: 04-30-2027 LIPID SCREEN LIPID SCREEN [facility] Start: 01-14-2026 Colonoscopy COLONOSCOPY [facility] Start: 01-14-2026 COLORECTAL CANCER SCREENING COLORECTAL CANCER SCREENING [facility] Start: 01-14-2026 Screening for malignant neoplasm of colon [facility] Start: 04-30-2025 DIABETES SCREEN DIABETES SCREEN [facility] Start: 04-30-2025 Diabetes Screening Diabetes Screening [facility] Start: 01-03-2025 Annual PCP Team Chronic Disease Visit Annual PCP Team Chronic Disease Visit [facility] Start: 01-03-2025 BP Controlled (<130/80) BP Controlled (<130/80) [facility] Start: 04-16-2024 ANNUAL PCP TEAM CHRONIC DISEASE VISIT ANNUAL PCP TEAM CHRONIC DISEASE VISIT [facility] Start: 04-16-2024 BP CONTROLLED (<130/80) BP CONTROLLED (<130/80) [facility] Start: 03-12-2024 DIABETES SCREEN DIABETES SCREEN [facility] Start: 03-03-2024 BP CONTROLLED (<130/80) BP CONTROLLED (<130/80) [facility] Start: 01-26-2024 Urine microalbumin profile [facility] Start: 11-08-2023 Depression Assessment Depression Assessment [facility] Start: 09-28-2023 ANNUAL PCP TEAM CHRONIC DISEASE VISIT ANNUAL PCP TEAM CHRONIC DISEASE VISIT [facility] Start: 09-27-2023 End: 09-26-2024 Alanine aminotransferase [Enzymatic activity/volume] in Serum or Plasma ALT/SGPT Lab Routine Sero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 arthritis (HCC) Encounter for long-term (current) use of medications Expected: 09/27/2023 (Approximate), Expires: 09/26/2024 [facility] Work Phone: Immunizations Immunization Date Immunization Notes Care Provider Fa arnaldo 08-24-2017 influenza virus vacc ine, unspecified formulation Connie Jain MD Work Phone: [facility] 01-25-2014 tetanus toxoid, redu terry diphtheria toxoid, and acellular pertussis vaccine, adsorbed [facility] Provider [facility] Payers Date Payer Category Payer Unknown [id number] 2021 Private Health Insurance [facility] CHOICE PLUS [id number] 2021-Present [phone] [address] [place] [address] HMO [id number] 2021 Private Health Insurance [id number] 2021 Private Health Insurance [id number] 2020 Unknown MMO MMO [employer] [id number] 2020-Present [phone] [address] [place] [address] PPO [id number] 1963 Unknown [id number] 1963 Unknown [id number] 1963 Unknown [id number] Social History Date Type Detail Facility Start: 12-25-2019 End: 01-03-2024 Tobacco smoking status NHIS Former smoker [facility] in Functional Status Date Assessment Result Facility 10-09-2022 Functional Status Sensory Deficits None A [facility] Clinical Notes 01-15-2016 to 01-13-2024 Telephone Encounter - Jaret Seymour APRN.CNP - 01/13/2024 6:50 AM ESTTelephone Encounter - Sabrina Tilley RN - 01/12/2024 3:07 PM ESTTelephone Encounter - Zahida Dawn MA - 01/04/2024 1:10 PM EST Note Date & Type Note Facility 01-13-2024 Miscellaneous Notes The following approved medication requests have been transmitted electronically. Requested Prescriptions Signed Prescriptions Disp Refills predniSONE (DELTASONE) 2.5 mg tablet 90 tablet 1 Sig: TAKE 1 TABLET BY MOUTH DAILY WITH FOOD Authorizing Provider: JARET SEYMOUR APRN.JUSTINE Most recent Rheumatology visit: 10/07/2023 (with Jaret Seymour) Labs: 10/05/23 Upcoming Rheumatology Appointments - Next 365 Days Visit Type Date Time Department [facility] 03/13/2024 9:40 AM [facility] 06/05/2024 10:00 AM [facility] Patient requests via MyChart refills as follows: Requested Prescriptions Pending Prescriptions Disp Refills predniSONE (DELTASONE) 2.5 mg tablet 90 tablet 0 Sig: TAKE 1 TABLET BY MOUTH DAILY WITH FOOD Please review and advise. documented in this encounter [facility] 01-07-2024 Miscellaneous Notes [facility]oned, spoke with pharmacist Yuri. Gave pharmacist message below from provider. Pharmacist voices understanding, states he will get all of this documented and sent over for medication to be filled and sent out to patient. Patient called and notified that pharmacy was called and that medication will be sent out. 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 If they need any other information or have other questions then please let me know. Patient reports [facility] will not send her the valium unless provider calls them to tell them it does not interact with oxycodone. 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 Reports she takes oxycodone before she goes to therapy, and she takes valium later on in the evening to get things to calm down from the day. Reports she has had no adverse effects taking them this way. Reports she is taking both of these for her hip fx. Reports she has been taking valium for years. documented in this encounter [facility] 01-04-2024 Miscellaneous Notes Patient is notified of message below and verbalized understanding of instructions. Zahida Dawn MA Please let her know we're sorry to hear. Agree with remaining off orencia at this point, especially in case surgery is eventually needed. We'll also discuss the hip fracture in more detail at the next rheumatology visit to assess for osteoporosis. In the meantime, wishing her all the best with recovery. Fell on 12/23 and broke left hip, repaired on 12/24. Can only put 50% of her weight on the left side for 5 weeks. She may need hip replaced; they are doing everything they can to avoid it at this point. She has been off of the Orencia (which she said was not working anyway). documented in this encounter [facility] 01-03-2024 Note HNO ID: [id number] Author: LANA SOTELO APRN.AUTOMOTIVE PARTS CLERK Service: ? Author Type: Nurse Practitioner Type: Progress Notes Filed: 01/03/2024 14:45 Note Text: SUBJECTIVE Cynthia Schaefer is a 58 year old female here today for a check up on her medical problems. Chief Complaint Patient presents with: Hospital F/U: Broken hip - low oxygen level HPI Cynthia Schaefer is a 58 year old female established patient of Connie Jain MD. She presents today for a follow up. She recently was hospitalized in [facility] s/p left femur fracture with surgical repair by Dr. Oneal after a fall. She was out doing barn chores. Since being home she is doing okay. She has [facility] for PT/OT/prison. Recently OT noted her HR was 115-118, pulse ox was low at 89%. Heart rate always runs on the higher side. Pulse ox is better now. She is monitoring this regularly. 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 Some leg spasm and using valium to help. No constipation. Appetite is okay. Pain controlled. Already getting bone density scans regularly with rheumatology. Had ortho follow up earlier today. Her medications were reviewed today and her list is now up to date Medications Current Outpatient Medications Medication Sig ELIQUIS 2.5 mg tab(s) 2.5 MG ORALLY TWICE A DAY FOR 1 MONTH FOR DVT PROPHYLAXIS oxyCODONE IR (ROXICODONE) 5 mg immediate release tablet PLEASE SEE ATTACHED FOR DETAILED DIRECTIONS diazePAM (VALIUM) 5 mg tablet Take 1 tablet by mouth two times a day as needed for muscle spasm or pain (restless legs) for up to 90 days. hydroCHLOROthiazide 12.5 mg tablet Take 1 tablet by mouth once daily. predniSONE (DELTASONE) 2.5 mg tablet TAKE 1 TABLET BY MOUTH DAILY WITH FOOD Lactobac no.41/Bifidobact no.7 (PROBIOTIC-10 ORAL) Take by mouth once daily. metoprolol succinate ER (TOPROL XL) 50 mg 24 hr tablet TAKE 1/2 TO 1 TABLET BY MOUTH ONCE DAILY abatacept (ORENCIA CLICKJECT) 125 mg/mL Inject 1 pen (125mg) subcutaneously one time a week. aflibercept opthalmic intravitreal (EYLEA) 2 mg/0.05 mL soln 2 mg one time only. 10-12 wks CRANBERRY cholecalciferol, vitamin D3, 10 mcg (400 unit) cap Take 400 Units by mouth once daily. calcium carbonate/vitamin D2 ([id number] ORAL) Take by mouth. fluticasone (FLONASE) 50 [...] Upset Morphine Anaphylaxis Sulfa (Sulfonamide * Anaphylaxis ACTIVE PROBLEM LIST Obesity, Class III, BMI >= 40 - 01/03/2024 Seronegative Rheumatoid Arthritis ([facility]) - 02/08/2020 Rheumatoid Arthritis of Multiple Sites With Negative Rheumatoid Factor ([facility]) - 11/04/2019 Morbid Obesity ([facility]) - 01/14/2016 H/O Difficult Intubation - 01/14/2016 Comment: [facility] 02/2014 wound/scar revision patient was told by anesthesia she was a difficult intubation, no h/o prior Periodic Limb Movement Sleep Disorder - 01/11/2016 Macular Degeneration, Wet ([facility]) - 01/11/2016 Comment: getting eye injections Essential Hypertension, Benign - 01/25/2014 Intestinal Adhesions - 12/05/2013 External Hemorrhoids Without Mention of Complication - 12/14/2011 Anxiety - 12/14/2011 Deviated Nasal Septum Dysmenorrhea Allergic Rhinitis Comment: Chronic rhinitis--still suspect some alelrgy component even though testing negative. Also irritant component. Social History Tobacco Use Smoking status: Former Types: Cigarettes Quit date: 11/08/1992 Years since quittin.1 Smokeless tobacco: Never Vaping Use Vaping Use: Never used Substance Use Topics Alcohol use: No Drug use: No Review of Systems Constitutional: Negative. Respiratory: Negative. Cardiovascular: Negative. OBJECTIVE BP 101/68 Pulse 120 Resp 20 SpO2 96% LMP 10/20/2013 Physical Exam Vitals and nursing note reviewed. Constitutional: General: She is awake. She is not in acute distress. Appearance: Normal appearance. She is well-developed and well-groomed. She is not ill-appearing, toxic-appearing or diaphoretic. HENT: Head: Normocephalic. Right Ear: External ear normal. Left Ear: External ear normal. Nose: Nose normal. Eyes: General: Vision grossly intact. Conjunctiva/sclera: Conjunctivae normal. Pupils: Pupils are equal, round, and reactive to light. Neck: Vascular: No JVD. Trachea: Trachea normal. Cardiovascular: Rate and Rhythm: Normal rate and regular rhythm. Pulses: Normal pulses. Heart sounds: Normal heart sounds. No murmur heard. Pulmonary: Effort: Pulmonary effort is normal. No accessory muscle usage, prolong (more content not included)... [facility] 12-30-2023 Miscellaneous Notes Noted Will follow up at appointment regarding below. Though numbers outside of normal parameters, seems she is improving compared to when was in the hospital Stacie OT [facility] called in and reports she did her evaluation with the Pt today. She said some of her vital signs were outside of parameters and she has to call them in. She reports Pts resting HR was 115-118, Pt reports this is normal for her and she is on medication for it. She took Pts resting pulse ox and it was 89%, the Pt states since she was in the hospital and it was in the 70s she has been checking it at home with her pulse ox an has been getting it in the 80s. Pt has an appointment with provider on 01/03/24 and was going to talk about this with her (put a note in the appointment note). She had told the OT about possibly getting a sleep study done. Stacie said she does not need a call back. documented in this encounter [facility] 12-29-2023 Miscellaneous Notes Phoned Blaine- PT and given provider's verbal. Teresita Darden APRN.JUSTINE Blaine- PT- [facility] - reports he is seeing pt today, who had a Left Hip Fracture repair with Dr. Oneal, and needs nursing for assessment of incision site and dressing changes. Asking PCP for verbal approval for Correction. Please phone Blaine with verbal: [phone] documented in this encounter [facility] 12-28-2023 Miscellaneous Notes Spoke with pt and she is not getting around very well. She will call when she is able to get out and get an apt scheduled. Cori with [facility] also notified. Sheba Wills LPN Detailed VM left on pt's identified voicemail of information below. Sheba Wills LPN OK for [facility]. Looks like she needs a follow up appointment, none scheduled. OLGA Hunter with [facility] calling to see if you will follow for PT and PT, Sx left femur fracture after a fall. Surgeon will also follow for surgery related orders needed. Please advise Cori with verbal orders. Okay to leave a detailed message. Sheba Wills LPN documented in this encounter [facility] 10-07-2023 Note HNO ID: [id number] Author: Jaret Seymour APRN.AUTOMOTIVE PARTS CLERK Service: ? Author Type: Nurse Practitioner Type: Progress Notes Filed: 10/07/2023 1:40 PM Note Text: Follow-up [facility] Rheumatology appointment for seronegative RA. HPI: [...] nausea - In Oct, established care in [facility] rheumatology with pain in the PIPs and knees. Started on HCQ 200mg bid - In January, reported nausea and vomiting with higher dose of HCQ so reduced to HCQ 200mg/day with improvement in n/v. Hadn't noticed improvement in joint pain. About 1 month later, stopped HCQ given lack of efficacy - In interim, seen by [facility] who started arava in May. Took x3 [...] degeneration, bilateral Dr. Clay Macular degeneration, wet ([facility]) getting injections (Dr. Crowe--Retinal Specialist from [place]) Macular degeneration, wet ([facility]) 01/11/2016 getting eye injections Periodic limb movement sleep disorder 01/11/2016 Rheumatoid arthritis of multiple sites with 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 factor ([facility]) 11/04/2019 TIA (transient ischemic attack) 04/21/13 PAST [...] No Leg Swell (more content not included)... [facility] 10-07-2023 History of Present illness Narrative Follow-up [facility] Rheumatology appointment for seronegative RA. HPI: [...] of efficacy - In interim, seen by [facility] who started arava in May. Took x3 [...] enbrel on her own in the interim. Eleanorlukas discussed which she deferred - In Oct, [...] degeneration, bilateral Dr. Clay Macular degeneration, wet ([facility]) getting injections (Dr. Crowe--Retinal Specialist from [place]) Macular degeneration, wet ([facility]) 01/11/2016 getting eye injections Periodic limb movement sleep disorder 01/11/2016 Rheumatoid arthritis of multiple sites with 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 factor ([facility]) 11/04/2019 TIA (transient ischemic attack) 04/21/13 PAST [...] by mouth once daily. calcium carbonate/vitamin D2 ([id number]-563-T ORAL) Take by mouth. fluticasone (FLONASE) 50 [...] Thyroid Mother hypothyroid SOCIAL HISTORY: Lives in [place] with . 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 Tobacco use: None Alcohol use: None Drug [...] Abs Lymph 1.00 - 4.00 k/uL 2.66 Hopkins% % 9.6 Abs Hopkins <0.87 k/uL 0.75 Eosin% % 4.7 Abs [...] which included preparing to see the patient, giba-wy-ofyj patient care, completing clinical documentation, performing a medically appropriate examination, ordering medications, tests, or procedures, and communicating results to the patient/family/caregiver. Jaret Seymour APRN.JUSTINE documented in this encounter [facility] 10-06-2023 Instructions Jaret Seymour APRN.JUSTINE - 10/06/2023 11:57 AM EST Please schedule bone density test on the same machine as prior documented in this encounter [facility] 09-27-2023 Miscellaneous Notes Get Medical Advice on 09/24/23 CBC + DIFF AST/SGOT BLD ALT/SGPT ALBUMIN BLD CREATININE BLD Jaret Seymour APRN.JUSTINE Patient scheduled for 10/07/23. Pended lab orders. Please review and sign . Thanks Levon Olmstead R.N. documented in this encounter [facility] 08-19-2023 Miscellaneous Notes Patient has been [...] Sadia Ulloa MA documented in this encounter [facility] 08-16-2023 Miscellaneous Notes Patient is request [...] Sonali Villagomez LPN documented in this encounter [facility] 08-16-2023 Miscellaneous Notes Patient is requesting [...] Sonali Villagomez LPN documented in this encounter [facility] 07-15-2023 Note HNO ID: [id number] Author: Iveth Parks RT(R) Service: ? Author [...] RT Claudine(R) July 15, 2023 8:17 AM [facility] 07-15-2023 History of Present illness Narrative Radiology [...] 2023 8:17 AM documented in this encounter [facility] 07-14-2023 Miscellaneous Notes Pred rx sent and xray l ankle order placed documented in this encounter [facility] 06-21-2023 Miscellaneous Notes The following approved medication requests have been transmitted electronically. Requested Prescriptions Signed Prescriptions Disp Refills predniSONE (DELTASONE) 2.5 mg tablet 30 tablet 2 Sig: TAKE 1 TABLET BY MOUTH EVERY DAY WITH FOOD Authorizing Provider: JARET SEYMOUR APRN.AUTOMOTIVE PARTS CLERK Patient has been identified by name and [...] Zahida Dawn MA documented in this encounter [facility] 04-16-2023 Note HNO ID: [id number] Author: RT Vannessa(R) Service: Nuclear Medicine Author [...] RT Vannessa(R) April 16, 2023 1:21 PM [facility] 04-16-2023 Note HNO ID: [id number] Author: Connie Jain MD Service: ? Author Type: Physician Type: Progress Notes Filed: 05/16/2023 11:38 PM Note Text: This note was created using Carepeuticsriter. Subjective Cynthia Schaefer is a 58 year [...] degeneration, bilateral Dr. Clay Macular degeneration, wet ([facility]) getting injections (Dr. Crowe--Retinal Specialist from [place]) Macular degeneration, wet ([facility]) 01/11/2016 getting eye injections Periodic limb movement sleep disorder 01/11/2016 Rheumatoid arthritis of multiple sites with 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 factor ([facility]) 11/04/2019 TIA (transient ischemic attack) 04/21/13 Current [...] by mouth once daily. calcium carbonate/vitamin D2 (JERBCDF-334-W ORAL) Take by mouth. fluticasone (FLONASE) 50 [...] Abdomen is s (more content not included)... [facility] 04-16-2023 History of Present illness Narrative This note was created using Carepeuticsriter. Subjective Cynthia Schaefer is a 58 year [...] degeneration, bilateral Dr. Clay Macular degeneration, wet ([facility]) getting injections (Dr. Crowe--Retinal Specialist from [place]) Macular degeneration, wet ([facility]) 01/11/2016 getting eye injections Periodic limb movement sleep disorder 01/11/2016 Rheumatoid arthritis of multiple sites with 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 factor ([facility]) 11/04/2019 TIA (transient ischemic attack) 04/21/13 Current [...] by mouth once daily. calcium carbonate/vitamin D2 (OQSCOFO-113-A ORAL) Take by mouth. fluticasone (FLONASE) 50 [...] Connie Jain MD documented in this encounter [facility] 04-14-2023 Note Patient Outreach (IN [facility]) CYNTHIA SCHAEFER ([id number]) 1965 F Date Time Provider Department 04/14/23 [...] for screening mammogram for breast cancer [Z12.31] Order(s):[facility] SCREEN[facility] [[id number]] Order #: [id number] FUTURE Prescriptions as of 04/19/2023 - abatacept [...] mouth once daily. - calcium carbonate/vitamin D2 (AEDDXEA-538-M ORAL) Take by mouth. - fluticasone (FLONASE) [...] sleep disorder [G47.61] 01/11/2016 Macular degeneration, wet (HCC) [H35.3290] 01/11/2016 Morbid obesity (HCC) [E66.01] 01/14/2016 H/O difficult intubation [Z91.89] 01/14/2016 Dysphagia [R13.10] 01/15/2016 01/15/2016 Dyspepsia [R10.13] 01/15/2016 01/15/2016 Colon cancer screening [Z12.11] 01/15/2016 01/15/2016 Rheumatoid arthritis of multiple sites with neg*11/04/2019 Sero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 arthritis (HCC) [M06.00]02/08/2020 Encounter Status:Closed by CESAR MOSHER on 04/19/23 [facility] 04-08-2023 Miscellaneous Notes Rx resent [facility] will only dispense a 30 days supply. Please send a 30 day supply for the Orencia. documented in this encounter [facility] 03-22-2023 Miscellaneous Notes Short term script. [...] Refusal: A Refill not appropriate Jaret Seymour APRN.AUTOMOTIVE PARTS CLERK Patient has been identified by name and [...] Zahida Dawn MA documented in this encounter [facility] 03-18-2023 Miscellaneous Notes The following approved [...] Sadia Ulloa MA documented in this encounter [facility] 03-17-2023 Miscellaneous Notes Spoke with patient. [...] 2 weeks, please contact them directly at [phone]. Patient verbalized understanding and thanked me for the information given. Zahida Dawn MA Patient called and stated that she never got a call from the pharmacy regarding the Orencia. Please advice documented in this encounter [facility] 03-04-2023 Note HNO ID: [id number] Author: Christine Abdul Service: ? Author Type: ? Type: Progress Notes Filed: 03/22/2023 3:55 PM Note Text: Prior authorization was approved for Orencia. Plan Name: [facility] PA reference number: [id number] Approval Dates: 12/10/22-03/09/24 However, s/he is required to use [facility] to fill this medication. Will queue prescription(s) to go to designated specialty pharmacy. For reference, their pharmacy phone number is [phone]. No further action by [facility] Specialty. Christine Abdlu CPhT [facility] 03-04-2023 Note HNO ID: [id number] Author: Christine Abdul Service: ? Author Type: ? Type: Progress Notes Filed: 03/09/2023 4:11 PM Note Text: PA for Orencia was initiated and pending review. Plan Name: [facility] Plan Agent/Iyer: [id number] Case: [id number] Timeline: Standard Christine Abdul CPhT [facility] 03-04-2023 Note HNO ID: [id number] Author: Christine Abdul Service: ? Author Type: ? Type: Progress Notes Filed: 03/04/2023 3:27 PM Note Text: [facility] received prescription(s) for Orencia from Dr. Jeremi Salmeron's office. Benefits investigation was conducted, indicating that a prior authorization is required by patient's insurance plan with [facility]. Encounter will be updated once prior authorization has been submitted by [facility]. Christine Abdul CPhT [facility] 03-04-2023 History of Present illness Narrative [facility] received prescription(s) for Orencia from Dr. Jeremi Salmeron's office. Benefits investigation was conducted, indicating that a prior authorization is required by patient's insurance plan with [facility]. Encounter will be updated once prior authorization has been submitted by [facility]. Christine Abdul CPhT [facility] documented in this encounter [facility] 03-04-2023 Miscellaneous Notes Patient has been [...] Sonali Villagomez LPN documented in this encounter [facility] 03-03-2023 Note HNO ID: [id number] Author: Jeremi Salmeron MD Service: ? Author Type: Physician Type: Progress Notes Filed: 03/03/2023 11:06 AM Note Text: On 03/03/2023, I had the pleasure of evaluating Cynthia Schaefer in a follow-up [facility] Rheumatology appointment for seronegative RA. HPI: [...] of efficacy - In interim, seen by [facility] who started arava in May. Took x3 [...] degeneration, bilateral Dr. Clay Macular degeneration, wet ([facility]) getting injections (Dr. Crowe--Retinal Specialist from [place]) Macular degeneration, wet ([facility]) 01/11/2016 getting eye injections Periodic limb movement sleep disorder 01/11/2016 Rheumatoid arthritis of multiple sites with 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 factor ([facility]) 11/04/2019 TIA (transient ischemic attack) 04/21/13 PAST [...] by mouth once daily. calcium carbonate/vitamin D2 (EHLGBYJ-561-B ORAL) Take by mouth. fluticasone (FLONASE) 50 [...] A-Vit C-Vit E-Zin (more content not included)... [facility] 03-03-2023 History of Present illness Narrative On 03/03/2023, I had the pleasure of evaluating Cynthia Schaefer in a follow-up [facility] Rheumatology appointment for seronegative RA. HPI: [...] nausea - In Oct, established care in [facility] rheumatology with pain in the PIPs and knees. Started on HCQ 200mg bid - In January, reported nausea and vomiting with higher dose of HCQ so reduced to HCQ 200mg/day with improvement in n/v. Hadn't noticed improvement in joint pain. About 1 month later, stopped HCQ given lack of efficacy - In interim, seen by [facility] who started arava in May. Took x3 [...] degeneration, bilateral Dr. Clay Macular degeneration, wet ([facility]) getting injections (Dr. Crowe--Retinal Specialist from [place]) Macular degeneration, wet ([facility]) 01/11/2016 getting eye injections Periodic limb movement sleep disorder 01/11/2016 Rheumatoid arthritis of multiple sites with 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 factor ([facility]) 11/04/2019 TIA (transient ischemic attack) 04/21/13 PAST [...] by mouth once daily. calcium carbonate/vitamin D2 (UQTQHXC-339-S ORAL) Take by mouth. fluticasone (FLONASE) 50 [...] Thyroid Mother hypothyroid SOCIAL HISTORY: Lives in [place] with . 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 Tobacco use: None Alcohol use: None Drug [...] - Check labs. Notify of results via Cvgram.me 2. Bone health: On long-term prednisone use [...] Jeremi Salmeron MD documented in this encounter [facility] 12-23-2022 Miscellaneous Notes Okayed Patient has [...] Sonali Villagomez LPN documented in this encounter [facility] 11-30-2022 Miscellaneous Notes The following approved [...] (H) 2.0 - 7.0 mg/dL Final Zahida Gengo, MA documented in this encounter [facility] 10-09-2022 Note ORIGINAL EXAMINATION: CT OF [...] 10/09/2022 2:13:03 PM Ordering Provider: SUZY ONEAL [facility] 10-09-2022 Note ORIGINAL EXAMINATION: CT OF THE [...] 10/09/2022 2:13:03 PM Ordering Provider: SUZY ONEAL [facility] 09-28-2022 History of Present illness Narrative This note was created using Carepeuticsriter. Subjective Cynthia Schaefer is a 57 year old female. HISTORY Cynthia Schaefer is a 57 year old lady here for pre-op evaluation as requested by Dr. Oneal. Cynthia Schaefer has surgery scheduled on 10/20/2022 for Right Knee replacement at [facility]. States that will be doing PAT at [facility] (will assume getting ECG and labs as [...] degeneration, bilateral Dr. Clay Macular degeneration, wet ([facility]) getting injections (Dr. Crowe--Retinal Specialist from [place]) Macular degeneration, wet ([facility]) 01/11/2016 getting eye injections Periodic limb movement sleep disorder 01/11/2016 Rheumatoid arthritis of multiple sites with 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 factor ([facility]) 11/04/2019 TIA (transient ischemic attack) 04/21/13 PAST [...] by mouth once daily. calcium carbonate/vitamin D2 (BSOUENU-876-N ORAL) Take by mouth. 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 She will discuss with anesthesiologist prior [...] Connie Jain MD documented in this encounter [facility] 09-07-2022 Miscellaneous Notes rx sent Patient [...] Sadia Ulloa MA documented in this encounter [facility] 09-03-2022 History of Present illness Narrative [...] Angela Manley PT documented in this encounter [facility] 09-01-2022 History of Present illness Narrative [...] Angela Manley PT documented in this encounter [facility] 08-25-2022 History of Present illness Narrative [...] Total Treatment Time Minutes (timed/untimed): 40 Irma Schmdit PT documented in this encounter [facility] 08-05-2022 History of Present illness Narrative [...] 2022 9:06 AM documented in this encounter [facility] 07-31-2022 History of Present illness Narrative [...] degeneration, bilateral Dr. Clay Macular degeneration, wet ([facility]) getting injections (Dr. Crowe--Retinal Specialist from [place]) Macular degeneration, wet ([facility]) 01/11/2016 getting eye injections Periodic limb movement sleep disorder 01/11/2016 Rheumatoid arthritis of multiple sites with 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 factor ([facility]) 11/04/2019 TIA (transient ischemic attack) 04/21/13 PAST [...] by mouth once daily. calcium carbonate/vitamin D2 (CYPKPAH-599-B ORAL) Take by mouth. B cmplx 4/vit [...] evaluation by Rachelle for OA lite medial numberer and wirer brace Discussed surgical options with patient, but [...] Intervention/Comfort measure: Medication documented in this encounter [facility] 07-31-2022 History of Present illness Narrative [...] 2022 10:15 AM documented in this encounter [facility] 07-21-2022 Miscellaneous Notes Get Medical Advice on 07/21/22 XR KNEE GENERAL 4V AP BOTH/PA BOTH/LAT/MERC RIGHT CONSULT TO ORTHOPAEDICS Jaret Seymour APRN.JUSTINE documented in this encounter [facility] 07-02-2022 History of Present illness Narrative [...] of efficacy - In interim, seen by [facility] who started arava in May. Took x3 [...] degeneration, bilateral Dr. Clay Macular degeneration, wet ([facility]) getting injections (Dr. Crowe--Retinal Specialist from [place]) Macular degeneration, wet ([facility]) 01/11/2016 getting eye injections Periodic limb movement sleep disorder 01/11/2016 Rheumatoid arthritis of multiple sites with 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 factor ([facility]) 11/04/2019 TIA (transient ischemic attack) 04/21/13 PAST [...] by mouth once daily. calcium carbonate/vitamin D2 (GEFRNLZ-962-L ORAL) Take by mouth. fluticasone-salmeterol (ADVAIR DISKUS) [...] Thyroid Mother hypothyroid SOCIAL HISTORY: Lives in [place] with . 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 Notify of results via Cvgram.me. 3. Elevated LFTs: Possibly due to hepatic [...] which included preparing to see the patient, kmhc-[id number] patient care, completing clinical documentation, performing a medically appropriate examination and communicating results to the patient/family/caregiver. Thank you for allowing me to participate in the care of your patient. Jaret Seymour APRN.JUSTINE documented in this encounter [facility] 07-01-2022 Instructions Jaret Seymour APRN.CNP - 07/01/2022 6:53 AM EDT Please schedule bone density test on the same machine as prior documented in this encounter [facility] 06-22-2022 Miscellaneous Notes The following approved medication requests have been transmitted electronically. Requested Prescriptions Signed Prescriptions Disp Refills predniSONE (DELTASONE) 2.5 mg tablet 30 tablet 2 Sig: TAKE 1 TABLET BY MOUTH WITH FOOD DAILY FOR 30 DAYS Authorizing Provider: JARET SEYMOUR APRN.CNP Spoke with patient. Current Prednisone dose, 2.5 [...] Zahida Dawn MA documented in this encounter [facility] 04-24-2022 History of Present illness Narrative This note was created using Carepeuticsriter. Subjective Cynthia Schaefer is a 57 year [...] degeneration, bilateral Dr. Clay Macular degeneration, wet ([facility]) getting injections (Dr. Crowe--Retinal Specialist from [place]) Macular degeneration, wet ([facility]) 01/11/2016 getting eye injections Periodic limb movement sleep disorder 01/11/2016 Rheumatoid arthritis of multiple sites with 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 factor ([facility]) 11/04/2019 TIA (transient ischemic attack) 04/21/13 Current [...] by mouth once daily. calcium carbonate/vitamin D2 (BTSUSGK-613-L ORAL) Take by mouth. fluticasone-salmeterol (ADVAIR DISKUS) [...] diet of 1000 mg/day for under 50, 1269-5346 mg/day for 50+ - Discussed need and [...] Connie Jain MD documented in this encounter [facility] 03-25-2022 Miscellaneous Notes Patient has been [...] FOOD JENNIFER: No Authorizing Provider: JARET SEYMOUR APRN.JUSTINE Patient has [...] Sadia Ulloa MA documented in this encounter [facility] documented as of this encounter (statuses as of 02/25/2022) [facility] History of Past illness Narrative* Problem Noted Date Resolved Date Dysphagia 01/15/2016 01/15/2016 Dyspepsia 01/15/2016 01/15/2016 Colon cancer screening 01/15/2016 6 documented as of this encounter (statuses as of 03/25/2022) [facility] History of Past illness Narrative* Problem Noted Date Resolved Date Dysphagia 01/15/2016 01/15/2016 Dyspepsia 01/15/2016 01/15/2016 Colon cancer screening 01/15/2016 6 documented as of this encounter (statuses as of 05/11/2022) [facility] History of Past illness Narrative* Problem Noted Date Resolved Date Dysphagia 01/15/2016 01/15/2016 Dyspepsia 01/15/2016 01/15/2016 Colon cancer screening 01/15/2016 6 documented as of this encounter (statuses as of 05/21/2022) [facility] History of Past illness Narrative* Problem Noted Date Resolved Date Dysphagia 01/15/2016 01/15/2016 Dyspepsia 01/15/2016 01/15/2016 Colon cancer screening 01/15/2016 6 documented as of this encounter (statuses as of 06/15/2022) [facility] History of Past illness Narrative* Problem Noted Date Resolved Date Dysphagia 01/15/2016 01/15/2016 Dyspepsia 01/15/2016 01/15/2016 Colon cancer screening 01/15/2016 6 documented as of this encounter (statuses as of 06/22/2022) [facility] History of Past illness Narrative* Problem Noted Date Resolved Date Dysphagia 01/15/2016 01/15/2016 Dyspepsia 01/15/2016 01/15/2016 Colon cancer screening 01/15/2016 6 documented as of this encounter (statuses as of 07/02/2022) [facility] History of Past illness Narrative* Problem Noted Date Resolved Date Dysphagia 01/15/2016 01/15/2016 Dyspepsia 01/15/2016 01/15/2016 Colon cancer screening 01/15/2016 6 documented as of this encounter (statuses as of 07/21/2022) [facility] History of Past illness Narrative* Problem Noted Date Resolved Date Dysphagia 01/15/2016 01/15/2016 Dyspepsia 01/15/2016 01/15/2016 Colon cancer screening 01/15/2016 6 documented as of this encounter (statuses as of 07/31/2022) [facility] History of Past illness Narrative* Problem Noted Date Resolved Date Dysphagia 01/15/2016 01/15/2016 Dyspepsia 01/15/2016 01/15/2016 Colon cancer screening 01/15/2016 6 documented as of this encounter (statuses as of 08/01/2022) [facility] History of Past illness Narrative* Problem Noted Date Resolved Date Dysphagia 01/15/2016 01/15/2016 Dyspepsia 01/15/2016 01/15/2016 Colon cancer screening 01/15/2016 6 documented as of this encounter (statuses as of 08/06/2022) [facility] History of Past illness Narrative* Problem Noted Date Resolved Date Dysphagia 01/15/2016 01/15/2016 Dyspepsia 01/15/2016 01/15/2016 Colon cancer screening 01/15/2016 6 documented as of this encounter (statuses as of 08/25/2022) [facility] History of Past illness Narrative* Problem Noted Date Resolved Date Dysphagia 01/15/2016 01/15/2016 Dyspepsia 01/15/2016 01/15/2016 Colon cancer screening 01/15/2016 6 documented as of this encounter (statuses as of 09/01/2022) [facility] History of Past illness Narrative* Problem Noted Date Resolved Date Dysphagia 01/15/2016 01/15/2016 Dyspepsia 01/15/2016 01/15/2016 Colon cancer screening 01/15/2016 6 documented as of this encounter (statuses as of 09/03/2022) [facility] History of Past illness Narrative* Problem Noted Date Resolved Date Dysphagia 01/15/2016 01/15/2016 Dyspepsia 01/15/2016 01/15/2016 Colon cancer screening 01/15/2016 6 documented as of this encounter (statuses as of 09/07/2022) [facility] History of Past illness Narrative* Problem Noted Date Resolved Date Dysphagia 01/15/2016 01/15/2016 Dyspepsia 01/15/2016 01/15/2016 Colon cancer screening 01/15/2016 6 documented as of this encounter (statuses as of 10/02/2022) [facility] History of Past illness Narrative* Problem Noted Date Resolved Date Dysphagia 01/15/2016 01/15/2016 Dyspepsia 01/15/2016 01/15/2016 Colon cancer screening 01/15/2016 6 documented as of this encounter (statuses as of 11/16/2022) [facility] History of Past illness Narrative* Problem Noted Date Resolved Date Dysphagia 01/15/2016 01/15/2016 Dyspepsia 01/15/2016 01/15/2016 Colon cancer screening 01/15/2016 6 documented as of this encounter (statuses as of 11/30/2022) [facility] History of Past illness Narrative* Problem Noted Date Resolved Date Dysphagia 01/15/2016 01/15/2016 Dyspepsia 01/15/2016 01/15/2016 Colon cancer screening 01/15/2016 6 documented as of this encounter (statuses as of 12/23/2022) [facility] History of Past illness Narrative* Problem Noted Date Resolved Date Dysphagia 01/15/2016 01/15/2016 Dyspepsia 01/15/2016 01/15/2016 Colon cancer screening 01/15/2016 6 documented as of this encounter (statuses as of 03/03/2023) [facility]2016 History of Past illness Narrative* Problem Noted Date Resolved Date Dysphagia 01/15/2016 01/15/2016 Dyspepsia 01/15/2016 01/15/2016 Colon cancer screening 01/15/2016 6 documented as of this encounter (statuses as of 03/04/2023) [facility] History of Past illness Narrative* Problem Noted Date Resolved Date Dysphagia 01/15/2016 01/15/2016 Dyspepsia 01/15/2016 01/15/2016 Colon cancer screening 01/15/2016 6 documented as of this encounter (statuses as of 03/05/2023) [facility] History of Past illness Narrative* Problem Noted Date Resolved Date Dysphagia 01/15/2016 01/15/2016 Dyspepsia 01/15/2016 01/15/2016 Colon cancer screening 01/15/2016 6 documented as of this encounter (statuses as of 03/17/2023) [facility] History of Past illness Narrative* Problem Noted Date Resolved Date Dysphagia 01/15/2016 01/15/2016 Dyspepsia 01/15/2016 01/15/2016 Colon cancer screening 01/15/2016 6 documented as of this encounter (statuses as of 03/19/2023) [facility] History of Past illness Narrative* Problem Noted Date Resolved Date Dysphagia 01/15/2016 01/15/2016 Dyspepsia 01/15/2016 01/15/2016 Colon cancer screening 01/15/2016 6 documented as of this encounter (statuses as of 03/22/2023) [facility] History of Past illness Narrative* Problem Noted Date Resolved Date Dysphagia 01/15/2016 01/15/2016 Dyspepsia 01/15/2016 01/15/2016 Colon cancer screening 01/15/2016 6 documented as of this encounter (statuses as of 04/09/2023) [facility] History of Past illness Narrative* Problem Noted Date Diagnosed Date Resolved Date Dysphagia 01/15/2016 01/15/2016 Dyspepsia 01/15/2016 01/15/2016 Colon cancer screening 01/15/201601/14 documented as of this encounter (statuses as of 05/17/2023) [facility] History of Past illness Narrative* Problem Noted Date Diagnosed Date Resolved Date Dysphagia 01/15/2016 01/15/2016 Dyspepsia 01/15/2016 01/15/2016 Colon cancer screening 01/15/201601/14 documented as of this encounter (statuses as of 06/21/2023) [facility] History of Past illness Narrative* Problem Noted Date Diagnosed Date Resolved Date Dysphagia 01/15/2016 01/15/2016 Dyspepsia 01/15/2016 01/15/2016 Colon cancer screening 01/15/201601/14 documented as of this encounter (statuses as of 07/15/2023) [facility] History of Past illness Narrative* Problem Noted Date Diagnosed Date Resolved Date Dysphagia 01/15/2016 01/15/2016 Dyspepsia 01/15/2016 01/15/2016 Colon cancer screening 01/15/201601/14 documented as of this encounter (statuses as of 07/15/2023) [facility] History of Past illness Narrative* Problem Noted Date Diagnosed Date Resolved Date Dysphagia 01/15/2016 01/15/2016 Dyspepsia 01/15/2016 01/15/2016 Colon cancer screening 01/15/201601/14 documented as of this encounter (statuses as of 08/14/2023) [address]09-2016 History of Past illness Narrative* Problem Noted Date Diagnosed Date Resolved Date Dysphagia 01/15/2016 01/15/2016 Dyspepsia 01/15/2016 01/15/2016 Colon cancer screening 01/15/201601/14 documented as of this encounter (statuses as of 08/17/2023) [facility] History of Past illness Narrative* Problem Noted Date Diagnosed Date Resolved Date Dysphagia 01/15/2016 01/15/2016 Dyspepsia 01/15/2016 01/15/2016 Colon cancer screening 01/15/201601/14 documented as of this encounter (statuses as of 08/17/2023) [facility] History of Past illness Narrative* Problem Noted Date Diagnosed Date Resolved Date Dysphagia 01/15/2016 01/15/2016 Dyspepsia 01/15/2016 01/15/2016 Colon cancer screening 01/15/201601/14 documented as of this encounter (statuses as of 08/19/2023) [place] [address]-09-2016 History of Past illness Narrative* Problem Noted Date Diagnosed Date Resolved Date Dysphagia 01/15/2016 01/15/2016 Dyspepsia 01/15/2016 01/15/2016 Colon cancer screening 01/15/201601/14 documented as of this encounter (statuses as of 08/19/2023) [facility] History of Past illness Narrative* Problem Noted Date Diagnosed Date Resolved Date Dysphagia 01/15/2016 01/15/2016 Dyspepsia 01/15/2016 01/15/2016 Colon cancer screening 01/15/201601/14 documented as of this encounter (statuses as of 09/12/2023) [facility] History of Past illness Narrative* Problem Noted Date Diagnosed Date Resolved Date Dysphagia 01/15/2016 01/15/2016 Dyspepsia 01/15/2016 01/15/2016 Colon cancer screening 01/15/201601/14 documented as of this encounter (statuses as of 09/27/2023) [facility] History of Past illness Narrative* Problem Noted Date Diagnosed Date Resolved Date Dysphagia 01/15/2016 01/15/2016 Dyspepsia 01/15/2016 01/15/2016 Colon cancer screening 01/15/201601/14 documented as of this encounter (statuses as of 10/07/2023) [facility] History of Past illness Narrative* Problem Noted Date Diagnosed Date Resolved Date Dysphagia 01/15/2016 01/15/2016 Dyspepsia 01/15/2016 01/15/2016 Colon cancer screening 01/15/201601/14 documented as of this encounter (statuses as of 12/28/2023) [facility] History of Past illness Narrative* Problem Noted Date Diagnosed Date Resolved Date Dysphagia 01/15/2016 01/15/2016 Dyspepsia 01/15/2016 01/15/2016 Colon cancer screening 01/15/201601/14 documented as of this encounter (statuses as of 12/29/2023) [facility] History of Past illness Narrative* Problem Noted Date Diagnosed Date Resolved Date Dysphagia 01/15/2016 01/15/2016 Dyspepsia 01/15/2016 01/15/2016 Colon cancer screening 01/15/201601/14 documented as of this encounter (statuses as of 12/30/2023) [facility] History of Past illness Narrative* Problem Noted Date Diagnosed Date Resolved Date Dysphagia 01/15/2016 01/15/2016 Dyspepsia 01/15/2016 01/15/2016 Colon cancer screening 01/15/201601/14 documented as of this encounter (statuses as of 01/05/2024) [facility] History of Past illness Narrative* Problem Noted Date Diagnosed Date Resolved Date Dysphagia 01/15/2016 01/15/2016 Dyspepsia 01/15/2016 01/15/2016 Colon cancer screening 01/15/201601/14 documented as of this encounter (statuses as of 01/07/2024) [facility] History of Past illness Narrative* Problem Noted Date Diagnosed Date Resolved Date Dysphagia 01/15/2016 01/15/2016 Dyspepsia 01/15/2016 01/15/2016 Colon cancer screening 01/15/201601/14 documented as of this encounter (statuses as of 01/13/2024) [facility] + Plan note Future Appointments [facility] Evaluation note* Diagnosis Encounter for screening mammogram for breast cancer documented in this encounter [facility] note* Diagnosis Routine medical exam- Primary Routine [...] of multiple sites with 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 factor ([facility]) Vitamin D deficiency Unspecified vitamin D deficiency [facility]* Diagnosis Sero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 arthritis (HCC)- Primary Rheumatoid arthritis Encounter for long-term (current) use of medications Encounter for long-term (current) use of other medications Trochanteric bursitis of left hip Enthesopathy of hip region jail current use of systemic steroids Encounter for long-term (current) use of steroids [facility] Diagnosis Primary osteoarthritis of right knee- Primary Primary localized osteoarthrosis, lower leg [facility] Diagnosis Rheumatoid arthritis involving right knee with 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 factor (HCC)- Primary Other secondary osteoarthritis of right [facility] Primary osteoarthritis of right knee Primary localized osteoarthrosis, lower leg [facility] 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 Encounter for long-term (current) use of steroids [facility] Diagnosis Rheumatoid arthritis of multiple sites with 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 factor (HCC)- Primary [facility] Diagnosis Rheumatoid arthritis of multiple sites with 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 factor (HCC)- Primary [facility]* Diagnosis Rheumatoid arthritis of multiple sites with 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 factor (HCC)- Primary [facility] Diagnosis Preop examination- Primary Preoperative examination, unspecified [facility]* Diagnosis Sero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 arthritis (HCC)- Primary 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 Encounter for long-term (current) use of steroids Primary osteoarthritis of right knee Primary localized osteoarthrosis, lower leg Long-term use of immunosuppressant medication Encounter for long-term (current) use of other medications [facility]* Diagnosis Sero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 arthritis (HCC)- Primary Rheumatoid arthritis [facility] Diagnosis Essential hypertension, benign [facility]* Diagnosis Sero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 arthritis (HCC) Rheumatoid arthritis [facility]* Diagnosis Routine medical exam- Primary Routine general medical examination at a health care facility Abnormal x-ray Other nonspecific (abnormal) findings on radiological and other examinations of body structure Essential hypertension, benign Morbid obesity (HCC) Morbid obesity [facility]* Diagnosis Chronic pain of left ankle- Primary [facility] Diagnosis Essential hypertension, benign [facility] Diagnosis Chronic pain of left ankle [facility]* Diagnosis Sero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 arthritis (HCC)- [...] for long-term (current) use of other medications 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 Encounter for long-term (current) use of steroids [facility] Diagnosis Sero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 arthritis (HCC)- Primary Rheumatoid arthritis documented in this encounter [facility] course Narrative No data available for this section [facility] Hospital Discharge instructions No data available for this section [facility] Progress note No data available for this section [facility] Reason for referral (narrative)* Diagnostic Procedure Only (Routine) - Pending Review Specialty Diagnoses / Procedures Referred By Ariella akhtar Referred To Contact [facility] IM[facility] Diagnoses Encounter for screening mammogram for breast cancer Procedures TRACY SCREENING SCREENING MAMMOGRAPHY BI 2-VIEW BREAST INC CAD Connie Jain MD [address] [place] [address] [facility] [address] [place] [address] Referral ID Status Reason Start Date Expiration Date Visits Requested Visits Authorized [id number] Pending Review Auto-Generat ed Referral 05/06/2022 06/05/2023 1 1 [facility] for referral (narrative)* Diagnostic Procedure Only (Routine) - Pending Review Specialty Diagnoses / Procedures Referred By Ariella akhtar Referred To Contact XR IMAGING Diagnoses Primary osteoarthritis of right knee Procedures XR KNEE GENERAL 4V AP BOTH/PA BOTH/LAT/MERC RIGHT RADIOLOGIC EXAM KNEE COMPLETE 4/MORE VIEWS Jaret Seymour, STATION CHIEF.AUTOMOTIVE PARTS CLERK [address] [place] [address] [facility] Referral ID Status Reason Start Date Expiration Date Visits Requested Visits Authorized [id number] Pending Review Auto-Generat ed Referral 07/21/2022 08/20/2023 1 1 * Consult, Test, Treat (Routine) - Pending Review Specialty Diagnoses / Procedures Referred By Contac t Referred To Contact Orthopedics Diagnoses Primary osteoarthritis of right knee Procedures CONSULT TO ORTHOPAEDICS OFFICE/OUTPATIENT [facility] MDM 60-74 MINUTES Jaret Seymour APRN.AUTOMOTIVE PARTS CLERK [address] [place] [address] Referral ID Status Reason Start Date Expiration Date Visits Requested Visits Authorized [id number] Pending Review PCP Requested Referral 07/21/2022 07/21/2023 1 1 [facility] for referral (narrative)* Diagnostic Procedure Only (Routine) - Closed Specialty Diagnoses / Procedures Referred By Contac t Referred To Contact XR IMAGING Diagnoses Primary osteoarthritis of right knee Procedures XR KNEE GENERAL 4V AP BOTH/PA BOTH/LAT/MERC RIGHT RADIOLOGIC EXAM KNEE COMPLETE 4/MORE VIEWS Jaret Seymour APRN.AUTOMOTIVE PARTS CLERK [address] [place] [address] X[facility] Imaging Referral ID Status Reason Start Date Expiration Date V isits Requested Visits Authorized [id number] Closed Auto-Generate d Referral 07/21/2022 08/20/2023 1 1 [facility] for referral (narrative)* Diagnostic Procedure Only (Routine) - Closed Specialty Diagnoses / Procedures Referred By Contac t Referred To Contact XR IMAGING Diagnoses Abnormal x-ray Procedures XR MANDIBLE 4V PA/TESSA/BOTH OBL RADIOLOG EXAM MANDIBLE COMPL MINIMUM 4 VIEWS Connie Jain MD [address] [place] [address] X[facility] Imaging Referral ID Status Reason Start Date Expiration Date V isits Requested Visits Authorized [id number] Closed Auto-Generate d Referral 04/16/2023 05/15/2024 1 1 [facility] for referral (narrative)* Diagnostic Procedure Only (Routine) - Authorized Specialty Diagnoses / Procedures Referred By Contac t Referred To Contact XR IMAGING Diagnoses Chronic pain of left ankle Procedures XR ANKLE GENERAL 3V AP/LAT/OBL LEFT RADEX ANKLE COMPLETE MINIMUM 3 [place] [address] [place] [id number] [place] [address] Referral ID Status Reason Start Date Expiration Date Visits Requested Visits Authorized [id number] Authorized Auto-Generat ed Referral 07/14/2023 08/12/2024 1 1 [facility] for referral (narrative)* Diagnostic Procedure Only (Routine) - Closed Specialty Diagnoses / Procedures Referred By Contac t Referred To Contact XR IMAGING Diagnoses Chronic pain of left ankle Procedures XR ANKLE GENERAL 3V AP/LAT/OBL LEFT RADEX ANKLE COMPLETE MINIMUM 3 [place] [address] [place] [address] [place] [address] Referral ID Status Reason Start Date Expiration Date V isits Requested Visits Authorized [id number] Closed Auto-Generate d Referral 07/14/2023 08/12/2024 1 1 [facility] for visit Narrative* Diagnostic Procedure Only (Routine) - Closed Specialty Diagnoses / Procedures Referred By Contac t Referred To Contact XR IMAGING Diagnoses Primary osteoarthritis of right knee Procedures XR KNEE GENERAL 4V AP BOTH/PA BOTH/LAT/MERC RIGHT RADIOLOGIC EXAM KNEE COMPLETE 4/MORE VIEWS Jaret Seymour, STATION CHIEF.AUTOMOTIVE PARTS CLERK [address] [place] [id number] X[facility] Imaging Referral ID Status Reason Start Date Expiration Date V isits Requested Visits Authorized [id number] Closed Auto-Generate d Referral 07/21/2022 08/20/2023 1 1 [facility] for visit Narrative* Diagnostic Procedure Only (Routine) - Closed Specialty Diagnoses / Procedures Referred By Contac t Referred To Contact XR IMAGING Diagnoses Chronic pain of left ankle Procedures XR ANKLE GENERAL 3V AP/LAT/OBL LEFT RADEX ANKLE COMPLETE MINIMUM 3 [place] [address] [place] [address] [facility] [address] Referral ID Status Reason Start Date Expiration Date V isits Requested Visits Authorized [id number] Closed Auto-Generate d Referral 07/14/2023 08/12/2024 1 1 [facility] Discharge Instructions * Attachments The following attachments cannot be sent through Care Everywhere. 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 Advance Directive(s) 01/15/2016 1:23 PM Advance Directive(s) 01/10/2016 4:39 PM Documents on File Type Date Recorded 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] COMPLEX 45 MINS Brenden Okeefe V, DO [address] [place] [address] [facility] [address] [place] [address] Referral ID Status Reason Start Date Expiration Date V isits Requested Visits Authorized [id number] Authorized 11/08/2021 11/07/2022 20 20 Reason Comments Pre-Op Exam Right knee replaceme nt Dr. Oneal 10/20 Reason Onset Date Comments Refill Request 12/22/2022 Reason Onset Date Comments SPP Inflammatory Conditions - Treatment Referral 03/04/2023 [employer] Insurance Authorization 03/04/2023 Prior Au th Submission Pending Reason Onset Date Comments Refill Request 03/04/2023 Reason Comments Patient Question Reason Onset Date Comments Refill Request 03/18/2023 Reason Comments Medication Problem Reason Comments Yearly Exam Reason Onset Date Comments Refill Request 08/13/2023 Reason Onset Date Comments Refill Request 08/19/2023 Specialty Diagnoses / Procedures Referred By Ariella akhtar Referred To Contact Rheumatology / RHEUMATOLOGY Diagnoses 1 year follow up Procedures [facility] [place] [address] [place] [address] [place] [address] [place] [address] Referral ID Status Reason Start Date Expiration Date V isits Requested Visits Authorized [id number] Pending Review 06/07/2023 11/08/2024 4 4 Reason Comments [facility] verbal orders Reason Comments Request for verbal order- [facility] Reason Comments Patient Update Reason Comments Patient Update Broken hip Reason Onset Date Comments Refill Request 01/12/2024 INFORMATION SOURCE (unrecogn ized section and content) DATE CREATED AUTHOR AUTHOR'S ORGANIZ ATION 01/17/2021 [facility] DATE CREATED AUTHOR AUTHOR'S ORGANIZ ATION 10/28/2022 [facility] DATE CREATED AUTHOR AUTHOR'S ORGANIZ ATION 01/09/2024 [facility] Source Comments (unrecognize d section and content) In the event this informatio n is protected by the Federal Confidentiality of Alcohol and Drug Abuse Patient Records regulations: The Federal rules restrict any use of the information to criminally investigate or prosecute any alcohol or drug abuse patient.[facility] the event this information is protected by the Federal Confidentiality of Alcohol and Drug Abuse Patient Records regulations: The Federal rules restrict any use of the information to criminally investigate or prosecute any alcohol or drug abuse patient.[facility] the event this information is protected by the Federal Confidentiality of Alcohol and Drug Abuse Patient Records regulations: The Federal rules restrict any use of the information to criminally investigate or prosecute any alcohol or drug abuse patient.[facility] the event this information is protected by the Federal Confidentiality of Alcohol and Drug Abuse Patient Records regulations: The Federal rules restrict any use of the information to criminally investigate or prosecute any alcohol or drug abuse patient.[facility] the event this information is protected by the Federal Confidentiality of Alcohol and Drug Abuse Patient Records regulations: The Federal rules restrict any use of the information to criminally investigate or prosecute any alcohol or drug abuse patient.[facility] the event this information is protected by the Federal Confidentiality of Alcohol and Drug Abuse Patient Records regulations: The Federal rules restrict any use of the information to criminally investigate or prosecute any alcohol or drug abuse patient.[facility] the event this information is protected by the Federal Confidentiality of Alcohol and Drug Abuse Patient Records regulations: The Federal rules restrict any use of the information to criminally investigate or prosecute any alcohol or drug abuse patient.[facility] the event this information is protected by the Federal Confidentiality of Alcohol and Drug Abuse Patient Records regulations: The Federal rules restrict any use of the information to criminally investigate or prosecute any alcohol or drug abuse patient.[facility] the event this information is protected by the Federal Confidentiality of Alcohol and Drug Abuse Patient Records regulations: The Federal rules restrict any use of the information to criminally investigate or prosecute any alcohol or drug abuse patient.[facility] the event this information is protected by the Federal Confidentiality of Alcohol and Drug Abuse Patient Records regulations: The Federal rules restrict any use of the information to criminally investigate or prosecute any alcohol or drug abuse patient.[facility] the event this information is protected by the Federal Confidentiality of Alcohol and Drug Abuse Patient Records regulations: The Federal rules restrict any use of the information to criminally investigate or prosecute any alcohol or drug abuse patient.[facility] the event this information is protected by the Federal Confidentiality of Alcohol and Drug Abuse Patient Records regulations: The Federal rules restrict any use of the information to criminally investigate or prosecute any alcohol or drug abuse patient.[facility] the event this information is protected by the Federal Confidentiality of Alcohol and Drug Abuse Patient Records regulations: The Federal rules restrict any use of the information to criminally investigate or prosecute any alcohol or drug abuse patient.[facility] the event this information is protected by the Federal Confidentiality of Alcohol and Drug Abuse Patient Records regulations: The Federal rules restrict any use of the information to criminally investigate or prosecute any alcohol or drug abuse patient.[facility] the event this information is protected by the Federal Confidentiality of Alcohol and Drug Abuse Patient Records regulations: The Federal rules restrict any use of the information to criminally investigate or prosecute any alcohol or drug abuse patient.[facility] the event this information is protected by the Federal Confidentiality of Alcohol and Drug Abuse Patient Records regulations: The Federal rules restrict any use of the information to criminally investigate or prosecute any alcohol or drug abuse patient.[facility] HospitalIn the event this information is protected by the Federal Confidentiality of Alcohol and Drug Abuse Patient Records regulations: The Federal rules restrict any use of the information to criminally investigate or prosecute any alcohol or drug abuse patient.[facility] HospitalIn the event this information is protected by the Federal Confidentiality of Alcohol and Drug Abuse Patient Records regulations: The Federal rules restrict any use of the information to criminally investigate or prosecute any alcohol or drug abuse patient.[facility] HospitalIn the event this information is protected by the Federal Confidentiality of Alcohol and Drug Abuse Patient Records regulations: The Federal rules restrict any use of the information to criminally investigate or prosecute any alcohol or drug abuse patient.[facility] HospitalIn the event this information is protected by the Federal Confidentiality of Alcohol and Drug Abuse Patient Records regulations: The Federal rules restrict any use of the information to criminally investigate or prosecute any alcohol or drug abuse patient.[facility] HospitalIn the event this information is protected by the Federal Confidentiality of Alcohol and Drug Abuse Patient Records regulations: The Federal rules restrict any use of the information to criminally investigate or prosecute any alcohol or drug abuse patient.[facility] HospitalIn the event this information is protected by the Federal Confidentiality of Alcohol and Drug Abuse Patient Records regulations: The Federal rules restrict any use of the information to criminally investigate or prosecute any alcohol or drug abuse patient.[facility] HospitalIn the event this information is protected by the Federal Confidentiality of Alcohol and Drug Abuse Patient Records regulations: The Federal rules restrict any use of the information to criminally investigate or prosecute any alcohol or drug abuse patient.[facility] HospitalIn the event this information is protected by the Federal Confidentiality of Alcohol and Drug Abuse Patient Records regulations: The Federal rules restrict any use of the information to criminally investigate or prosecute any alcohol or drug abuse patient.[facility] HospitalIn the event this information is protected by the Federal Confidentiality of Alcohol and Drug Abuse Patient Records regulations: The Federal rules restrict any use of the information to criminally investigate or prosecute any alcohol or drug abuse patient.[facility] HospitalIn the event this information is protected by the Federal Confidentiality of Alcohol and Drug Abuse Patient Records regulations: The Federal rules restrict any use of the information to criminally investigate or prosecute any alcohol or drug abuse patient.[facility] HospitalIn the event this information is protected by the Federal Confidentiality of Alcohol and Drug Abuse Patient Records regulations: The Federal rules restrict any use of the information to criminally investigate or prosecute any alcohol or drug abuse patient.[facility] HospitalIn the event this information is protected by the Federal Confidentiality of Alcohol and Drug Abuse Patient Records regulations: The Federal rules restrict any use of the information to criminally investigate or prosecute any alcohol or drug abuse patient.[facility] HospitalIn the event this information is protected by the Federal Confidentiality of Alcohol and Drug Abuse Patient Records regulations: The Federal rules restrict any use of the information to criminally investigate or prosecute any alcohol or drug abuse patient.[facility] HospitalIn the event this information is protected by the Federal Confidentiality of Alcohol and Drug Abuse Patient Records regulations: The Federal rules restrict any use of the information to criminally investigate or prosecute any alcohol or drug abuse patient.[facility] HospitalIn the event this information is protected by the Federal Confidentiality of Alcohol and Drug Abuse Patient Records regulations: The Federal rules restrict any use of the information to criminally investigate or prosecute any alcohol or drug abuse patient.[facility] HospitalIn the event this information is protected by the Federal Confidentiality of Alcohol and Drug Abuse Patient Records regulations: The Federal rules restrict any use of the information to criminally investigate or prosecute any alcohol or drug abuse patient.[facility] HospitalIn the event this information is protected by the Federal Confidentiality of Alcohol and Drug Abuse Patient Records regulations: The Federal rules restrict any use of the information to criminally investigate or prosecute any alcohol or drug abuse patient.[facility] HospitalIn the event this information is protected by the Federal Confidentiality of Alcohol and Drug Abuse Patient Records regulations: The Federal rules restrict any use of the information to criminally investigate or prosecute any alcohol or drug abuse patient.[facility] HospitalIn the event this information is protected by the Federal Confidentiality of Alcohol and Drug Abuse Patient Records regulations: The Federal rules restrict any use of the information to criminally investigate or prosecute any alcohol or drug abuse patient.[facility] HospitalIn the event this information is protected by the Federal Confidentiality of Alcohol and Drug Abuse Patient Records regulations: The Federal rules restrict any use of the information to criminally investigate or prosecute any alcohol or drug abuse patient.[facility] HospitalIn the event this information is protected by the Federal Confidentiality of Alcohol and Drug Abuse Patient Records regulations: The Federal rules restrict any use of the information to criminally investigate or prosecute any alcohol or drug abuse patient.[facility] HospitalIn the event this information is protected by the Federal Confidentiality of Alcohol and Drug Abuse Patient Records regulations: The Federal rules restrict any use of the information to criminally investigate or prosecute any alcohol or drug abuse patient.[facility] HospitalIn the event this information is protected by the Federal Confidentiality of Alcohol and Drug Abuse Patient Records regulations: The Federal rules restrict any use of the information to criminally investigate or prosecute any alcohol or drug abuse patient.[facility] HospitalIn the event this information is protected by the Federal Confidentiality of Alcohol and Drug Abuse Patient Records regulations: The Federal rules restrict any use of the information to criminally investigate or prosecute any alcohol or drug abuse patient.[facility] HospitalIn the event this information is protected by the Federal Confidentiality of Alcohol and Drug Abuse Patient Records regulations: The Federal rules restrict any use of the information to criminally investigate or prosecute any alcohol or drug abuse patient.[facility] HospitalIn the event this information is protected by the Federal Confidentiality of Alcohol and Drug Abuse Patient Records regulations: The Federal rules restrict any use of the information to criminally investigate or prosecute any alcohol or drug abuse patient.[facility] HospitalIn the event this information is protected by the Federal Confidentiality of Alcohol and Drug Abuse Patient Records regulations: The Federal rules restrict any use of the information to criminally investigate or prosecute any alcohol or drug abuse patient.[facility] HospitalIn the event this information is protected by the Federal Confidentiality of Alcohol and Drug Abuse Patient Records regulations: The Federal rules restrict any use of the information to criminally investigate or prosecute any alcohol or drug abuse patient.[facility] HospitalIn the event this information is protected by the Federal Confidentiality of Alcohol and Drug Abuse Patient Records regulations: The Federal rules restrict any use of the information to criminally investigate or prosecute any alcohol or drug abuse patient.[facility] Care Teams (unrecognized sec tion and content) Gum Rolling Machine Tender Relationship Specialty Start Date End Date Connie Jain MD [address] [place] [address] PCP - General 08/29/02 Gum Rolling Machine Tender Relationship Specialty Start Date End Date Connie Jain MD [address] [place], [place] [address] PCP - General 08/29/02 Gum Rolling Machine Tender Relationship Specialty Start Date End Date Connie Jain MD [address] [place] [address] PCP - General 08/29/02 Gum Rolling Machine Tender Relationship Specialty Start Date End Date Connie Jain MD [address] [place] [address], [place] [address] PCP - General 08/29/02 Gum Rolling Machine Tender Relationship Specialty Start Date End Date Connie Jain MD [address] [place] [address], [place] [address] PCP - General 08/29/02 Gum Rolling Machine Tender Relationship Specialty Start Date End Date Connie Jain MD [address] [place] [address], [place] [address] PCP - General 08/29/02 Gum Rolling Machine Tender Relationship Specialty Start Date End Date Connie Jain MD [address] [place] [address], [place] [address] PCP - General 08/29/02 Gum Rolling Machine Tender Relationship Specialty Start Date End Date Connie Jain MD [address] [place] [address], [place] [address] PCP - General 08/29/02 Gum Rolling Machine Tender Relationship Specialty Start Date End Date Connie Jain MD [address] [place] [address], [place] [address] PCP - General 08/29/02 Gum Rolling Machine Tender Relationship Specialty Start Date End Date Connie Jain MD [address] [place] [address], [place] [address] PCP - General 08/29/02 Gum Rolling Machine Tender Relationship Specialty Start Date End Date Connie Jain MD [address] [place] [address], [place] [address] PCP - General 08/29/02 Gum Rolling Machine Tender Relationship Specialty Start Date End Date Connie Jain MD [address] [place] [address], [place] [address] PCP - General 08/29/02 Gum Rolling Machine Tender Relationship Specialty Start Date End Date Connie Jain MD [address] [place] [address] PCP - General 08/29/02 Gum Rolling Machine Tender Relationship Specialty Start Date End Date Connie Jain MD [address] [place] [address] PCP - General 08/29/02 Gum Rolling Machine Tender Relationship Specialty Start Date End Date Connie Jain MD [address] [place] [address] PCP - General 08/29/02 Gum Rolling Machine Tender Relationship Specialty Start Date End Date Connie Jain MD [address] [place] [address] PCP - General 08/29/02 Gum Rolling Machine Tender Relationship Specialty Start Date End Date Connie Jain MD [address] [place] [address] PCP - General 08/29/02 Gum Rolling Machine Tender Relationship Specialty Start Date End Date Connie Jain MD [address] [place] [address] PCP - General 08/29/02 Gum Rolling Machine Tender Relationship Specialty Start Date End Date Connie Jain MD [address] [place] [address] PCP - General 08/29/02 Gum Rolling Machine Tender Relationship Specialty Start Date End Date Connie Jain MD [address] [facility] [place] [address] PCP - General 08/29/02 Gum Rolling Machine Tender Relationship Specialty Start Date End Date Connie Jain MD [address] [place] [address] PCP - General 08/29/02 Gum Rolling Machine Tender Relationship Specialty Start Date End Date Connie Jain MD [address] [place] [address] PCP - General 08/29/02 Gum Rolling Machine Tender Relationship Specialty Start Date End Date Connie Jain MD [address] [place] [address] PCP - General 08/29/02 Gum Rolling Machine Tender Relationship Specialty Start Date End Date Connie Jain MD [address] [place] [address] PCP - General 08/29/02 Gum Rolling Machine Tender Relationship Specialty Start Date End Date Connie Jain MD [address] [place] [address] PCP - General 08/29/02 Gum Rolling Machine Tender Relationship Specialty Start Date End Date Connie Jain MD [address] [place] [address] PCP - General 08/29/02 Gum Rolling Machine Tender Relationship Specialty Start Date End Date Connie Jain MD [address] [place] [address] PCP - General 08/29/02 Care Team (unrecognized sect ion and content) Care Team Personnel Name: CONNIE JAIN MD Member Role: Primary Care Physician Address: Address: [address] [place] [address]- Care Team Related Persons Name: DEJAH SCHAEFER Address: Home [address] [place] [id number] Care Team Personnel Name: CONNIE JAIN MD Member Role: Primary Care Physician Address: Address: [address] [place] [address]- Care Team Related Persons Name: DEJAH SCHAEFER Address: Home [address] [place] [address] FOR RECORDS PERTAINING TO PATIENTS WHO ARE [...] BE BASED ON THE PRIMARY CLINICAL RECORDS. [employer] provides no warranty or guarantee of the accuracy or completeness of information in this document.
[2024-01-16] MEDS: APIXABAN 5 MG TABLET 10 MG PO (12:06)
[2024-01-16 12:08] VITALS: BP 117/74; PULSE 98; RESP 18; TEMP 36.6; O2SAT 96
== END 2024-01-16 12:14 | disposition home or self-care (01) ==
PROVIDERS: Emergency Provider Emergency Medicine; PCP Internal Medicine; Visit Provider Emergency Medicine
DX: I82.402 Acute embolism and thrombosis of unspecified deep veins of left lower extremity (principal); Z87.891 Personal history of nicotine dependence; Z86.73 Personal history of transient ischemic attack (TIA), and cerebral infarction without residual deficits
CPT/HCPCS: 93971; 99282

== ENCOUNTER 2024-12-26 07:57 | Outpatient (RCR) | payer OTHER, SELFPAY ==
--- NOTE | 2024-12-26 09:52 | HP.OTFCE_ITS ---
Task Lift Floor (Occasional 1-33% of Day): 15 Floor (Frequent 34-66% of Day): 7.5 Floor (Constant 67-100% of Day): 3.15 Floor PDL: Sedentary-Light Knee (Occasional 1-33% of Day): 20 Knee (Frequent 34-66% of Day): 10 Knee (Constant 67-100% of Day): 4.2 Knee PDL: Light Waist (Occasional 1-33% of Day): 20 Waist (Frequent 34-66% of Day): 10 Waist (Constant 67-100% of Day): 4.2 Waist PDL: Light Shoulder (Occasional 1-33% of Day): 20 Shoulder (Frequent 34-66% of Day): 10 Shoulder (Constant 67-100% of Day): 4.2 Shoulder PDL: Light Overhead (Occasional 1-33% of Day): 15 Overhead (Frequent 34-66% of Day): 7.5 Overhead (Constant 67-100% of Day): 3.15 Overhead PDL: Sedentary-Light Comments: pt scoring sedentary-light in floor as well as overhead lift and light in knee, waist, shoulder lifting Work Activity/Posture Bending: Occasional Ability (1-33% of day) Squatting: Occasional Ability (1-33% of day) Kneeling: No Ablility (0% of day) Reaching out: Frequent Ability (34-66% of day) Reaching up: Frequent Ability (34-66% of day) Sitting: Occasional Ability (1-33% of day) Walking: Occasional Ability (1-33% of day) Standing: Occasional Ability (1-33% of day) Reference Reference: Duration Sedentary Sedentary Light Light Light Medium Medium Medium Heavy Very Heavy Heavy Occasional (0-33% of day) Frequent (34-66% of day) Constant (67-100% of day) 10 # Negligible Negligible 15 # 8 # Negligible 20 # 10# Negli. 35 # 18 # 7 # 50 # 25 # 10 # 75 # 100 # >100 # 38 # 50 # >50 # 15 # 20 # >20 # Patient Information Height: 5 ft 6 in Weight:: 119.295 kg Hand Dominance: R Medical History Medical History Including Restrictions: Pt states she broke her L LE while working in the barn at home Dec 23 2023. Pt states R knee was replaced 2022 year prior to this (Oct 2022). Pt had home health OT coming to house for 6 weeks and was NWB after femur fx. pt with complete repair of L LE. uneven leg length was using wedge however unable to now due to blood clot causing limp when walking and impaired balance. Pt with significant PMH of back injury, RA, HTN. 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 Pt bathroom with walk in shower with grab bars no seat pt owns a shower chair, high rise commode sink next to commode pt is able to use for support. Pt is able to perform own self care tasks however compensates to complete such as using AE. pt drives. pt completes home management tasks with rest breaks -- will have assistance from as needed from heavy IADL tasks. pt takes care of dog, cow, 2 ponies and 2 goats per pt mostly cares for these animals. uses cane for longer distances otherwise no AD for mobility. Physical Examination Physical Examination: baseline HR 96 bpm and 02 96% ROM: BUE difficulty with making fist due to RA -- been getting more difficult past 10 years decreased ability to perform L hip flexion all other ROM WFL BLEs pain with pumping ankle of L side Strength: measure using Fet Peak force Upper Extremity: L shoulder flexion: 9.9# R shoulder flexion: 16.5# L bicep:10.6# R bicep: 13.9# L tricep: 13.6# R tricep: 14.8# L ER: 13.4# R ER: 13.1# Lower extremity: L hip flexion: 6.2# -- increases pain R hip flexion: 18.4# L quad: 15.8# R quad: 17.7# L hamstrin.9# R hamstrin.6# Right Sales And Training Specialist Strength Average: 23.33 Right Sales And Training Specialist Strength Percentile: less then 2 percentile Left Sales And Training Specialist Strength Average: 6.66 Left Sales And Training Specialist Strength Percentile: less then 3 percentile Right Lateral Pinch Average: 3.00 Right Lateral Pinch Percentile: <10th percentile Left Lateral Pinch Average: 4.33 Left Lateral Pinch Percentile: <10th percentile Right Tripod Pinch Average: 1.66 Right Tripod Pinch Percentile: <10th percentile Left Tripod Pinch Average: 2.33 Left Tripod Pinch Percentile: <10th percentile Comments: painful with pinching in wrist due to RA Sensation: semme ivonne monofilament: R hand D1,2 and 5 2.83 normal R hand D3 and 4 3.22 diminished light touch L hand all digits 2.82 normal Fine Motor: 9 hole peg assessment: L hand trial 1: 60 sec L hand trial 2: 24 sec L hand trial 3: 24 sec L hand average: 36 sec indicating pt in 0 percentile for age and gender R hand trial 1: 23 sec R hand trial 2: 20 sec R hand trial 3: 21 sec R hand average: 21.3 sec indicating pt in 50th percentile for age and gender Balance: standing forward reach score 7 indicating pt is moderate risk for falls Non Material Handling Activities Bending: Bending: Trial of 3: 3/3 10x own pace: 08/17 10x fast: 0/10 LLE pain 5/10 HR 99 bpm and 02 93% uses unilateral support of desk for support -- fear of falling bends at waist to reach and touch floor slow pace Squatting: squatting: trial of 3: 3 10x at own pace: 10 10x fast: 10/10 pt unable to come jail down for squat-- small movement bending at knee increased L knee pain with task LLE pain 7/10 uses BUE support of desk during task would not consider this to be a squat more of light bend at knee HR 103 bpm and 02 95% Kneeling: Kneeling: trial of 3: 0 10x at own pace: 0 10x fast 0 per pt unable to get up from ground not willing to perform this date Reaching out/up: Reaching out: trial of 3: 3 10x at own pace: 10 10x fast 10 reaching up: trial of 3: 3 10x at own pace: 10 10x fast: 10 no external support needing during task slight LOB posteriorly able to self correct HR 101 bpm and 02 94% Walking: uses cane for mobility pts LLE internally rotates during walking slow pace increased SOB limp when walking due to uneven leg length walks from OT desk to stairs and back ---289 feet total LLE pain 04/17 HR 123 bpm and 02 95% 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 versus 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 stores ect Standing: pt stand for total of 10 min incriments during FCE per pt she can stand for approx 15 min before needing to sit depending on the day and pain level Sitting: pt can sit for approx 45 min to 1 hour with needing to change position due to pain pt sits for intake of FCE 30 min occ weight shift on hips for adjustment of posture Climbing Stairs: pt is able to ascent and descend 10 steps using B rails for stability step to pattern and coming down turns side ways step to pattern L leg leading Dynamic Occasional Lifting Capacity Floor Lift: Floor lift: box (15#) unable to lift any more weight total of 15# HR 112 bpm and 02 94% hunched forward posture during task uses bix to push up from once complete due to instability LLE pain 04/17 Knee Lift: Knee Lift: box (15#)+ 5#= total of 20# HR 102 bpm and 02 97% bends at waist to perform limited bend at knee slow pace forward huntched posture during task Waist Lift: waist lift: box (15#) + 5#= total of 20# able to take one small step to L and back HR 103 bpm and 02 96% Shoulder Lift: shoulder lift box (15#)+ 5#= total of 20# lifts from core and arms drags box off of other versus lifting thoroughly to perform HR 115 bpm and 02 95% pain in LLE 05/17 Overhead Lift: overhead lift box (15#) unable to do additional weight total of 15# lifts from core and arms drags box on top surface before brining back down HR 103 bpm and 02 95% pain in LLE 05/17 Carrying: able to carry box (15#) unable to do additional weight total of 15# to filing cabinet and back approx 52 feet HR 120 bpm and 02 95% LLE pain 06/17
== END 2024-12-26 10:07 | disposition home or self-care (01) ==
LOC: PT 07:57
PROVIDERS: PCP Internal Medicine; Referring Provider Specialist; Visit Provider Specialist
DX: S72.142D Displaced intertrochanteric fracture of left femur, subsequent encounter for closed fracture with routine healing (principal); M21.752 Unequal limb length (acquired), left femur
CPT/HCPCS: 97750